=== PATIENT | male | born 1945 | race Caucasian/White ===

== ENCOUNTER → 2018-07-27 | Outpatient (CLI) | payer MEDICARE, BC ==
--- NOTE | 2018-07-27 12:54 | US ---
EXAMINATION TYPE: US prostate transrectal DATE OF EXAM: 07/27/2018 COMPARISON: NONE CLINICAL HISTORY: R97.2 elevated PSA. no symptoms, patient very upset to have procedure done This examination was performed using the transrectal probe. EXAM MEASUREMENTS: Gland Size: 5.0 x 5.5 x 3.5 Volume: 50.50 Predicted PSA: 6.0 Actual PSA (if available):6.2 CZ had normal calcifications seen with no obvious abnormality seen within heterogeneous PZ. patient very tense at the beginning of exam, once he relaxed I was able to visualize the seminal ve sicles and base IMPRESSION: Prostate glandular enlargement without suspicious lesion. Predicted PSA = volume x 0.12 ng/ml Calculated Volume = 0.5236 x L x W x H
== END | disposition home or self-care (01) ==
LOC: RADUSMAIN 07:58
PROVIDERS: ATTEND Internal Medicine
DX: N40.0 Benign prostatic hyperplasia without lower urinary tract symptoms (principal)
CPT/HCPCS: 76872

== ENCOUNTER 2019-03-17 19:08 | Inpatient (IN) | payer MEDICARE ==
[2019-03-17] MEDS ORDERED: SODIUM CHLORIDE 0.9% 1,000 ML IV STA (19:17)
[2019-03-17] MEDS ORDERED: FAMOTIDINE 20 MG/2 ML VIAL IV STA (19:18)
--- NOTE | 2019-03-17 19:21 | ED ---
GI Bleed HPI - General Stated complaint: Blood in Stool Time Seen by Provider: 03/17/19 19:08 Source: patient, EMS, RN notes reviewed Mode of arrival: EMS - History of Present Illness Initial comments: This is a 73-year-old male with a history of heart disease and 2 stents with no prior history of any abdominal pathology who started having some rectal bleeding 3 days ago he recurred again today had 3 bowel movements with bright red blood also mixed in with some brown stool. He has some vague lower abdominal pain especially on the right no fevers chills nausea vomiting sweats he was brought in by EMS. He denies any history of MD complaint: gross hematochezia - Related Data Previous Rx's Medication Instructions Recorded Aspirin EC [Ecotrin] 325 mg PO DAILY tablet. 04/28/16 Atenolol [Tenormin] 50 mg PO DAILY #90 tab 04/28/16 Atorvastatin [Lipitor] 80 mg PO HS #90 tab 04/28/16 Clopidogrel [Plavix] 75 mg PO DAILY #90 tab 04/28/16 Lisinopril [Zestril] 10 mg PO DAILY #90 tab 04/28/16 amLODIPine [Norvasc] 10 mg PO DAILY #90 tab 04/28/16 Allergies Allergy/AdvReac Type Severity Reaction Status Date / Time No Known Allergies Allergy Verified 03/17/19 20:00 Review of Systems ROS Statement: Those systems with pertinent positive or pertinent negative responses have been documented in the HPI. ROS Other: All systems not noted in ROS Statement are negative. Past Medical History Past Medical History: Hyperlipidemia, Hypertension, Myocardial Infarction ([place]) Last Myocardial Infarction Date:: pt unsure History of Any Multi-Drug Resistant Organisms: None Reported Past Surgical History: Heart Catheterization With Stent Past Anesthesia/Blood Transfusion Reactions: No Reported Reaction Date of Last Stent Placement:: 2008 Past Psychological History: No Psychological Hx Reported Smoking Status: Former smoker Past Alcohol Use History: Occasional Additional Past Alcohol Use History / Comment(s): a beer a week, crown royal on occasion Past Drug Use History: None Reported - Past Family History Father Family Medical History: Myocardial Infarction ([place]) Additional Family Medical History / Comment(s): from a [place] Mother Family Medical History: Myocardial Infarction ([place]) Additional Family Medical History / Comment(s): from a [place] General Exam - General Exam Comments Initial Comments: This is a well-developed well-nourished awake alert oriented times 3 male he does appear to be pale General appearance: alert, anxious Head exam: Present: atraumatic, normocephalic, normal inspection Eye exam: Present: normal appearance, PERRL, EOMI. Absent: scleral icterus, conjunctival injection, periorbital swelling ENT exam: Present: normal exam, mucous membranes moist Neck exam: Present: normal inspection, full ROM, other (Stridor JVD or bruits). Absent: tenderness, meningismus, lymphadenopathy Respiratory exam: Present: normal lung sounds bilaterally. Absent: respiratory distress, wheezes, rales, rhonchi, stridor Cardiovascular Exam: Present: regular rate, normal rhythm, normal heart sounds. Absent: systolic murmur, diastolic murmur, rubs, gallop, clicks GI/Abdominal exam: Present: soft, tenderness (Mild tenderness palpation over the right flank and midabdomen no guarding rebound masses or bruits), normal bowel sounds. Absent: distended, guarding, rebound, rigid Rectal exam: Present: normal inspection, heme (+) stool, other (Black member the stool noted on rectal exam no masses palpable) Extremities exam: Present: normal inspection, full ROM, normal capillary refill. Absent: tenderness, pedal edema, joint swelling, calf tenderness Back exam: Present: normal inspection Neurological exam: Present: alert, oriented X3, CN II-XII intact Psychiatric exam: Present: normal affect, normal mood Skin exam: Present: warm, dry, intact, normal color. Absent: rash Course Vital Signs 03/17/19 03/17/19 03/17/19 19:11 19:56 20:09 Temperature 98.1 F Pulse Rate 91 84 86 Respiratory 18 Rate Blood Pressure 125/63 O2 Sat by Pulse 95 Oximetry - Reevaluation(s) Reevaluation #1: 03/17/19 21:22 The patient did get improvement in his breathing after the nebulizer treatment. Procedures - Smoking Cessation Time Spent Discussing Smoking Cessation w/Patient (Minutes): 3 Patient Acknowledges Need for Cessation: Yes Medical Decision Making - Medical Decision Making I did discuss findings with patient's family the patient is feeling improved after the nebulizer treatment he does demonstrate evidence of GI bleeding with anemia. He also has evidence of bronchospasm likely on the basis of smoking for many years. Patient will be admitted I did discuss case with Dr. Fairbanks. GI will be consulted. Patient be started on IV fluids with every 6 hours H&H is. He'll also be started on some pump inhibitor. Nebulizer she will continue patient will be ordered nicotine patch. - Lab Data Result diagrams: 03/17/19 19:28 03/17/19 19:28 Lab Results 03/17/19 03/17/19 03/17/19 Range/Units 19:28 19:28 19:28 WBC 10.8 H (3.8-10.6) k/uL RBC 3.19 L (4.30-5.90) m/uL Hgb 9.7 L (13.0-17.5) gm/dL Hct 30.1 L (39.0-53.0) % MCV 94.4 (80.0-100.0) fL MCH 30.6 (25.0-35.0) pg MCHC 32.4 (31.0-37.0) g/dL RDW 13.4 (11.5-15.5) % Plt Count 344 (150-450) k/uL Neutrophils % 81 % Lymphocytes % 13 % Monocytes % 3 % Eosinophils % 2 % Basophils % 0 % Neutrophils # 8.8 H (1.3-7.7) k/uL Lymphocytes # 1.4 (1.0-4.8) k/uL Monocytes # 0.3 (0-1.0) k/uL Eosinophils # 0.2 (0-0.7) k/uL Basophils # 0.0 (0-0.2) k/uL PT 10.4 (9.0-12.0) sec INR 1.0 (<1.2) APTT 20.1 L (22.0-30.0) sec Sodium 141 (137-145) mmol/L Potassium 5.0 (3.5-5.1) mmol/L Chloride 109 H (98-107) mmol/L Carbon Dioxide 21 L (22-30) mmol/L Anion Gap 11 mmol/L BUN 65 H (9-20) mg/dL Creatinine 1.43 H (0.66-1.25) mg/dL Est GFR (CKD-EPI)AfAm 57 (>60 ml/min/1.73 sqM) Est GFR (CKD-EPI)NonAf 49 (>60 ml/min/1.73 sqM) Glucose 157 H (74-99) mg/dL Calcium 8.8 (8.4-10.2) mg/dL Magnesium 1.8 (1.6-2.3) mg/dL Total Bilirubin 0.2 (0.2-1.3) mg/dL AST 15 L (17-59) U/L ALT 15 L (21-72) U/L Alkaline Phosphatase 36 L (38-126) U/L Creatine Kinase 32 L (55-170) U/L Troponin I (0.000-0.034) ng/mL Total Protein 5.7 L (6.3-8.2) g/dL Albumin 3.4 L (3.5-5.0) g/dL Stool Occult Blood (Negative) Blood Type Blood Type Recheck Antibody Screen Spec Expiration Date 03/17/19 03/17/19 03/17/19 Range/Units 19:28 19:28 20:20 WBC (3.8-10.6) k/uL RBC (4.30-5.90) m/uL Hgb (13.0-17.5) gm/dL Hct (39.0-53.0) % MCV (80.0-100.0) fL MCH (25.0-35.0) pg MCHC (31.0-37.0) g/dL RDW (11.5-15.5) % Plt Count (150-450) k/uL Neutrophils % % Lymphocytes % % Monocytes % % Eosinophils % % Basophils % % Neutrophils # (1.3-7.7) k/uL Lymphocytes # (1.0-4.8) k/uL Monocytes # (0-1.0) k/uL Eosinophils # (0-0.7) k/uL Basophils # (0-0.2) k/uL PT (9.0-12.0) sec INR (<1.2) APTT (22.0-30.0) sec Sodium (137-145) mmol/L Potassium (3.5-5.1) mmol/L Chloride (98-107) mmol/L Carbon Dioxide (22-30) mmol/L Anion Gap mmol/L BUN (9-20) mg/dL Creatinine (0.66-1.25) mg/dL Est GFR (CKD-EPI)AfAm (>60 ml/min/1.73 sqM) Est GFR (CKD-EPI)NonAf (>60 ml/min/1.73 sqM) Glucose (74-99) mg/dL Calcium (8.4-10.2) mg/dL Magnesium (1.6-2.3) mg/dL Total Bilirubin (0.2-1.3) mg/dL AST (17-59) U/L ALT (21-72) U/L Alkaline Phosphatase (38-126) U/L Creatine Kinase (55-170) U/L Troponin I <0.012 (0.000-0.034) ng/mL Total Protein (6.3-8.2) g/dL Albumin (3.5-5.0) g/dL Stool Occult Blood Positive (Negative) Blood Type AB Positive Blood Type Recheck CABO Indicated Antibody Screen NEGATIVE Spec Expiration Date 03/20/2019 9092 - EKG Data -: EKG Interpreted by Me (Sinus rhythm rate 91 appear interval 146 QRS duration 84 QT/QTC 338/414 ) - Radiology Data Radiology results: report reviewed (Imaging was unremarkable.), image reviewed Disposition Clinical Impression: Acute GI bleeding, Anemia, Acute bronchospasm, Smoking Disposition: ADMITTED IP TO THIS [facility] Condition: Fair Referrals: Hunter Perdue MD [Primary Care Provider] - 1-2 days
[2019-03-17 19:38] LABS: Basophils % (A) 0 %; Eosinophils # (A) 0.2 k/uL (0-0.7); Eosinophils % (A) 2 %; HCT 30.1 % (39.0-53.0); HGB 9.7 gm/dL (13.0-17.5); Lymphocytes # (A) 1.4 k/uL (1.0-4.8); Lymphocytes % (A) 13 %; MCH 30.6 pg (25.0-35.0); MCHC 32.4 g/dL (31.0-37.0); MCV 94.4 fL (80.0-100.0); Mean Platelet Volume 7.3; Monocytes # (A) 0.3 k/uL (0-1.0); Monocytes % (A) 3 %; Neutrophils # (A) 8.8 k/uL (1.3-7.7); Neutrophils % (A) 81 %; Platelet Count 344 k/uL (150-450); RBC 3.19 m/uL (4.30-5.90); RDW 13.4 % (11.5-15.5); WBC 10.8 k/uL (3.8-10.6)
[2019-03-17] MEDS ORDERED: IPRATROPIUM-ALBUTEROL 3 ML NEB INHALATION STA (19:40)
[2019-03-17 19:50] LABS: Albumin 3.4 g/dL (3.5-5.0); Calcium 8.8 mg/dL (8.4-10.2); Magnesium 1.8 mg/dL (1.6-2.3); Total Bilirubin 0.2 mg/dL (0.2-1.3); Total Protein 5.7 g/dL (6.3-8.2)
[2019-03-17 19:53] LABS: Prothrombin Time 10.4 sec (9.0-12.0)
[2019-03-17 19:57] LABS: Partial Thromboplastin Time 20.1 sec (22.0-30.0)
--- NOTE | 2019-03-17 20:11 | XR ---
EXAMINATION TYPE: XR chest 2V DATE OF EXAM: 03/17/2019 COMPARISON: 04/27/2016 HISTORY: Short of breath TECHNIQUE: Frontal and lateral views of the chest are obtained. FINDINGS: Heart is normal. Lungs are clear of infiltrate. Costophrenic angles are clear. There are c hest leads. Thoracic aorta is atheromatous. IMPRESSION: No active cardiopulmonary disease. Normal heart. No change.
[2019-03-17] MEDS ORDERED: NALOXONE 0.4 MG/ML 1 ML VIAL IV PRN (21:27)
[2019-03-17] MEDS ORDERED: NICOTINE 21MG/24HR PATCH TRANSDERM STA (22:08)
[2019-03-17] MEDS: SODIUM CHLORIDE 0.9% 1,000 ML IV SCH (22:09)
[2019-03-18] MEDS: ATENOLOL 50 MG TAB PO SCH (07:52)
[2019-03-18] MEDS: PANTOPRAZOLE 40 MG/10 ML VIAL IV SCH ×2 (07:52→20:16)
[2019-03-18] MEDS: SODIUM CHLORIDE 0.9% 1,000 ML IV SCH ×2 (08:50→17:02)
[2019-03-18] MEDS ORDERED: LISINOPRIL 10 MG TAB PO SCH (09:00)
[2019-03-18] MEDS ORDERED: amLODIPine 10 MG TAB PO SCH (09:00)
[2019-03-18 09:13] LABS: HCT 23.4 % (39.0-53.0); MCH 30.5 pg (25.0-35.0); MCHC 31.9 g/dL (31.0-37.0); MCV 95.6 fL (80.0-100.0); Mean Platelet Volume 7.6; Platelet Count 263 k/uL (150-450); RBC 2.45 m/uL (4.30-5.90); RDW 13.4 % (11.5-15.5); WBC 8.2 k/uL (3.8-10.6)
[2019-03-18 09:14] LABS: HGB 7.5 gm/dL (13.0-17.5)
[2019-03-18 15:05] LABS: HCT 22.6 % (39.0-53.0); HGB 7.6 gm/dL (13.0-17.5); MCH 31.8 pg (25.0-35.0); MCHC 33.5 g/dL (31.0-37.0); MCV 94.9 fL (80.0-100.0); Mean Platelet Volume 7.7; Platelet Count 248 k/uL (150-450); RBC 2.38 m/uL (4.30-5.90); RDW 14.1 % (11.5-15.5)
--- NOTE | 2019-03-18 15:09 | P.HPIM ---
History of Present Illness 73-year-old pleasant gentleman came in with compensative bright red blood per rectum as well as dark stools appears to have GI bleed patient hemoglobin has come down from 13-9-10 is his baseline patient had 1 soft bowel movement today. Patient was started on Protonix. She does take aspirin at home. Patient is bit lightheaded today patient is on lisinopril and amlodipine the workup continued and patient blood pressure is low because of which patient was lightheaded. Patient was evaluated by gastroneurology patient was having epigastric abdominal discomfort as well which improved now patient is feeling much better now. Review of Systems REVIEW OF SYSTEMS: CONSTITUTIONAL: No fever, no malaise, no fatigue. HEENT: No recent visual problems or hearing problems. Denied any sore throat. CARDIOVASCULAR: No chest pain, orthopnea, PND, no palpitations, no syncope. PULMONARY: No shortness of breath, no cough, no hemoptysis. GASTROINTESTINAL: As mentioned in HPI NEUROLOGICAL: No headaches, no weakness, no numbness. HEMATOLOGICAL: Denies any bleeding or petechiae. GENITOURINARY: Denies any burning micturition, frequency, or urgency. MUSCULOSKELETAL/RHEUMATOLOGICAL: Denies any joint pain, swelling, or any muscle pain. ENDOCRINE: Denies any polyuria or polydipsia. The rest of the 14-point review of systems is negative. Past Medical History Past Medical History: Hyperlipidemia, Hypertension, Myocardial Infarction ([place]) Last Myocardial Infarction Date:: pt unsure History of Any Multi-Drug Resistant Organisms: None Reported Past Surgical History: Heart Catheterization With Stent Additional Past Surgical History / Comment(s): tooth sx Past Anesthesia/Blood Transfusion Reactions: No Reported Reaction Date of Last Stent Placement:: 2008 Past Psychological History: No Psychological Hx Reported Smoking Status: Former smoker Past Alcohol Use History: Occasional Additional Past Alcohol Use History / Comment(s): a beer a week, crown royal on occasion Past Drug Use History: None Reported - Past Family History Father Family Medical History: Myocardial Infarction ([place]) Additional Family Medical History / Comment(s): from a [place] Mother Family Medical History: Myocardial Infarction ([place]) Additional Family Medical History / Comment(s): from a [place] Medications and Allergies Home Medications Medication Instructions Recorded Confirmed Type Aspirin EC [Ecotrin] 325 mg PO DAILY tablet. 04/28/16 03/17/19 Rx Atenolol [Tenormin] 50 mg PO DAILY #90 tab 04/28/16 03/17/19 Rx Atorvastatin [Lipitor] 80 mg PO HS #90 tab 04/28/16 03/17/19 Rx Clopidogrel [Plavix] 75 mg PO DAILY #90 tab 04/28/16 03/17/19 Rx Lisinopril [Zestril] 10 mg PO DAILY #90 tab 04/28/16 03/17/19 Rx amLODIPine [Norvasc] 10 mg PO DAILY #90 tab 04/28/16 03/17/19 Rx Allergies Allergy/AdvReac Type Severity Reaction Status Date / Time No Known Allergies Allergy Verified 03/17/19 20:00 Physical Exam Vitals: Vital Signs Temp Pulse Pulse Resp BP BP Pulse Ox 03/18/19 12:37 98.8 F 61 16 95/55 93 L 03/18/19 05:17 98.1 F 77 20 148/65 95 03/17/19 22:45 97.8 F 91 20 149/79 93 L 03/17/19 21:50 98.3 F 62 18 129/67 97 03/17/19 20:09 86 03/17/19 19:56 84 03/17/19 19:11 98.1 F 91 18 125/63 95 Intake and Output 03/18/19 03/18/19 03/18/19 06:59 14:59 22:59 Intake Total 100 940 Balance 100 940 Intake: Oral 100 940 Other: # Voids 1 3 # Bowel Movements 1 PHYSICAL EXAMINATION: GENERAL: The patient is alert and oriented x3, not in any acute distress. Well developed, well nourished. HEENT: Pupils are round and equally reacting to light. EOMI. No scleral icterus. No conjunctival pallor. Normocephalic, atraumatic. No pharyngeal erythema. No thyromegaly. CARDIOVASCULAR: S1 and S2 present. No murmurs, rubs, or gallops. PULMONARY: Chest is clear to auscultation, no wheezing or crackles. ABDOMEN: Soft, nontender, nondistended, normoactive bowel sounds. No palpable organomegaly. MUSCULOSKELETAL: No joint swelling or deformity. EXTREMITIES: No cyanosis, clubbing, or pedal edema. NEUROLOGICAL: Gross neurological examination did not reveal any focal deficits. SKIN: No rashes. Results CBC & Chem 7: 03/18/19 14:54 03/17/19 19:28 Labs: Abnormal Lab Results - Last 24 Hours (Table) 03/17/19 03/17/19 03/17/19 Range/Units 19:28 19:28 19:28 WBC 10.8 H (3.8-10.6) k/uL RBC 3.19 L (4.30-5.90) m/uL Hgb 9.7 L (13.0-17.5) gm/dL Hct 30.1 L (39.0-53.0) % Neutrophils # 8.8 H (1.3-7.7) k/uL APTT 20.1 L (22.0-30.0) sec Chloride 109 H (98-107) mmol/L Carbon Dioxide 21 L (22-30) mmol/L BUN 65 H (9-20) mg/dL Creatinine 1.43 H (0.66-1.25) mg/dL Glucose 157 H (74-99) mg/dL AST 15 L (17-59) U/L ALT 15 L (21-72) U/L Alkaline Phosphatase 36 L (38-126) U/L Creatine Kinase 32 L (55-170) U/L Total Protein 5.7 L (6.3-8.2) g/dL Albumin 3.4 L (3.5-5.0) g/dL 03/18/19 03/18/19 Range/Units 07:31 14:54 WBC (3.8-10.6) k/uL RBC 2.45 L 2.38 L (4.30-5.90) m/uL Hgb 7.5 L D 7.6 L (13.0-17.5) gm/dL Hct 23.4 L 22.6 L (39.0-53.0) % Neutrophils # (1.3-7.7) k/uL APTT (22.0-30.0) sec Chloride (98-107) mmol/L Carbon Dioxide (22-30) mmol/L BUN (9-20) mg/dL Creatinine (0.66-1.25) mg/dL Glucose (74-99) mg/dL AST (17-59) U/L ALT (21-72) U/L Alkaline Phosphatase (38-126) U/L Creatine Kinase (55-170) U/L Total Protein (6.3-8.2) g/dL Albumin (3.5-5.0) g/dL Thrombosis Risk Factor Assmnt - Choose All That Apply Each Factor Represents 1 point: Swollen legs (current) Other Risk Factors: Yes Each Risk Factor Represents 2 Points: Age 61-74 years Other congenital or acquired thrombophilia - If yes, enter type in comment: No Thrombosis Risk Factor Assessment Total Risk Factor Score: 3 Thrombosis Risk Factor Assessment Level: Moderate Risk Assessment and Plan Plan: Acute blood loss anemia from possible acute upper GI bleed: Patient the will be continued on Protonix. Hold off on antiplatelet therapy patient had a cardiac catheterization and stenting in 2008. Monitor for any more dark stools clinically. Repeat CBC tomorrow morning. Any with IV fluids. -acute renal failure secondary to acute GI bleed expected to improve with IV fluids. GI bleed is improving Coronary artery disease patient will not require any dual antiplatelet therapy patient may need to undergo upper GI endoscopy -Hypertension patient is basically hypotensive because of GI bleed will hold off on blood pressure medications as mentioned above -Hyperlipidemia Due to prophylaxis SCDs
--- NOTE | 2019-03-18 18:03 | P.CONS ---
History of Present Illness - Reason for Consult Consult date: 03/18/19 GI bleed Requesting physician: Juan Carlos Fairbanks - Chief Complaint Rectal bleeding - History of Present Illness 73-year-old male with a past medical history significant for coronary artery disease status post stent placement in the remote past who presents to the hospital with reports of blood per rectum. The patient reports that 3 days ago he noticed blood with bowel movements. He associates this was taking Advil and Tylenol. He reports that the bowel movements then became normal again were bloody on the day prior to presentation. He states he had 3 episodes of painless bright red blood per rectum. He reports blood in the toilet. He denies any prior episodes of blood per rectum. He did have some lower abdominal cramping but currently reports that this is resolved. He does report dark bowel movement today. The patient is on home therapy with Plavix and aspirin. He denies any family history of colon cancer or polyps. He reports that his last colonoscopy was approximately 5 years ago and normal. On presentation he had a chest x-ray which was negative for any cardiopulmonary disease. Stool testing was positive for occult blood. Hemoglobin was 9.7 on presentation and subsequently fell to 7.5. WBC 8.2, platelet count 263,000, total bilirubin 0.2, alkaline phosphatase 36, AST 15 and ALT 15. Review of Systems REVIEW OF SYSTEMS: CONSTITUTIONAL: Denies any fevers, chills, weight change or fatigue. CARDIOVASCULAR: Denies any chest pain, palpitations high or low blood pressures RESPIRATORY: Denies any shortness of breath, hemoptysis or cough. GENITOURINARY: No dysuria or hematuria. MUSCULOSKELETAL: No weakness reported. SKIN: Denies any new rashes or lesions, jaundice or pallor. PSYCHIATRIC: Denies any depression or anxiety. NEUROLOGY: Denies headache, denies any new focal deficits. EARS/NOSE/THROAT: No recent hearing change, congestion, nasal discharge or sore throat. EYES: No pain in eyes, discharge or change in vision. GASTROINTESTINAL: As per HPI. Past Medical History Past Medical History: Hyperlipidemia, Hypertension, Myocardial Infarction ([place]) Last Myocardial Infarction Date:: pt unsure History of Any Multi-Drug Resistant Organisms: None Reported Past Surgical History: Heart Catheterization With Stent Additional Past Surgical History / Comment(s): tooth sx Past Anesthesia/Blood Transfusion Reactions: No Reported Reaction Date of Last Stent Placement:: 2008 Past Psychological History: No Psychological Hx Reported Smoking Status: Former smoker Past Alcohol Use History: Occasional Additional Past Alcohol Use History / Comment(s): a beer a week, crown royal on occasion Past Drug Use History: None Reported - Past Family History Father Family Medical History: Myocardial Infarction ([place]) Additional Family Medical History / Comment(s): from a [place] Mother Family Medical History: [place]ocardial Infarction ([place]) Additional Family Medical History / Comment(s): from a [place] Medications and Allergies Home Medications Medication Instructions Recorded Confirmed Type Aspirin EC [Ecotrin] 325 mg PO DAILY tablet. 04/28/16 03/17/19 Rx Atenolol [Tenormin] 50 mg PO DAILY #90 tab 04/28/16 03/17/19 Rx Atorvastatin [Lipitor] 80 mg PO HS #90 tab 04/28/16 03/17/19 Rx Clopidogrel [Plavix] 75 mg PO DAILY #90 tab 04/28/16 03/17/19 Rx Lisinopril [Zestril] 10 mg PO DAILY #90 tab 04/28/16 03/17/19 Rx amLODIPine [Norvasc] 10 mg PO DAILY #90 tab 04/28/16 03/17/19 Rx Allergies Allergy/AdvReac Type Severity Reaction Status Date / Time No Known Allergies Allergy Verified 03/17/19 20:00 Physical Exam Vitals: Vital Signs Temp Pulse Pulse Resp BP BP Pulse Ox 03/18/19 05:17 98.1 F 77 20 148/65 95 03/17/19 22:45 97.8 F 91 20 149/79 93 L 03/17/19 21:50 98.3 F 62 18 129/67 97 03/17/19 20:09 86 03/17/19 19:56 84 03/17/19 19:11 98.1 F 91 18 125/63 95 Intake and Output 03/17/19 03/18/19 03/18/19 22:59 06:59 14:59 Intake Total 100 200 Balance 100 200 Intake: Oral 100 200 Other: # Voids 1 # Bowel Movements 1 Weight 74.843 kg On physical examination, patient appears comfortable in no apparent distress. HEAD: Normocephalic, atraumatic. EYES: No scleral icterus. No conjunctival injection. MOUTH: No lesions, tongue midline. NECK: Trachea midline, no gross abnormalities. CHEST: Clear to auscultation with no wheezing or rhonchi appreciated. HEART: Regular rate and rhythm. ABDOMEN: Soft, obese. Bowel sounds are positive. No organomegaly. No guarding or rigidity. EXTREMITIES: No pedal edema. SKIN: No rashes, no jaundice. NEUROLOGIC: Alert and oriented x3. No focal deficits. Results CBC & Chem 7: 03/18/19 14:54 03/17/19 19:28 Labs: Abnormal Lab Results - Last 24 Hours (Table) 03/17/19 03/17/19 03/17/19 Range/Units 19:28 19:28 19:28 WBC 10.8 H (3.8-10.6) k/uL RBC 3.19 L (4.30-5.90) m/uL Hgb 9.7 L (13.0-17.5) gm/dL Hct 30.1 L (39.0-53.0) % Neutrophils # 8.8 H (1.3-7.7) k/uL APTT 20.1 L (22.0-30.0) sec Chloride 109 H (98-107) mmol/L Carbon Dioxide 21 L (22-30) mmol/L BUN 65 H (9-20) mg/dL Creatinine 1.43 H (0.66-1.25) mg/dL Glucose 157 H (74-99) mg/dL AST 15 L (17-59) U/L ALT 15 L (21-72) U/L Alkaline Phosphatase 36 L (38-126) U/L Creatine Kinase 32 L (55-170) U/L Total Protein 5.7 L (6.3-8.2) g/dL Albumin 3.4 L (3.5-5.0) g/dL 03/18/19 Range/Units 07:31 WBC (3.8-10.6) k/uL RBC 2.45 L (4.30-5.90) m/uL Hgb 7.5 L D (13.0-17.5) gm/dL Hct 23.4 L (39.0-53.0) % Neutrophils # (1.3-7.7) k/uL APTT (22.0-30.0) sec Chloride (98-107) mmol/L Carbon Dioxide (22-30) mmol/L BUN (9-20) mg/dL Creatinine (0.66-1.25) mg/dL Glucose (74-99) mg/dL AST (17-59) U/L ALT (21-72) U/L Alkaline Phosphatase (38-126) U/L Creatine Kinase (55-170) U/L Total Protein (6.3-8.2) g/dL Albumin (3.5-5.0) g/dL Chest x-ray: report reviewed (X-ray of the chest negative for any cardiopulmonary disease.) Assessment and Plan (1) Acute GI bleeding Narrative/Plan: 73-year-old male with a known history of coronary artery disease on dual antiplatelet therapy with Plavix and aspirin who presented to the hospital with multiple episodes of bright blood per rectum. Differential includes diverticular bleed, ischemic colitis, AVM or less likely upper GI bleed or other etiology. Currently patient is reporting his last bowel movement was dark in color and hemoglobin has been stable on repeat draw. Current Visit: Yes Status: Acute Code(s): K92.2 - GASTROINTESTINAL HEMORRHAGE, UNSPECIFIED SNOMED Code(s): 15671603 (2) Anemia due to blood loss, acute Current Visit: Yes Status: Acute Code(s): D62 - ACUTE POSTHEMORRHAGIC ANEMIA SNOMED Code(s): 983112719 Plan: Supportive care Clear liquid diet Continue to monitor hemoglobin and hematocrit and transfuse as needed Continue to monitor stool output Continue to hold Plavix therapy Avoid NSAID use Continue Protonix therapy The patient's hemoglobin remains stable and no further symptoms develop would recommend advancing diet with plan to restart Plavix therapy and for outpatient colonoscopy, however if patient has further fall in hemoglobin or symptoms we'll reevaluate for possible inpatient endoscopic evaluation Thank you for allowing us to participate in the care of the patient we will continue to follow
[2019-03-18] MEDS: ATORVASTATIN 80 MG TAB PO SCH (20:14)
[2019-03-19] MEDS: SODIUM CHLORIDE 0.9% 1,000 ML IV SCH ×2 (05:36→17:30)
[2019-03-19] MEDS: PANTOPRAZOLE 40 MG/10 ML VIAL IV SCH (08:28)
[2019-03-19] MEDS: ATENOLOL 50 MG TAB PO SCH (08:28)
[2019-03-19 12:25] LABS: HCT 22.3 % (39.0-53.0); HGB 7.1 gm/dL (13.0-17.5); MCH 30.3 pg (25.0-35.0); MCHC 31.7 g/dL (31.0-37.0); MCV 95.6 fL (80.0-100.0); Mean Platelet Volume 7.3; Platelet Count 256 k/uL (150-450); RBC 2.33 m/uL (4.30-5.90); RDW 14.4 % (11.5-15.5); WBC 7.8 k/uL (3.8-10.6)
[2019-03-19 12:26] LABS: Calcium 8.3 mg/dL (8.4-10.2); Potassium 4.8 mmol/L (3.5-5.1)
[2019-03-19] MEDS ORDERED: IV FLUID CONTINUATION 1,000 ML IV ONE (14:14)
[2019-03-19] MEDS ORDERED: PROPOFOL 10 MG/ML 20 ML VIAL IV ONE (14:15)
[2019-03-19] MEDS ORDERED: LIDOCAINE 1% INJ 10MG/ML (20 ML MDV) ONE (14:15)
--- NOTE | 2019-03-19 14:39 | P.PCN ---
Date of Procedure: 03/19/19 Description of Procedure: BRIEF HISTORY: 73-year-old male with a past medical history significant for coronary artery disease status post stent placement in the remote past who presents to the hospital with reports of blood per rectum. The patient reports that 3 days ago he noticed blood with bowel movements. He associates this was taking Advil and Tylenol. He reports that the bowel movements then became normal again were bloody on the day prior to presentation. He states he had 3 episodes of painless bright red blood per rectum. He reports blood in the toilet. He denies any prior episodes of blood per rectum. He did have some lower abdominal cramping but currently reports that this is resolved. He does report dark bowel movement today. The patient is on home therapy with Plavix and aspirin. He denies any family history of colon cancer or polyps. He reports that his last colonoscopy was approximately 5 years ago and normal. On presentation he had a chest x-ray which was negative for any cardiopulmonary disease. Stool testing was positive for occult blood. Hemoglobin was 9.7 on presentation and subsequently fell to 7.5. WBC 8.2, platelet count 263,000, total bilirubin 0.2, alkaline phosphatase 36, AST 15 and ALT 15.. PROCEDURE PERFORMED: Esophagogastroduodenoscopy with biopsy. PREOPERATIVE DIAGNOSIS: GI bleed, anemia of acute blood loss. ESTIMATED BLOOD LOSS: Minimal. IV sedation per anesthesia. PROCEDURE: After informed consent was obtained, the patient was brought into the endoscopy unit. IV sedation was administered by Anesthesia under continuous monitoring. Initially the Olympus GIF-190 video endoscope was inserted into the mouth. Esophagus intubated without any difficulty. It was gradually advanced into the stomach and duodenum and carefully examined. The bulb and the second part of the duodenum appeared normal except for some mild scattered erythema suggestive of mild duodenitis which was biopsied. The scope at this time was withdrawn to the stomach, adequately insufflated with air, and upon careful examination, mucosa of the antrum, body, cardia and the fundus appeared normal except for some mild scattered erythema in the antrum and body suggestive of mild gastritis with biopsies taken. The scope was then withdrawn into the esophagus. The GE junction was located at 40 cm from the incisors. The esophagus appeared normal. There were no erosions or ulcerations seen and the patient tolerated the procedure well. IMPRESSION: 1. Mild gastritis antrum and body, biopsied. 2. Mild duodenitis, biopsied. RECOMMENDATIONS: The findings of this examination were discussed with the patient and his family. Okay for low fiber diet. Continue to monitor hemoglobin and transfuse as needed. Continue Protonix 40 mg daily. Avoid NSAID use. Okay to resume Plavix tomorrow. Follow up after discharge for scheduling of colonoscopy for further evaluation of GI bleeding.
--- NOTE | 2019-03-19 14:41 | P.PN ---
Subjective Patient is a admitted for most probably for upper GI bleed patient doesn't have any more GI bleed patient's hemoglobin is 7.5 today. Serum creatinine improved and patient's IV fluids will be discontinued. Patient may require upper GI endoscopy Constitutional: Denied any fatigue denied any fever. Cardio vascular: denied any chest pain, palpitations Gastrointestinal denied any nausea vomiting Pulmonary: Denied any shortness of breath cough Neurologic denied any new focal deficits All inpatient medications were reviewed and appropriate changes in these medications as dictated in the interval history and assessment and plan. Objective - Vital Signs Vital signs: Vital Signs Temp 98.3 F 03/19/19 13:58 Pulse 65 03/19/19 13:58 Resp 16 03/19/19 13:58 BP 100/51 03/19/19 13:58 Pulse Ox 94 L 03/19/19 13:58 Intake & Output 03/18/19 03/19/19 03/19/19 18:59 06:59 18:59 Intake Total 1480 300 50 Balance 1480 300 50 Intake: IV 50 Oral 1480 300 Other: # Voids 1 1 3 # Bowel Movements 1 0 - Exam PHYSICAL EXAMINATION: GENERAL: The patient is alert and oriented x3, not in any acute distress. Well developed, well nourished. HEENT: Pupils are round and equally reacting to light. EOMI. No scleral icterus. Does have conjunctival pallor. Normocephalic, atraumatic. No pharyngeal sea thema. No thyromegaly. CARDIOVASCULAR: S1 and S2 present. No murmurs, rubs, or gallops. PULMONARY: Chest is clear to auscultation, no wheezing or crackles. ABDOMEN: Soft, nontender, nondistended, normoactive bowel sounds. No palpable organomegaly. MUSCULOSKELETAL: No joint swelling or deformity. EXTREMITIES: No cyanosis, clubbing, or pedal edema. NEUROLOGICAL: Gross neurological examination did not reveal any focal deficits. SKIN: No rashes. - Labs CBC & Chem 7: 03/19/19 11:44 03/19/19 11:44 Labs: Abnormal Lab Results - Last 24 Hours (Table) 03/18/19 03/19/19 03/19/19 Range/Units 14:54 11:44 11:44 RBC 2.38 L 2.33 L (4.30-5.90) m/uL Hgb 7.6 L 7.1 L (13.0-17.5) gm/dL Hct 22.6 L 22.3 L (39.0-53.0) % Chloride 114 H (98-107) mmol/L BUN 24 H (9-20) mg/dL Calcium 8.3 L (8.4-10.2) mg/dL Assessment and Plan Plan: Acute blood loss anemia from possible acute upper GI bleed: Patient the will be continued on Protonix. Hold off on antiplatelet therapy patient had a cardiac catheterization and stenting in 2008. Monitor for any more dark stools clinically. -acute renal failure secondary to acute GI bleed improved with IV fluids no more GI bleed at this time Coronary artery disease patient will not require any dual antiplatelet therapy patient may need to undergo upper GI endoscopy -Hypertension patient is basically hypotensive because of GI bleed will hold off on blood pressure medications as mentioned above -Hyperlipidemia Due to prophylaxis SCDs
[2019-03-19] MEDS: ATORVASTATIN 80 MG TAB PO SCH (21:15)
[2019-03-20 06:34] VITALS: BP 118/64; PULSE 72; RESP 16; TEMP 98.4
[2019-03-20] MEDS ORDERED: PANTOPRAZOLE 40 MG TABLET PO SCH (07:30)
[2019-03-20] MEDS ORDERED: METOPROLOL TARTRATE 25 MG TAB PO SCH (09:00)
[2019-03-20 11:20] LABS: HCT 22.7 % (39.0-53.0); HGB 7.3 gm/dL (13.0-17.5); MCH 30.8 pg (25.0-35.0); MCHC 32.1 g/dL (31.0-37.0); MCV 95.7 fL (80.0-100.0); Mean Platelet Volume 7.2; Platelet Count 263 k/uL (150-450); RBC 2.38 m/uL (4.30-5.90); RDW 14.2 % (11.5-15.5); WBC 7.6 k/uL (3.8-10.6)
[2019-03-20 11:26] LABS: Calcium 8.5 mg/dL (8.4-10.2); Potassium 4.5 mmol/L (3.5-5.1)
--- NOTE | 2019-03-20 15:48 | P.DS ---
Providers Date of admission: 03/18/19 13:27 Attending physician: Juan Carlos Fairbanks Primary care physician: [facility] Hospital Course: Patient is a admitted for most probably for upper GI bleed patient doesn't have any more GI bleed patient's hemoglobin is 7.5 today. Serum creatinine improved and patient's IV fluids will be discontinued. Patient may require upper GI endoscopy 03/20/2019 Patient's hemoglobin is stable patient underwent upper GI endoscopy which showed duodenitis and gastritis patient will be discharged today with some changes in his medications because of hypotension. PHYSICAL EXAMINATION: GENERAL: The patient is alert and oriented x3, not in any acute distress. Well developed, well nourished. HEENT: Pupils are round and equally reacting to light. EOMI. No scleral icterus. Does have conjunctival pallor. Normocephalic, atraumatic. No pharyngeal erythema. No thyromegaly. CARDIOVASCULAR: S1 and S2 present. No murmurs, rubs, or gallops. PULMONARY: Chest is clear to auscultation, no wheezing or crackles. ABDOMEN: Soft, nontender, nondistended, normoactive bowel sounds. No palpable organomegaly. MUSCULOSKELETAL: No joint swelling or deformity. EXTREMITIES: No cyanosis, clubbing, or pedal edema. NEUROLOGICAL: Gross neurological examination did not reveal any focal deficits. SKIN: No rashes. Assessment and Plan Plan: Acute blood loss anemia from possible acute upper GI bleed: Patient the will be continued on Protonix. Patient will not need dual antiplatelet therapy patient will be resumed on Plavix as per gastroenterology aspirin will be discontinued -acute renal failure secondary to acute GI bleed improved with IV fluids no more GI bleed at this time Coronary artery disease patient will not require any dual antiplatelet therapy -Hypertension patient is basically hypotensive because of GI bleed will hold off on blood pressure medications as mentioned above -Hyperlipidemia Patient Condition at Discharge: Fair Plan - Discharge Summary Discharge Rx Participant: No New Discharge Prescriptions: New Metoprolol Tartrate [Lopressor] 25 mg PO BID #60 tab Pantoprazole Sodium [Protonix] 40 mg PO DAILY #30 tablet. Continue Atorvastatin [Lipitor] 80 mg PO HS #90 tab Clopidogrel [Plavix] 75 mg PO DAILY #90 tab Discontinued Aspirin EC [Ecotrin] 325 mg PO DAILY tablet. Atenolol [Tenormin] 50 mg PO DAILY #90 tab Lisinopril [Zestril] 10 mg PO DAILY #90 tab amLODIPine [Norvasc] 10 mg PO DAILY #90 tab Discharge Medication List Atorvastatin [Lipitor] 80 mg PO HS #90 tab 04/28/16 [Rx] Clopidogrel [Plavix] 75 mg PO DAILY #90 tab 04/28/16 [Rx] Metoprolol Tartrate [Lopressor] 25 mg PO BID #60 tab 03/20/19 [Rx] Pantoprazole Sodium [Protonix] 40 mg PO DAILY #30 tablet. 03/20/19 [Rx] Follow up Appointment(s)/Referral(s): Hardy Calderon MD [STAFF PHYSICIAN] - 03/28/19 1:30 pm Hunter Perdue MD [Primary Care Provider] - 03/27/19 2:20 pm Activity/Diet/Wound Care/Special Instructions: Follow with Dr. Calderon to schedule outpt colonoscopy activity as tolerated low fiber diet Discharge Disposition: HOME SELF-CARE
== END 2019-03-20 12:30 | disposition home or self-care (01) | DRG 378 ==
LOC: EC 19:08 → 4MS4W 21:28 → OBSVTOIN 03-18 13:27
PROVIDERS: ADMIT Internal Medicine; ATTEND Internal Medicine
PROC: 0DB98ZX Excision of Duodenum, Via Natural or Artificial Opening Endoscopic, Diagnostic (ICD-10-PCS; principal; 2019-03-19 08:00)
PROC: 0DB78ZX Excision of Stomach, Pylorus, Via Natural or Artificial Opening Endoscopic, Diagnostic (ICD-10-PCS; principal; 2019-03-19 08:00)
DX: K29.01 Acute gastritis with bleeding (principal); D62 Acute posthemorrhagic anemia; N17.9 Acute kidney failure, unspecified; K29.81 Duodenitis with bleeding; E78.5 Hyperlipidemia, unspecified; I10 Essential (primary) hypertension; I25.10 Atherosclerotic heart disease of native coronary artery without angina pectoris; I25.2 Old myocardial infarction; J98.01 Acute bronchospasm; Z79.02 Long term (current) use of antithrombotics/antiplatelets; Z79.82 Long term (current) use of aspirin; Z79.899 Other long term (current) drug therapy; Z82.49 Family history of ischemic heart disease and other diseases of the circulatory system; Z87.891 Personal history of nicotine dependence; Z95.5 Presence of coronary angioplasty implant and graft; Z71.6 Tobacco abuse counseling
CPT/HCPCS: 36415; 43239; 71046; 80048; 80053; 82272; 82550; 83735; 84484; 85025; 85027; 85610; 85730; 86850; 86900; 86901; 88305; 93005; 94640; 96361; 96374; 99285

== ENCOUNTER 2019-04-08 09:16 | Day surgery (SDC) | payer MEDICARE ==
[2019-04-05 12:34] VITALS: BMI 30.9
[2019-04-08] MEDS ORDERED: LACTATED RINGERS 1,000 ML IV ONE (09:50)
[2019-04-08 10:09] VITALS: RESP 16; TEMP 97.6
[2019-04-08] MEDS ORDERED: PROPOFOL 10 MG/ML 20 ML VIAL IV ONE (10:35)
--- NOTE | 2019-04-08 10:50 | P.PCN ---
Date of Procedure: 04/08/19 Procedure(s) Performed: BRIEF HISTORY: Patient is a 73-year-old pleasant white male, scheduled for an elective colonoscopy as a part of recent episode of rectal bleeding that lasted for 3 days. He denies any abdominal pain. No significant change in his bowel habits. His and scheduled for colonoscopy to evaluate further. PROCEDURE PERFORMED: Colonoscopy. PREOPERATIVE DIAGNOSIS: Rectal bleeding. IV sedation per Anesthesia. PROCEDURE: After informed consent was obtained, the patient, was brought into the endoscopy unit. IV sedation was administered by Anesthesia under continuous monitoring. Digital rectal examination was normal. Initially the Olympus CF-160 flexible video colonoscope was then inserted in the rectum, gradually advanced into the cecum without any difficulty. Careful examination was performed as the scope was gradually being withdrawn. Ileocecal valve and the appendiceal orifice were visualized and appeared normal. Prep was excellent. Mucosa of the cecum, ascending colon, transverse colon, descending colon, sigmoid colon, and rectum appeared normal. Scattered sigmoid diverticulosis seen. Retroflexion was performed in the rectum and small internal hemorrhoids were seen. The patient tolerated the procedure well. IMPRESSION: Normal-appearing colon from rectum to cecum with no evidence of colorectal neoplasia Scattered sigmoidal diverticula Small internal hemorrhoids. RECOMMENDATIONS: Findings of this examination were discussed with the patient as well as his family. He was advised to be a high-fiber diet and take fiber supplements a regular basis. He did have a repeat screening colonoscopy in 10 years.
[2019-04-08 11:37] VITALS: BP 166/81; PULSE 82
== END 2019-04-08 11:59 | disposition home or self-care (01) ==
LOC: ORWHC2ENDO 09:16
PROVIDERS: ATTEND Internal Medicine Gastroenterology
DX: K64.8 Other hemorrhoids (principal); K57.30 Diverticulosis of large intestine without perforation or abscess without bleeding; I25.10 Atherosclerotic heart disease of native coronary artery without angina pectoris; I10 Essential (primary) hypertension; E78.5 Hyperlipidemia, unspecified; Z87.891 Personal history of nicotine dependence; Z95.5 Presence of coronary angioplasty implant and graft; Z79.02 Long term (current) use of antithrombotics/antiplatelets; Z79.899 Other long term (current) drug therapy
CPT/HCPCS: 45378; J2704

== ENCOUNTER → 2019-05-13 | Outpatient (CLI) | payer MEDICARE ==
[2019-05-13 19:05] LABS: LDL Cholesterol,Calculated 77.2 mg/dL (0.0-131.0); VLDL Calculation 24.8 mg/dL (5.00-40.00)
== END | disposition home or self-care (01) ==
LOC: LABWHC1 12:01
PROVIDERS: ATTEND Internal Medicine Cardiovascular Disease
DX: E78.2 Mixed hyperlipidemia (principal)
CPT/HCPCS: 36415; 80061; 84450; 84460

== ENCOUNTER → 2019-06-26 | Outpatient (CLI) | payer MEDICARE ==
--- NOTE | 2019-06-26 12:17 | CT ---
EXAMINATION TYPE: CT angio abdomen pelvis DATE OF EXAM: 06/26/2019 COMPARISON: None. HISTORY: Abdominal Aneurysm CT DLP: 1603 mGycm, Automated Exposure Control for Dose Reduction was Utilized. CONTRAST: CTA scan of the abdomen and pelvis is performed without oral and without and with IV Contrast, patien t injected with 370 mL of Isovue 370. Aneurysm protocol with 3-D reconstructed images creatinine work station and reviewed. FINDINGS: VASCULAR: There is focal infrarenal abdominal aortic aneurysm approximately 6 cm in length which does not extend into the bifurcation measuring up to 6.2 cm AP diameter axial image 42. Transverse measur ement is 5.3 cm. There is moderate peripheral noncalcified plaque. No suspicious ulceration is seen. Proximal to this there is [id number] mixed plaque. There is focal linear hypodensity could refl ect chronic dissection just proximal to AAA axial image 33. There is a patent celiac artery, SMA, and bilateral single renal arteries without significant stenosis. JOSÉ LUIS is occluded at origin with suspect ed retrograde filling. There is additional slight focal aneurysmal change to the common iliac arterie s bilaterally, right greater than left measuring up to 2.5 cm in diameter axial image 51. Moderate mi xed plaque in both structures is noted. There is more mild plaque in the internal and external iliac arteries bilaterally with more moderate mixed plaque in the common femoral arteries bilaterally. No s ignificant stenosis is seen. There is visualization through the bifurcation into superficial and deep femoral arteries. LUNG BASES: No significant abnormality is appreciated. LIVER/GB: No significant abnormality is appreciated. PANCREAS: No significant abnormality is seen. SPLEEN: No significant abnormality is seen. ADRENALS: No significant abnormality is seen. KIDNEYS: No significant abnormality is seen. BOWEL: There are diverticula in the left colon with more prominent diverticulosis of the sigmoid colo n. Suboptimal evaluation of bowel without enteric contrast. No suspicious small large bowel dilatatio n. Mild/moderate wall thickening in the sigmoid colon is present product of poor distention. PROSTATE/SEMINAL VESICLES: Heterogeneous enlarged prostate gland bulging of bladder base consistent w ith BPH, correlate clinically. LYMPH NODES: No greater than 1cm abdominal or pelvic lymph nodes are appreciated. OSSEOUS STRUCTURES: Moderate narrowing and spurring in both hip joints. Mild anterior wedging T12 lev el. Moderate multilevel spurring in the visualized thoracic spine. Transitional type vertebra lumbosa cral junction with asymmetric left-sided articulation coronal image 77. OTHER: Small fat-containing left inguinal hernia. IMPRESSION: Short to moderate 6.0 cm segment aneurysm distal abdominal aorta quite focally prominent measuring up to 6.2 cm AP diameter. No common iliac artery extension. Advise surgical and/or endovasc ular referral.
== END | disposition home or self-care (01) ==
LOC: RADCTMAIN 08:51
PROVIDERS: ATTEND Internal Medicine Cardiovascular Disease
DX: I71.4 Abdominal aortic aneurysm, without rupture (principal)
CPT/HCPCS: 82565; 84520; 36415; 74174; Q9967

== ENCOUNTER → 2022-09-26 | Outpatient (CLI) | payer MEDICARE ==
[2022-09-26 18:19] LABS: HCT 50.4 % (39.6-50.0); HGB 15.6 g/dL (13.0-17.0); MCH 30.4 pg (27.0-32.0); MCV 98.2 fL (80.0-97.0); Mean Platelet Volume 10.4 fL (9.5-12.2); NRBC Per 100 WBC 0 /100 WBCS (0.0-0.0); Platelet Count 288 X 10*3/uL (140-440); RBC 5.13 X 10*6/uL (4.40-5.60); RDW 13.2 % (11.5-14.5); WBC 7.15 X 10*3/uL (4.50-10.00)
[2022-09-26 18:46] LABS: African American GFR (CKD) 35.9 (60.0-200.0); Anion Gap 9.5 mmol/L (10.00-18.00); BUN/Creat Ratio 10.93 Ratio (12.00-20.00); Blood Urea Nitrogen 22.3 mg/dL (9.0-27.0); Calcium 9.9 mg/dL (8.7-10.3); Carbon Dioxide 25.3 mmol/L (20.0-27.5); Potassium 5.8 mmol/L (3.5-5.5)
== END | disposition home or self-care (01) ==
LOC: LABWHC1 12:09
PROVIDERS: ATTEND Internal Medicine Cardiovascular Disease
DX: I71.41 Pararenal abdominal aortic aneurysm, without rupture (principal)
CPT/HCPCS: 36415; 80048; 85027

== ENCOUNTER → 2022-10-18 | Outpatient (CLI) | payer MEDICARE ==
--- NOTE | 2022-10-18 09:58 | CT ---
"EXAMINATION TYPE: CT angio abdomen pelvis CT DLP: 1779.50 mGycm, Automated exposure control for dose reduction was used. DATE OF EXAM: 10/18/2022 9:41 AM COMPARISON: CTA abdomen and pelvis 06/26/2019. CLINICAL INDICATION:Male, 77 years old with history of I71.40 AAA; Aortic aneurysm w/out rupture. TECHNIQUE: Multiple thin slice sub-millimeter images were obtained through the abdomen and pelvis bef ore and after administration of contrast. Patient was given Isovue 370, 80 cc intravenously. 3-D re constructed images and maximum intensity projection images were obtained of the abdomen and pelvis. FINDINGS: CTA Abdomen and pelvis: Increased size of infrarenal fusiform abdominal aortic aneurysm measuring 7.6 x 6.5 cm, previously 6.2 x 5.3 cm (series 6, image 99). There is significant increase in mural throm bus within the aneurysm. Increase size of right common iliac artery aneurysm measuring 3.1 cm, previo usly 2.5 cm. Increased size of left common iliac aneurysm measuring 2.2 cm, previously 2.0 cm. Athero sclerotic calcification of the aorta and its branches. The celiac access and SMA are widely patent. M ild stenosis at the origins of the bilateral single renal arteries. There is a short segment dissecti on (5 mm) of the right renal artery at its origin (series 6, image 60). 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 The proximal most inferio r mesenteric artery is not opacified. There is distal reconstitution. Atherosclerotic calcification w ith mural thrombus involving both common iliac arteries. VISCERA: The liver, spleen, adrenal glands, kidneys, pancreas, and gallbladder are not optimally enha nced due the arterial phase utilized. LIVER: Tiny hypodense focus within the left hepatic lobe which is too small to characterize. GALLBLADDER AND BILE DUCTS: The gallbladder is not visualized. No biliary ductal dilatation. PANCREAS: Unremarkable. SPLEEN: Unremarkable. ADRENAL GLANDS: Unremarkable. KIDNEYS AND URETERS: No evidence of hydronephrosis or renal calculus. PELVIS BLADDER: Incompletely distended but grossly unremarkable. REPRODUCTIVE: Prostate is enlarged in size measuring 5.3 cm in transverse dimension. ABDOMEN & PELVIS STOMACH AND BOWEL: Stomach and duodenum are unremarkable. Sigmoid diverticulosis without evidence for acute diverticulitis. No evidence of bowel obstruction. PERITONEUM: No evidence of pneumoperitoneum or free fluid. MUSCULOSKELETAL: No acute osseous abnormalities. Moderate multilevel degenerative disc disease. Mild retrolisthesis of T12 on L1. LYMPH NODES: No gross evidence for lymphadenopathy. SOFT TISSUE/ABDOMINAL WALL: Small fat filled umbilical hernia. LOWER CHEST:Moderate emphysematous changes. Coronary arterial calcifications. IMPRESSION 1. Increased size of infrarenal abdominal aortic aneurysm measuring up to 7.6 cm, previously 6.2 cm. Significant increase in mural thrombus. 2. Increased size of bilateral common iliac artery aneurysms from prior examination the right measur ing up to 3.1 cm and the left measuring up to 2.2 cm. 3. 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 4. Nonopacification of the proximal inferior mesenteric artery with distal reconstitution. 5. Colonic diverticulosis without evidence for acute diverticulitis. 6. Moderate emphysematous changes. A Yellow level critical message alert has been initiated for Sudhakar Jauregui MD via the [employer] | Critical Results System on 10/18/2022 9:55 AM. This message alert has been sent to Sudhakar strong MD via the preferences provided by the clinician for the receipt of Radiology Critical Findings. Mahad essage ID [id number]."
== END | disposition home or self-care (01) ==
LOC: RADCTMAIN 08:12
PROVIDERS: ATTEND Internal Medicine Cardiovascular Disease
DX: I71.43 Infrarenal abdominal aortic aneurysm, without rupture (principal); I72.3 Aneurysm of iliac artery; K57.30 Diverticulosis of large intestine without perforation or abscess without bleeding; J43.9 Emphysema, unspecified; I21.9 Acute myocardial infarction, unspecified
CPT/HCPCS: 82565; 84520; 36415; 74174; Q9967

== ENCOUNTER 2022-12-28 09:43 | Inpatient (IN) | payer MEDICARE ==
[~2022-12-28 09:43] MED LIST: LIDOCAINE 1% INJ 10MG/ML (30 ML VIAL-PF) SQ ONE; SODIUM CHLORIDE 0.9% 1,000 ML in EMPTY BAG 1 BAG IV ONE
[2022-12-28] MEDS ORDERED: hydrALAZINE HCL 20 MG/ML 1 ML VIAL IVP STA (10:54)
[2022-12-28] MEDS ORDERED: ENALAPRILAT 1.25 MG/ML 1 ML VIAL IVP STA (10:54)
[2022-12-28] MEDS ORDERED: ENALAPRILAT 1.25 MG/ML 1 ML VIAL ONE (10:56)
[2022-12-28] MEDS ORDERED: hydrALAZINE HCL 20 MG/ML 1 ML VIAL ONE (10:57)
[2022-12-28] MEDS ORDERED: ACETAMINOPHEN TAB 500 MG TAB PO ONE (11:07)
[2022-12-28] MEDS ORDERED: ceFAZolin 1,000 MG VIAL ONE (12:02)
[2022-12-28] MEDS ORDERED: fentaNYL (PF) 50 MCG/ML 2 ML AMP ONE (12:02)
[2022-12-28] MEDS ORDERED: SUCCINYLCHOLINE CHLORIDE 200 MG/10 ML VIAL IV ONE (12:02)
[2022-12-28] MEDS ORDERED: ROCURONIUM 10 MG/ML (5 ML VIAL) IV ONE (12:02)
[2022-12-28] MEDS ORDERED: risperiDONE 1 MG TAB ONE (12:02)
[2022-12-28] MEDS ORDERED: GLYCOPYRROLATE 0.2 MG/ML 2 ML VIAL ONE (12:02)
[2022-12-28] MEDS ORDERED: SODIUM CHLORIDE 0.9% 100 ML BAG ONE (12:02)
[2022-12-28] MEDS ORDERED: HEPARIN SODIUM,PORCINE 10,000 UNIT/ML 1 ML VIAL ONE (12:02)
[2022-12-28] MEDS ORDERED: PROPOFOL 10 MG/ML 20 ML VIAL IV ONE (12:02)
[2022-12-28] MEDS ORDERED: PHENYLEPHRINE-0.9% NACL SYG 1,000 MCG/10 ML SYRINGE ONE (12:02)
[2022-12-28] MEDS ORDERED: NEOSTIGMINE 1 MG/ML 10 ML VIAL ONE (12:02)
[2022-12-28] MEDS ORDERED: LIDOCAINE 2% INJ 20 MG/ML (2 ML VIAL) ONE (12:02)
[2022-12-28 12:09] LABS: Basophils % (A) 0 %; Eosinophils # (A) 0.2 k/uL (0-0.7); Eosinophils % (A) 2 %; HCT 47.9 % (39.0-53.0); HGB 15.8 gm/dL (13.0-17.5); Lymphocytes % (A) 11 %; MCHC 32.9 g/dL (31.0-37.0); MCV 94.2 fL (80.0-100.0); Mean Platelet Volume 8.1; Monocytes # (A) 0.5 k/uL (0-1.0); Monocytes % (A) 5 %; Neutrophils # (A) 7.2 k/uL (1.3-7.7); Neutrophils % (A) 80 %; Platelet Count 329 k/uL (150-450); RBC 5.09 m/uL (4.30-5.90); RDW 12.9 % (11.5-15.5); WBC 8.9 k/uL (3.8-10.6)
[2022-12-28 12:11] LABS: Calcium 9.4 mg/dL (8.4-10.2); Potassium 4.6 mmol/L (3.5-5.1)
[2022-12-28 12:14] LABS: Prothrombin Time 10.6 sec (9.0-12.0)
[2022-12-28] MEDS ORDERED: IOPAMIDOL-250 100ML BTL INTRAARTER ONE ×4 (13:20→14:58)
[2022-12-28] MEDS ORDERED: LACTATED RINGERS 1,000 ML IV ONE (15:05)
[2022-12-28] MEDS ORDERED: NALOXONE 0.4 MG/ML 1 ML VIAL IVP PRN (15:18)
--- NOTE | 2022-12-28 15:24 | P.OP ---
Date of Procedure: 12/28/22 Preoperative Diagnosis: Infrarenal AAA 7.5cm with bilateral common iliac artery aneurysms Postoperative Diagnosis: same Description of Procedure: Date: 12/28/2022 Preoperative diagnosis: Asymptomatic Infrarenal 7.5 cm cm AAA, lateral iliac artery aneurysms Postoperative diagnosis: Same Procedure: 1. Percutaneous Endovascular aortic repair with [place] bilateral NATALIE graft 2. Ultrasound-guided bilateral common femoral artery access 3. Bilateral iliac artery selective angiograms 4. Percutaneous femoral closure with Perclose Surgeon: Sony Hilliard DO Anesthesia: General Estimated blood loss: 30 mL Complications: None Condition: Stable Disposition: palpable DP on right and PT on the left Contrast: 120 mL Flouro time: 63 minutes Indications: 77-year-old gentleman with history of large infrarenal AAA and bilateral common iliac artery aneurysms presents to the hospital for elective EVAR with bilateral NATALIE Operative narrative: After written and informed consent was obtained from the patient all risks benefits and complications were described the patient was brought to the Microwave Supervisor and laid in a supine position. The area of the groins were prepped and draped in usual sterile fashion after appropriate anesthetic was performed per the anesthesiologist. A timeout was performed in normal fashion and antibiotics were administered prior to incisions. Utilizing ultrasound bilateral common femoral arteries were visualized demonstrating patency with minimal calcification. Under ultrasound guidance utilizing a multipurpose needle bilateral common femoral arteries were accessed and susanne dewire was placed followed by deployment of 2 Perclose closure devices for each femoral artery. Utilizing Seldinger technique and 8-Maori sheath was then placed and patient was administered heparin and followed with ACTs. 035 Glidewire was then placed up the right femoral sheath and exchanged for a Lunderquist wire through an angled glide catheter. The left femoral artery was then utilized and guidewire was placed followed by a Lunderquist wire. Two 16F [place] sheaths were then placed into the distal aorta. A .035 glidewire advantage was then placed up the right femoral sheath and a snare catheter up the left and the wire was snared and brought externally through the left femoral sheath. A [id number] NATALIE main graft was then placed up the right femoral sheath. Retrograde angiogram was obtained demonstrating the takeoff of the internal iliac artery. The main NATALIE graft was deployed just superior to the bifurcation in normal fashion. Utilizing the body floss wire the left femoral 16F sheath was placed into the right iliac graft and an 035 glidewire was placed into the internal iliac artery. A comfy catheter was then placed into the internal iliac artery and selective angiogram was performed demonstrating good intraluminal access. A yan wire was then placed and a hypo limb graft 10 mmx7cm was then placed into the internal iliac artery. The overlap was then ballooned with a 14x40 mm balloon. The external iliac graft was then deployed fully and selective angiogram was obtained demonstrating good flow without evidence of leak. Attention was then placed to the right iliac arteries and same steps were performed and a [id number] NATALIE graft was placed followed by a hypo limb 12 mmx 7cm into the internal iliac artery. Once completed attention was then placed to the AAA and the Lunderquist wires were placed into the descending thoracic aorta and 16F sheath on the left was placed at the renal bifurcation. A pigtail was placed up the left and aortogram was obtained. A main body 28.5 [id number] [place] graft was then deployed just beneath the renal bifurcation. Once completed two bridge graft pieces 27mm x 12mmx 10 cm on the right and a 23mm x 10 mm x10cm on the left were then placed in usual fashion. A molding balloon was then used to balloon the overlaps. Once completed a final angiogram was obtained which demonstrated good seal with no evidence of type I or 3 endoleak. Small late type II endoleak noted. All guidewires and catheters were then removed and the Perclose closure devices were closed in normal fashion. The areas were then cleansed and dressings were placed. The patient tolerated procedure well and had palpable DP pm the right and PT on the left bilaterally and was sent to PACU for recovery.
[2022-12-28] MEDS ORDERED: HYDROmorphone 0.5 MG/0.5 ML SYRINGE IVP ONE (16:18)
[2022-12-28] MEDS ORDERED: hydrALAZINE HCL 20 MG/ML 1 ML VIAL IVP ONE (16:18)
[2022-12-28 17:26] LABS: Glucose,Whole Blood 135 mg/dL (70-110)
[2022-12-28] MEDS: SODIUM CHLORIDE 0.9% 1,000 ML IV SCH (17:27)
[2022-12-28] MEDS: HYDROmorphone 0.5 MG/0.5 ML SYRINGE IVP PRN ×2 (19:47→23:11)
[2022-12-28] MEDS: hydrALAZINE HCL 20 MG/ML 1 ML VIAL IVP PRN (22:39)
[2022-12-28] MEDS ORDERED: ONDANSETRON 4 MG/2 ML VIAL IVP PRN (23:25)
[2022-12-28] MEDS ORDERED: carvediloL 12.5 MG TAB PO STA (23:25)
[2022-12-28] MEDS: HYDROcodone/APAP 5-325MG 1 EACH TAB PO PRN (23:35)
[2022-12-29 00:03] LABS: Basophils % (A) 0 %; Eosinophils % (A) 0 %; HCT 42.5 % (39.0-53.0); HGB 13.8 gm/dL (13.0-17.5); Lymphocytes # (A) 0.5 k/uL (1.0-4.8); Lymphocytes % (A) 4 %; MCH 30.7 pg (25.0-35.0); MCHC 32.5 g/dL (31.0-37.0); MCV 94.6 fL (80.0-100.0); Mean Platelet Volume 7.6; Monocytes # (A) 0.6 k/uL (0-1.0); Monocytes % (A) 4 %; Neutrophils # (A) 11.9 k/uL (1.3-7.7); Neutrophils % (A) 91 %; Platelet Count 272 k/uL (150-450); RDW 12.6 % (11.5-15.5); WBC 13.1 k/uL (3.8-10.6)
[2022-12-29 00:28] LABS: Albumin 3.6 g/dL (3.5-5.0); Calcium 8.5 mg/dL (8.4-10.2); Potassium 4.8 mmol/L (3.5-5.1); Total Bilirubin 0.5 mg/dL (0.2-1.3); Total Protein 6.4 g/dL (6.3-8.2)
[2022-12-29] MEDS: HYDROmorphone 1 MG/ML 1 ML SYRINGE IVP PRN ×2 (01:34→05:12)
[2022-12-29] MEDS: hydrALAZINE HCL 20 MG/ML 1 ML VIAL IVP PRN ×2 (01:39→14:55)
[2022-12-29] MEDS: HYDROmorphone 0.5 MG/0.5 ML SYRINGE IVP PRN ×2 (03:08→07:03)
[2022-12-29 05:16] LABS: Basophils % (A) 0 %; Eosinophils # (A) 0.1 k/uL (0-0.7); Eosinophils % (A) 1 %; HCT 39.6 % (39.0-53.0); HGB 13.2 gm/dL (13.0-17.5); Lymphocytes # (A) 0.6 k/uL (1.0-4.8); Lymphocytes % (A) 5 %; MCH 31.1 pg (25.0-35.0); MCHC 33.3 g/dL (31.0-37.0); MCV 93.4 fL (80.0-100.0); Mean Platelet Volume 8.1; Monocytes # (A) 0.6 k/uL (0-1.0); Monocytes % (A) 5 %; Neutrophils % (A) 89 %; Platelet Count 251 k/uL (150-450); RBC 4.24 m/uL (4.30-5.90); RDW 12.7 % (11.5-15.5); WBC 12.4 k/uL (3.8-10.6)
[2022-12-29] MEDS: SODIUM CHLORIDE 0.9% 1,000 ML IV SCH ×5 (05:16→23:38)
--- NOTE | 2022-12-29 05:16 | P.CONS ---
History of Present Illness - Reason for Consult Consult date: 12/29/22 post op medical management - Chief Complaint infrarenal aortic aneurysm repair - History of Present Illness 77 year old male with CAD patient is seen in the post op period, he is not providing a reliable history I reviewed his medical record, it seems like he is lost to follow up with primar y doctor , and possibly not taking any medications. he has recently seen cardiology , who recommended repair of his infrarenal aortic aneurysm that is measuring 7 cm , he successfully underwent surgery today with stenting and grafting the aneurysm . however, while in the ICU recovering his RN noted that patient was complaining of severe low back pain , and elevated blood pressure , patient was given hydralazin and enalapril to control his blood pressure , hgb was stable , vascular surgery did not recommend any imaging at this time , patient also seemed agitated and confused to RN and requested medical evaluation at time of my evaluation patient was calm and denies any complaints. his vitals stable with systolic blood pressure ranging 140-160s. patient seems to be slightly confused and unreliable historian . Review of Systems ROS unobtainable: due to mental status Past Medical History Past Medical History: Cancer, COPD, GI Bleed, Hyperlipidemia, Hypertension, Memory Impairment, Myocardial Infarction (PR) Additional Past Medical History / Comment(s): past hx. GI bleeding, hx. 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 aortic aneurysm Last Myocardial Infarction Date:: pt unsure History of Any Multi-Drug Resistant Organisms: None Reported Past Surgical History: Heart Catheterization With Stent Additional Past Surgical History / Comment(s): tooth sx, colonoscopy, heart st ent x3, melanoma removed left shoulder recently Past Anesthesia/Blood Transfusion Reactions: No Reported Reaction Date of Last Stent Placement:: 2008 Smoking Status: Former smoker - Past Family History Father Family Medical History: Myocardial Infarction (PR) Additional Family Medical History / Comment(s): from a PR Mother Family Medical History: Myocardial Infarction (PR) Additional Family Medical History / Comment(s): from a PR Sister(s) Family Medical History: Cancer Brother(s) Family Medical History: Myocardial Infarction (PR) Medications and Allergies Home Medications Medication Instructions Recorded Confirmed Type Fluticasone/Umeclidin/Vilanter 1 puff INHALATION DAILY PRN 12/27/22 12/27/22 History [Trelegy Ellipta 200-62.5-25] guaiFENesin [Mucinex] 600 mg PO DIRECTED PRN 12/27/22 12/27/22 History Allergies Allergy/AdvReac Type Severity Reaction Status Date / Time No Known Allergies Allergy Verified 12/27/22 11:17 Physical Exam Vitals: Vital Signs Temp Pulse Pulse Resp BP BP BP 12/29/22 04:15 76 15 142/76 12/29/22 04:00 97.8 F 83 22 12/29/22 03:45 77 12 12/29/22 03:30 83 14 12/29/22 03:15 87 22 163/79 12/29/22 03:00 96 24 12/29/22 02:45 78 13 12/29/22 02:30 80 20 12/29/22 02:16 79 12 141/65 12/29/22 02:00 82 12 145/82 12/29/22 01:45 87 22 12/29/22 01:30 78 18 12/29/22 01:15 72 19 145/82 12/29/22 01:00 80 12 12/29/22 00:45 76 18 12/29/22 00:30 80 18 12/29/22 00:15 83 18 12/29/22 00:14 84 20 152/68 12/29/22 00:00 97.6 F 86 20 173/75 12/28/22 23:45 105 H 22 12/28/22 23:30 98 29 H 12/28/22 23:15 101 H 28 H 146/69 12/28/22 23:00 78 26 H 139/68 12/28/22 22:45 73 24 139/68 12/28/22 22:30 65 18 139/68 12/28/22 22:00 69 18 125/58 12/28/22 21:30 86 23 125/58 12/28/22 21:00 75 17 134/60 12/28/22 20:30 73 20 134/60 12/28/22 20:00 95 F L 76 20 12/28/22 19:30 72 28 H 137/64 12/28/22 19:00 61 16 12/28/22 18:30 61 18 138/65 12/28/22 18:00 64 22 132/61 12/28/22 17:30 94.5 F L 74 19 12/28/22 16:50 60 16 12/28/22 16:35 60 16 12/28/22 16:18 63 16 157/57 12/28/22 16:05 59 L 16 12/28/22 15:50 66 16 12/28/22 15:35 12/28/22 15:20 61 16 169/72 12/28/22 15:05 96.8 F L 61 16 187/76 12/28/22 11:13 167/80 12/28/22 10:25 88 22 202/98 12/28/22 10:05 97.9 F 93 18 215/105 BP BP Pulse Ox 12/29/22 04:15 94 L 12/29/22 04:00 94 L 12/29/22 03:45 94 L 12/29/22 03:30 93 L 12/29/22 03:15 93 L 12/29/22 03:00 93 L 12/29/22 02:45 94 L 12/29/22 02:30 94 L 12/29/22 02:16 94 L 12/29/22 02:00 93 L 12/29/22 01:45 93 L 12/29/22 01:30 94 L 12/29/22 01:15 95 12/29/22 01:00 95 12/29/22 00:45 94 L 12/29/22 00:30 93 L 12/29/22 00:15 94 L 12/29/22 00:14 93 L 12/29/22 00:00 93 L 12/28/22 23:45 92 L 12/28/22 23:30 92 L 12/28/22 23:15 94 L 12/28/22 23:00 94 L 12/28/22 22:45 96 12/28/22 22:30 96 12/28/22 22:00 95 12/28/22 21:30 94 L 12/28/22 21:00 93 L 12/28/22 20:30 92 L 12/28/22 20:00 91 L 12/28/22 19:30 95 12/28/22 19:00 96 12/28/22 18:30 95 12/28/22 18:00 94 L 12/28/22 17:30 94 L 12/28/22 16:50 127/58 141/52 94 L 12/28/22 16:35 133/62 141/53 92 L 12/28/22 16:18 154/68 92 L 12/28/22 16:05 167/59 172/58 94 L 12/28/22 15:50 177/90 175/95 94 L 12/28/22 15:35 176/79 180/82 12/28/22 15:20 95 12/28/22 15:05 95 12/28/22 11:13 12/28/22 10:25 12/28/22 10:05 96 Intake and Output 12/28/22 12/28/22 12/29/22 14:59 22:59 06:59 Intake Total 1000 600 400 Output Total 250 540 240 Balance 750 60 160 Intake: IV 1000 600 400 0.9 400 400 Output: Urine 200 540 240 Estimated Blood Loss 50 Other: Voiding Method Indwelling Catheter Indwelling Catheter Weight 1018 kg 101.8 kg ABP, PAP, CO, CI - Last 8 Hours Arterial Blood Pressure 158/56 Arterial Blood Pressure 178/64 Arterial Blood Pressure 139/75 Arterial Blood Pressure 155/73 Arterial Blood Pressure 158/60 Arterial Blood Pressure 169/68 Arterial Blood Pressure 154/68 Arterial Blood Pressure 165/70 Arterial Blood Pressure 153/52 Arterial Blood Pressure 160/54 Arterial Blood Pressure 162/55 Arterial Blood Pressure 177/60 Arterial Blood Pressure 168/53 Arterial Blood Pressure 164/88 Arterial Blood Pressure 171/53 Arterial Blood Pressure 168/52 Arterial Blood Pressure 167/52 Arterial Blood Pressure 165/51 Arterial Blood Pressure 182/56 Arterial Blood Pressure 190/65 Arterial Blood Pressure 188/61 Arterial Blood Pressure 177/59 Arterial Blood Pressure 170/50 Arterial Blood Pressure 171/53 Arterial Blood Pressure 177/62 Arterial Blood Pressure 167/61 Arterial Blood Pressure 138/62 Constitutional: No acute distress, confused Eyes: Anicteric sclerae, moist conjunctiva, Pupils equal round reactive to light ENMT: NC/AT Oropharynx clear, no erythema, or exudates Neck: Supple, no masses, or JVD No carotid bruits No thyromegaly Lungs: Clear to auscultation Clear to percussion Normal respiratory effort, no accessory muscle use Cardiovascular: Heart regular in rate and rhythm, No murmurs, gallops, or rubs No peripheral edema Abdominal: Soft Nontender, no guarding, rebound or rigidity Abdomen moving with respiration Normoactive bowel sounds No hepatomegaly, No splenomegaly No palpable mass No abdominal wall hernia noted Skin: Normal temperature, tone, texture, turgor No induration No subcutaneous nodules No rash, lesions No ulcers Extremities: bialteral groin surgical wound look clean intact no bruising no echymosis no active bleeding No digital cyanosis No clubbing Pedal pulses intact and symmetrical Radial pulses intact and symmetrical No calf tenderness Psychiatric: Alert and oriented to person, place Neuro Muscles Strength 4/5 in all 4 extremities Sensation to light touch grossly present throughout Results CBC & Chem 7: 12/28/22 23:45 12/28/22 23:45 Labs: Abnormal Lab Results - Last 24 Hours (Table) 12/28/22 12/28/22 12/28/22 Range/Units 10:00 17:25 23:45 WBC 13.1 H (3.8-10.6) k/uL Neutrophils # 11.9 H (1.3-7.7) k/uL Lymphocytes # 0.5 L (1.0-4.8) k/uL Chloride (98-107) mmol/L Carbon Dioxide (22-30) mmol/L Creatinine 1.61 H (0.66-1.25) mg/dL Glucose 110 H (74-99) mg/dL POC Glucose (mg/dL) 135 H (70-110) mg/dL 12/28/22 Range/Units 23:45 WBC (3.8-10.6) k/uL Neutrophils # (1.3-7.7) k/uL Lymphocytes # (1.0-4.8) k/uL Chloride 109 H (98-107) mmol/L Carbon Dioxide 20 L (22-30) mmol/L Creatinine 1.47 H (0.66-1.25) mg/dL Glucose 134 H (74-99) mg/dL POC Glucose (mg/dL) (70-110) mg/dL Assessment and Plan Assessment: infrarenal aortic aneurysm s/p percutaneous repair POD zero management per cardiology and vascular surgery pain control with morphine and dilaudid as needed hypertension continue with coreg 12.5 po bid clonidine 0.2 mg PRN for systolic > 180 re assess alcohol intake , monitor for alcohol withdrawal symptoms currently patient unreliable historian xanax 0.25 mg po tid prn for anxiety if confirmed daily alcohol intake , then consider benzo per CIWA scale thank you for this consultation , will continue to follow up with you monitor hgb closely follow up renal and liver function post op
[2022-12-29 05:26] LABS: Albumin 3.2 g/dL (3.5-5.0); Calcium 8.1 mg/dL (8.4-10.2); Potassium 4.8 mmol/L (3.5-5.1); Total Bilirubin 0.5 mg/dL (0.2-1.3); Total Protein 5.9 g/dL (6.3-8.2)
[2022-12-29] MEDS: ALPRAZolam 0.25 MG TAB PO PRN (06:29)
[2022-12-29] MEDS: carvediloL 12.5 MG TAB PO SCH ×2 (06:29→17:45)
[2022-12-29] MEDS: cloNIDine HCL 0.1 MG TAB PO PRN (06:58)
[2022-12-29 07:48] LABS: Glucose,Whole Blood 110 mg/dL (70-110)
[2022-12-29] MEDS ORDERED: THIAMINE 100 MG/ML 2 ML VIAL IM STA (07:50)
[2022-12-29] MEDS: LORazepam 2 MG/ML INJ IV PRN ×5 (08:38→20:53)
[2022-12-29] MEDS: FOLIC ACID 1 MG TAB PO SCH (08:39)
[2022-12-29] MEDS: ASPIRIN 81 MG PO SCH (08:39)
[2022-12-29] MEDS: amLODIPine 5 MG TAB PO SCH (08:39)
[2022-12-29] MEDS: SODIUM CHLORIDE 0.9% 1,000 ML in EMPTY BAG 1 BAG IV SCH ×5 (11:08→11:12)
--- NOTE | 2022-12-29 12:00 | P.PN ---
Subjective Progress Note Date: 12/29/22 Principal diagnosis: Infrarenal 7.5 abdominal aortic aneurysm with bilateral common iliac artery aneurysms This is a 77-year-old male with a history of large infrarenal abdominal aortic aneurysm and bilateral common iliac artery aneurysm who underwent percutaneous endovascular aortic repair with bilateral grafts. Patient was admitted to the ICU post recovery. He is currently sleeping, appears in no distress. Apparently yesterday evening patient was having episodes of hypertension, he became confused and agitated. Patient reportedly has a history of alcoholism and was suspected of going through withdrawals. Medicine team was consulted and place patient on CIWA protocol. According to nursing patient was alert and oriented to self only. He has been given Ativan and since then blood pressures have been improving and patient has been sleeping. He is been afebrile. Hemodynamically stable. WBC 12.4 hemoglobin 13 platelet count 251,000 sodium 139 potassium 4.8 BUN 20 creatinine 1.44. Objective - Vital Signs Vital signs: Vital Signs Temp 98.1 F 12/29/22 08:00 Pulse 76 12/29/22 08:45 Resp 10 L 12/29/22 08:45 BP 159/68 12/29/22 08:45 Pulse Ox 89 L 12/29/22 08:45 FiO2 Intake & Output 12/28/22 12/29/22 12/29/22 18:59 06:59 18:59 Intake Total 1280 960 180 Output Total 550 595 75 Balance 730 365 105 Weight 101.8 kg 103.8 kg Intake: IV 1280 960 180 0.9 80 960 160 Invasive Line 2 10 Invasive Line 3 10 Output: Urine 500 595 75 Estimated Blood Loss 50 Other: Voiding Method Indwelling Catheter ABP, PAP, CO, CI - Last Documented Arterial Blood Pressure 160/63 - Exam General appearance: The patient is asleep, arousable, oriented 1 to self, appears in no acute distress. HET: Head is normocephalic and atraumatic. Pupils are equal and reactive. Neck: Supple. Heart: Regular. Lungs: Equal expansion, normal respiratory effort. Abdomen: Soft, nontender, nondistended. Extremities: Normal skin color and turgor. No cyanosis, rash, ulceration, clubbing, or edema. Bilateral groins with dressing clean dry and intact, no bleeding noted. Palpable bilateral DP pulses, feet warm to touch with good capillary refill. Neurological: Patient sleeping, arousable, but slow to respond. Recently given Ativan. He is oriented to self only. He is able to follow commands and has g ood tone bilaterally, with equal strength and grasp bilateral upper and lower extremities. - Labs CBC & Chem 7: 12/29/22 05:08 12/29/22 05:08 Labs: Abnormal Lab Results - Last 24 Hours (Table) 12/28/22 12/28/22 12/28/22 Range/Units 10:00 17:25 23:45 WBC 13.1 H (3.8-10.6) k/uL RBC (4.30-5.90) m/uL Neutrophils # 11.9 H (1.3-7.7) k/uL Lymphocytes # 0.5 L (1.0-4.8) k/uL Chloride (98-107) mmol/L Carbon Dioxide (22-30) mmol/L Creatinine 1.61 H (0.66-1.25) mg/dL Glucose 110 H (74-99) mg/dL POC Glucose (mg/dL) 135 H (70-110) mg/dL Calcium (8.4-10.2) mg/dL Total Protein (6.3-8.2) g/dL Albumin (3.5-5.0) g/dL 12/28/22 12/29/22 12/29/22 Range/Units 23:45 05:08 05:08 WBC 12.4 H (3.8-10.6) k/uL RBC 4.24 L (4.30-5.90) m/uL Neutrophils # 11.0 H (1.3-7.7) k/uL Lymphocytes # 0.6 L (1.0-4.8) k/uL Chloride 109 H 109 H (98-107) mmol/L Carbon Dioxide 20 L (22-30) mmol/L Creatinine 1.47 H 1.44 H (0.66-1.25) mg/dL Glucose 134 H 116 H (74-99) mg/dL POC Glucose (mg/dL) (70-110) mg/dL Calcium 8.1 L (8.4-10.2) mg/dL Total Protein 5.9 L (6.3-8.2) g/dL Albumin 3.2 L (3.5-5.0) g/dL Assessment and Plan Assessment: 1. Infrarenal abdominal aortic aneurysm measuring 7.5 cm with bilateral common iliac artery aneurysm status post percutaneous endovascular aortic repair with poor bilateral NATALIE graft 2. Altered mental status changes 3. Hypertension 4. Alcohol abuse Plan: 1. Continue with recommendations from admitting services/cardiology 2. Continue medical management per admitting services Thank you for this consultation. YeahThe impression and plan of care has been dictated as directed. Dr. Vitale I performed a history and examination of this patient, discussed the same with the dictator. I agree with the dictator's note ,documented as a scribe. Any additional findings or plans will be noted.
--- NOTE | 2022-12-29 16:38 | P.CNNES ---
History of Present Illness Consult date: 12/29/22 Requesting physician: Hong Scruggs Reason for Consult: Altered mental status History of Present Illness: Patient is a 77-year-old right-handed male with history of hypertension, tobacco use, came to the hospital yesterday for elective surgery for abdominal aortic aneurysm measuring 7.5 cm with bilateral common iliac artery aneurysms. He underwent successful repair of the aneurysm with stenting and grafting of the aneurysm. However while in the ICU last night, patient started complaining of severe low back pain rating 10/10 with elevated blood pressure. Patient was given hydralazine and enalapril to control his blood pressure. Hemoglobin was stable. Patient was initially alert and oriented 3. However patient became more confused, fluctuating mental status, delirious. Patient was given Dilaudid 0.5 mg every 3 hours, which has improved the pain. Patient does have history of some alcoholism, therefore patient was placed on CIWA protocol. Neurology was consulted for altered mental status. Patient's son was present, who mentions that patient does not have history of significant alcoholism. When in deer hunting season, patient may drink 3-4 small shots of [place]. Patient himself denies any significant alcoholism. Patient's son states that yesterday he was sleeping, not talking. Today all day he has been sleepy. Sometimes when you ask questions, he would answer to some, but sometimes does not answer. Patient's blood test shows WBC 12.4 hemoglobin 13.2, platelets 251. Electrolyt es are normal, BUN 20, creatinine 1.44. Hepatic panel is normal. Blood alcohol level <10. Patient has hypertension, denies diabetes. Patient has history of smoking 1 pack per day since age 17, has not smoked for last 2 weeks. Patient's home medications include Mucinex, amlodipine 10 mg, atenolol 50 mg, lisinopril 10 mg, Plavix 75 mg, Lipitor 80 mg. Patient's son says that he is otherwise mentally fine, although in the last 1 month he was slightly forgetful. He has history of skin cancers removed from the scalp in early October 2022. He does not use any assistive device like cane or walker. Review of Systems Patient at first mention that he has a headache, then asked the scale, said 10/10. But when I asked him again, he said he has no headache. Patient's son was present, he also observed different statement. Patient's son again asked for any headache and he declined. He denies any chest pain, or leg pain at this time. He denies any blurred vision, diplopia, no nausea or vomiting. Patient denies any numbness or tingling, no rash. No fever or chills. All other review of systems, reviewed and noncontributory. Past Medical History Past Medical History: Cancer, COPD, GI Bleed, Hyperlipidemia, Hypertension, Memory Impairment, Myocardial Infarction ([place]) Additional Past Medical History / Comment(s): past hx. GI bleeding, hx. 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 aortic aneurysm Last Myocardial Infarction Date:: pt unsure History of Any Multi-Drug Resistant Organisms: None Reported Past Surgical History: Heart Catheterization With Stent Additional Past Surgical History / Comment(s): tooth sx, colonoscopy, heart stent x3, melanoma removed left shoulder recently Past Anesthesia/Blood Transfusion Reactions: No Reported Reaction Date of Last Stent Placement:: 2008 Smoking Status: Former smoker - Past Family History Father Family Medical History: Myocardial Infarction ([place]) Additional Family Medical History / Comment(s): from a [place] Mother Family Medical History: Myocardial Infarction ([place]) Additional Family Medical History / Comment(s): from a [place] Sister(s) Family Medical History: Cancer Brother(s) Family Medical History: Myocardial Infarction ([place]) Medications and Allergies Home Medications Medication Instructions Recorded Confirmed Type Fluticasone/Umeclidin/Vilanter 1 puff INHALATION DAILY PRN 12/27/22 12/27/22 History [Trelealicia Ellipta 200-62.5-25] guaiFENesin [Mucinex] 600 mg PO DIRECTED PRN 12/27/22 12/27/22 History Atorvastatin [Lipitor] 80 mg PO HS 12/29/22 12/29/22 History Clopidogrel [Plavix] 12/29/22 History amLODIPine [Norvasc] 10 mg PO DAILY 12/29/22 12/29/22 History atenoloL [Tenormin] 50 mg PO DAILY 12/29/22 12/29/22 History lisinopriL [Zestril] 10 mg PO DAILY 12/29/22 12/29/22 History Allergies Allergy/AdvReac Type Severity Reaction Status Date / Time No Known Allergies Allergy Verified 12/27/22 11:17 Physical Examination - Vital Signs Vital Signs: Vital Signs Temp Pulse Pulse Resp BP BP BP 12/29/22 10:45 70 17 146/61 12/29/22 10:30 72 17 146/61 12/29/22 10:15 75 16 146/61 12/29/22 10:00 73 18 136/56 12/29/22 09:45 78 15 136/56 12/29/22 09:30 78 15 136/56 12/29/22 09:15 78 31 H 136/56 12/29/22 09:00 79 14 144/58 12/29/22 08:45 76 10 L 159/68 12/29/22 08:30 75 14 159/68 12/29/22 08:15 81 12 159/68 12/29/22 08:00 98.1 F 85 28 H 150/92 12/29/22 07:45 84 29 H 184/91 12/29/22 07:30 89 29 H 184/91 12/29/22 07:15 79 16 184/91 12/29/22 07:00 82 12 152/67 12/29/22 06:45 82 22 12/29/22 06:30 80 18 152/67 12/29/22 06:15 77 16 12/29/22 06:00 78 21 12/29/22 05:45 79 16 12/29/22 05:30 85 30 H 12/29/22 05:15 91 12 145/67 12/29/22 05:00 84 15 12/29/22 04:45 71 13 12/29/22 04:30 77 17 12/29/22 04:15 76 15 142/76 12/29/22 04:00 97.8 F 83 22 12/29/22 03:45 77 12 12/29/22 03:30 83 14 12/29/22 03:15 87 22 163/79 12/29/22 03:00 96 24 12/29/22 02:45 78 13 12/29/22 02:30 80 20 12/29/22 02:16 79 12 141/65 12/29/22 02:00 82 12 145/82 12/29/22 01:45 87 22 12/29/22 01:30 78 18 12/29/22 01:15 72 19 145/82 12/29/22 01:00 80 12 12/29/22 00:45 76 18 12/29/22 00:30 80 18 12/29/22 00:15 83 18 12/29/22 00:14 84 20 152/68 12/29/22 00:00 97.6 F 86 20 173/75 12/28/22 23:45 105 H 22 12/28/22 23:30 98 29 H 12/28/22 23:15 101 H 28 H 146/69 12/28/22 23:00 78 26 H 139/68 12/28/22 22:45 73 24 139/68 12/28/22 22:30 65 18 139/68 12/28/22 22:00 69 18 125/58 12/28/22 21:30 86 23 125/58 12/28/22 21:00 75 17 134/60 12/28/22 20:30 73 20 134/60 12/28/22 20:00 95 F L 76 20 12/28/22 19:30 72 28 H 137/64 12/28/22 19:00 61 16 12/28/22 18:30 61 18 138/65 12/28/22 18:00 64 22 132/61 12/28/22 17:30 94.5 F L 74 19 12/28/22 16:50 60 16 12/28/22 16:35 60 16 12/28/22 16:18 63 16 157/57 12/28/22 16:05 59 L 16 12/28/22 15:50 66 16 12/28/22 15:35 12/28/22 15:20 61 16 169/72 12/28/22 15:05 96.8 F L 61 16 187/76 BP BP Pulse Ox 12/29/22 10:45 99 12/29/22 10:30 97 12/29/22 10:15 96 12/29/22 10:00 98 12/29/22 09:45 96 12/29/22 09:30 96 12/29/22 09:15 96 12/29/22 09:00 95 12/29/22 08:45 89 L 12/29/22 08:30 94 L 12/29/22 08:15 94 L 12/29/22 08:00 94 L 12/29/22 07:45 95 12/29/22 07:30 94 L 12/29/22 07:15 93 L 12/29/22 07:00 92 L 12/29/22 06:45 92 L 12/29/22 06:30 94 L 12/29/22 06:15 96 12/29/22 06:00 94 L 12/29/22 05:45 93 L 12/29/22 05:30 94 L 12/29/22 05:15 94 L 12/29/22 05:00 95 12/29/22 04:45 95 12/29/22 04:30 94 L 12/29/22 04:15 94 L 12/29/22 04:00 94 L 12/29/22 03:45 94 L 12/29/22 03:30 93 L 12/29/22 03:15 93 L 12/29/22 03:00 93 L 12/29/22 02:45 94 L 12/29/22 02:30 94 L 12/29/22 02:16 94 L 12/29/22 02:00 93 L 12/29/22 01:45 93 L 12/29/22 01:30 94 L 12/29/22 01:15 95 12/29/22 01:00 95 12/29/22 00:45 94 L 12/29/22 00:30 93 L 12/29/22 00:15 94 L 12/29/22 00:14 93 L 12/29/22 00:00 93 L 12/28/22 23:45 92 L 12/28/22 23:30 92 L 12/28/22 23:15 94 L 12/28/22 23:00 94 L 12/28/22 22:45 96 12/28/22 22:30 96 12/28/22 22:00 95 12/28/22 21:30 94 L 12/28/22 21:00 93 L 12/28/22 20:30 92 L 12/28/22 20:00 91 L 12/28/22 19:30 95 12/28/22 19:00 96 12/28/22 18:30 95 12/28/22 18:00 94 L 12/28/22 17:30 94 L 12/28/22 16:50 127/58 141/52 94 L 12/28/22 16:35 133/62 141/53 92 L 12/28/22 16:18 154/68 92 L 12/28/22 16:05 167/59 172/58 94 L 12/28/22 15:50 177/90 175/95 94 L 12/28/22 15:35 176/79 180/82 12/28/22 15:20 95 12/28/22 15:05 95 Intake and Output 12/28/22 12/29/22 12/29/22 22:59 06:59 14:59 Intake Total 600 640 340 Output Total 540 355 180 Balance 60 285 160 Intake: IV 600 640 340 0.9 400 640 320 Invasive Line 2 10 Invasive Line 3 10 Oral 0 Output: Urine 540 355 180 Other: Voiding Method Indwelling Catheter Indwelling Catheter Indwelling Catheter Weight 101.8 kg 103.8 kg ABP, PAP, CO, CI - Last 8 Hours Arterial Blood Pressure 135/57 Arterial Blood Pressure 130/54 Arterial Blood Pressure 135/59 Arterial Blood Pressure 134/56 Arterial Blood Pressure 134/56 Arterial Blood Pressure 127/54 Arterial Blood Pressure 123/57 Arterial Blood Pressure 111/57 Arterial Blood Pressure 160/63 Arterial Blood Pressure 146/65 Arterial Blood Pressure 194/64 Arterial Blood Pressure 177/60 Arterial Blood Pressure 213/149 Arterial Blood Pressure 171/59 Arterial Blood Pressure 179/57 Arterial Blood Pressure 172/55 Arterial Blood Pressure 180/57 Arterial Blood Pressure 177/55 Arterial Blood Pressure 170/61 Arterial Blood Pressure 166/64 Arterial Blood Pressure 174/82 Arterial Blood Pressure 143/63 Arterial Blood Pressure 148/58 Arterial Blood Pressure 158/56 Arterial Blood Pressure 178/64 Arterial Blood Pressure 139/75 Patient is an elderly male, who is groggy, encephalopathic. Patient appears slightly delirious, fluctuating mental status.. Speech and language functions are normal. Patient can name and repeat very well. No aphasia or dysarthria. Attention, concentration is limited and fund of knowledge is difficult to assess because of impaired attention. On cranial nerve examination, pupils are equal, round and reacting to light, visual [place] are full on confrontation, with no neglect on double simultaneous stimulation. Extraocular muscles are intact with no nystagmus. Patient appears to have left facial asymmetry, central type. His tongue protrudes to the midline. Palatal elevation and sensation normal, hearing and shoulder shrug normal, facial sensation normal. On muscle strength testing, there is no pronator drift and the strength is normal in arms and legs distally and proximally. Deep tendon reflexes are symmetric 2+ at the biceps, 2+ brachioradialis, 2+ at the knees, 1+ ankles and plantars downgoing bilaterally. Sensory to touch is equal with no neglect on double simultaneous stimulation. Cerebellar function showed no ataxia for heguqu-ip-glfy testing. Tone and bulk of muscles normal. Gait deferred.. On general examination, there is no carotid bruit or murmur, S1-S2 audible. Chest is clear on consultation. Abdomen is soft nontender. No organomegaly, bowel sounds present. Peripheral pulses are present. No edema. Results - Laboratory Findings CBC and BMP: 12/30/22 04:30 12/30/22 04:30 Abnormal Lab Findings: Abnormal Labs 12/28/22 12/28/22 12/28/22 10:00 17:25 23:45 WBC 13.1 H RBC Neutrophils # 11.9 H Lymphocytes # 0.5 L Chloride Carbon Dioxide Creatinine 1.61 H Glucose 110 H POC Glucose (mg/dL) 135 H Calcium Total Protein Albumin 12/28/22 12/29/22 12/29/22 23:45 05:08 05:08 WBC 12.4 H RBC 4.24 L Neutrophils # 11.0 H Lymphocytes # 0.6 L Chloride 109 H 109 H Carbon Dioxide 20 L Creatinine 1.47 H 1.44 H Glucose 134 H 116 H POC Glucose (mg/dL) Calcium 8.1 L Total Protein 5.9 L Albumin 3.2 L Assessment and Plan Assessment: * Altered mental status, probably due to toxic metabolic encephalopathy. Patient is status post abdominal aortic aneurysm repair with stenting and grafting of the common iliac arteries. Postoperative day 1 * Hypertension * Tobacco use * History of mild alcoholism Plan: * Patient appears to be delirious/encephalopathic. * We will check CT head to rule out any intracranial structural abnormality. * Carotid Doppler to rule out stenosis. * Patient currently on aspirin, which will be continued. * Recommend complete tobacco cessation. * Patient currently on CIWA protocol. Patient's son denies significant alcoholism. * Check hemoglobin A1c, lipid panel * Neurology will follow. Discussed with Vascular surgery and nursing staff. * Agree for the consult.
--- NOTE | 2022-12-29 17:34 | US ---
EXAMINATION TYPE: US carotid duplex BILAT DATE OF EXAM: 12/29/2022 COMPARISON: NONE CLINICAL HISTORY: AMS. AMS. Hx smoker, heart stents. Aortic stents. TECHNIQUE: Carotid duplex ultrasound examination. Indirect Doppler criteria was utilized. FINDINGS: EXAM MEASUREMENTS: RIGHT: Peak Systolic Velocity (PSV) cm/sec ----- Right CCA: 93.1 ----- Right ICA: 182.5 ----- Right ECA: 289.7 ICA/CCA ratio: 2.0 RIGHT: End Diastole cm/sec ----- Right CCA: 21.9 ----- Right ICA: 54.4 ----- Right ECA: 0.0 LEFT: Peak Systolic Velocity (PSV) cm/sec ----- Left CCA: 121.6 ----- Left ICA: 219.1 ----- Left ECA: 156.8 ICA/CCA ratio: 1.8 LEFT: End Diastole cm/sec ----- Left CCA: 22.7 ----- Left ICA: 68.6 ----- Left ECA: 0.0 VERTEBRALS (direction of flow): Right Vertebral: Antegrade Left Vertebral: Antegrade Rhythm: FIELD SERVICE SPECIALIST NOTES: Great amount of plaque seen within bilateral bulbs, ICA, and ECA. Narrowing of v essel seen within bilateral ICA. Elevated velocities within bilateral ICA and ECA. ICA/CCA ratio was 2.0 on the right and 1.8 on the left. IMPRESSION: Moderate bilateral plaque formation. There is bilateral elevated velocities in the internal carotid arteries that is suggestive of 50-70% stenosis. There is antegrade flow in the vertebral arteries. Criteria for Assigning % of Stenosis / Diameter reduction (Estimation based on the indirect measurements of the internal carotid artery velocities (ICA PSV). 1. Normal (no stenosis)=ICA PSV < 125 cm/s: ratio < 2.0: ICA EDV<40 cm/s. 2. Less than 50% stenosis=ICA PSV < 125 cm/s: ratio < 2.0: ICA EDV<40 cm/s. 3. 50 to 69% stenosis=ICA PSV of 125 to 230 cm/s: ration 2.0 ? 4.0: ICA EDV 40-100 cm/s. 4. Greater than 70% stenosis to near occlusion= ICA PSV > 230 cm/s: ratio > 4.0: ICA EDV > 100 cm/s. 5. Near occlusion= ICA PSV velocities may be low or undetectable: variable ratio and ICA EDV. 6. Total occlusion=unable to detect flow.
--- NOTE | 2022-12-29 19:55 | CT ---
EXAMINATION TYPE: CT brain wo con DATE OF EXAM: 12/29/2022 COMPARISON: None HISTORY: ams CT DLP: 1174.4 mGycm Automated exposure control for dose reduction was used. Images of the brain obtained with no contrast. There is mild cerebral atrophy. There is no mass effect or midline shift. No sign of intracranial hem orrhage. There is 1.5 cm hypodensity in the left internal capsule near the genu Consistent with old lacunar infarct. Skull base is intact. There is normal aeration of the mastoid sinuses. Calvarium is intact. 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 Mild atrophy. No hemorrhage.
[2022-12-29] MEDS: DEXMEDETOMIDINE/0.9% NACL(PMX) 400 MCG in EMPTY BAG 1 BAG IV SCH (21:33)
--- NOTE | 2022-12-29 22:52 | PN ---
PROGRESS NOTE SUBJECTIVE: This gentleman is very noncompliant, has history of alcoholism and smoking, stopped his medications a few months ago. He had endovascular aortic aneurysm repair, infrarenal; procedure was performed by Dr. Woods and Dr. Hilliard. This was a 7.5 cm aneurysm, infrarenal, and also lateral iliac aneurysms. The patient had a repair with endovascular aortic repair with bilateral NATALIE graft. He is doing well in this regard. Both lower extremity pulses are good. Abdomen is soft. However, his mentation is somewhat altered. He is oriented, answers questions. Looks like, we may be dealing with some alcohol withdrawal-type picture. I am recommending that we add amlodipine for blood pressure control. OBJECTIVE: VITAL SIGNS: Blood pressure is 170/70. Pulse rate is 80, sinus. NECK: JVD 1 cm. No carotid bruit. HEART: S1 and S2 heard normally. Short systolic murmur. LUNGS: Reveal diminished air entry. ABDOMEN: Soft. EXTREMITIES: Lower extremities reveal palpable pulses. CENTRAL NERVOUS SYSTEM: Limited exam, altered mentation, but no focal deficits. PLAN: We will request Neurology evaluation and optimize BP control. MMODL / IJN: [id number] /
[2022-12-30] MEDS: DEXMEDETOMIDINE/0.9% NACL(PMX) 400 MCG in EMPTY BAG 1 BAG IV SCH ×2 (03:31→10:49)
[2022-12-30 04:42] LABS: Basophils % (A) 0 %; Eosinophils # (A) 0.3 k/uL (0-0.7); Eosinophils % (A) 2 %; HCT 37.2 % (39.0-53.0); HGB 12.2 gm/dL (13.0-17.5); Lymphocytes # (A) 0.7 k/uL (1.0-4.8); Lymphocytes % (A) 6 %; MCH 31.3 pg (25.0-35.0); MCHC 32.7 g/dL (31.0-37.0); MCV 95.8 fL (80.0-100.0); Mean Platelet Volume 7.7; Monocytes # (A) 0.7 k/uL (0-1.0); Monocytes % (A) 6 %; Neutrophils # (A) 9.6 k/uL (1.3-7.7); Neutrophils % (A) 85 %; Platelet Count 202 k/uL (150-450); RBC 3.89 m/uL (4.30-5.90); RDW 12.7 % (11.5-15.5); WBC 11.3 k/uL (3.8-10.6)
[2022-12-30 05:01] LABS: African American GFR (CKD) 60 (>60 ml/min/1.73 sqM); Anion Gap 5 mmol/L; Blood Urea Nitrogen 21 mg/dL (9-20); Carbon Dioxide 22 mmol/L (22-30); Chloride 111 mmol/L (98-107); Glucose 94 mg/dL (74-99); Non-African American GFR(CKD) 52 (>60 ml/min/1.73 sqM); Potassium 4.7 mmol/L (3.5-5.1); Sodium 138 mmol/L (137-145)
[2022-12-30] MEDS: carvediloL 12.5 MG TAB PO SCH ×2 (06:47→17:20)
[2022-12-30] MEDS: ASPIRIN 81 MG PO SCH (08:38)
[2022-12-30] MEDS: THIAMINE 100 MG TAB PO SCH (08:38)
[2022-12-30] MEDS: amLODIPine 5 MG TAB PO SCH (08:38)
[2022-12-30] MEDS: FOLIC ACID 1 MG TAB PO SCH (08:38)
--- NOTE | 2022-12-30 09:24 | P.PN ---
Subjective Progress Note Date: 12/30/22 Principal diagnosis: Change in mental status The patient is a pleasant 77-year-old gentleman who underwent 2 days ago successful endovascular repair of infrarenal abdominal aortic aneurysm with a good angiographic results. Subsequently after the procedure and the following day he developed change in mental status. He does have history of alcohol use. Subsequently requested the patient to be seen by the neurology service. Also he was placed on alcohol withdrawal protocol. 12/30/2022 The patient was seen and evaluated this morning. His mentation has somewhat slightly improved where he is able to follow commands at this morning. He underwent neurologic workup including computed tomography scan and that showed an old infarct. He underwent carotid duplex study showed intermediate disease bilaterally. Hemodynamically he remains stable. No chest pain or chest disc omfort at this point. Blood pressure and heart rate are within normal limits. The physical examination revealed stable vital signs with a change in mental status as described above but he does have regular rhythm with diminished breathing sounds bilaterally and no lower extremity edema noted. Assessment Status post endovascular repair of infrarenal abdominal aortic aneurysm Change in mental status Multiple comorbid conditions Plan Continue the current medical regimen Intensive care service was consulted to see the patient Continue monitor the vital signs The neurologic workup so far came in to be unremarkable The patient continues to be seen by the neurology service Follow-up with the patient Objective - Vital Signs Vital signs: Vital Signs Temp 98.4 F 12/30/22 08:00 Pulse 57 L 12/30/22 09:00 Resp 24 12/30/22 09:00 BP 134/62 12/30/22 08:00 Pulse Ox 97 12/30/22 09:00 FiO2 Intake & Output 12/29/22 12/30/22 12/30/22 18:59 06:59 18:59 Intake Total 1140 1086.778 428.768 Output Total 475 425 130 Balance 665 661.778 298.768 Weight 102.1 kg Intake: IV 1020 1020 240 0.9 960 960 240 Invasive Line 2 30 50 Invasive Line 3 30 10 Intake, IV Titration 66.778 68.768 Amount Dexmedetomidine/0.9% NaCl 66.778 68.768 (Pmx) 400 mcg In Empty Bag 1 bag @ 0.2 MCG/KG/HR 5.19 mls/hr IV .[id number] [facility] Rx#:[id number] Oral 120 120 Output: Urine 475 425 130 Other: Voiding Method Indwelling Catheter Indwelling Catheter ABP, PAP, CO, CI - Last Documented Arterial Blood Pressure 136/44 - Labs CBC & Chem 7: 12/30/22 04:30 12/30/22 04:30 Labs: Abnormal Lab Results - Last 24 Hours (Table) 12/30/22 12/30/22 Range/Units 04:30 04:30 WBC 11.3 H (3.8-10.6) k/uL RBC 3.89 L (4.30-5.90) m/uL Hgb 12.2 L (13.0-17.5) gm/dL Hct 37.2 L (39.0-53.0) % Neutrophils # 9.6 H (1.3-7.7) k/uL Lymphocytes # 0.7 L (1.0-4.8) k/uL Chloride 111 H (98-107) mmol/L BUN 21 H (9-20) mg/dL Creatinine 1.34 H (0.66-1.25) mg/dL Calcium 8.0 L (8.4-10.2) mg/dL
[2022-12-30] MEDS: SODIUM CHLORIDE 0.9% 1,000 ML IV SCH ×3 (10:48→23:57)
[2022-12-30] MEDS ORDERED: ACETAMINOPHEN TAB 325 MG TAB PO PRN (11:00)
--- NOTE | 2022-12-30 11:02 | P.CNPUL ---
History of Present Illness Consult date: 12/30/22 Requesting physician: Hong Scruggs Reason for consult: other (Critical care management) Chief complaint: Abdominal aortic aneurysm History of present illness: This is a 77-year-old male patient with a history of chronic obstructive pulmonary disease, former smoker, coronary disease with previous stent placements, melanoma removed from left shoulder, GI bleed, hypertension, hyperlipidemia, abdominal aortic aneurysm. He was admitted back on 12/28/2022 with a history of infrarenal abdominal aortic aneurysm measuring 7.5 cm with bilateral common iliac artery aneurysms. He had undergone a percutaneous endovascular aortic repair with bilateral grafts. Percutaneous femoral closure with Perclose. He was being followed in the intensive care unit when early yesterday morning the patient developed increased agitation and restlessness. Apparently he drinks a 12 pack of beer per day. Last drink unknown. He was placed on the CIWA protocol. He was subsequently placed on Precedex infusion per the hospitalist last evening. We were consulted today for ICU management. The patient is currently resting in bed. Sedated. Relaxed. Calm and comfortable. On Precedex infusion at 0.4 mcg/kg/h. He has normal saline at 80 ML's per hour. He is on oxygen at 3 L/m per nasal cannula. carotid Dopplers revealed bilateral internal carotid artery velocity suggestive of 50-70% stenosis. computed t omography scan of the brain reveals old lacunar infarct left internal capsule. Mild atrophy. No hemorrhage. white count 11.3. Hemoglobin 12.2. Platelets 202. Sodium 138. Potassium 4.7. Bicarb 22. BUN 21. Creatinine 1.34. Review of Systems The patient is currently sedated on Precedex ROS unobtainable: due to mental status Past Medical History Past Medical History: Cancer, COPD, GI Bleed, Hyperlipidemia, Hypertension, Memory Impairment, Myocardial Infarction (RI) Additional Past Medical History / Comment(s): past hx. GI bleeding, hx. 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 aortic aneurysm Last Myocardial Infarction Date:: pt unsure History of Any Multi-Drug Resistant Organisms: None Reported Past Surgical History: Heart Catheterization With Stent Additional Past Surgical History / Comment(s): tooth sx, colonoscopy, heart stent x3, melanoma removed left shoulder recently Past Anesthesia/Blood Transfusion Reactions: No Reported Reaction Date of Last Stent Placement:: 2008 Smoking Status: Former smoker - Past Family History Father Family Medical History: Myocardial Infarction (RI) Additional Family Medical History / Comment(s): from a RI Mother Family Medical History: Myocardial Infarction (RI) Additional Family Medical History / Comment(s): from a RI Sister(s) Family Medical History: Cancer Brother(s) Family Medical History: Myocardial Infarction (RI) Medications and Allergies Home Medications Medication Instructions Recorded Confirmed Type Fluticasone/Umeclidin/Vilanter 1 puff INHALATION DAILY PRN 12/27/22 12/27/22 History [Trelegy Ellipta 200-62.5-25] guaiFENesin [Mucinex] 600 mg PO DIRECTED PRN 12/27/22 12/27/22 History Atorvastatin [Lipitor] 80 mg PO HS 12/29/22 12/29/22 History Clopidogrel [Plavix] 12/29/22 History amLODIPine [Norvasc] 10 mg PO DAILY 12/29/22 12/29/22 History atenoloL [Tenormin] 50 mg PO DAILY 12/29/22 12/29/22 History lisinopriL [Zestril] 10 mg PO DAILY 12/29/22 12/29/22 History Allergies Allergy/AdvReac Type Severity Reaction Status Date / Time No Known Allergies Allergy Verified 12/27/22 11:17 Physical Exam Vitals: Vital Signs Temp Pulse Resp BP Pulse Ox 12/30/22 09:00 57 L 24 97 12/30/22 08:00 98.4 F 62 20 134/62 98 12/30/22 07:00 64 23 111/55 97 12/30/22 06:00 64 19 98 12/30/22 05:00 63 18 98 12/30/22 04:00 97.7 F 65 17 97 12/30/22 03:30 61 17 98 12/30/22 03:15 61 18 98 12/30/22 03:00 62 21 98 12/30/22 02:45 62 19 99 12/30/22 02:30 62 19 98 12/30/22 02:15 62 19 99 12/30/22 02:00 62 18 98 12/30/22 01:45 63 17 98 12/30/22 01:30 62 18 98 12/30/22 01:15 64 19 98 12/30/22 01:00 65 19 98 0324/23 00:45 65 18 99 12/30/22 00:30 65 17 99 12/30/22 00:15 64 19 98 12/30/22 00:00 97.8 F 66 19 99 12/29/22 23:45 67 20 98 12/29/22 23:39 66 18 98 12/29/22 23:30 68 22 98 12/29/22 23:15 65 19 99 12/29/22 23:00 69 20 99 12/29/22 22:45 65 18 99 12/29/22 22:30 67 18 99 12/29/22 22:15 68 20 98 12/29/22 22:00 66 20 98 12/29/22 21:45 73 24 92 L 12/29/22 21:30 69 20 89 L 12/29/22 21:15 68 22 88 L 12/29/22 21:00 76 25 H 92 L 12/29/22 20:45 68 21 99 12/29/22 20:30 69 19 99 12/29/22 20:15 68 22 98 12/29/22 20:00 97.6 F 68 23 97 12/29/22 19:45 66 22 97 12/29/22 19:30 75 53 H 97 12/29/22 19:15 70 24 97 12/29/22 19:00 80 24 90 L 12/29/22 18:45 69 19 94 L 12/29/22 18:30 71 74 H 142/55 97 12/29/22 18:00 74 21 98 12/29/22 17:45 74 21 98 12/29/22 17:30 72 19 97 12/29/22 17:15 81 24 142/55 96 12/29/22 17:00 75 29 H 96 12/29/22 16:45 68 19 98 12/29/22 16:30 70 21 96 12/29/22 16:15 71 17 141/59 96 12/29/22 16:00 74 22 97 12/29/22 15:45 70 19 97 12/29/22 15:30 70 19 98 12/29/22 15:15 67 18 129/56 98 12/29/22 15:00 66 18 98 12/29/22 14:45 71 16 97 12/29/22 14:30 77 19 97 12/29/22 14:15 67 17 98 12/29/22 14:00 71 19 98 12/29/22 13:45 70 17 98 12/29/22 13:30 71 16 98 12/29/22 13:15 68 18 99 12/29/22 13:00 76 23 98 12/29/22 12:45 78 16 98 12/29/22 12:30 70 13 98 12/29/22 12:15 71 17 99 12/29/22 12:00 98.1 F 69 16 96 12/29/22 11:45 71 17 98 12/29/22 11:44 95 12/29/22 11:30 69 16 98 12/29/22 11:15 69 16 99 12/29/22 11:00 19 146/61 99 Intake and Output 12/29/22 12/30/22 12/30/22 22:59 06:59 14:59 Intake Total 811.47 735.308 428.768 Output Total 285 270 130 Balance 526.47 465.308 298.768 Intake: IV 690 670 240 0.9 640 640 240 Invasive Line 2 30 30 Invasive Line 3 20 Intake, IV Titration 1.47 65.308 68.768 Amount Dexmedetomidine/0.9% NaCl 1.47 65.308 68.768 (Pmx) 400 mcg In Empty Bag 1 bag @ 0.2 MCG/KG/HR 5.19 mls/hr IV .[id number] [facility] [place] Rx#:[id number] Oral 120 120 Output: Urine 285 270 130 Other: Voiding Method Indwelling Catheter Indwelling Catheter Indwelling Catheter Weight 102.1 kg ABP, PAP, CO, CI - Last 8 Hours Arterial Blood Pressure 136/44 Arterial Blood Pressure 140/49 Arterial Blood Pressure 153/48 Arterial Blood Pressure 135/41 Arterial Blood Pressure 151/45 Arterial Blood Pressure 132/43 Arterial Blood Pressure 121/39 Arterial Blood Pressure 126/40 Arterial Blood Pressure 135/43 GENERAL EXAM: Sedated, 77-year-old male patient, on 3 L nasal cannula,, comfortable in no apparent distress. HEAD: Normocephalic. EYES: Normal reaction of pupils, equal size. NOSE: Clear with pink turbinates. THROAT: No erythema or exudates. NECK: No masses, no JVD. CHEST: No chest wall deformity. LUNGS: Equal air entry with no crackles, wheeze, rhonchi or dullness. CVS: S1 and S2 normal with no audible murmur, regular rhythm. ABDOMEN: No hepatosplenomegaly, normal bowel sounds, no guarding or rigidity. SPINE: No scoliosis or deformity SKIN: No rashes CENTRAL NERVOUS SYSTEM: No focal deficits, tone is normal in all 4 extremities. EXTREMITIES: There is no peripheral edema. No clubbing, no cyanosis. Sowmya pheral pulses are intact. Results - Laboratory Findings CBC and BMP: 12/30/22 04:30 12/30/22 04:30 PT/INR, D-dimer PT 10.6 sec (9.0-12.0) 12/28/22 10:00 INR 1.0 (<1.2) 12/28/22 10:00 Abnormal lab findings: Abnormal Labs 12/28/22 12/28/22 12/28/22 10:00 17:25 23:45 WBC 13.1 H RBC Hgb Hct Neutrophils # 11.9 H Lymphocytes # 0.5 L Chloride Carbon Dioxide BUN Creatinine 1.61 H Glucose 110 H POC Glucose (mg/dL) 135 H Calcium Total Protein Albumin 12/28/22 12/29/22 12/29/22 23:45 05:08 05:08 WBC 12.4 H RBC 4.24 L Hgb Hct Neutrophils # 11.0 H Lymphocytes # 0.6 L Chloride 109 H 109 H Carbon Dioxide 20 L BUN Creatinine 1.47 H 1.44 H Glucose 134 H 116 H POC Glucose (mg/dL) Calcium 8.1 L Total Protein 5.9 L Albumin 3.2 L 12/30/22 12/30/22 04:30 04:30 WBC 11.3 H RBC 3.89 L Hgb 12.2 L Hct 37.2 L Neutrophils # 9.6 H Lymphocytes # 0.7 L Chloride 111 H Carbon Dioxide BUN 21 H Creatinine 1.34 H Glucose POC Glucose (mg/dL) Calcium 8.0 L Total Protein Albumin Assessment and Plan Assessment: Infrarenal abdominal aortic aneurysm measuring 7.5 cm with bilateral common iliac artery aneurysms. He had undergone a percutaneous endovascular aortic repair with bilateral grafts. Percutaneous femoral closure with Perclose. Admitted electively on 12/28/2022. Postoperative day #2. Acute hypoxemic respiratory failure secondary to acute alcohol withdrawal syndrome. Currently on Precedex and CIWA protocol Alcohol abuse drinking approximately 12 cans of beer per day Former smoker History of COPD Coronary disease with previous stent placement History of melanoma with surgical excision History of hypertension Hyperlipidemia plan: The patient was seen and evaluated Medications and labs reviewed Titrate down the Precedex as tolerated Continue the CIWA protocol utilizing Ativan as needed Keep here in the intensive care unit for now We will continue to follow make further recommendations based on his clinical status I have personally seen and examined the patient, performed the documentation and the assessment and plan as written. Number of minutes spent on the visit: 20.
--- NOTE | 2022-12-30 11:02 | P.PN ---
Subjective Progress Note Date: 12/30/22 Subjective: Patient seen and examined at bedside. No acute events overnight. He is a limited more alert today compared to yesterday. He claims that he drinks minimally, and not daily. He is still not able to specify how much and what kind of alcohol he takes. He denies any chest pain, shortness of breath, abdominal pain, nausea, vomiting, diarrhea or constipation. He continues to have a urinary catheter in place. Pertinent positives and negatives as discussed above, a complete review of systems was performed and all other systems are negative. Vitals Signs Reviewed. General: nontoxic, no distress, appears at stated age, appears lethargic Derm: warm, dry Head: atraumatic, normocephalic, symmetric Eyes: EOMI, no lid lag, anicteric sclera Mouth: no lip lesion, mucus membranes moist Cardiovascular: S1S2 reg, no murmur Lungs: CTA bilateral, no rhonchi, no rales , no accessory muscle use Abdominal: soft, nontender to palpation, no guarding, no appreciable organomegaly Ext: no gross muscle atrophy, no edema, no contractures Neuro: CN II-XI grossly intact, no focal neuro deficits Psych: Appears lethargic, oriented, appropriate affect Data Reviewed Today: Pertinent Labs: WBC 11.3, hemoglobin 12.2, potassium 4.7, BUN 21, creatinine 1.34, glucose 94, magnesium [address] report reviewed: Old lacunar infarct within the left internal capsule, no acute process. Bilateral carotid artery Doppler report reviewed, shows moderate bilateral plaque formation, suggestive of 50-70% stenosis. Assessment and Plan: Patient is critically ill, in medical ICU. Currently on Precedex drip for acute encephalopathy. Active: Acute metabolic encephalopathy Alcohol use disorder, possible alcohol withdrawal History of remote stroke, no deficits Bilateral carotid artery atherosclerotic disease Status post AAA repair Mild blood loss anemia, expected outcome of surgery Reactive leukocytosis -Encephalopathy possibly postoperative delirium, versus alcohol withdrawal -Continue CIWA, IV Ativan as needed, did not require any today -Currently on Precedex drip at 0.3 -Thiamine 100 mg daily, folic acid 1 mg daily -Delirium precautions, Tylenol 650 mg every 6 hours as needed order for pain, avoid narcotics if possible -Neurology following -Vascular surgery following -Cardiology note reviewed: Continue current management -No active bleeding -No signs or symptoms for infection -Subcu heparin added for DVT prophylaxis Chronic: Hypertension Chronic kidney disease stage III Thank you for allowing us to participate in the care of this pleasant patient. Do not hesitate to contact us with questions. Someone can be reached from the [facility] hospitalist group all hours of the day at [phone] or via perfect serve. Objective - Vital Signs Vital signs: Vital Signs Temp 98.4 F 12/30/22 08:00 Pulse 59 L 12/30/22 10:00 Resp 19 12/30/22 10:00 BP 134/62 12/30/22 08:00 Pulse Ox 99 12/30/22 10:00 FiO2 Intake & Output 12/29/22 12/30/22 12/30/22 18:59 06:59 18:59 Intake Total 1140 1086.778 529.528 Output Total 475 425 160 Balance 665 661.778 369.528 Weight 102.1 kg Intake: IV 1020 1020 320 0.9 960 960 320 Invasive Line 2 30 50 Invasive Line 3 30 10 Intake, IV Titration 66.778 89.528 Amount Dexmedetomidine/0.9% NaCl 66.778 89.528 (Pmx) 400 mcg In Empty Bag 1 bag @ 0.2 MCG/KG/HR 5.19 mls/hr IV .[id number] [facility] Rx#:[id number] Oral 120 120 Output: Urine 475 425 160 Other: Voiding Method Indwelling Catheter Indwelling Catheter Indwelling Catheter ABP, PAP, CO, CI - Last Documented Arterial Blood Pressure 132/44 - Labs CBC & Chem 7: 12/30/22 04:30 12/30/22 04:30 Labs: Abnormal Lab Results - Last 24 Hours (Table) 12/30/22 12/30/22 Range/Units 04:30 04:30 WBC 11.3 H (3.8-10.6) k/uL RBC 3.89 L (4.30-5.90) m/uL Hgb 12.2 L (13.0-17.5) gm/dL Hct 37.2 L (39.0-53.0) % Neutrophils # 9.6 H (1.3-7.7) k/uL Lymphocytes # 0.7 L (1.0-4.8) k/uL Chloride 111 H (98-107) mmol/L BUN 21 H (9-20) mg/dL Creatinine 1.34 H (0.66-1.25) mg/dL Calcium 8.0 L (8.4-10.2) mg/dL
--- NOTE | 2022-12-30 11:54 | XR ---
EXAMINATION TYPE: XR chest 1V portable DATE OF EXAM: 12/30/2022 HISTORY: Shortness of breath. COMPARISON: 03/17/2019 TECHNIQUE: Single view of the chest is submitted. FINDINGS: Demonstrated are scattered senescent parenchymal change. Patchy density left lower lobe may reflect developing pneumonia. Correlate clinically progress studie s are recommended. The heart is stable. Hilar and mediastinal structures are within normal limits. Degenerative changes are seen of the dorsal spine. IMPRESSION: 1. Patchy density left lower lobe may reflect developing pneumonia. Correlate clinically progress st udies are recommended.
[2022-12-30] MEDS: LORazepam 2 MG/ML INJ IV PRN ×3 (14:35→22:45)
[2022-12-30] MEDS: HEPARIN SODIUM,PORCINE/PF 5,000 UNIT/0.5 ML SYRINGE SQ SCH ×2 (17:05→23:56)
[2022-12-30] MEDS: ALPRAZolam 0.25 MG TAB PO PRN (20:35)
[2022-12-30] MEDS: cloNIDine HCL 0.1 MG TAB PO PRN (20:35)
[2022-12-30] MEDS: HYDROmorphone 1 MG/ML 1 ML SYRINGE IVP PRN (21:50)
[2022-12-30] MEDS: hydrALAZINE HCL 20 MG/ML 1 ML VIAL IVP PRN (22:00)
[2022-12-30 22:26] LABS: Chol/HDL Ratio 5.78 Ratio; LDL Cholesterol,Calculated 159.3 mg/dL (0.0-131.0)
[2022-12-31] MEDS: HYDROmorphone 1 MG/ML 1 ML SYRINGE IVP PRN ×3 (00:52→21:23)
[2022-12-31] MEDS: hydrALAZINE HCL 20 MG/ML 1 ML VIAL IVP PRN (03:09)
[2022-12-31] MEDS: LORazepam 2 MG/ML INJ IV PRN ×3 (03:20→11:00)
[2022-12-31] MEDS ORDERED: IPRATROPIUM-ALBUTEROL 3 ML NEB INHALATION PRN (05:40)
[2022-12-31] MEDS: SODIUM CHLORIDE 0.9% 1,000 ML IV SCH ×4 (06:15→21:23)
[2022-12-31] MEDS: carvediloL 12.5 MG TAB PO SCH ×2 (06:43→17:08)
[2022-12-31] MEDS ORDERED: IPRATROPIUM-ALBUTEROL 3 ML NEB INHALATION SCH (08:00)
[2022-12-31 08:10] LABS: Basophils % (A) 0 %; Eosinophils # (A) 0.2 k/uL (0-0.7); Eosinophils % (A) 1 %; HCT 38.1 % (39.0-53.0); HGB 12.4 gm/dL (13.0-17.5); Lymphocytes # (A) 0.6 k/uL (1.0-4.8); Lymphocytes % (A) 5 %; MCH 31.3 pg (25.0-35.0); MCHC 32.6 g/dL (31.0-37.0); MCV 96.2 fL (80.0-100.0); Mean Platelet Volume 7.9; Monocytes # (A) 0.7 k/uL (0-1.0); Monocytes % (A) 6 %; Neutrophils # (A) 11.3 k/uL (1.3-7.7); Neutrophils % (A) 88 %; Platelet Count 237 k/uL (150-450); RBC 3.97 m/uL (4.30-5.90); RDW 12.9 % (11.5-15.5)
[2022-12-31 08:13] LABS: Calcium 8.1 mg/dL (8.4-10.2); Potassium 4.4 mmol/L (3.5-5.1); Total Bilirubin 0.6 mg/dL (0.2-1.3); Total Protein 5.7 g/dL (6.3-8.2)
--- NOTE | 2022-12-31 08:14 | P.PN ---
Subjective Progress Note Date: 12/31/22 Principal diagnosis: Change in mental status The patient is a pleasant 77-year-old gentleman who underwent 2 days ago successful endovascular repair of infrarenal abdominal aortic aneurysm with a good angiographic results. Subsequently after the procedure and the following day he developed change in mental status. He does have history of alcohol use. Subsequently requested the patient to be seen by the neurology service. Also he was placed on alcohol withdrawal protocol. 12/30/2022 The patient was seen and evaluated this morning. His mentation has somewhat slightly improved where he is able to follow commands at this morning. He underwent neurologic workup including computed tomography scan and that showed an old infarct. He underwent carotid duplex study showed intermediate disease bilaterally. Hemodynamically he remains stable. No chest pain or chest disc omfort at this point. Blood pressure and heart rate are within normal limits. The physical examination revealed stable vital signs with a change in mental status as described above but he does have regular rhythm with diminished breathing sounds bilaterally and no lower extremity edema noted. December [id number] The patient was seen this morning. He still have a change in mental status. No symptoms of any chest pain or chest discomfort. He remains hemodynamically stable. He remains in normal sinus mechanism. CBC this morning showed stable but we don't have kidney function as of yet. Neurology service is on the case and he underwent a computed tomography scan of the brain which showed an old infarct with no acute intracranial process noted. He has stable vital signs so far. He has regular rhythm with diminished breathing sounds bilaterally and normal bilateral groins. No lower extremity edema noted. Assessment Status post endovascular repair of infrarenal abdominal aortic aneurysm Change in mental status Chronic renal failure Plan Continue the current medical regimen Continue monitor the kidney function and electrolytes Continue monitor the hemoglobin Follow-up with the patient Objective - Vital Signs Vital signs: Vital Signs Temp 99.3 F 12/31/22 08:00 Pulse 92 12/31/22 08:07 Resp 22 12/31/22 08:00 BP 139/62 12/31/22 08:00 Pulse Ox 93 L 12/31/22 08:06 FiO2 Intake & Output 12/30/22 12/31/22 12/31/22 18:59 06:59 18:59 Intake Total 4616.842 6320 Output Total 450 760 Balance 1097.390 316 Weight 106.2 kg Intake: IV 960 1076 0.9 960 1040 Pressure Bag 36 Intake, IV Titration 107.390 Amount Dexmedetomidine/0.9% NaCl 107.390 (Pmx) 400 mcg In Empty Bag 1 bag @ 0.2 MCG/KG/HR 5.19 mls/hr IV .[id number] [facility] Rx#:[id number] Oral 480 Output: Urine 450 760 Other: Voiding Method Indwelling Catheter Indwelling Catheter ABP, PAP, CO, CI - Last Documented Arterial Blood Pressure 184/55 - Labs CBC & Chem 7: 12/31/22 07:30 12/30/22 04:30 Labs: Abnormal Lab Results - Last 24 Hours (Table) 12/30/22 12/31/22 Range/Units 04:30 07:30 WBC 13.0 H (3.8-10.6) k/uL RBC 3.97 L (4.30-5.90) m/uL Hgb 12.4 L (13.0-17.5) gm/dL Hct 38.1 L (39.0-53.0) % Neutrophils # 11.3 H (1.3-7.7) k/uL Lymphocytes # 0.6 L (1.0-4.8) k/uL Cholesterol 227.00 H (0.00-200.00) mg/dL LDL Cholesterol, Calc 159.3 H (0.0-131.0) mg/dL HDL Cholesterol 39.30 L (40.00-60.00) mg/dL Microbiology - Last 24 Hours (Table) 12/29/22 15:46 Blood Culture - Preliminary Blood No Growth after 24 hours
[2022-12-31] MEDS: FOLIC ACID 1 MG TAB PO SCH (08:48)
[2022-12-31] MEDS: THIAMINE 100 MG TAB PO SCH (08:48)
[2022-12-31] MEDS: HEPARIN SODIUM,PORCINE/PF 5,000 UNIT/0.5 ML SYRINGE SQ SCH ×3 (08:48→23:09)
[2022-12-31] MEDS: amLODIPine 5 MG TAB PO SCH (08:48)
[2022-12-31] MEDS: ASPIRIN 81 MG PO SCH (08:48)
[2022-12-31] MEDS: cloNIDine HCL 0.1 MG TAB PO PRN (10:06)
--- NOTE | 2022-12-31 10:57 | P.PN ---
Subjective Progress Note Date: 12/31/22 Subjective: Patient seen and examined at bedside. No acute events overnight. He is a lot more alert and orientated today. He denies any chest pain, shortness of breath, abdominal pain, nausea, vomiting, diarrhea or constipation. He continues to have a urinary catheter in place. Pertinent positives and negatives as discussed above, a complete review of systems was performed and all other systems are negative. Vitals Signs Reviewed. General: nontoxic, no distress, appears at stated age Derm: warm, dry Head: atraumatic, normocephalic, symmetric Eyes: EOMI, no lid lag, anicteric sclera Mouth: no lip lesion, mucus membranes moist Cardiovascular: S1S2 reg, no murmur Lungs: CTA bilateral, no rhonchi, no rales , no accessory muscle use Abdominal: soft, nontender to palpation, no guarding, no appreciable organomegaly Ext: no gross muscle atrophy, no edema, no contractures Neuro: CN II-XI grossly intact, no focal neuro deficits Psych: Alert, oriented, appropriate affect Data Reviewed Today: Pertinent Labs: WBC 13.0, hemoglobin 12.4, potassium 4.4, bicarb 20, creatinine 1.27, total cholesterol 227, LDL 159 Assessment and Plan: Patient is critically ill but improving, in medical ICU. Precedex drip has been discontinued. Active: Acute metabolic encephalopathy Alcohol use disorder, possible alcohol withdrawal History of remote stroke, no deficits Bilateral carotid artery atherosclerotic disease Status post AAA repair Mild blood loss anemia, expected outcome of surgery Reactive leukocytosis Hypertensive urgency -Encephalopathy possibly postoperative delirium, versus alcohol withdrawal -Continue CIWA, IV Ativan as needed, required 2 doses of 1 mg each day -Precedex drip has been discontinued -Thiamine 100 mg daily, folic acid 1 mg daily -Delirium precautions, Tylenol 650 mg every 6 hours as needed order for pain, avoid narcotics if possible -Neurology following -Vascular surgery following -Cardiology note reviewed: Continue current management -No active bleeding -No signs or symptoms for infection -Worsening hypertension possibly in the setting of alcohol withdrawal or withdrawal from Precedex, currently on clonidine 0.1 3 times a day as needed, and hydralazine 10 mg IV every 4 hours as needed Chronic: Hypertension Chronic kidney disease stage III Thank you for allowing us to participate in the care of this pleasant patient. Do not hesitate to contact us with questions. Someone can be reached from the [facility] hospitalist group all hours of the day at [phone] or via perfect serve. Objective - Vital Signs Vital signs: Vital Signs Temp 99.3 F 12/31/22 08:00 Pulse 91 12/31/22 10:00 Resp 28 H 12/31/22 10:00 BP 162/93 12/31/22 10:00 Pulse Ox 94 L 12/31/22 10:00 FiO2 Intake & Output 12/30/22 12/31/22 12/31/22 18:59 06:59 18:59 Intake Total 4805.217 3500 369 Output Total 450 760 255 Balance 1097.390 316 114 Weight 106.2 kg Intake: IV 960 1076 249 0.9 960 1040 240 Pressure Bag 36 9 Intake, IV Titration 107.390 Amount Dexmedetomidine/0.9% NaCl 107.390 (Pmx) 400 mcg In Empty Bag 1 bag @ 0.2 MCG/KG/HR 5.19 mls/hr IV .[id number] [facility] Rx#:[id number] Oral 480 120 Output: Urine 450 760 255 Other: Voiding Method Indwelling Catheter Indwelling Catheter Indwelling Catheter ABP, PAP, CO, CI - Last Documented Arterial Blood Pressure 196/58 - Labs CBC & Chem 7: 12/31/22 07:30 12/31/22 07:30 Labs: Abnormal Lab Results - Last 24 Hours (Table) 12/30/22 12/31/22 12/31/22 Range/Units 04:30 07:30 07:30 WBC 13.0 H (3.8-10.6) k/uL RBC 3.97 L (4.30-5.90) m/uL Hgb 12.4 L (13.0-17.5) gm/dL Hct 38.1 L (39.0-53.0) % Neutrophils # 11.3 H (1.3-7.7) k/uL Lymphocytes # 0.6 L (1.0-4.8) k/uL Chloride 111 H (98-107) mmol/L Carbon Dioxide 20 L (22-30) mmol/L Creatinine 1.27 H (0.66-1.25) mg/dL Calcium 8.1 L (8.4-10.2) mg/dL Total Protein 5.7 L (6.3-8.2) g/dL Albumin 3.0 L (3.5-5.0) g/dL Cholesterol 227.00 H (0.00-200.00) mg/dL LDL Cholesterol, Calc 159.3 H (0.0-131.0) mg/dL HDL Cholesterol 39.30 L (40.00-60.00) mg/dL Microbiology - Last 24 Hours (Table) 12/29/22 15:46 Blood Culture - Preliminary Blood No Growth after 24 hours
--- NOTE | 2022-12-31 11:20 | P.PN ---
Subjective Progress Note Date: 12/31/22 This is a 77-year-old male patient with a history of chronic obstructive pulmonary disease, former smoker, coronary disease with previous stent placements, melanoma removed from left shoulder, GI bleed, hypertension, hyperlipidemia, abdominal aortic aneurysm. He was admitted back on 12/28/2022 with a history of infrarenal abdominal aortic aneurysm measuring 7.5 cm with bilateral common iliac artery aneurysms. He had undergone a percutaneous endovascular aortic repair with bilateral grafts. Percutaneous femoral closure with Perclose. He was being followed in the intensive care unit when early yeste rd morning the patient developed increased agitation and restlessness. Apparently he drinks a 12 pack of beer per day. Last drink unknown. He was placed on the CIWA protocol. He was subsequently placed on Precedex infusion per the hospitalist last evening. We were consulted today for ICU management. The patient is currently resting in bed. Sedated. Relaxed. Calm and comfortable. On Precedex infusion at 0.4 mcg/kg/h. He has normal saline at 80 ML's per hour. He is on oxygen at 3 L/m per nasal cannula. carotid Dopplers revealed bilateral internal carotid artery velocity suggestive of 50-70% stenosis. 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 Mild atrophy. No hemorrhage. white count 11.3. Hemoglobin 12.2. Platelets 202. Sodium 138. Potassium 4.7. Bicarb 22. BUN 21. Creatinine 1.34. The patient is seen today in 12/31/2022 in follow-up in the intensive care unit. He is currently resting in bed. Calm and comfortable. His Precedex was discontinued approximately 4:30 yesterday afternoon. He did require Ativan 4 doses throughout the night. He is maintaining O2 saturations in the 90s on 3 L nasal cannula. Chest x-ray does reveal a patchy density in the left lower lobe. Possible developing pneumonia. Blood cultures revealing no growth. White count 13.0. Hemoglobin 12.4. Platelets 237. Sodium 140. Potassium 4.4. Bicarb 20. BUN 19. Creatinine 1.27. He has normal saline at 80 ML's per hour. He remains in the CIWA protocol. Objective - Vital Signs Vital signs: Vital Signs Temp 99.3 F 12/31/22 08:00 Pulse 87 12/31/22 11:00 Resp 28 H 12/31/22 11:00 BP 160/70 12/31/22 11:00 Pulse Ox 93 L 12/31/22 11:00 FiO2 Intake & Output 12/30/22 12/31/22 12/31/22 18:59 06:59 18:59 Intake Total 4393.720 7250 572 Output Total 450 760 295 Balance 1097.390 316 277 Weight 106.2 kg Intake: IV 960 1076 332 0.9 960 1040 320 Pressure Bag 36 12 Intake, IV Titration 107.390 Amount Dexmedetomidine/0.9% NaCl 107.390 (Pmx) 400 mcg In Empty Bag 1 bag @ 0.2 MCG/KG/HR 5.19 mls/hr IV .[id number] [facility] Rx#:[id number] Oral 480 240 Output: Urine 450 760 295 Other: Voiding Method Indwelling Catheter Indwelling Catheter Indwelling Catheter ABP, PAP, CO, CI - Last Documented Arterial Blood Pressure 191/67 - Exam GENERAL EXAM: Arousable 77-year-old male patient, on 3 L nasal cannula, comfortable in no apparent distress. HEAD: Normocephalic. EYES: Normal reaction of pupils, equal size. NOSE: Clear with pink turbinates. THROAT: No erythema or exudates. NECK: No masses, no JVD. CHEST: No chest wall deformity. LUNGS: Equal air entry with no crackles, wheeze, rhonchi or dullness. CVS: S1 and S2 normal with no audible murmur, regular rhythm. ABDOMEN: No hepatosplenomegaly, normal bowel sounds, no guarding or rigidity. SPINE: No scoliosis or deformity SKIN: No rashes CENTRAL NERVOUS SYSTEM: No focal deficits, tone is normal in all 4 extremities. EXTREMITIES: There is no peripheral edema. No clubbing, no cyanosis. Peripheral pulses are intact. - Labs CBC & Chem 7: 12/31/22 07:30 12/31/22 07:30 Labs: Abnormal Lab Results - Last 24 Hours (Table) 12/30/22 12/31/22 12/31/22 Range/Units 04:30 07:30 07:30 WBC 13.0 H (3.8-10.6) k/uL RBC 3.97 L (4.30-5.90) m/uL Hgb 12.4 L (13.0-17.5) gm/dL Hct 38.1 L (39.0-53.0) % Neutrophils # 11.3 H (1.3-7.7) k/uL Lymphocytes # 0.6 L (1.0-4.8) k/uL Chloride 111 H (98-107) mmol/L Carbon Dioxide 20 L (22-30) mmol/L Creatinine 1.27 H (0.66-1.25) mg/dL Calcium 8.1 L (8.4-10.2) mg/dL Total Protein 5.7 L (6.3-8.2) g/dL Albumin 3.0 L (3.5-5.0) g/dL Cholesterol 227.00 H (0.00-200.00) mg/dL LDL Cholesterol, Calc 159.3 H (0.0-131.0) mg/dL HDL Cholesterol 39.30 L (40.00-60.00) mg/dL Microbiology - Last 24 Hours (Table) 12/29/22 15:46 Blood Culture - Preliminary Blood No Growth after 24 hours Assessment and Plan Assessment: Infrarenal abdominal aortic aneurysm measuring 7.5 cm with bilateral common i liac artery aneurysms. He had undergone a percutaneous endovascular aortic repair with bilateral grafts. Percutaneous femoral closure with Perclose. Admitted electively on 12/28/2022. Postoperative day #3. Acute hypoxemic respiratory failure secondary to acute alcohol withdrawal syndrome. Currently off Precedex and on CIWA protocol Alcohol abuse drinking approximately 12 cans of beer per day Former smoker History of COPD Coronary disease with previous stent placement History of melanoma with surgical excision History of hypertension Hyperlipidemia Plan: The patient was seen and evaluated Chest x-ray, medications and labs reviewed Procalcitonin pending Currently off Precedex Continue the CIWA protocol We will continue to follow I have personally seen and examined the patient, performed the documentation and the assessment and plan as written. Number of minutes spent on the visit: 10.
[2022-12-31] MEDS: ALBUTEROL NEBULIZED 2.5 MG/3 ML INHALATION SCH ×3 (11:55→20:47)
[2022-12-31] MEDS: IPRATROPIUM 0.5 MG/2.5 ML NEBU INHALATION SCH ×3 (11:55→20:48)
--- NOTE | 2022-12-31 12:46 | P.PN ---
Subjective Progress Note Date: 12/30/22 Patient was seen for a follow-up. Patient is much more alert and awake. Patient is following directions much better. He does admit to having lower back pain. He states his throat is dry and feels congested. He states the urinary catheter is bothering. Denies any headache initially, but then when asked again, he admits to having headache 2/10. He does not usually get headache. Objective - Vital Signs Vital signs: Vital Signs Temp 98.2 F 12/30/22 12:00 Pulse 61 12/30/22 15:00 Resp 22 12/30/22 15:00 BP 134/62 12/30/22 08:00 Pulse Ox 97 12/30/22 15:00 FiO2 Intake & Output 12/29/22 12/30/22 12/30/22 18:59 06:59 18:59 Intake Total 1140 8985.326 7989.390 Output Total 475 425 340 Balance 665 661.778 727.390 Weight 102.1 kg Intake: IV 1020 1020 720 0.9 960 960 720 Invasive Line 2 30 50 Invasive Line 3 30 10 Intake, IV Titration 66.778 107.390 Amount Dexmedetomidine/0.9% NaCl 66.778 107.390 (Pmx) 400 mcg In Empty Bag 1 bag @ 0.2 MCG/KG/HR 5.19 mls/hr IV .[id number] [facility] Rx#:[id number] Oral 120 240 Output: Urine 475 425 340 Other: Voiding Method Indwelling Catheter Indwelling Catheter Indwelling Catheter ABP, PAP, CO, CI - Last Documented Arterial Blood Pressure 166/49 - Exam Patient is much more alert and awake, still slightly encephalopathic. He knows it is December and the year is and that he is in [facility] in [place]. Speech and language functions are normal. Patient can name and repeat very well. On cranial nerve examination, pupils are equal, round and reacting, visual [place] are full on confrontation with no neglect on double simultaneous stimulation, face is symmetric and tongue protrudes the midline. Palatal elevation and sensation normal, hearing and shoulder shrug normal. On muscle strength testing there is no pronator drift and the strength is normal in arms and legs. Sensations are equal with no neglect. No ataxia for [id number] testing. Tone and bulk of muscles normal. - Labs CBC & Chem 7: 12/31/22 07:30 12/31/22 07:30 Labs: Abnormal Lab Results - Last 24 Hours (Table) 12/30/22 12/30/22 Range/Units 04:30 04:30 WBC 11.3 H (3.8-10.6) k/uL RBC 3.89 L (4.30-5.90) m/uL Hgb 12.2 L (13.0-17.5) gm/dL Hct 37.2 L (39.0-53.0) % Neutrophils # 9.6 H (1.3-7.7) k/uL Lymphocytes # 0.7 L (1.0-4.8) k/uL Chloride 111 H (98-107) mmol/L BUN 21 H (9-20) mg/dL Creatinine 1.34 H (0.66-1.25) mg/dL Calcium 8.0 L (8.4-10.2) mg/dL Assessment and Plan Assessment: * Altered mental status, probably due to toxic metabolic encephalopathy. Patient is status post abdominal aortic aneurysm repair with stenting and grafting of the common iliac arteries. Postoperative day 2 * Abnormal CT head with evidence of old lacunar infarct left internal capsule. 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 * Hypertension * Tobacco use * History of mild alcoholism Plan: * Patient's encephalopathy has much improved. Mentation also improved, he is fully oriented at this time. Examination is nonfocal. 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 Mild atrophy. I personally reviewed CT head agree with the findings. * Carotid Doppler revealed moderate bilateral plaque formation. Bilateral eleva gregorio velocities in the internal carotid arteries that is suggestive of 50-70% stenosis. Antegrade flow in both vertebral arteries. Interventional cardiology and vascular surgery on board. * Consider 2-D echo if not performed in the past. Cardiology on board, will defer to cardiology. * Patient currently on aspirin, which will be continued. * Recommend complete tobacco cessation. * Patient currently on CIWA protocol. Patient's son denies significant alcoholism. * Hemoglobin A1c 5.7, * Lipid panel with cholesterol 227, LDL 159, HDL 39 and triglycerides 142. Patient's home medications list about Lipitor 80 mg, currently not on. We will resume Lipitor 80 mg daily. * PT and OT
--- NOTE | 2022-12-31 15:10 | P.PN ---
Subjective Progress Note Date: 12/31/22 Patient seen and examined. Still remains altered. Bilateral groins clean dry and intact. Palpable pedal pulses. The vascular surgery standpoint, patient appears to be doing well. We'll defer further issues in this regard to cardiology primary. We will be available should the need arise however this time the plan is cyanotic. Please call if further assistance is necessary. Objective - Vital Signs Vital signs: Vital Signs Temp 98.5 F 12/31/22 12:00 Pulse 71 12/31/22 15:00 Resp 22 12/31/22 15:00 BP 130/65 12/31/22 15:00 Pulse Ox 96 12/31/22 15:00 FiO2 Intake & Output 12/30/22 12/31/22 12/31/22 18:59 06:59 18:59 Intake Total 1581.602 7172 904 Output Total 450 760 445 Balance 1097.390 316 459 Weight 106.2 kg Intake: IV 960 1076 664 0.9 960 1040 640 Pressure Bag 36 24 Intake, IV Titration 107.390 Amount Dexmedetomidine/0.9% NaCl 107.390 (Pmx) 400 mcg In Empty Bag 1 bag @ 0.2 MCG/KG/HR 5.19 mls/hr IV .[id number] [facility] Rx#:[id number] Oral 480 240 Output: Urine 450 760 445 Other: Voiding Method Indwelling Catheter Indwelling Catheter Indwelling Catheter ABP, PAP, CO, CI - Last Documented Arterial Blood Pressure 154/53 - Labs CBC & Chem 7: 12/31/22 07:30 12/31/22 07:30 Labs: Abnormal Lab Results - Last 24 Hours (Table) 12/30/22 12/31/22 12/31/22 Range/Units 04:30 07:30 07:30 WBC 13.0 H (3.8-10.6) k/uL RBC 3.97 L (4.30-5.90) m/uL Hgb 12.4 L (13.0-17.5) gm/dL Hct 38.1 L (39.0-53.0) % Neutrophils # 11.3 H (1.3-7.7) k/uL Lymphocytes # 0.6 L (1.0-4.8) k/uL Chloride 111 H (98-107) mmol/L Carbon Dioxide 20 L (22-30) mmol/L Creatinine 1.27 H (0.66-1.25) mg/dL Calcium 8.1 L (8.4-10.2) mg/dL Total Protein 5.7 L (6.3-8.2) g/dL Albumin 3.0 L (3.5-5.0) g/dL Cholesterol 227.00 H (0.00-200.00) mg/dL LDL Cholesterol, Calc 159.3 H (0.0-131.0) mg/dL HDL Cholesterol 39.30 L (40.00-60.00) mg/dL Microbiology - Last 24 Hours (Table) 12/29/22 15:46 Blood Culture - Preliminary Blood No Growth after 24 hours
[2022-12-31] MEDS: ATORVASTATIN 80 MG TAB PO SCH (20:10)
[2022-12-31] MEDS: HYDROcodone/APAP 5-325MG 1 EACH TAB PO PRN (23:14)
[2022-12-31] MEDS: ALBUTEROL NEBULIZED 2.5 MG/3 ML INHALATION PRN (23:49)
[2022-12-31] MEDS: IPRATROPIUM 0.5 MG/2.5 ML NEBU INHALATION PRN (23:49)
[2023-01-01] MEDS: HYDROmorphone 1 MG/ML 1 ML SYRINGE IVP PRN ×3 (00:20→23:54)
[2023-01-01] MEDS: hydrALAZINE HCL 20 MG/ML 1 ML VIAL IVP PRN ×2 (04:25→23:54)
[2023-01-01] MEDS: ALBUTEROL NEBULIZED 2.5 MG/3 ML INHALATION PRN (04:44)
[2023-01-01] MEDS: LORazepam 2 MG/ML INJ IV PRN ×2 (05:04→14:00)
[2023-01-01] MEDS: carvediloL 12.5 MG TAB PO SCH ×2 (06:40→19:43)
[2023-01-01] MEDS: SODIUM CHLORIDE 0.9% 1,000 ML IV SCH (06:40)
[2023-01-01] MEDS: DEXMEDETOMIDINE/0.9% NACL(PMX) 400 MCG in EMPTY BAG 1 BAG IV SCH (06:42)
[2023-01-01] MEDS: amLODIPine 5 MG TAB PO SCH (08:15)
[2023-01-01] MEDS: FOLIC ACID 1 MG TAB PO SCH (08:15)
[2023-01-01] MEDS: HEPARIN SODIUM,PORCINE/PF 5,000 UNIT/0.5 ML SYRINGE SQ SCH ×3 (08:16→23:53)
[2023-01-01] MEDS: ASPIRIN 81 MG PO SCH (08:16)
[2023-01-01] MEDS: THIAMINE 100 MG TAB PO SCH (08:16)
[2023-01-01] MEDS: IPRATROPIUM 0.5 MG/2.5 ML NEBU INHALATION SCH ×4 (08:28→20:30)
[2023-01-01] MEDS: ALBUTEROL NEBULIZED 2.5 MG/3 ML INHALATION SCH (08:28)
[2023-01-01] MEDS: SENNOSIDES 8.6 MG TAB PO SCH (09:46)
--- NOTE | 2023-01-01 10:28 | P.PN ---
Subjective Progress Note Date: 01/01/23 Subjective: Patient seen and examined at bedside. Overnight, he did require 2 times Ativan. He had Ativan 1 this morning. He denies any chest pain, shortness of breath, abdominal pain, nausea, vomiting, diarrhea or constipation. Per nursing, no bowel movements. He continues to have a urinary catheter in place. Pertinent positives and negatives as discussed above, a complete review of s ystems was performed and all other systems are negative. Vitals Signs Reviewed. General: nontoxic, no distress, appears at stated age Derm: warm, dry Head: atraumatic, normocephalic, symmetric Eyes: EOMI, no lid lag, anicteric sclera Mouth: no lip lesion, mucus membranes moist Cardiovascular: S1S2 reg, no murmur Lungs: CTA bilateral, no rhonchi, no rales , no accessory muscle use Abdominal: soft, nontender to palpation, no guarding, no appreciable organomegaly Ext: no gross muscle atrophy, no edema, no contractures Neuro: CN II-XI grossly intact, no focal neuro deficits Psych: Alert, oriented, appropriate affect Data Reviewed Today: Pertinent Labs: Vital signs reviewed, blood pressure this morning 161/71, 3 L nasal cannula saturating at 92%. Assessment and Plan: Patient is critically ill but improving, in medical ICU. May be downgraded to medical floor. Active: Acute metabolic encephalopathy Alcohol use disorder, possible alcohol withdrawal History of remote stroke, no deficits Bilateral carotid artery atherosclerotic disease Status post AAA repair Mild blood loss anemia, expected outcome of surgery Reactive leukocytosis Hypertensive urgency -Encephalopathy possibly postoperative delirium, versus alcohol withdrawal -Continue CIWA, IV Ativan as needed, required 1 dose of 1 mg today -Thiamine 100 mg daily, folic acid 1 mg daily -Delirium precautions, Tylenol 650 mg every 6 hours as needed order for pain, avoid narcotics if possible -Senna daily for bowel regimen, discontinue Vitale catheter -Neurology, vascular surgery, cardiology following -No active bleeding -No signs or symptoms for infection -Blood pressure improving, on clonidine 0.1 3 times a day as needed, and hydralazine 10 mg IV every 4 hours as needed Chronic: Hypertension Chronic kidney disease stage III Thank you for allowing us to participate in the care of this pleasant patient. Do not hesitate to contact us with questions. Someone can be reached from the [facility] hospitalist group all hours of the day at [phone] or via perfect serve. Objective - Vital Signs Vital signs: Vital Signs Temp 98.3 F 01/01/23 08:00 Pulse 80 01/01/23 10:00 Resp 24 01/01/23 10:00 BP 161/71 01/01/23 10:00 Pulse Ox 92 L 01/01/23 10:00 FiO2 Intake & Output 12/31/22 01/01/23 01/01/23 18:59 06:59 18:59 Intake Total 1273 975 440 Output Total 580 920 310 Balance 693 55 130 Weight 108.8 kg Intake: IV 913 975 320 0.9 880 960 320 Pressure Bag 33 15 Oral 360 120 Output: Urine 580 920 310 Other: Voiding Method Indwelling Catheter Indwelling Catheter Indwelling Catheter ABP, PAP, CO, CI - Last Documented Arterial Blood Pressure 144/44 - Labs CBC & Chem 7: 12/31/22 07:30 12/31/22 07:30 Labs: Abnormal Lab Results - Last 24 Hours (Table) 12/31/22 Range/Units 07:30 Procalcitonin 0.24 H (0.02-0.09) ng/mL Microbiology - Last 24 Hours (Table) 12/29/22 15:46 Blood Culture - Preliminary Blood No Growth after 48 hours
--- NOTE | 2023-01-01 11:05 | P.PN ---
Subjective Progress Note Date: 01/01/23 This is a 77-year-old male patient with a history of chronic obstructive pulmonary disease, former smoker, coronary disease with previous stent placements, melanoma removed from left shoulder, GI bleed, hypertension, hyperlipidemia, abdominal aortic aneurysm. He was admitted back on 12/28/2022 with a history of infrarenal abdominal aortic aneurysm measuring 7.5 cm with bilateral common iliac artery aneurysms. He had undergone a percutaneous endovascular aortic repair with bilateral grafts. Percutaneous femoral closure with Perclose. He was being followed in the intensive care unit when early yeste rd morning the patient developed increased agitation and restlessness. Apparently he drinks a 12 pack of beer per day. Last drink unknown. He was placed on the CIWA protocol. He was subsequently placed on Precedex infusion per the hospitalist last evening. We were consulted today for ICU management. The patient is currently resting in bed. Sedated. Relaxed. Calm and comfortable. On Precedex infusion at 0.4 mcg/kg/h. He has normal saline at 80 ML's per hour. He is on oxygen at 3 L/m per nasal cannula. carotid Dopplers revealed bilateral internal carotid artery velocity suggestive of 50-70% stenosis. 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 Mild atrophy. No hemorrhage. white count 11.3. Hemoglobin 12.2. Platelets 202. Sodium 138. Potassium 4.7. Bicarb 22. BUN 21. Creatinine 1.34. The patient is seen today in 12/31/2022 in follow-up in the intensive care unit. He is currently resting in bed. Calm and comfortable. His Precedex was discontinued approximately 4:30 yesterday afternoon. He did require Ativan 4 doses throughout the night. He is maintaining O2 saturations in the 90s on 3 L nasal cannula. Chest x-ray does reveal a patchy density in the left lower lobe. Possible developing pneumonia. Blood cultures revealing no growth. White count 13.0. Hemoglobin 12.4. Platelets 237. Sodium 140. Potassium 4.4. Bicarb 20. BUN 19. Creatinine 1.27. He has normal saline at 80 ML's per hour. He remains in the CIWA protocol. The patient is seen today 01/01/2023 in follow-up in the intensive care unit. H e is awake and alert. Sitting up in a chair at the bedside. Maintaining O2 saturations in the 90s on 3 L/m per nasal cannula. He has normal saline at 80 ML's per hour. He required less Ativan in the past 24 hours. Remains in the [facility] protocol. Blood cultures revealed no growth. White count 13.0. Hemoglobin 12.4. Sodium 140. Potassium 4.4. Bicarb 20. BUN 19. Creatinine 1.27. Pro-calcitonin 0.24. Objective - Vital Signs Vital signs: Vital Signs Temp 98.3 F 01/01/23 08:00 Pulse 80 01/01/23 10:00 Resp 24 01/01/23 10:00 BP 161/71 01/01/23 10:00 Pulse Ox 92 L 01/01/23 10:00 FiO2 Intake & Output 12/31/22 01/01/23 01/01/23 18:59 06:59 18:59 Intake Total 1273 975 440 Output Total 580 920 310 Balance 693 55 130 Weight 108.8 kg Intake: IV 913 975 320 0.9 880 960 320 Pressure Bag 33 15 Oral 360 120 Output: Urine 580 920 310 Other: Voiding Method Indwelling Catheter Indwelling Catheter Indwelling Catheter ABP, PAP, CO, CI - Last Documented Arterial Blood Pressure 144/44 - Exam GENERAL EXAM: Awake, alert, 77-year-old male patient, up in a chair at the bedside, on 3 L nasal cannula, comfortable in no apparent distress. HEAD: Normocephalic. EYES: Normal reaction of pupils, equal size. NOSE: Clear with pink turbinates. THROAT: No erythema or exudates. NECK: No masses, no JVD. CHEST: No chest wall deformity. LUNGS: Equal air entry with few crackles in left lung base. CVS: S1 and S2 normal with no audible murmur, regular rhythm. ABDOMEN: No hepatosplenomegaly, normal bowel sounds, no guarding or rigidity. SPINE: No scoliosis or deformity SKIN: No rashes CENTRAL NERVOUS SYSTEM: No focal deficits, tone is normal in all 4 extremities. EXTREMITIES: There is no peripheral edema. No clubbing, no cyanosis. Peripheral pulses are intact. - Labs CBC & Chem 7: 12/31/22 07:30 12/31/22 07:30 Labs: Abnormal Lab Results - Last 24 Hours (Table) 12/31/22 Range/Units 07:30 Procalcitonin 0.24 H (0.02-0.09) ng/mL Microbiology - Last 24 Hours (Table) 12/29/22 15:46 Blood Culture - Preliminary Blood No Growth after 48 hours Assessment and Plan Assessment: Infrarenal abdominal aortic aneurysm measuring 7.5 cm with bilateral common iliac artery aneurysms. He had undergone a percutaneous endovascular aortic repair with bilateral grafts. Percutaneous femoral closure with Perclose. Admitted electively on 12/28/2022. Postoperative day #4. Acute hypoxemic respiratory failure secondary to acute alcohol withdrawal syndrome. Currently on CIWA protocol. No clear evidence of pneumonia. Alcohol abuse drinking approximately 12 cans of beer per day Former smoker History of COPD Coronary disease with previous stent placement History of melanoma with surgical excision History of hypertension Hyperlipidemia Plan: The patient was seen and evaluated Medications and labs reviewed Titrate the FiO2 as tolerate Continue the CIWA protocol Cleared for transfer out of the ICU today We will continue to follow I have personally seen and examined the patient, performed the documentation and the assessment and plan as written. Number of minutes spent on the visit: 10.
--- NOTE | 2023-01-01 11:11 | P.PN ---
Subjective Progress Note Date: 12/31/22 Patient was seen for a follow-up. Patient is slightly more groggy today. Patient has received 4 mg of Ativan overnight, 1 mg Ativan short while ago and also received Dilaudid therefore he is encephalopathic and somnolent. He denies any headache. Patient was much more alert and awake yesterday. Objective - Vital Signs Vital signs: Vital Signs Temp 98.2 F 12/31/22 16:00 Pulse 79 12/31/22 17:00 Resp 25 H 12/31/22 17:00 BP 130/59 12/31/22 17:00 Pulse Ox 93 L 12/31/22 17:00 FiO2 Intake & Output 12/30/22 12/31/22 12/31/22 18:59 06:59 18:59 Intake Total 1010.005 2520 1190 Output Total 450 760 550 Balance 1097.390 316 640 Weight 106.2 kg Intake: IV 960 1076 830 0.9 960 1040 800 Pressure Bag 36 30 Intake, IV Titration 107.390 Amount Dexmedetomidine/0.9% NaCl 107.390 (Pmx) 400 mcg In Empty Bag 1 bag @ 0.2 MCG/KG/HR 5.19 mls/hr IV .[id number] [facility] Rx#:[id number] Oral 480 360 Output: Urine 450 760 550 Other: Voiding Method Indwelling Catheter Indwelling Catheter Indwelling Catheter ABP, PAP, CO, CI - Last Documented Arterial Blood Pressure 160/62 - Exam Patient is much more alert and awake, still slightly encephalopathic. He knows it is December and the year is and that he is in [facility] in [place]. Speech and language functions are normal. Patient can name and repeat very well. On cranial nerve examination, pupils are equal, round and reacting, visual calhoun are full on confrontation with no neglect on double simultaneous stimulation, face is symmetric and tongue protrudes the midline. Palatal elevation and sensation normal, hearing and shoulder shrug normal. On muscle strength testing there is no pronator drift and the strength is normal in arms and legs. His deltoids is slightly weak, which may be related to some shoulder issues. Sensations are equal with no neglect. No ataxia for [id number] testing. Tone and bulk of muscles normal. - Labs CBC & Chem 7: 12/31/22 07:30 12/31/22 07:30 Labs: Abnormal Lab Results - Last 24 Hours (Table) 12/30/22 12/31/22 12/31/22 Range/Units 04:30 07:30 07:30 WBC 13.0 H (3.8-10.6) k/uL RBC 3.97 L (4.30-5.90) m/uL Hgb 12.4 L (13.0-17.5) gm/dL Hct 38.1 L (39.0-53.0) % Neutrophils # 11.3 H (1.3-7.7) k/uL Lymphocytes # 0.6 L (1.0-4.8) k/uL Chloride 111 H (98-107) mmol/L Carbon Dioxide 20 L (22-30) mmol/L Creatinine 1.27 H (0.66-1.25) mg/dL Calcium 8.1 L (8.4-10.2) mg/dL Total Protein 5.7 L (6.3-8.2) g/dL Albumin 3.0 L (3.5-5.0) g/dL Cholesterol 227.00 H (0.00-200.00) mg/dL LDL Cholesterol, Calc 159.3 H (0.0-131.0) mg/dL HDL Cholesterol 39.30 L (40.00-60.00) mg/dL Microbiology - Last 24 Hours (Table) 12/29/22 15:46 Blood Culture - Preliminary Blood No Growth after 24 hours Assessment and Plan Assessment: * Altered mental status, probably due to toxic metabolic encephalopathy, much improved now. Patient is status post abdominal aortic aneurysm repair with stenting and grafting of the common iliac arteries. 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 * Hypertension * Tobacco use * History of mild alcoholism Plan: * Patient's encephalopathy has much improved. Mentation also improved, he is fully oriented at this time. Examination is nonfocal. 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 Mild atrophy. I personally reviewed CT head agree with the findings. * Carotid Doppler revealed moderate bilateral plaque formation. Bilateral elevated velocities in the internal carotid arteries that is suggestive of 50- 70% stenosis. Antegrade flow in both vertebral arteries. Interventional cardiology and vascular surgery on board. * Consider 2-D echo if not performed in the past. Cardiology on board, will defer to cardiology. * Patient currently on aspirin, which will be continued. * Recommend complete tobacco cessation. * Patient currently on CICA protocol. Patient's son denies significant alcoholism. * Hemoglobin A1c 5.7, * Lipid panel with cholesterol 227, LDL 159, HDL 39 and triglycerides 142. Patient's home medications list about Lipitor 80 mg, currently not on. We will resume Lipitor 80 mg daily. * PT and OT * Neurologically, no other workup indicated.
[2023-01-01] MEDS: ATORVASTATIN 80 MG TAB PO SCH (19:43)
[2023-01-02] MEDS: IPRATROPIUM 0.5 MG/2.5 ML NEBU INHALATION PRN (04:37)
[2023-01-02] MEDS: HYDROmorphone 1 MG/ML 1 ML SYRINGE IVP PRN (04:58)
--- NOTE | 2023-01-02 06:14 | P.CONS ---
History of Present Illness - Chief Complaint Cardiac debility - History of Present Illness I had the opportunity to see patient for inpatient rehab consultation. Patient admitted to Dr. Black for elective repair of bilateral infrarenal, and iliac artery aneurysms. Seen by Dr. Cherry who notes history of alcohol. Seen by neurology, Dr. Glaser who notes toxic metabolic encephalopathy most likely relat ed to alcohol. Seen by Dr. Davis for acute hypoxic respiratory failure. Chest x-rays followed for left lower lobe patchy infiltrate. Head CT demonstrates old left internal capsule infarct and mild cerebral atrophy. Carotid Doppler done. PT and OT prescribed. Previous functional history as elicited from patient: 77-year-old right-handed white male who is single lives and 2 floor home alone. Retired. Describes independent with own cooking, laundry, driving, standing shower and gait without device. Dr. Jauregui is regular doctor. Review of Systems Review of systems: ENT: Denies sneezes or discharge. Eyes: Denies discharge or photophobia. Cardiac: Denies chest pain or palpitation. Pulmonary: Denies cough or shortness of breath. Gastrointestinal: Denies nausea, emesis, constipation, diarrhea. Genitourinary: Denies discharge or frequency. Musculoskeletal: Denies muscle or bone aches. Neurologic: General weakness and perhaps a mild confusion. Endocrine: Denies shakes or sweats. Oncology: Denies cancers. Dermatologic: Denies rash, itching, pruritus. ALLERGY/immunology: Denies sneezes, rashes. Past Medical History Past Medical History: Cancer, COPD, GI Bleed, Hyperlipidemia, Hypertension, Memory Impairment, Myocardial Infarction ([place]) Additional Past Medical History / Comment(s): past hx. GI bleeding, hx. 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 aortic aneurysm Last Myocardial Infarction Date:: pt unsure History of Any Multi-Drug Resistant Organisms: None Reported Past Surgical History: Heart Catheterization With Stent Additional Past Surgical History / Comment(s): tooth sx, colonoscopy, heart stent x3, melanoma removed left shoulder recently Past Anesthesia/Blood Transfusion Reactions: No Reported Reaction Date of Last Stent Placement:: 2008 Smoking Status: Former smoker - Past Family History Father Family Medical History: Myocardial Infarction ([place]) Additional Family Medical History / Comment(s): from a [place] Mother Family Medical History: Myocardial Infarction ([place]) Additional Family Medical History / Comment(s): from a [place] Sister(s) Family Medical History: Cancer Brother(s) Family Medical History: Myocardial Infarction ([place]) Medications and Allergies Home Medications Medication Instructions Recorded Confirmed Type Fluticasone/Umeclidin/Vilanter 1 puff INHALATION DAILY PRN 12/27/22 12/27/22 History [Trelegy Ellipta 200-62.5-25] guaiFENesin [Mucinex] 600 mg PO DIRECTED PRN 12/27/22 12/27/22 History Atorvastatin [Lipitor] 80 mg PO HS 12/29/22 12/29/22 History Clopidogrel [Plavix] 12/29/22 History amLODIPine [Norvasc] 10 mg PO DAILY 12/29/22 12/29/22 History atenoloL [Tenormin] 50 mg PO DAILY 12/29/22 12/29/22 History lisinopriL [Zestril] 10 mg PO DAILY 12/29/22 12/29/22 History Allergies Allergy/AdvReac Type Severity Reaction Status Date / Time No Known Allergies Allergy Verified 12/27/22 11:17 Physical Exam Vitals: Vital Signs Temp Pulse Resp BP Pulse Ox 01/02/23 04:45 87 01/02/23 04:37 89 01/02/23 04:00 97.7 F 86 18 147/72 93 L 01/02/23 00:00 97.9 F 82 21 183/84 92 L 01/01/23 22:00 76 01/01/23 20:41 74 01/01/23 20:31 75 01/01/23 20:00 97.7 F 74 14 164/83 95 01/01/23 18:00 98 F 72 18 144/57 93 L 01/01/23 16:17 77 01/01/23 16:03 78 01/01/23 14:00 98.1 F 84 28 H 157/75 93 L 01/01/23 12:04 81 01/01/23 11:56 80 01/01/23 10:00 80 24 161/71 92 L 01/01/23 09:00 83 17 192/79 93 L 01/01/23 08:39 86 01/01/23 08:31 95 01/01/23 08:28 91 01/01/23 08:00 98.3 F 93 33 H 184/79 88 L 01/01/23 07:00 85 18 136/61 92 L Intake and Output 01/01/23 01/01/23 01/02/23 14:59 22:59 06:59 Intake Total 560 120 Output Total 310 400 150 Balance 250 -280 -150 Intake: IV 320 0.9 320 Oral 240 120 Output: Urine 310 400 150 Other: Voiding Method Bedpan Urinal Urinal External Catheter # Voids 1 3 1 Weight 104.2 kg Skin: Atrophic, intact. General: Medium to overweight build and comfortable appearance. Head: Normocephalic, atraumatic. Eyes: Symmetric. Pupils equal round. Ears: Symmetric. Hearing within normal limits. Mouth: Clear. Neck: Supple. Carotid without bruit. Cardiac: Regular rate and rhythm. Lungs: Clear anteriorly and posteriorly. Abdomen: Soft active nontender. Extremities: Normal tone. Neurological: Mental status: Alert, cooperative, pleasant. Some difficulty answering some biographical questions. Cranial nerves: Symmetric facial tone and trapezius. Motor: Able to actively elevate all 4 limbs off of bed but legs less than antigravity. Sensation: Intact throughout. DTRs: Symmetric and equal throughout. Mobility: Did not attempt to sit or stand this early a.m. on my own. Results CBC & Chem 7: 12/31/22 07:30 12/31/22 07:30 Labs: Microbiology - Last 24 Hours (Table) 12/29/22 15:46 Blood Culture - Preliminary Blood No Growth after 72 hours Assessment and Plan (1) CAD (coronary artery disease) Current Visit: No Status: Acute Code(s): I25.10 - ATHSCL HEART DISEASE OF [place] CORONARY ARTERY W/O ANG PCTRS SNOMED Code(s): 589519309 (2) Chest pain Current Visit: No Status: Acute Code(s): R07.9 - CHEST PAIN, UNSPECIFIED SNOMED Code(s): 81703699 (3) Congestive heart failure Current Visit: No Status: Acute Code(s): I50.9 - HEART FAILURE, UNSPECIFIED SNOMED Code(s): 95744893 Plan: Comments and plan: Diagnoses should also include toxic metabolic encephalopathy related to alcohol history as well as acute hypoxic respiratory failure. Currently awake PT and OT evaluations. Discussed possible inpatient rehabilitation. Unsure patient supports for return to home currently.
[2023-01-02] MEDS: carvediloL 12.5 MG TAB PO SCH ×2 (06:32→17:09)
[2023-01-02 07:01] LABS: Basophils % (A) 0 %; Eosinophils # (A) 0.3 k/uL (0-0.7); Eosinophils % (A) 4 %; HCT 38.2 % (39.0-53.0); HGB 12.6 gm/dL (13.0-17.5); Lymphocytes # (A) 0.7 k/uL (1.0-4.8); Lymphocytes % (A) 9 %; MCH 30.9 pg (25.0-35.0); MCHC 32.9 g/dL (31.0-37.0); Mean Platelet Volume 7.5; Monocytes # (A) 0.6 k/uL (0-1.0); Monocytes % (A) 7 %; Neutrophils # (A) 6.4 k/uL (1.3-7.7); Neutrophils % (A) 79 %; Platelet Count 285 k/uL (150-450); RBC 4.07 m/uL (4.30-5.90); RDW 12.8 % (11.5-15.5); WBC 8.1 k/uL (3.8-10.6)
[2023-01-02] MEDS: IPRATROPIUM 0.5 MG/2.5 ML NEBU INHALATION SCH ×4 (07:44→19:26)
[2023-01-02 07:50] LABS: Calcium 8.6 mg/dL (8.4-10.2); Magnesium 2.1 mg/dL (1.6-2.3); Potassium 4.3 mmol/L (3.5-5.1)
--- NOTE | 2023-01-02 07:59 | P.PN ---
Subjective Progress Note Date: 01/02/23 Principal diagnosis: Change in mental status The patient is a pleasant 77-year-old gentleman who underwent 2 days ago successful endovascular repair of infrarenal abdominal aortic aneurysm with a good angiographic results. Subsequently after the procedure and the following day he developed change in mental status. He does have history of alcohol use. Subsequently requested the patient to be seen by the neurology service. Also he was placed on alcohol withdrawal protocol. 12/30/2022 The patient was seen and evaluated this morning. His mentation has somewhat slightly improved where he is able to follow commands at this morning. He underwent neurologic workup including computed tomography scan and that showed an old infarct. He underwent carotid duplex study showed intermediate disease bilaterally. Hemodynamically he remains stable. No chest pain or chest disc omfort at this point. Blood pressure and heart rate are within normal limits. The physical examination revealed stable vital signs with a change in mental status as described above but he does have regular rhythm with diminished breathing sounds bilaterally and no lower extremity edema noted. December [id number] The patient was seen this morning. He still have a change in mental status. No symptoms of any chest pain or chest discomfort. He remains hemodynamically stable. He remains in normal sinus mechanism. CBC this morning showed stable but we don't have kidney function as of yet. Neurology service is on the case and he underwent a computed tomography scan of the brain which showed an old infarct with no acute intracranial process noted. He has stable vital signs so far. He has regular rhythm with diminished breathing sounds bilaterally and normal bilateral groins. No lower extremity edema noted. 01/02/2023 The patient was seen and evaluated this morning. He is hemodynamically stable. His mentation has improved significantly. He has been able to get up and around. I am planning to go ahead and discharge the patient later on today probably into a rehab facility or home care. I am going to coordinate with the internal medicine team. Would have also the clearance from the neurology service. Meanwhile continue the current medical regimen. Assessment Status post endovascular repair of infrarenal abdominal aortic aneurysm Change in mental status Chronic renal failure Plan Continue the current medical regimen Continue monitor the kidney function and electrolytes Continue monitor the hemoglobin Follow-up with the patient Objective - Vital Signs Vital signs: Vital Signs Temp 97.7 F 01/02/23 04:00 Pulse 85 01/02/23 07:44 Resp 18 01/02/23 04:00 BP 147/72 01/02/23 04:00 Pulse Ox 95 01/02/23 07:44 FiO2 Intake & Output 01/01/23 01/02/23 01/02/23 18:59 06:59 18:59 Intake Total 680 Output Total 560 300 200 Balance 120 -300 -200 Weight 104.2 kg Intake: IV 320 0.9 320 Oral 360 Output: Urine 560 300 200 Other: Voiding Method Urinal Urinal External Catheter # Voids 1 1 ABP, PAP, CO, CI - Last Documented Arterial Blood Pressure 144/44 - Labs CBC & Chem 7: 01/02/23 06:29 01/02/23 06:29 Labs: Abnormal Lab Results - Last 24 Hours (Table) 01/02/23 01/02/23 Range/Units 06:29 06:29 RBC 4.07 L (4.30-5.90) m/uL Hgb 12.6 L (13.0-17.5) gm/dL Hct 38.2 L (39.0-53.0) % Lymphocytes # 0.7 L (1.0-4.8) k/uL Chloride 108 H (98-107) mmol/L Creatinine 1.36 H (0.66-1.25) mg/dL Microbiology - Last 24 Hours (Table) 12/29/22 15:46 Blood Culture - Preliminary Blood No Growth after 72 hours
--- NOTE | 2023-01-02 08:47 | P.PN ---
Subjective Progress Note Date: 01/02/23 This is a 77-year-old male patient with a history of chronic obstructive pulmonary disease, former smoker, coronary disease with previous stent placements, melanoma removed from left shoulder, GI bleed, hypertension, hyperlipidemia, abdominal aortic aneurysm. He was admitted back on 12/28/2022 with a history of infrarenal abdominal aortic aneurysm measuring 7.5 cm with bilateral common iliac artery aneurysms. He had undergone a percutaneous endovascular aortic repair with bilateral grafts. Percutaneous femoral closure with Perclose. He was being followed in the intensive care unit when early yest erday morning the patient developed increased agitation and restlessness. Apparently he drinks a 12 pack of beer per day. Last drink unknown. He was placed on the CIWA protocol. He was subsequently placed on Precedex infusion per the hospitalist last evening. We were consulted today for ICU management. The patient is currently resting in bed. Sedated. Relaxed. Calm and comfortable. On Precedex infusion at 0.4 mcg/kg/h. He has normal saline at 80 ML's per hour. He is on oxygen at 3 L/m per nasal cannula. carotid Dopplers revealed bilateral internal carotid artery velocity suggestive of 50-70% stenosis. 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 Mild atrophy. No hemorrhage. white count 11.3. Hemoglobin 12.2. Platelets 202. Sodium 138. Potassium 4.7. Bicarb 22. BUN 21. Creatinine 1.34. The patient is seen today in 12/31/2022 in follow-up in the intensive care unit. He is currently resting in bed. Calm and comfortable. His Precedex was discontinued approximately 4:30 yesterday afternoon. He did require Ativan 4 doses throughout the night. He is maintaining O2 saturations in the 90s on 3 L nasal cannula. Chest x-ray does reveal a patchy density in the left lower lobe. Possible developing pneumonia. Blood cultures revealing no growth. White count 13.0. Hemoglobin 12.4. Platelets 237. Sodium 140. Potassium 4.4. Bicarb 20. BUN 19. Creatinine 1.27. He has normal saline at 80 ML's per hour. He remains in the CIWA protocol. The patient is seen today 01/01/2023 in follow-up in the intensive care unit. He is awake and alert. Sitting up in a chair at the bedside. Maintaining O2 saturations in the 90s on 3 L/m per nasal cannula. He has normal saline at 80 ML's per hour. He required less Ativan in the past 24 hours. Remains in the CIWA protocol. Blood cultures revealed no growth. White count 13.0. Hemoglobin 12.4. Sodium 140. Potassium 4.4. Bicarb 20. BUN 19. Creatinine 1.27. Pro-calcitonin 0.24. 01/02/2023, the patient is postop day #5. Doing well. He has COPD and is a former smoker. His other comorbid conditions include hypertension, hyperlipidemia, and the patient underwent a percutaneous endovascular aortic repair/stent grafting of the abdominal aortic aneurysm. Surgical 1 sets of dry clean and intact. There was concern of the tremors as the patient has history of alcoholism. Currently is alert and oriented 3 although at times he gets quite restless and agitated. Repeat chest x-ray from today showing atelectatic changes in the lung bases bilaterally with upper lobe emphysema. Hemoglobin stable at 12.6. BUN is at 18 with a creatinine of 1.36 and the sodium level is at 1:30. The patient is sitting up on a chair. Were able to wean him down to room air oxygen and his oxygenation improves after he sits up on a chair. His home medications have been resumed. He uses Trelegy at home and this is a medication that we should be able to offer the patient if he is able to get the medication. Note provided incentive spirometer. For blood pressure control, he is on clonidine 0.1 mg 3 times a day, when necessary, he is on Correctol 0.5 mg by mouth twice a day and Norvasc 5 mg by mouth daily. His RYAN inhibitor has not been resumed. Objective - Vital Signs Vital signs: Vital Signs Temp 97.7 F 01/02/23 04:00 Pulse 86 01/02/23 07:59 Resp 18 01/02/23 04:00 BP 147/72 01/02/23 04:00 Pulse Ox 95 01/02/23 07:44 FiO2 Intake & Output 01/01/23 01/02/23 01/02/23 18:59 06:59 18:59 Intake Total 680 Output Total 560 300 200 Balance 120 -300 -200 Weight 104.2 kg Intake: IV 320 0.9 320 Oral 360 Output: Urine 560 300 200 Other: Voiding Method Urinal Urinal External Catheter # Voids 1 1 ABP, PAP, CO, CI - Last Documented Arterial Blood Pressure 144/44 - Exam GENERAL EXAM: Awake, alert, 77-year-old male patient, up in a chair at the bedside, on 3 L nasal cannula, comfortable in no apparent distress. HEAD: Normocephalic. EYES: Normal reaction of pupils, equal size. NOSE: Clear with pink turbinates. THROAT: No erythema or exudates. NECK: No masses, no JVD. CHEST: No chest wall deformity. LUNGS: Equal air entry with few crackles in left lung base. CVS: S1 and S2 normal with no audible murmur, regular rhythm. ABDOMEN: No hepatosplenomegaly, normal bowel sounds, no guarding or rigidity. SPINE: No scoliosis or deformity SKIN: No rashes CENTRAL NERVOUS SYSTEM: No focal deficits, tone is normal in all 4 extremities. EXTREMITIES: There is no peripheral edema. No clubbing, no cyanosis. Peripheral pulses are intact. - Labs CBC & Chem 7: 01/02/23 06:29 01/02/23 06:29 Labs: Abnormal Lab Results - Last 24 Hours (Table) 01/02/23 01/02/23 Range/Units 06:29 06:29 RBC 4.07 L (4.30-5.90) m/uL Hgb 12.6 L (13.0-17.5) gm/dL Hct 38.2 L (39.0-53.0) % Lymphocytes # 0.7 L (1.0-4.8) k/uL Chloride 108 H (98-107) mmol/L Creatinine 1.36 H (0.66-1.25) mg/dL Microbiology - Last 24 Hours (Table) 12/29/22 15:46 Blood Culture - Preliminary Blood No Growth after 72 hours Assessment and Plan Plan: Infrarenal abdominal aortic aneurysm measuring 7.5 cm with bilateral common iliac artery aneurysms. He had undergone a percutaneous endovascular aortic repair with bilateral grafts. Percutaneous femoral closure with Perclose. Admitted electively on 12/28/2022. Postoperative day #5 Acute hypoxemic respiratory failure secondary to acute alcohol withdrawal syndrome. Currently on CIWA protocol. No clear evidence of pneumonia.The patient is on RA, the patient was having some ongoing hypoxemic issues and the patient was on 3 L of Oxymizer nasal cannula. A repeat chest x-ray was done today and showed emphysema with upper lobe predominance and some atelectatic change in the lung bases bilaterally. As such, I think the worsening hypoxemia could be related to atelectasis. Alcohol abuse drinking approximately 12 cans of beer per day, the patient is currently oriented 3, at times, he gets restless and agitated. He is currently on the CR protocol. Former smoker History of COPD, bibasilar pulmonary atelectatic changes mainly in the left midlung and the right lower lobe, doubt pneumonia Coronary disease with previous stent placement History of melanoma with surgical excision History of hypertension Hyperlipidemia Plan: Asked the patient to bring in the Trelegy Ellipta from home and utilize the here in the hospital Provide the patient albuterol nebs treatments 3 times a day in the hospital Provide the patient incentive spirometer Monitor mental status Titrate the FiO2 as tolerate, currently on room air oxygen Continue the CIWA protocol, has not utilized any Ativan overnight. Cleared for transfer out of the ICU today He is quite weak and debilitated. Consider ECF.
[2023-01-02] MEDS: amLODIPine 5 MG TAB PO SCH (08:49)
[2023-01-02] MEDS: HEPARIN SODIUM,PORCINE/PF 5,000 UNIT/0.5 ML SYRINGE SQ SCH ×3 (08:49→23:37)
[2023-01-02] MEDS: THIAMINE 100 MG TAB PO SCH (08:50)
[2023-01-02] MEDS: ASPIRIN 81 MG PO SCH (08:50)
[2023-01-02] MEDS: FOLIC ACID 1 MG TAB PO SCH (08:50)
[2023-01-02] MEDS: SENNOSIDES 8.6 MG TAB PO SCH (08:50)
--- NOTE | 2023-01-02 08:59 | XR ---
EXAMINATION TYPE: XR chest 1V portable DATE OF EXAM: 01/02/2023 HISTORY: Shortness of breath. COMPARISON: 12/30/2022 TECHNIQUE: Single view of the chest is submitted. FINDINGS: Demonstrated are scattered senescent parenchymal change. Basilar atelectasis and small right-sided effusion. Developing infiltrate difficult to exclude. The heart is stable. Hilar and mediastinal structures are within normal limits. Degenerative changes are seen of the dorsal spine. IMPRESSION: 1. Basilar atelectasis and small right-sided effusion. Developing infiltrate difficult to exclude.
--- NOTE | 2023-01-02 12:33 | P.PN ---
Subjective Progress Note Date: 01/02/23 Seeing the patient for the first time and a sitting in a recliner chair having his lunch accompanied by his son and son feels patient's mentation is drastically better. Patient denies of any the neurological issues. Objective - Vital Signs Vital signs: Vital Signs Temp 97.6 F 01/02/23 08:00 Pulse 88 01/02/23 12:28 Resp 34 H 01/02/23 12:00 BP 169/85 01/02/23 08:00 Pulse Ox 88 L 01/02/23 08:00 FiO2 Intake & Output 01/01/23 01/02/23 01/02/23 18:59 06:59 18:59 Intake Total 680 200 Output Total 560 300 200 Balance 120 -300 0 Weight 104.2 kg Intake: IV 320 0.9 320 Oral 360 200 Output: Urine 560 300 200 Other: Voiding Method Urinal Urinal Bedpan External Catheter Diaper # Voids 1 1 1 ABP, PAP, CO, CI - Last Documented Arterial Blood Pressure 144/44 - Exam GENERAL: The patient is sitting in a recliner chair and is not in acute distress. NEUROLOGICAL: Higher mental function: The patient is awake, alert, oriented to self, place and time. Patient is following simple commands. No aphasia and no neglect. Cranial nerves: Visual [place] are full to confrontation throughout. Extraocular movement is intact no nystagmus is noted. The facial strength is normal throughout. Hearing is normal bilaterally to hand rub. No dysarthria is noted. Shoulder shrug is normal bilaterally. Motor: The strength is moving all extremities antigravity and no focality. Normal tone and bulk. Cerebellum: Normal finger to nose bilaterally. Sensation: Sensation is normal to touch throughout. - Labs CBC & Chem 7: 01/02/23 06:29 01/02/23 06:29 Labs: Abnormal Lab Results - Last 24 Hours (Table) 01/02/23 01/02/23 Range/Units 06:29 06:29 RBC 4.07 L (4.30-5.90) m/uL Hgb 12.6 L (13.0-17.5) gm/dL Hct 38.2 L (39.0-53.0) % Lymphocytes # 0.7 L (1.0-4.8) k/uL Chloride 108 H (98-107) mmol/L Creatinine 1.36 H (0.66-1.25) mg/dL Microbiology - Last 24 Hours (Table) 12/29/22 15:46 Blood Culture - Preliminary Blood No Growth after 72 hours Assessment and Plan Assessment: * Altered mental status, probably due to toxic metabolic encephalopathy, much improved now. Patient is status post abdominal aortic aneurysm repair with stenting and grafting of the common iliac arteries. 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 * Hypertension * Tobacco use * History of mild alcoholism but son denies patient has significant alcohol use Plan: * Patient's encephalopathy has much improved. Mentation also improved, he is fully oriented at this time. Examination is nonfocal. 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 Mild atrophy. I personally reviewed CT head agree with the findings. * Carotid Doppler revealed moderate bilateral plaque formation. Bilateral elevated velocities in the internal carotid arteries that is suggestive of 50- 70% stenosis. Antegrade flow in both vertebral arteries. Interventional cardiology and vascular surgery on board. * Consider 2-D echo if not performed in the past. Cardiology on board, will defer to cardiology. * Patient currently on aspirin, which will be continued. * Recommend complete tobacco cessation. * Hemoglobin A1c 5.7, * Lipid panel with cholesterol 227, LDL 159, HDL 39 and triglycerides 142. Patient's home medications list about Lipitor 80 mg, currently not on. We will resume Lipitor 80 mg daily. * PT and OT The plan is discussed with patient, son and nurse who are at bedside. Neurologically, no other workup indicated. Time with Patient: Less than 30
--- NOTE | 2023-01-02 14:27 | P.PN ---
Subjective Progress Note Date: 01/02/23 Patient seen and examined at bedside. Received 1 mg of Ativan IV over the past 24 hours. He reports generalized weakness. He denies any chest pain, shortness of breath, palpitations. No nausea or vomiting. No fever or chills. General: nontoxic, no distress, appears at stated age Derm: warm, dry Head: atraumatic, normocephalic, symmetric Eyes: EOMI, no lid lag, anicteric sclera Mouth: no lip lesion, mucus membranes moist Cardiovascular: S1S2 reg, no murmur Lungs: CTA bilateral, no rhonchi, no rales , no accessory muscle use Ext: no gross muscle atrophy, no edema, no contractures Neuro: no focal neuro deficits Psych: Alert, oriented, appropriate affect #Acute metabolic encephalopathy #Alcohol use disorder, possible alcohol withdrawal #History of remote stroke, no deficits #Bilateral carotid artery atherosclerotic disease #Status post AAA repair #Mild blood loss anemia, expected outcome of surgery #Reactive leukocytosis #Hypertensive urgency Based on my assessment of this patient, this patient meets a moderate complexity level of care. I have reviewed the following nissan sales consultant notes: None. I have reviewed the results of the following tests: CBC shows hemoglobin 12.6. This has remained stable. BMP shows chloride of 108 and creatinine 1.36. His renal function has remained stable. I have ordered the following tests: None. I have discussed the care of this patient with the following independent historian: Case was discussed with nursing patient requires frequent redirection. I have independently interpreted the following test below: None. I have discussed the management of this patient with the following physician: Case was discussed with Dr. Presley, patient is cleared for discharge from a cardiology standpoint. This patient has a moderate risk of morbidity due to the following reasons: Patient has a AAA status post successful endovascular repair of infrarenal abdominal aortic aneurysm complicated by alcohol withdrawal. He is receiving 1 mg of IV Ativan over the past 24 hours. He is currently pending insurance approval for inpatient rehab. Continue CIWA protocol and give Ativan IV as needed. Continue aspirin 81 mg by mouth daily and Lipitor 80 mg by mouth daily along with Coreg 12.5 mg by mouth twice a day. He is downgraded from ICU to Med Surg without telemetry. He is pending insurance approval for inpatient rehab. Objective - Vital Signs Vital signs: Vital Signs Temp 97.6 F 01/02/23 08:00 Pulse 89 01/02/23 12:39 Resp 34 H 01/02/23 12:00 BP 169/85 01/02/23 08:00 Pulse Ox 92 L 01/02/23 12:00 FiO2 Intake & Output 01/01/23 01/02/23 01/02/23 18:59 06:59 18:59 Intake Total 680 200 Output Total 560 300 200 Balance 120 -300 0 Weight 104.2 kg Intake: IV 320 0.9 320 Oral 360 200 Output: Urine 560 300 200 Other: Voiding Method Urinal Urinal Bedpan External Catheter Diaper # Voids 1 1 1 ABP, PAP, CO, CI - Last Documented Arterial Blood Pressure 144/44 - Labs CBC & Chem 7: 01/02/23 06:29 01/02/23 06:29 Labs: Abnormal Lab Results - Last 24 Hours (Table) 01/02/23 01/02/23 Range/Units 06:29 06:29 RBC 4.07 L (4.30-5.90) m/uL Hgb 12.6 L (13.0-17.5) gm/dL Hct 38.2 L (39.0-53.0) % Lymphocytes # 0.7 L (1.0-4.8) k/uL Chloride 108 H (98-107) mmol/L Creatinine 1.36 H (0.66-1.25) mg/dL Microbiology - Last 24 Hours (Table) 12/29/22 15:46 Blood Culture - Preliminary Blood No Growth after 72 hours
[2023-01-02] MEDS ORDERED: NON FORMULARY DRUG (Fluticasone/Umeclidin/Vilanter [Trelegy Ellipta 200-62.5-25] 1 EACH Bl INHALATION PRN (16:43)
[2023-01-02] MEDS: ATORVASTATIN 80 MG TAB PO SCH (20:04)
[2023-01-02] MEDS: hydrALAZINE HCL 20 MG/ML 1 ML VIAL IVP PRN (20:04)
[2023-01-02] MEDS: cloNIDine HCL 0.1 MG TAB PO PRN (23:38)
[2023-01-03] MEDS: carvediloL 12.5 MG TAB PO SCH ×2 (06:43→18:54)
[2023-01-03 07:17] LABS: Basophils % (A) 0 %; Eosinophils # (A) 0.3 k/uL (0-0.7); Eosinophils % (A) 5 %; HCT 36.3 % (39.0-53.0); HGB 11.9 gm/dL (13.0-17.5); Lymphocytes # (A) 0.9 k/uL (1.0-4.8); Lymphocytes % (A) 15 %; MCH 31.2 pg (25.0-35.0); MCHC 32.8 g/dL (31.0-37.0); Mean Platelet Volume 7.6; Monocytes # (A) 0.4 k/uL (0-1.0); Monocytes % (A) 6 %; Neutrophils # (A) 4.4 k/uL (1.3-7.7); Neutrophils % (A) 72 %; Platelet Count 277 k/uL (150-450); RBC 3.82 m/uL (4.30-5.90); RDW 12.8 % (11.5-15.5); WBC 6.1 k/uL (3.8-10.6)
[2023-01-03 07:34] LABS: Calcium 8.6 mg/dL (8.4-10.2)
--- NOTE | 2023-01-03 08:30 | P.PN ---
Subjective Progress Note Date: 01/03/23 This is a 77-year-old male patient with a history of chronic obstructive pulmonary disease, former smoker, coronary disease with previous stent placements, melanoma removed from left shoulder, GI bleed, hypertension, hyperlipidemia, abdominal aortic aneurysm. He was admitted back on 12/28/2022 with a history of infrarenal abdominal aortic aneurysm measuring 7.5 cm with bilateral common iliac artery aneurysms. He had undergone a percutaneous endovascular aortic repair with bilateral grafts. Percutaneous femoral closure with Perclose. He was being followed in the intensive care unit when early yest erday morning the patient developed increased agitation and restlessness. Apparently he drinks a 12 pack of beer per day. Last drink unknown. He was placed on the CIWA protocol. He was subsequently placed on Precedex infusion per the hospitalist last evening. We were consulted today for ICU management. The patient is currently resting in bed. Sedated. Relaxed. Calm and comfortable. On Precedex infusion at 0.4 mcg/kg/h. He has normal saline at 80 ML's per hour. He is on oxygen at 3 L/m per nasal cannula. carotid Dopplers revealed bilateral internal carotid artery velocity suggestive of 50-70% stenosis. 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 Mild atrophy. No hemorrhage. white count 11.3. Hemoglobin 12.2. Platelets 202. Sodium 138. Potassium 4.7. Bicarb 22. BUN 21. Creatinine 1.34. The patient is seen today in 12/31/2022 in follow-up in the intensive care unit. He is currently resting in bed. Calm and comfortable. His Precedex was discontinued approximately 4:30 yesterday afternoon. He did require Ativan 4 doses throughout the night. He is maintaining O2 saturations in the 90s on 3 L nasal cannula. Chest x-ray does reveal a patchy density in the left lower lobe. Possible developing pneumonia. Blood cultures revealing no growth. White count 13.0. Hemoglobin 12.4. Platelets 237. Sodium 140. Potassium 4.4. Bicarb 20. BUN 19. Creatinine 1.27. He has normal saline at 80 ML's per hour. He remains in the CIWA protocol. The patient is seen today 01/01/2023 in follow-up in the intensive care unit. He is awake and alert. Sitting up in a chair at the bedside. Maintaining O2 saturations in the 90s on 3 L/m per nasal cannula. He has normal saline at 80 ML's per hour. He required less Ativan in the past 24 hours. Remains in the CIWA protocol. Blood cultures revealed no growth. White count 13.0. Hemoglobin 12.4. Sodium 140. Potassium 4.4. Bicarb 20. BUN 19. Creatinine 1.27. Pro-calcitonin 0.24. 01/02/2023, the patient is postop day #5. Doing well. He has COPD and is a former smoker. His other comorbid conditions include hypertension, hyperlipidemia, and the patient underwent a percutaneous endovascular aortic repair/stent grafting of the abdominal aortic aneurysm. Surgical 1 sets of dry clean and intact. There was concern of the tremors as the patient has history of alcoholism. Currently is alert and oriented 3 although at times he gets quite restless and agitated. Repeat chest x-ray from today showing atelectatic changes in the lung bases bilaterally with upper lobe emphysema. Hemoglobin stable at 12.6. BUN is at 18 with a creatinine of 1.36 and the sodium level is at 1:30. The patient is sitting up on a chair. Were able to wean him down to room air oxygen and his oxygenation improves after he sits up on a chair. His home medications have been resumed. He uses Trelegy at home and this is a medication that we should be able to offer the patient if he is able to get the medication. Note provided incentive spirometer. For blood pressure control, he is on clonidine 0.1 mg 3 times a day, when necessary, he is on Coreg 12.5 mg by mouth twice a day and Norvasc 5 mg by mouth daily. His RYAN inhibitor has not been resumed. 01/03/2023, the patient is postop day #6. Hemodynamically stable. Surgical 1 sets of dry clean and intact. The patient is post the. Of abdominal aortic aneurysm with endovascular stent grafting. The patient has COPD. The patient did undergo some altered mentation and the ileum from which she has essentially recovered. He is alert and oriented at this point in time. He is also on room air oxygen. The plan is to send him to [facility] today. In terms of his blood pressure, he is on a combination of Coreg at a dose of 12.5 mg by mouth twice a day, Norvasc at a dose of 5 mg by mouth daily and clonidine at a dose of 0.1 mg 3 times a day. His blood pressures under adequate control for now. Most recent BP is 136/62. He is on room air oxygen. His creatinine is stable at 1.39 with a BUN of 21. Sodium is at 140, bili signals at 6.1 with a hemoglobin of 11.9. No other significant events overnight. Tolerating his diet. Chest x-ray done yesterday showed atelectatic changes bilaterally the patient was provided incentive spirometer. His room air pulse ox is in order of 90% and he is not having any major respiratory difficulties for now. Objective - Vital Signs Vital signs: Vital Signs Temp 98 F 01/03/23 04:00 Pulse 65 01/03/23 04:00 Resp 24 01/03/23 07:56 BP 146/58 01/03/23 04:00 Pulse Ox 97 01/03/23 04:00 FiO2 Intake & Output 01/02/23 01/03/23 01/03/23 18:59 06:59 18:59 Intake Total 200 0 200 Output Total 400 200 350 Balance -200 -200 -150 Intake: Oral 200 0 200 Output: Urine 400 200 350 Other: Voiding Method Bedpan Bedpan Bedside Commode Urinal Urinal Urinal Diaper Diaper # Voids 1 2 ABP, PAP, CO, CI - Last Documented Arterial Blood Pressure 144/44 - Exam GENERAL EXAM: Awake, alert, 77-year-old male patient, up in a chair at the bedside, on RA, comfortable in no apparent distress. HEAD: Normocephalic. EYES: Normal reaction of pupils, equal size. NOSE: Clear with pink turbinates. THROAT: No erythema or exudates. NECK: No masses, no JVD. CHEST: No chest wall deformity. LUNGS: Equal air entry with few crackles in left lung base. CVS: S1 and S2 normal with no audible murmur, regular rhythm. ABDOMEN: No hepatosplenomegaly, normal bowel sounds, no guarding or rigidity. SPINE: No scoliosis or deformity SKIN: No rashes CENTRAL NERVOUS SYSTEM: No focal deficits, tone is normal in all 4 extremities. EXTREMITIES: There is no peripheral edema. No clubbing, no cyanosis. Peripheral pulses are intact. - Labs CBC & Chem 7: 01/03/23 06:54 01/03/23 06:54 Labs: Abnormal Lab Results - Last 24 Hours (Table) 01/03/23 01/03/23 Range/Units 06:54 06:54 RBC 3.82 L (4.30-5.90) m/uL Hgb 11.9 L (13.0-17.5) gm/dL Hct 36.3 L (39.0-53.0) % Lymphocytes # 0.9 L (1.0-4.8) k/uL Chloride 108 H (98-107) mmol/L BUN 21 H (9-20) mg/dL Creatinine 1.39 H (0.66-1.25) mg/dL Glucose 101 H (74-99) mg/dL Microbiology - Last 24 Hours (Table) 12/29/22 15:46 Blood Culture - Preliminary Blood No Growth after 96 hours Assessment and Plan Plan: Infrarenal abdominal aortic aneurysm measuring 7.5 cm with bilateral common iliac artery aneurysms. He had undergone a percutaneous endovascular aortic repair with bilateral grafts. Percutaneous femoral closure with Perclose. Admitted electively on 12/28/2022. Postoperative day #6 Acute hypoxemic respiratory failure secondary to acute alcohol withdrawal syndrome. Currently on CIWA protocol. No clear evidence of pneumonia.The patient is on RA, the patient was having some ongoing hypoxemic issues and the patient was on 3 L of Oxymizer nasal cannula. A repeat chest x-ray was done today and showed emphysema with upper lobe predominance and some atelectatic change in the lung bases bilaterally. As such, I think the worsening hypoxemia could be related to atelectasis. The patient has used the incentive spirometer over the past 24 hours and currently is on room air oxygen with a pulse ox ranging between 90-91% Alcohol abuse drinking approximately 12 cans of beer per day, the patient is currently oriented 3, at times, he gets restless and agitated. He is currently on the Ciwa protocol, neurologically intact at this point in time, no tremors, no activity remote agitation. Former smoker History of COPD, bibasilar pulmonary atelectatic changes mainly in the left midlung and the right lower lobe, doubt pneumonia Coronary disease with previous stent placement History of melanoma with surgical excision History of hypertension Hyperlipidemia Plan: Patient was able to bring in [facility] from home 1 puff inhalational treatments once a day Provide the patient albuterol nebs treatments 3 times a day in the hospital Provide the patient incentive spirometer Monitor mental status Oxygenation is improved Titrate the FiO2 as tolerate, currently on room air oxygen Continue the CIWA protocol, has not utilized any Ativan overnight. Cleared for transfer out of the ICU today He is quite weak and debilitated. Consider ECF. The patient is going to [facility] today
[2023-01-03] MEDS: IPRATROPIUM 0.5 MG/2.5 ML NEBU INHALATION SCH ×4 (08:34→19:25)
[2023-01-03] MEDS: TRELEGY ELLIPTA INHALATION PRN (08:38)
--- NOTE | 2023-01-03 09:13 | P.DS ---
Providers Date of admission: 12/28/22 09:43 Attending physician: Mik Woods Consults: 12/28/22 06:24 Consult to Anesthesia Routine Consulting Provider: Anesthesia,Services Consult Reason/Comments: General anesthesia for Aortic Stent procedure 12/29/22 07:37 Consult Physician Routine Consulting Provider: Javier Clark Consult Reason/Comments: medical managemet Do you want consulting provider notified?: Already Contacted 12/29/22 08:10 Consult Physician Routine Consulting Provider: Xuan Shafer Consult Reason/Comments: AMS Do you want consulting provider notified?: Yes 12/30/22 06:35 Consult Physician Routine Consulting Provider: Ander Davis Consult Reason/Comments: ICU management Do you want consulting provider notified?: Yes, Notify in am 01/01/23 09:54 Consult Physician Routine Consulting Provider: Chad Cortés Consult Reason/Comments: weakness. rehab placement Do you want consulting provider notified?: Yes Primary care physician: Stated None Hospital Course: The patient is a pleasant 77-year-old gentleman who sees Dr. Jauregui regularly with a past medical history significant for coronary artery disease as well as hypertension and dyslipidemia and also recent diagnosis of large infrarenal abdominal aortic aneurysm. The patient was admitted to the hospital a few days ago and he underwent successful endovascular repair of large infrarenal abdominal aortic aneurysm with excellent angiographic results by the end from right and left groin approach. The procedure itself was uneventful. The procedure was performed under general anesthesia. Post extubation the patient developed change in mental status. He is known to have history of alcohol use. We felt that the change in mental status is related to alcohol withdrawal We consulted urology to see the patient. The patient was seen by the neurology service who felt that the change in mental status is likely to be metabolic/toxic. Further investigation was performed including carotid duplex study came in to be showing moderate carotid disease bilaterally. Also he underwent computed tomography scan of the brain which showed a prior old lacunar infarct was no acute ischemia noted. The patient was placed on alcohol withdrawal total colon and he improved slowly over the next few days. Also we consulted critical care team to see the patient as well who help us in managing the patient. The patient was seen and evaluated today. His mentation has improved significantly. Both groins are soft and nontender was no bruises. He has been maintaining normal sinus mechanism. The patient is going to be discharged into a rehab facility for a few days to regain his strength again subsequently he will be discharged home. I am going to schedule the patient to be seen by Dr. Jauregui. This plan of discharge was discussed with the patient at bedside with full understanding and agreement. Plan - Discharge Summary Discharge Rx Participant: Yes New Discharge Prescriptions: Continue Fluticasone/Umeclidin/Vilanter [Trelegy Ellipta 200-62.5-25] 1 puff INHALATION DAILY PRN PRN Reason: Shortness Of Breath amLODIPine [Norvasc] 10 mg PO DAILY atenoloL [Tenormin] 50 mg PO DAILY lisinopriL [Zestril] 10 mg PO DAILY Clopidogrel [Plavix] guaiFENesin [Mucinex] 600 mg PO DIRECTED PRN PRN Reason: post nasal congestion Atorvastatin [Lipitor] 80 mg PO HS Discharge Medication List Fluticasone/Umeclidin/Vilanter [Trelegy Ellipta 200-62.5-25] 1 puff INHALATION DAILY PRN 12/27/22 [History] guaiFENesin [Mucinex] 600 mg PO DIRECTED PRN 12/27/22 [History] Atorvastatin [Lipitor] 80 mg PO HS 12/29/22 [History] Clopidogrel [Plavix] 12/29/22 [History] amLODIPine [Norvasc] 10 mg PO DAILY 12/29/22 [History] atenoloL [Tenormin] 50 mg PO DAILY 12/29/22 [History] lisinopriL [Zestril] 10 mg PO DAILY 12/29/22 [History] Follow up Appointment(s)/Referral(s): Sudhakar Jauregui MD [STAFF PHYSICIAN] - 1 Week
[2023-01-03] MEDS: HEPARIN SODIUM,PORCINE/PF 5,000 UNIT/0.5 ML SYRINGE SQ SCH ×2 (10:00→16:42)
[2023-01-03] MEDS: FOLIC ACID 1 MG TAB PO SCH (10:04)
[2023-01-03] MEDS: ASPIRIN 81 MG PO SCH (10:04)
[2023-01-03] MEDS: SENNOSIDES 8.6 MG TAB PO SCH (10:04)
[2023-01-03] MEDS: THIAMINE 100 MG TAB PO SCH (10:04)
[2023-01-03] MEDS: amLODIPine 5 MG TAB PO SCH (10:04)
[2023-01-03 13:23] VITALS: BMI 31.1
--- NOTE | 2023-01-03 14:06 | P.PN ---
Subjective Progress Note Date: 01/03/23 Patient seen and examined at bedside. No ativan over the past 24 hours. He reports generalized weakness. He denies any chest pain, shortness of breath, palpitations. No nausea or vomiting. No fever or chills. Nursing reports swelling in the left groin. General: nontoxic, no distress, appears at stated age Derm: warm, dry Head: atraumatic, normocephalic, symmetric Eyes: EOMI, no lid lag, anicteric sclera Mouth: no lip lesion, mucus membranes moist Cardiovascular: S1S2 reg, no murmur Lungs: CTA bilateral, no rhonchi, no rales , no accessory muscle use Ext: no gross muscle atrophy, no edema, no contractures Neuro: no focal neuro deficits Psych: Alert, oriented, appropriate affect #Acute metabolic encephalopathy #Alcohol use disorder, possible alcohol withdrawal #History of remote stroke, no deficits #Bilateral carotid artery atherosclerotic disease #Status post AAA repair #Mild blood loss anemia, expected outcome of surgery #Hypertensive urgency Resolved: Leukocytosis Based on my assessment of this patient, this patient meets a moderate complexity level of care. I have reviewed the following ruby on rails consultant notes: None. I have reviewed the results of the following tests: CBC shows hemoglobin 11.9. This has remained stable. BMP shows chloride of 108 and BUN 21, creatinine 1.39. His renal function has remained stable. I have ordered the following tests: None. I have discussed the care of this patient with the following independent historian: Case was discussed with nursing regarding swelling in the left groin. Plans to order groin US. I have independently interpreted the following test below: None. I have discussed the management of this patient with the following physician: None. This patient has a moderate risk of morbidity due to the following reasons: Patient has a AAA status post successful endovascular repair of infrarenal abdominal aortic aneurysm complicated by alcohol withdrawal. He is receiving 1 mg of IV Ativan over the past 24 hours. He is currently pending insurance approval for inpatient rehab. Continue CIWA protocol and give Ativan IV as needed. Continue aspirin 81 mg by mouth daily and Lipitor 80 mg by mouth daily along with Coreg 12.5 mg by mouth twice a day. He is downgraded from ICU to [facility] without telemetry. Plans to order left groin US for swelling. He is pending insurance approval for inpatient rehab. Objective - Vital Signs Vital signs: Vital Signs Temp 98 F 01/03/23 04:00 Pulse 67 01/03/23 12:23 Resp 24 01/03/23 07:56 BP 146/58 01/03/23 04:00 Pulse Ox 93 L 01/03/23 08:39 FiO2 Intake & Output 01/02/23 01/03/23 01/03/23 18:59 06:59 18:59 Intake Total 200 0 200 Output Total 400 200 350 Balance -200 -200 -150 Weight 104.2 kg Intake: Oral 200 0 200 Output: Urine 400 200 350 Other: Voiding Method Bedpan Bedpan Bedside Commode Urinal Urinal Urinal Diaper Diaper # Voids 1 2 ABP, PAP, CO, CI - Last Documented Arterial Blood Pressure 144/44 - Labs CBC & Chem 7: 01/03/23 06:54 01/03/23 06:54 Labs: Abnormal Lab Results - Last 24 Hours (Table) 01/03/23 01/03/23 Range/Units 06:54 06:54 RBC 3.82 L (4.30-5.90) m/uL Hgb 11.9 L (13.0-17.5) gm/dL Hct 36.3 L (39.0-53.0) % Lymphocytes # 0.9 L (1.0-4.8) k/uL Chloride 108 H (98-107) mmol/L BUN 21 H (9-20) mg/dL Creatinine 1.39 H (0.66-1.25) mg/dL Glucose 101 H (74-99) mg/dL Microbiology - Last 24 Hours (Table) 12/29/22 15:46 Blood Culture - Preliminary Blood No Growth after 96 hours
--- NOTE | 2023-01-03 14:14 | US ---
EXAMINATION TYPE: US lower ext pseudo artery LT DATE OF EXAM: 01/03/2023 COMPARISON: NONE CLINICAL HISTORY: Evaluate perclose site for bleeding, left groin. EXAM PERFORMED: Grayscale and color Doppler duplex imaging performed of the groin, post cardiac ada ter to assess for pseudoaneurysm. SIDE PERFORMED: Left Color and Waveform Doppler performed to assess for the presence of pseudoaneurysm; Is there ultrasound evidence of a pseudoaneurysm: No Is there evidence of AV shunting: No Is there a fluid collection present: No IMPRESSION: As above. No ultrasound evidence for pseudoaneurysm or significant groin hematoma.
[2023-01-03] MEDS: guaiFENesin 600 MG TABLET.ER PO PRN (16:24)
[2023-01-03] MEDS: ATORVASTATIN 80 MG TAB PO SCH (21:03)
[2023-01-03] MEDS: TRIAMCINOLONE ACET 0.1% OINTMENT 15 GM TUBE TOPICAL SCH (21:03)
[2023-01-04] MEDS: HEPARIN SODIUM,PORCINE/PF 5,000 UNIT/0.5 ML SYRINGE SQ SCH ×3 (00:16→17:41)
[2023-01-04] MEDS: carvediloL 12.5 MG TAB PO SCH ×2 (06:35→17:40)
[2023-01-04] MEDS: THIAMINE 100 MG TAB PO SCH (08:49)
[2023-01-04] MEDS: HYDROcodone/APAP 5-325MG 1 EACH TAB PO PRN ×2 (08:49→15:57)
[2023-01-04] MEDS: FOLIC ACID 1 MG TAB PO SCH (08:50)
[2023-01-04] MEDS: ASPIRIN 81 MG PO SCH (08:50)
[2023-01-04] MEDS: amLODIPine 5 MG TAB PO SCH (08:50)
[2023-01-04] MEDS: SENNOSIDES 8.6 MG TAB PO SCH (08:51)
[2023-01-04] MEDS: TRIAMCINOLONE ACET 0.1% OINTMENT 15 GM TUBE TOPICAL SCH ×2 (08:52→21:04)
--- NOTE | 2023-01-04 08:59 | P.PN ---
Subjective Progress Note Date: 01/04/23 Principal diagnosis: Change in mental status The patient is a pleasant 77-year-old gentleman who underwent 2 days ago successful endovascular repair of infrarenal abdominal aortic aneurysm with a good angiographic results. Subsequently after the procedure and the following day he developed change in mental status. He does have history of alcohol use. Subsequently requested the patient to be seen by the neurology service. Also he was placed on alcohol withdrawal protocol. 12/30/2022 The patient was seen and evaluated this morning. His mentation has somewhat slightly improved where he is able to follow commands at this morning. He underwent neurologic workup including computed tomography scan and that showed an old infarct. He underwent carotid duplex study showed intermediate disease bilaterally. Hemodynamically he remains stable. No chest pain or chest disc omfort at this point. Blood pressure and heart rate are within normal limits. The physical examination revealed stable vital signs with a change in mental status as described above but he does have regular rhythm with diminished breathing sounds bilaterally and no lower extremity edema noted. December [id number] The patient was seen this morning. He still have a change in mental status. No symptoms of any chest pain or chest discomfort. He remains hemodynamically stable. He remains in normal sinus mechanism. CBC this morning showed stable but we don't have kidney function as of yet. Neurology service is on the case and he underwent a computed tomography scan of the brain which showed an old infarct with no acute intracranial process noted. He has stable vital signs so far. He has regular rhythm with diminished breathing sounds bilaterally and normal bilateral groins. No lower extremity edema noted. 01/02/2023 The patient was seen and evaluated this morning. He is hemodynamically stable. His mentation has improved significantly. He has been able to get up and around. I am planning to go ahead and discharge the patient later on today probably into a rehab facility or home care. I am going to coordinate with the internal medicine team. Would have also the clearance from the neurology service. Meanwhile continue the current medical regimen. January 042022 The patient was seen this morning. I placed a discharge order for him yesterday but few hours after he developed cough and subsequently he developed left groin discomfort and he had hematoma appeared to be very small. We did perform an ultrasound of the groin and that showed no pseudoaneurysm. On examination the left groin is mildly tender with an extremely small hematoma. Clinically otherwise he remains stable beside being slightly hypoxic requiring oxygen to keep his saturation above 90. On examination he has clear breathing sounds bilaterally and regular rate and rhythm and no lower extremity is edema noted. We are in process of transferring the patient out of the intensive care unit and physical therapy was consulted to see the patient. The patient is in process of being discharged. Assessment Status post endovascular repair of infrarenal abdominal aortic aneurysm Change in mental status Chronic renal failure Plan Continue the current medical regimen Continue monitor the kidney function and electrolytes Continue monitor the hemoglobin Follow-up with the patient Objective - Vital Signs Vital signs: Vital Signs Temp 98.2 F 01/04/23 02:00 Pulse 63 01/04/23 02:00 Resp 15 01/04/23 02:00 BP 134/65 01/04/23 02:00 Pulse Ox 96 01/04/23 02:00 FiO2 Intake & Output 01/03/23 01/04/23 01/04/23 18:59 06:59 18:59 Intake Total 200 250 Output Total 351 375 Balance -151 -125 Weight 104.2 kg Intake: Oral 200 250 Output: Urine 351 375 Other: Voiding Method Bedside Commode Urinal # Voids 1 2 # Bowel Movements 1 ABP, PAP, CO, CI - Last Documented Arterial Blood Pressure 144/44 - Labs CBC & Chem 7: 01/03/23 06:54 01/03/23 06:54 Labs: Microbiology - Last 24 Hours (Table) 12/29/22 15:46 Blood Culture - Preliminary Blood No Growth after 120 hours
--- NOTE | 2023-01-04 09:11 | P.PN ---
Subjective Progress Note Date: 01/04/23 This is a 77-year-old male patient with a history of chronic obstructive pulmonary disease, former smoker, coronary disease with previous stent placements, melanoma removed from left shoulder, GI bleed, hypertension, hyperlipidemia, abdominal aortic aneurysm. He was admitted back on 12/28/2022 with a history of infrarenal abdominal aortic aneurysm measuring 7.5 cm with bilateral common iliac artery aneurysms. He had undergone a percutaneous endovascular aortic repair with bilateral grafts. Percutaneous femoral closure with Perclose. He was being followed in the intensive care unit when early yest erday morning the patient developed increased agitation and restlessness. Apparently he drinks a 12 pack of beer per day. Last drink unknown. He was placed on the CIWA protocol. He was subsequently placed on Precedex infusion per the hospitalist last evening. We were consulted today for ICU management. The patient is currently resting in bed. Sedated. Relaxed. Calm and comfortable. On Precedex infusion at 0.4 mcg/kg/h. He has normal saline at 80 ML's per hour. He is on oxygen at 3 L/m per nasal cannula. carotid Dopplers revealed bilateral internal carotid artery velocity suggestive of 50-70% stenosis. 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 Mild atrophy. No hemorrhage. white count 11.3. Hemoglobin 12.2. Platelets 202. Sodium 138. Potassium 4.7. Bicarb 22. BUN 21. Creatinine 1.34. The patient is seen today in 12/31/2022 in follow-up in the intensive care unit. He is currently resting in bed. Calm and comfortable. His Precedex was discontinued approximately 4:30 yesterday afternoon. He did require Ativan 4 doses throughout the night. He is maintaining O2 saturations in the 90s on 3 L nasal cannula. Chest x-ray does reveal a patchy density in the left lower lobe. Possible developing pneumonia. Blood cultures revealing no growth. White count 13.0. Hemoglobin 12.4. Platelets 237. Sodium 140. Potassium 4.4. Bicarb 20. BUN 19. Creatinine 1.27. He has normal saline at 80 ML's per hour. He remains in the CIWA protocol. The patient is seen today 01/01/2023 in follow-up in the intensive care unit. He is awake and alert. Sitting up in a chair at the bedside. Maintaining O2 saturations in the 90s on 3 L/m per nasal cannula. He has normal saline at 80 ML's per hour. He required less Ativan in the past 24 hours. Remains in the CIWA protocol. Blood cultures revealed no growth. White count 13.0. Hemoglobin 12.4. Sodium 140. Potassium 4.4. Bicarb 20. BUN 19. Creatinine 1.27. Pro-calcitonin 0.24. 01/02/2023, the patient is postop day #5. Doing well. He has COPD and is a former smoker. His other comorbid conditions include hypertension, hyperlipidemia, and the patient underwent a percutaneous endovascular aortic repair/stent grafting of the abdominal aortic aneurysm. Surgical 1 sets of dry clean and intact. There was concern of the tremors as the patient has history of alcoholism. Currently is alert and oriented 3 although at times he gets quite restless and agitated. Repeat chest x-ray from today showing atelectatic changes in the lung bases bilaterally with upper lobe emphysema. Hemoglobin stable at 12.6. BUN is at 18 with a creatinine of 1.36 and the sodium level is at 1:30. The patient is sitting up on a chair. Were able to wean him down to room air oxygen and his oxygenation improves after he sits up on a chair. His home medications have been resumed. He uses Trelegy at home and this is a medication that we should be able to offer the patient if he is able to get the medication. Note provided incentive spirometer. For blood pressure control, he is on clonidine 0.1 mg 3 times a day, when necessary, he is on Coreg 12.5 mg by mouth twice a day and Norvasc 5 mg by mouth daily. His RAYN inhibitor has not been resumed. 01/03/2023, the patient is postop day #6. Hemodynamically stable. Surgical 1 sets of dry clean and intact. The patient is post the. Of abdominal aortic aneurysm with endovascular stent grafting. The patient has COPD. The patient did undergo some altered mentation and the ileum from which she has essentially recovered. He is alert and oriented at this point in time. He is also on room air oxygen. The plan is to send him to [facility] today. In terms of his blood pressure, he is on a combination of Coreg at a dose of 12.5 mg by mouth twice a day, Norvasc at a dose of 5 mg by mouth daily and clonidine at a dose of 0.1 mg 3 times a day. His blood pressures under adequate control for now. Most recent BP is 136/62. He is on room air oxygen. His creatinine is stable at 1.39 with a BUN of 21. Sodium is at 140, bili signals at 6.1 with a hemoglobin of 11.9. No other significant events overnight. Tolerating his diet. Chest x-ray done yesterday showed atelectatic changes bilaterally the patient was provided incentive spirometer. His room air pulse ox is in order of 90% and he is not having any major respiratory difficulties for now. 01/04/2023, the patient is postop day #7. The patient is doing well and the patient is still awaiting transfer to [facility] for further rehabilitation. As mentioned earlier, the patient had a infrarenal abdominal aortic aneurysm and the patient underwent endovascular stent grafting. He is known to have COPD. He did encounter some altered mentation which has recovered and the patient is appropriate at this point in time. He is currently on oxygen and he is on room air oxygen with a pulse ox of 92%. Overnight, he was placed on 2 L. Is using the incentive spirometer. No blood work is obtained from today. There was a concern of some bleeding/hematoma at his left groin. An ultrasound was done and there is no evidence of any pseudoaneurysm or shunting or any fluid collection. He has adequate pulses in lower extremities and external is essentially 1. No new labs are available from today. The labs are from yesterday. The groin has been checked by cardiology. No intervention was recommended. Objective - Vital Signs Vital signs: Vital Signs Temp 98.2 F 01/04/23 02:00 Pulse 63 01/04/23 02:00 Resp 15 01/04/23 02:00 BP 134/65 01/04/23 02:00 Pulse Ox 96 01/04/23 02:00 FiO2 Intake & Output 01/03/23 01/04/23 01/04/23 18:59 06:59 18:59 Intake Total 200 250 Output Total 351 375 Balance -151 -125 Weight 104.2 kg Intake: Oral 200 250 Output: Urine 351 375 Other: Voiding Method Bedside Commode Urinal # Voids 1 2 # Bowel Movements 1 ABP, PAP, CO, CI - Last Documented Arterial Blood Pressure 144/44 - Exam GENERAL EXAM: Awake, alert, 77-year-old male patient, up in a chair at the bedside, on RA, comfortable in no apparent distress. He was placed on oxygen at 2 L overnight. HEAD: Normocephalic. EYES: Normal reaction of pupils, equal size. NOSE: Clear with pink turbinates. THROAT: No erythema or exudates. NECK: No masses, no JVD. CHEST: No chest wall deformity. LUNGS: Equal air entry with few crackles in left lung base. CVS: S1 and S2 normal with no audible murmur, regular rhythm. ABDOMEN: No hepatosplenomegaly, normal bowel sounds, no guarding or rigidity. SPINE: No scoliosis or deformity SKIN: No rashes CENTRAL NERVOUS SYSTEM: No focal deficits, tone is normal in all 4 extremities. EXTREMITIES: There is no peripheral edema. No clubbing, no cyanosis. Peripheral pulses are intact. - Labs CBC & Chem 7: 01/03/23 06:54 01/03/23 06:54 Labs: Microbiology - Last 24 Hours (Table) 12/29/22 15:46 Blood Culture - Preliminary Blood No Growth after 120 hours Assessment and Plan Plan: Infrarenal abdominal aortic aneurysm measuring 7.5 cm with bilateral common iliac artery aneurysms. He had undergone a percutaneous endovascular aortic repair with bilateral grafts. Percutaneous femoral closure with Perclose. Admitted electively on 12/28/2022. Postoperative day #7 Acute hypoxemic respiratory failure secondary to acute alcohol withdrawal syndrome. Currently on CIWA protocol. No clear evidence of pneumonia.The patient is on RA, the patient was having some ongoing hypoxemic issues and the patient was on 3 L of Oxymizer nasal cannula. A repeat chest x-ray was done today and showed emphysema with upper lobe predominance and some atelectatic change in the lung bases bilaterally. As such, I think the worsening hypoxemia could be related to atelectasis. The patient has used the incentive spirometer over the past 24 hours and currently is on room air oxygen with a pulse ox ranging between 90-91% Alcohol abuse drinking approximately 12 cans of beer per day, the patient is currently oriented 3, at times, he gets restless and agitated. He is currently on the Ciwa protocol, neurologically intact at this point in time, no tremors, no activity remote agitation. Former smoker History of COPD, bibasilar pulmonary atelectatic changes mainly in the left midlung and the right lower lobe, doubt pneumonia Coronary disease with previous stent placement History of melanoma with surgical excision History of hypertension Hyperlipidemia Plan: The left groin was cleared by cardiology Ultrasound showed no evidence of hematoma or pseudoaneurysm Patient was able to bring in Natalio Garciata from home 1 puff inhalational treatments once a day Provide the patient albuterol nebs treatments 3 times a day in the hospital Provide the patient incentive spirometer Monitor mental status Oxygenation is improved Titrate the FiO2 as tolerate, currently on room air oxygen Continue the CIWA protocol, has not utilized any Ativan overnight. Cleared for transfer out of the ICU today He is quite weak and debilitated. Consider ECF. The patient is going to [facility] today, we'll do another physical therapy evaluation. Based on my evaluation, the patient would benefit from ECF placement or strengthening and improving his functionality. Insurance authorization is also being obtained.
[2023-01-04] MEDS: IPRATROPIUM 0.5 MG/2.5 ML NEBU INHALATION SCH ×3 (10:06→17:19)
[2023-01-04] MEDS: TRELEGY ELLIPTA INHALATION PRN (10:52)
--- NOTE | 2023-01-04 12:33 | P.PN ---
Subjective Progress Note Date: 01/04/23 The patient seen at bedside and the he is accompanied with his children. Patient feels he is doing well. Objective - Vital Signs Vital signs: Vital Signs Temp 97.8 F 01/04/23 08:00 Pulse 69 01/04/23 08:00 Resp 22 01/04/23 08:00 BP 141/67 01/04/23 08:00 Pulse Ox 93 L 01/04/23 08:00 FiO2 Intake & Output 01/03/23 01/04/23 01/04/23 18:59 06:59 18:59 Intake Total 200 250 Output Total 351 375 Balance -151 -125 Weight 104.2 kg Intake: Oral 200 250 Output: Urine 351 375 Other: Voiding Method Bedside Commode Urinal # Voids 1 2 # Bowel Movements 1 ABP, PAP, CO, CI - Last Documented Arterial Blood Pressure 144/44 - Exam GENERAL: The patient is sitting in a recliner chair and is not in acute distress. NEUROLOGICAL: Higher mental function: The patient is awake, alert, oriented to self, place and time. Patient is following simple commands. No aphasia and no neglect. Cranial nerves: Visual [place] are full to confrontation throughout. Extraocular movement is intact no nystagmus is noted. The facial strength is normal throughout. Hearing is normal bilaterally to hand rub. No dysarthria is noted. Shoulder shrug is normal bilaterally. Motor: The strength is limited on left lower due to hematoma of left lower extremity from endovascular repair for his abdominal aortic aneurysm. Otherwise moving all extremities antigravity and no focality. Normal tone and bulk. Cerebellum: Normal finger to nose bilaterally. Sensation: Sensation is normal to touch throughout. - Labs CBC & Chem 7: 01/03/23 06:54 01/03/23 06:54 Labs: Microbiology - Last 24 Hours (Table) 12/29/22 15:46 Blood Culture - Preliminary Blood No Growth after 120 hours Assessment and Plan Assessment: * Altered mental status, probably due to toxic metabolic encephalopathy, much improved now. Patient is status post abdominal aortic aneurysm repair with stenting and grafting of the common iliac arteries. * Abnormal CT head with evidence of old lacunar infarct left internal capsule. 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 * Hypertension * Tobacco use * History of mild alcoholism but son denies patient has significant alcohol use Plan: * I ordered orthostatic vitals since per son, patient feels dizzy when stands up. * Patient's encephalopathy has much improved. Mentation also improved, he is fully oriented at this time. Examination is nonfocal. 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 Mild atrophy. I personally reviewed CT head agree with the findings. * Carotid Doppler revealed moderate bilateral plaque formation. Bilateral eleva gregorio velocities in the internal carotid arteries that is suggestive of 50-70% stenosis. Antegrade flow in both vertebral arteries. Interventional cardiology and vascular surgery on board. * Consider 2-D echo if not performed in the past. Cardiology on board, will defer to cardiology. * Patient currently on aspirin, which will be continued. * Recommend complete tobacco cessation. * Hemoglobin A1c 5.7, * Lipid panel with cholesterol 227, LDL 159, HDL 39 and triglycerides 142. Patient's home medications list about Lipitor 80 mg, currently not on. We will resume Lipitor 80 mg daily. * PT and OT The plan is discussed with patient and his children. Time with Patient: Less than 30
--- NOTE | 2023-01-04 13:35 | P.PN ---
Subjective Progress Note Date: 01/04/23 Patient seen and examined at bedside. No ativan over the past 24 hours. He denies any chest pain, shortness of breath, palpitations. No nausea or vomiting. No fever or chills. Plan was to discharge the patient yesterday but discharge was held as patient was unable to obtain home oxygen. General: nontoxic, no distress, appears at stated age Derm: warm, dry Head: atraumatic, normocephalic, symmetric Eyes: EOMI, no lid lag, anicteric sclera Mouth: no lip lesion, mucus membranes moist Cardiovascular: S1S2 reg, no murmur Lungs: CTA bilateral, no rhonchi, no rales , no accessory muscle use Ext: no gross muscle atrophy, no edema, no contractures Neuro: no focal neuro deficits Psych: Alert, oriented, appropriate affect #Acute metabolic encephalopathy #Alcohol use disorder, possible alcohol withdrawal #History of remote stroke, no deficits #Bilateral carotid artery atherosclerotic disease #Status post AAA repair #Mild blood loss anemia, expected outcome of surgery #Hypertensive urgency Resolved: Leukocytosis Based on my assessment of this patient, this patient meets a moderate complexity level of care. I have reviewed the following eligibility consultant notes: Cardiology note 01/04, continue current medical regimen. Pulmonology note 01/04, continue Trilogy inhaler, incentive spirometer, albuterol neb as needed. Neurology note 01/04, obtain orthostatics, consider echocardiogram, continue aspirin and Lipitor. I have reviewed the results of the following tests: Left groin ultrasound negative. I have ordered the following tests: None. I have discussed the care of this patient with the following independent historian: None. I have independently interpreted the following test below: None. I have discussed the management of this patient with the following physician: None. This patient has a moderate risk of morbidity due to the following reasons: Patient has a AAA status post successful endovascular repair of infrarenal abdominal aortic aneurysm complicated by alcohol withdrawal. He is receiving 1 mg of IV Ativan over the past 24 hours. He is currently pending insurance approval for inpatient rehab. Continue CIWA protocol and give Ativan IV as needed. Continue aspirin 81 mg by mouth daily and Lipitor 80 mg by mouth daily along with Coreg 12.5 mg by mouth twice a day. He is downgraded from ICU to [facility] without telemetry. Prescriptions are sent to his pharmacy. He will require supplemental oxygen on discharge which was discussed with case management. Hopeful anticipated discharge home today. Objective - Vital Signs Vital signs: Vital Signs Temp 97.8 F 01/04/23 08:00 Pulse 72 01/04/23 10:00 Resp 22 01/04/23 08:00 BP 141/67 01/04/23 08:00 Pulse Ox 96 01/04/23 10:00 FiO2 Intake & Output 01/03/23 01/04/23 01/04/23 18:59 06:59 18:59 Intake Total 200 250 Output Total 351 375 Balance -151 -125 Weight 104.2 kg Intake: Oral 200 250 Output: Urine 351 375 Other: Voiding Method Bedside Commode Urinal # Voids 1 2 1 # Bowel Movements 1 ABP, PAP, CO, CI - Last Documented Arterial Blood Pressure 144/44 - Labs CBC & Chem 7: 01/03/23 06:54 01/03/23 06:54 Labs: Microbiology - Last 24 Hours (Table) 12/29/22 15:46 Blood Culture - Preliminary Blood No Growth after 120 hours
[2023-01-04] MEDS: guaiFENesin 600 MG TABLET.ER PO PRN (15:57)
[2023-01-04] MEDS ORDERED: ALBUTEROL NEBULIZED 2.5 MG/3 ML INHALATION PRN (16:22)
[2023-01-04] MEDS ORDERED: IPRATROPIUM-ALBUTEROL 3 ML NEB INHALATION PRN (16:22)
[2023-01-04] MEDS: ALBUTEROL NEBULIZED 2.5 MG/3 ML INHALATION SCH ×11 (16:33→19:29)
[2023-01-04] MEDS ORDERED: LORazepam 2 MG/ML INJ IV PRN (19:02)
[2023-01-04] MEDS ORDERED: ALBUTEROL NEBULIZED 2.5 MG/3 ML INHALATION SCH (20:00)
[2023-01-04] MEDS: ATORVASTATIN 80 MG TAB PO SCH (21:04)
[2023-01-05] MEDS: HEPARIN SODIUM,PORCINE/PF 5,000 UNIT/0.5 ML SYRINGE SQ SCH ×2 (00:40→07:58)
[2023-01-05] MEDS: cloNIDine HCL 0.1 MG TAB PO PRN (00:51)
[2023-01-05] MEDS: carvediloL 12.5 MG TAB PO SCH (07:08)
[2023-01-05] MEDS: THIAMINE 100 MG TAB PO SCH (08:02)
[2023-01-05] MEDS: amLODIPine 5 MG TAB PO SCH (08:02)
[2023-01-05] MEDS: ASPIRIN 81 MG PO SCH (08:02)
[2023-01-05] MEDS: SENNOSIDES 8.6 MG TAB PO SCH (08:02)
[2023-01-05] MEDS: FOLIC ACID 1 MG TAB PO SCH (08:02)
[2023-01-05] MEDS: ALBUTEROL NEBULIZED 2.5 MG/3 ML INHALATION SCH ×2 (08:42→12:09)
[2023-01-05] MEDS ORDERED: CLOPIDOGREL 75 MG TAB PO SCH (09:00)
[2023-01-05 09:43] VITALS: RESP 18
[2023-01-05] MEDS: TRIAMCINOLONE ACET 0.1% OINTMENT 15 GM TUBE TOPICAL SCH (10:07)
--- NOTE | 2023-01-05 12:35 | P.PN ---
Subjective Progress Note Date: 01/05/23 This is a 77-year-old male patient with a history of chronic obstructive pulmonary disease, former smoker, coronary disease with previous stent placements, melanoma removed from left shoulder, GI bleed, hypertension, hyperlipidemia, abdominal aortic aneurysm. He was admitted back on 12/28/2022 with a history of infrarenal abdominal aortic aneurysm measuring 7.5 cm with bilateral common iliac artery aneurysms. He had undergone a percutaneous endovascular aortic repair with bilateral grafts. Percutaneous femoral closure with Perclose. He was being followed in the intensive care unit when early yest erday morning the patient developed increased agitation and restlessness. Apparently he drinks a 12 pack of beer per day. Last drink unknown. He was placed on the CIWA protocol. He was subsequently placed on Precedex infusion per the hospitalist last evening. We were consulted today for ICU management. The patient is currently resting in bed. Sedated. Relaxed. Calm and comfortable. On Precedex infusion at 0.4 mcg/kg/h. He has normal saline at 80 ML's per hour. He is on oxygen at 3 L/m per nasal cannula. carotid Dopplers revealed bilateral internal carotid artery velocity suggestive of 50-70% stenosis. 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 Mild atrophy. No hemorrhage. white count 11.3. Hemoglobin 12.2. Platelets 202. Sodium 138. Potassium 4.7. Bicarb 22. BUN 21. Creatinine 1.34. The patient is seen today in 12/31/2022 in follow-up in the intensive care unit. He is currently resting in bed. Calm and comfortable. His Precedex was discontinued approximately 4:30 yesterday afternoon. He did require Ativan 4 doses throughout the night. He is maintaining O2 saturations in the 90s on 3 L nasal cannula. Chest x-ray does reveal a patchy density in the left lower lobe. Possible developing pneumonia. Blood cultures revealing no growth. White count 13.0. Hemoglobin 12.4. Platelets 237. Sodium 140. Potassium 4.4. Bicarb 20. BUN 19. Creatinine 1.27. He has normal saline at 80 ML's per hour. He remains in the CIWA protocol. The patient is seen today 01/01/2023 in follow-up in the intensive care unit. He is awake and alert. Sitting up in a chair at the bedside. Maintaining O2 saturations in the 90s on 3 L/m per nasal cannula. He has normal saline at 80 ML's per hour. He required less Ativan in the past 24 hours. Remains in the CIWA protocol. Blood cultures revealed no growth. White count 13.0. Hemoglobin 12.4. Sodium 140. Potassium 4.4. Bicarb 20. BUN 19. Creatinine 1.27. Pro-calcitonin 0.24. 01/02/2023, the patient is postop day #5. Doing well. He has COPD and is a former smoker. His other comorbid conditions include hypertension, hyperlipidemia, and the patient underwent a percutaneous endovascular aortic repair/stent grafting of the abdominal aortic aneurysm. Surgical 1 sets of dry clean and intact. There was concern of the tremors as the patient has history of alcoholism. Currently is alert and oriented 3 although at times he gets quite restless and agitated. Repeat chest x-ray from today showing atelectatic changes in the lung bases bilaterally with upper lobe emphysema. Hemoglobin stable at 12.6. BUN is at 18 with a creatinine of 1.36 and the sodium level is at 1:30. The patient is sitting up on a chair. Were able to wean him down to room air oxygen and his oxygenation improves after he sits up on a chair. His home medications have been resumed. He uses Trelegy at home and this is a medication that we should be able to offer the patient if he is able to get the medication. Note provided incentive spirometer. For blood pressure control, he is on clonidine 0.1 mg 3 times a day, when necessary, he is on Coreg 12.5 mg by mouth twice a day and Norvasc 5 mg by mouth daily. His RYAN inhibitor has not been resumed. 01/03/2023, the patient is postop day #6. Hemodynamically stable. Surgical 1 sets of dry clean and intact. The patient is post the. Of abdominal aortic aneurysm with endovascular stent grafting. The patient has COPD. The patient did undergo some altered mentation and the ileum from which she has essentially recovered. He is alert and oriented at this point in time. He is also on room air oxygen. The plan is to send him to [facility] today. In terms of his blood pressure, he is on a combination of Coreg at a dose of 12.5 mg by mouth twice a day, Norvasc at a dose of 5 mg by mouth daily and clonidine at a dose of 0.1 mg 3 times a day. His blood pressures under adequate control for now. Most recent BP is 136/62. He is on room air oxygen. His creatinine is stable at 1.39 with a BUN of 21. Sodium is at 140, bili signals at 6.1 with a hemoglobin of 11.9. No other significant events overnight. Tolerating his diet. Chest x-ray done yesterday showed atelectatic changes bilaterally the patient was provided incentive spirometer. His room air pulse ox is in order of 90% and he is not having any major respiratory difficulties for now. 01/04/2023, the patient is postop day #7. The patient is doing well and the patient is still awaiting transfer to [facility] for further rehabilitation. As mentioned earlier, the patient had a infrarenal abdominal aortic aneurysm and the patient underwent endovascular stent grafting. He is known to have COPD. He did encounter some altered mentation which has recovered and the patient is appropriate at this point in time. He is currently on oxygen and he is on room air oxygen with a pulse ox of 92%. Overnight, he was placed on 2 L. Is using the incentive spirometer. No blood work is obtained from today. There was a concern of some bleeding/hematoma at his left groin. An ultrasound was done and there is no evidence of any pseudoaneurysm or shunting or any fluid collection. He has adequate pulses in lower extremities and external is essentially 1. No new labs are available from today. The labs are from yesterday. The groin has been checked by cardiology. No intervention was recommended. The 2022, the patient is being seen for a follow-up. Doing well. Hemodynamically stable. No respiratory distress. No bleeding complications. No confusion. Using incentive spirometer. Currently on 2 L of oxygen by nasal cannula and the plan is to send this patient to [facility] today. Objective - Vital Signs Vital signs: Vital Signs Temp 98.4 F 01/05/23 07:33 Pulse 96 01/05/23 12:21 Resp 18 01/05/23 09:36 BP 144/69 01/05/23 09:34 Pulse Ox 91 L 01/05/23 08:42 FiO2 Intake & Output 01/04/23 01/05/23 01/05/23 18:59 06:59 18:59 Output Total 400 Balance -400 Output: Urine 400 Other: Voiding Method Bedside Commode Urinal # Voids 1 1 ABP, PAP, CO, CI - Last Documented Arterial Blood Pressure 144/44 - Exam GENERAL EXAM: Awake, alert, 77-year-old male patient, up in a chair at the [facility], on RA, comfortable in no apparent distress. He was placed on oxygen at 2 L overnight. HEAD: Normocephalic. EYES: Normal reaction of pupils, equal size. NOSE: Clear with pink turbinates. THROAT: No erythema or exudates. NECK: No masses, no JVD. CHEST: No chest wall deformity. LUNGS: Equal air entry with few crackles in left lung base. CVS: S1 and S2 normal with no audible murmur, regular rhythm. ABDOMEN: No hepatosplenomegaly, normal bowel sounds, no guarding or rigidity. SPINE: No scoliosis or deformity SKIN: No rashes CENTRAL NERVOUS SYSTEM: No focal deficits, tone is normal in all 4 extremities. EXTREMITIES: There is no peripheral edema. No clubbing, no cyanosis. Peripheral pulses are intact. - Labs CBC & Chem 7: 01/03/23 06:54 01/03/23 06:54 Labs: Microbiology - Last 24 Hours (Table) 12/29/22 15:46 Blood Culture - Final Blood No Growth after 144 hours Assessment and Plan Plan: Infrarenal abdominal aortic aneurysm measuring 7.5 cm with bilateral common iliac artery aneurysms. He had undergone a percutaneous endovascular aortic repair with bilateral grafts. Percutaneous femoral closure with Perclose. Admitted electively on 12/28/2022. Postoperative day # 8 Acute hypoxemic respiratory failure secondary to acute alcohol withdrawal syndrome. Currently on CIWA protocol. No clear evidence of pneumonia.The patient is on 2 L of oxygen nasal cannula Alcohol abuse drinking approximately 12 cans of beer per day, the patient is currently oriented 3, at times, he gets restless and agitated. He is currently on the Ciwa protocol, neurologically intact at this point in time, no tremors, no activity remote agitation. Former smoker History of COPD, bibasilar pulmonary atelectatic changes mainly in the left midlung and the right lower lobe, doubt pneumonia Coronary disease with previous stent placement History of melanoma with surgical excision History of hypertension Hyperlipidemia Plan: [facility] Will benefit from further rehabilitation The left groin was cleared by cardiology Ultrasound showed no evidence of hematoma or pseudoaneurysm Patient was able to bring in Natalio Raymundo from home 1 puff inhalational treatments once a day Provide the patient albuterol nebs treatments 3 times a day in the hospital Provide the patient incentive spirometer Monitor mental status Oxygenation is improved Titrate the FiO2 as tolerate, currently on room air oxygen Continue the CIWA protocol, has not utilized any Ativan overnight. Cleared for transfer out of the ICU today He is quite weak and debilitated. ECF today
--- NOTE | 2023-01-05 12:40 | P.PN ---
Subjective Progress Note Date: 01/05/23 Ration seen at bedside and he feels she is doing much better. He denies any further dizziness. He states when he gets up no further dizziness. Objective - Vital Signs Vital signs: Vital Signs Temp 98.4 F 01/05/23 07:33 Pulse 96 01/05/23 12:21 Resp 18 01/05/23 09:36 BP 144/69 01/05/23 09:34 Pulse Ox 91 L 01/05/23 08:42 FiO2 Intake & Output 01/04/23 01/05/23 01/05/23 18:59 06:59 18:59 Output Total 400 Balance -400 Output: Urine 400 Other: Voiding Method Bedside Commode Urinal # Voids 1 1 ABP, PAP, CO, CI - Last Documented Arterial Blood Pressure 144/44 - Exam GENERAL: The patient is sitting in a recliner chair and is not in acute distress. NEUROLOGICAL: Higher mental function: The patient is awake, alert, oriented to self, place and time. Patient is following simple commands. No aphasia and no neglect. Cranial nerves: Visual [place] are full to confrontation throughout. Extraocular movement is intact no nystagmus is noted. The facial strength is normal throughout. Hearing is normal bilaterally to hand rub. No dysarthria is noted. Shoulder shrug is normal bilaterally. - Labs CBC & Chem 7: 01/03/23 06:54 01/03/23 06:54 Labs: Microbiology - Last 24 Hours (Table) 12/29/22 15:46 Blood Culture - Final Blood No Growth after 144 hours Assessment and Plan Assessment: * Altered mental status, probably due to toxic metabolic encephalopathy, much improved now. Patient is status post abdominal aortic aneurysm repair with stenting and grafting of the common iliac arteries. * Abnormal CT head with evidence of old lacunar infarct left internal capsule. 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 * Hypertension * Tobacco use * History of mild alcoholism but son denies patient has significant alcohol use Plan: * Dizziness has resolved and orthostatic are negative. * Patient's encephalopathy has much improved. Mentation also improved, he is fully oriented at this time. Examination is nonfocal. 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 Mild atrophy. I personally reviewed CT head agree with the findings. * Carotid Doppler revealed moderate bilateral plaque formation. Bilateral elevated velocities in the internal carotid arteries that is suggestive of 50- 70% stenosis. Antegrade flow in both vertebral arteries. Interventional cardiology and vascular surgery on board. * Consider 2-D echo if not performed in the past. Cardiology on board, will defer to cardiology. * Patient currently on aspirin, which will be continued. * Recommend complete tobacco cessation. * Hemoglobin A1c 5.7, * Lipid panel with cholesterol 227, LDL 159, HDL 39 and triglycerides 142. Patient's home medications list about Lipitor 80 mg, currently not on. We will resume Lipitor 80 mg daily. * PT and OT The plan is discussed with patient and nursing staff. There is no further neurological work-up. Time with Patient: Less than 30
[2023-01-05 13:06] VITALS: BP 167/76; PULSE 66; TEMP 97.8
[2023-01-05] MEDS: guaiFENesin 600 MG TABLET.ER PO PRN (13:17)
[2023-01-05] MEDS: HYDROcodone/APAP 5-325MG 1 EACH TAB PO PRN (13:17)
--- NOTE | 2023-01-05 14:35 | P.PN ---
Subjective Progress Note Date: 01/05/23 Patient seen and examined at bedside. No ativan over the past 24 hours. He denies any chest pain, shortness of breath, palpitations. No nausea or vomiting. No fever or chills. He would now like to go home. General: nontoxic, no distress, appears at stated age Derm: warm, dry Head: atraumatic, normocephalic, symmetric Eyes: EOMI, no lid lag, anicteric sclera Mouth: no lip lesion, mucus membranes moist Cardiovascular: Good distal perfusion all 4 extremities Lungs: no accessory muscle use Ext: no gross muscle atrophy, no edema, no contractures Neuro: no focal neuro deficits Psych: Alert, oriented, appropriate affect #Acute metabolic encephalopathy #Alcohol use disorder, possible alcohol withdrawal #History of remote stroke, no deficits #Bilateral carotid artery atherosclerotic disease #Status post AAA repair #Mild blood loss anemia, expected outcome of surgery #Hypertension Resolved: Leukocytosis, Acute metabolic encephalopathy, alcohol withdrawal Based on my assessment of this patient, this patient meets a moderate complexity level of care. I have reviewed the following bridal stylist sales consultant notes: Pulmonology note 01/05, continue Trilogy inhaler, incentive spirometer, albuterol neb as needed. Neurology note 01/05, orthostatics negative, consider echocardiogram, continue aspirin and Lipitor. I have reviewed the results of the following tests: None. I have ordered the following tests: None. I have discussed the care of this patient with the following independent historian: None. I have independently interpreted the following test below: None. I have discussed the management of this patient with the following physician: Case discussed with Dr. Presley, plan is for discharge today, either home or SNF. This patient has a moderate risk of morbidity due to the following reasons: Patient has a AAA status post successful endovascular repair of infrarenal abdominal aortic aneurysm complicated by alcohol withdrawal. He is receiving no IV Ativan over the past 24 hours. He would like to go home. Prescriptions sent to the pharmacy. Script signed for home O2 and nebulizer. Plan for discharge home today. Objective - Vital Signs Vital signs: Vital Signs Temp 97.8 F 01/05/23 12:46 Pulse 66 01/05/23 12:46 Resp 18 01/05/23 12:46 BP 167/76 01/05/23 12:46 Pulse Ox 93 L 01/05/23 12:46 FiO2 Intake & Output 03/29/23 03/30/23 03/30/23 18:59 06:59 18:59 Output Total 400 Balance -400 Output: Urine 400 Other: Voiding Method Bedside Commode Urinal # Voids 1 1 ABP, PAP, CO, CI - Last Documented Arterial Blood Pressure 144/44 - Labs CBC & Chem 7: 01/03/23 06:54 01/03/23 06:54 Labs: Microbiology - Last 24 Hours (Table) 12/29/22 15:46 Blood Culture - Final Blood No Growth after 144 hours
--- NOTE | 2023-01-05 20:49 | P.DS ---
Providers Date of admission: 12/28/22 09:43 Attending physician: Mik Woods Consults: 12/28/22 06:24 Consult to Anesthesia Routine Consulting Provider: Anesthesia,Services Consult Reason/Comments: General anesthesia for Aortic Stent procedure 12/29/22 07:37 Consult Physician Routine Consulting Provider: Javier Clark Consult Reason/Comments: medical managemet Do you want consulting provider notified?: Already Contacted 12/29/22 08:10 Consult Physician Routine Consulting Provider: Xuan Shafer Consult Reason/Comments: AMS Do you want consulting provider notified?: Yes 12/30/22 06:35 Consult Physician Routine Consulting Provider: Ander Davis Consult Reason/Comments: ICU management Do you want consulting provider notified?: Yes, Notify in am 01/01/23 09:54 Consult Physician Routine Consulting Provider: Chad Cortés Consult Reason/Comments: weakness. rehab placement Do you want consulting provider notified?: Yes Primary care physician: Stated None Hospital Course: Please refer to the discharge note from 2 days ago. Patient was seen this morning. He is hemodynamically stable. He is asymptomatic. Finally we were able to get the patient bed extended-care facility and he is in process of being discharged. The patient is going to be discharged today. He will be followed by Dr. Gamez in the office. Dr. Gamez was already informed and updated. The patient is going to be discharged on the same medications he was on. No new medication will be added. Plan - Discharge Summary Discharge Rx Participant: Yes New Discharge Prescriptions: New Aspirin 81 mg PO DAILY #30 tab Continue lisinopriL [Zestril] 10 mg PO DAILY #30 tab guaiFENesin [Mucinex] 600 mg PO DIRECTED PRN PRN Reason: post nasal congestion Atorvastatin [Lipitor] 80 mg PO HS #30 tab amLODIPine [Norvasc] 10 mg PO DAILY #30 tab atenoloL [Tenormin] 50 mg PO DAILY #30 tab Fluticasone/Umeclidin/Vilanter [Trelegy Ellipta 200-62.5-25] 1 puff INHALATION DAILY PRN #1 each PRN Reason: Shortness Of Breath Changed Clopidogrel [Plavix] 1 tab PO DAILY #30 tab Discharge Medication List guaiFENesin [Mucinex] 600 mg PO DIRECTED PRN 12/27/22 [History] Aspirin 81 mg PO DAILY #30 tab 01/04/23 [Rx] Atorvastatin [Lipitor] 80 mg PO HS #30 tab 01/04/23 [Rx] Clopidogrel [Plavix] 1 tab PO DAILY #30 tab 01/04/23 [Rx] Fluticasone/Umeclidin/Vilanter [Trelegy Ellipta 200-62.5-25] 1 puff INHALATION DAILY PRN #1 each 01/04/23 [Rx] amLODIPine [Norvasc] 10 mg PO DAILY #30 tab 01/04/23 [Rx] atenoloL [Tenormin] 50 mg PO DAILY #30 tab 01/04/23 [Rx] lisinopriL [Zestril] 10 mg PO DAILY #30 tab 01/04/23 [Rx] Follow up Appointment(s)/Referral(s): Bro Carrizales MD [STAFF PHYSICIAN] - 1-2 Days Sudhakar Jauregui MD [STAFF PHYSICIAN] - 1 Week Patient Instructions/Handouts: Endovascular Aneurysm Repair of Abdominal Aorta (DC) Discharge Disposition: TRANSFER TO SNF/ECF
== END 2023-01-05 13:49 | DRG 268 ==
LOC: 2ORMAIN 09:43 → 2SICU 15:05 → 5NMEDONC 01-04 12:59
PROVIDERS: ADMIT Internal Medicine Interventional Cardiology; ATTEND Internal Medicine Interventional Cardiology
PROC: 04V03DZ Restriction of Abdominal Aorta with Intraluminal Device, Percutaneous Approach (ICD-10-PCS; principal; 2022-12-28 12:00)
PROC: 04U Lower Arteries, Supplement (ICD-10-PCS; 2022-12-28 12:00)
PROC: 04UJ3JZ Supplement Left External Iliac Artery with Synthetic Substitute, Percutaneous Approach (ICD-10-PCS; 2022-12-28 12:00)
PROC: 04U Lower Arteries, Supplement (ICD-10-PCS; 2022-12-28 12:00)
PROC: HZ2ZZZZ Detoxification Services for Substance Abuse Treatment (ICD-10-PCS; 2022-12-29)
DX: I71.43 Infrarenal abdominal aortic aneurysm, without rupture (principal); G92.8 Other toxic encephalopathy; J96.01 Acute respiratory failure with hypoxia; I97.89 Other postprocedural complications and disorders of the circulatory system, not elsewhere classified; I13.0 Hypertensive heart and chronic kidney disease with heart failure and stage 1 through stage 4 chronic kidney disease, or unspecified chronic kidney disease; F10.239 Alcohol dependence with withdrawal, unspecified; I72.3 Aneurysm of iliac artery; I50.9 Heart failure, unspecified; N18.30 Chronic kidney disease, stage 3 unspecified; G31.9 Degenerative disease of nervous system, unspecified; J43.9 Emphysema, unspecified; I65.23 Occlusion and stenosis of bilateral carotid arteries; I25.10 Atherosclerotic heart disease of native coronary artery without angina pectoris; E78.5 Hyperlipidemia, unspecified; M54.50 Low back pain, unspecified; I16.0 Hypertensive urgency; R41.3 Other amnesia; T50.916A Underdosing of multiple unspecified drugs, medicaments and biological substances, initial encounter; D50.0 Iron deficiency anemia secondary to blood loss (chronic); D72.828 Other elevated white blood cell count; Y83.2 Surgical operation with anastomosis, bypass or graft as the cause of abnormal reaction of the patient, or of later complication, without mention of misadventure at the time of the procedure; Y90.0 Blood alcohol level of less than 20 mg/100 ml; Z91.128 Patient's intentional underdosing of medication regimen for other reason; Z86.73 Personal history of transient ischemic attack (TIA), and cerebral infarction without residual deficits; I25.2 Old myocardial infarction; Z87.19 Personal history of other diseases of the digestive system; Z95.5 Presence of coronary angioplasty implant and graft; Z85.820 Personal history of malignant melanoma of skin; Z87.891 Personal history of nicotine dependence; Z28.310 Unvaccinated for COVID-19; Z79.899 Other long term (current) drug therapy; Z82.49 Family history of ischemic heart disease and other diseases of the circulatory system
CPT/HCPCS: 34705; 70450; 71045; 80048; 80053; 80061; 80320; 83036; 83605; 83735; 84145; 85025; 85610; 86850; 86900; 86901; 87040; 87635; 93880; 93975; 94640; 94760

== ENCOUNTER 2023-01-22 22:22 | Emergency (ER) | payer MEDICARE ==
[2023-01-22 22:43] VITALS: TEMP 97.9
[2023-01-22] MEDS ORDERED: SODIUM CHLORIDE 0.9% 500 ML 500 ML IV STA (23:06)
[2023-01-22] MEDS ORDERED: LABETALOL 5 MG/ML VIAL MDV IVP STA (23:07)
--- NOTE | 2023-01-22 23:12 | ED ---
Recheck HPI - General Chief Complaint: Recheck/Abnormal Lab/Rx Stated Complaint: High BP - 244/135 Time Seen by Provider: 01/22/23 22:43 Source: family, RN notes reviewed, old records reviewed Mode of arrival: ambulatory Limitations: no limitations - History of Present Illness Initial Comments: This is a 77-year-old male from home, patient presents today to allegedly taking his blood pressure at home and findings to be extraordinarily elevated. Patient has recent complicated and medical history multiple stents in his aorta for aneurysms, patient states he thinks he had about 7 stents placed. He did have inpatient rehabilitation after this and symptoms been home he has not taken his blood pressure medication. When asked why he is not taking his medication as prescribed he does not provide answer patient is deathly not participating history of present illness and answers most questions with yes or no. He denies minute to be homicidal or suicidal. Patient states he has desire to take his medication he is does not know why he has not been. Patient was a symptomatically took his blood pressure tonight and informed his children that his blood pressure was as high MD Complaint: other (Elevated blood pressure) -: unknown Returns Today for: other (Elevated blood pressure not taking all meds) Symptoms Since Prior Visit: no new symptoms Associated Symptoms: none Treatments Prior to Arrival: other - Related Data Home Medications Medication Instructions Recorded Confirmed guaiFENesin [Mucinex] 600 mg PO DIRECTED PRN 12/27/22 12/27/22 Previous Rx's Medication Instructions Recorded Aspirin 81 mg PO DAILY #30 tab 01/04/23 Atorvastatin [Lipitor] 80 mg PO HS #30 tab 01/04/23 Clopidogrel [Plavix] 1 tab PO DAILY #30 tab 01/04/23 Fluticasone/Umeclidin/Vilanter 1 puff INHALATION DAILY PRN #1 each 01/04/23 [Trelegy Ellipta 200-62.5-25] amLODIPine [Norvasc] 10 mg PO DAILY #30 tab 01/04/23 atenoloL [Tenormin] 50 mg PO DAILY #30 tab 01/04/23 lisinopriL [Zestril] 10 mg PO DAILY #30 tab 01/04/23 Allergies Allergy/AdvReac Type Severity Reaction Status Date / Time No Known Allergies Allergy Verified 12/27/22 11:17 Review of Systems ROS Statement: Those systems with pertinent positive or pertinent negative responses have been documented in the HPI. ROS Other: All systems not noted in ROS Statement are negative. Past Medical History Past Medical History: Cancer, COPD, GI Bleed, Hyperlipidemia, Hypertension, Memory Impairment, Myocardial Infarction ([place]) Additional Past Medical History / Comment(s): past hx. GI bleeding, hx. 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 aortic aneurysm Last Myocardial Infarction Date:: pt unsure History of Any Multi-Drug Resistant Organisms: None Reported Past Surgical History: Heart Catheterization With Stent Additional Past Surgical History / Comment(s): tooth sx, colonoscopy, heart sten t x3, melanoma removed left shoulder recently Past Anesthesia/Blood Transfusion Reactions: No Reported Reaction Date of Last Stent Placement:: 2008 Past Psychological History: No Psychological Hx Reported Smoking Status: Former smoker Past Alcohol Use History: None Reported Past Drug Use History: None Reported - Past Family History Father Family Medical History: Myocardial Infarction ([place]) Additional Family Medical History / Comment(s): from a [place] Mother Family Medical History: Myocardial Infarction ([place]) Additional Family Medical History / Comment(s): from a [place] Sister(s) Family Medical History: Cancer Brother(s) Family Medical History: Myocardial Infarction ([place]) General Exam Limitations: no limitations General appearance: alert, in no apparent distress Head exam: Present: atraumatic, normocephalic, normal inspection Eye exam: Present: normal appearance, PERRL, EOMI. Absent: scleral icterus, conjunctival injection, periorbital swelling ENT exam: Present: normal exam, mucous membranes moist Neck exam: Present: normal inspection. Absent: tenderness, meningismus, lymphadenopathy Respiratory exam: Present: normal lung sounds bilaterally. Absent: respiratory distress, wheezes, rales, rhonchi, stridor Cardiovascular Exam: Present: regular rate, normal rhythm, normal heart sounds. Absent: systolic murmur, diastolic murmur, rubs, gallop, clicks GI/Abdominal exam: Present: soft, normal bowel sounds. Absent: distended, tenderness, guarding, rebound, rigid Extremities exam: Present: normal inspection, full ROM, normal capillary refill. Absent: tenderness, pedal edema, joint swelling, calf tenderness Back exam: Present: normal inspection Neurological exam: Present: alert, oriented X3, CN II-XII intact Psychiatric exam: Present: normal affect, normal mood Skin exam: Present: warm, dry, intact, normal color. Absent: rash Course Vital Signs 01/22/23 01/22/23 22:36 23:46 Temperature 97.9 F Pulse Rate 92 74 Respiratory 18 16 Rate Blood Pressure 186/112 137/64 O2 Sat by Pulse 93 L 94 L Oximetry - Reevaluation(s) Reevaluation #1: 01/22/23 23:08 Medical record is reviewed. Reevaluation #2: 01/23/23 00:02 Patient symptoms are improved here in the ER, remains a symptomatically with improved blood pressure Reevaluation #3: 01/23/23 00:02 Patient family informed of results and questions are answered Reevaluation #4: 01/22/23 23:08 Was pt. sent in by a medical professional or institution? @ -no Did you speak to anyone other than the patient for history? @ -family states that patient has not been taking home medications since discharge from rehab Did you review nursing and triage notes? @ -agree Were old charts reviewed? @ -yes prior rehab ar [place] Differential Diagnosis? @ -weakness EKG interpreted by me (3pts min.)? @ -yes X-rays interpreted by me (1pt min.)? @ -no CT interpreted by me (1pt min.)? @ -no U/S interpreted by me (1pt. min.)? @ -no What testing was considered but not performed? (CT, X-rays, U/S, labs)? Why? @ -no What meds were considered but not given? Why? @ -no Did you discuss the management of the patient with other professionals? @ -no Did you reconcile home meds? @ -no Was smoking cessation discussed for >3mins.? @ -patient has quit smoking recently Was critical care preformed (if so, how long)? @ -mp Were there social determinants of health that impacted care today? How? (Homelessness, low income, unemployed, alcoholism, drug addiction, transportation, low edu. Level, literacy, decrease access to med. care, detention, rehab)? @ -no Was there de-escalation of care discussed even if they declined? (Discuss DNR or withdrawal of care, Hospice)? @ -no What co-morbidities impacted this encounter? (DM, HTN, Smoking, COPD, CAD, Cancer, CVA, Hep., AIDS, mental health diagnosis, sleep apnea, morbid obesity)? @ -no Was patient admitted / discharged? @ -dc Undiagnosed new problem with uncertain prognosis? @ -no Drug Therapy requiring intensive monitoring for toxicity (Heparin, Nitro, Insulin, Cardizem)? @ -no Were any procedures done? @ -no Diagnosis/symptom? @ -no Acute, or Chronic, or Acute on Chronic? @ -no Uncomplicated (without systemic symptoms) or Complicated (systemic symptoms)? @ -no Side effects of treatment? @ -no Exacerbation, Progression, or Severe Exacerbation] @ -no Poses a threat to life or bodily function? @ -yes Reevaluation #5: 01/22/23 23:08 Differential Weakness: Hypoglycemia, shock, sepsis, hyponatremia, anemia, infection, [place], ETOH, adverse medicine reaction, overdose, stroke, this is not meant to be an all-inclusive list. Medical Decision Making - Medical Decision Making 77 male to ER with recent, located medical history aneurysm and stent placement, patient does have history of high blood pressure and does admit to not recently taking his medication, blood pressures easily controlled here in the emergency department patient encouraged to follow medication compliance at home family is at bedside needlestick to provide more help with patient doing this. - Lab Data Result diagrams: 01/22/23 23:46 Lab Results 01/22/23 Range/Units 23:46 WBC 8.4 (3.8-10.6) k/uL RBC 4.48 (4.30-5.90) m/uL Hgb 13.8 (13.0-17.5) gm/dL Hct 41.4 (39.0-53.0) % MCV 92.4 (80.0-100.0) fL MCH 30.8 (25.0-35.0) pg MCHC 33.3 (31.0-37.0) g/dL RDW 12.8 (11.5-15.5) % Plt Count 201 (150-450) k/uL MPV 7.5 Neutrophils % 73 % Lymphocytes % 13 % Monocytes % 6 % Eosinophils % 7 % Basophils % 0 % Neutrophils # 6.1 (1.3-7.7) k/uL Lymphocytes # 1.0 (1.0-4.8) k/uL Monocytes # 0.5 (0-1.0) k/uL Eosinophils # 0.6 (0-0.7) k/uL Basophils # 0.0 (0-0.2) k/uL - EKG Data -: EKG Interpreted by Me (EKG is sinus 85 ID 177 QRS 94 QTC 386) Disposition Clinical Impression: Hypertensive urgency, Noncompliance with medication regimen Disposition: HOME SELF-CARE Condition: Good Instructions (If sedation given, give patient instructions): Hypertension (ED) Is patient prescribed a controlled substance at d/c from ED?: No Referrals: Bro Carrizales MD [Primary Care Provider] - 1-2 days Time of Disposition: 00:10
[2023-01-22 23:47] VITALS: RESP 16
[2023-01-22 23:52] LABS: Basophils % (A) 0 %; Eosinophils # (A) 0.6 k/uL (0-0.7); Eosinophils % (A) 7 %; HCT 41.4 % (39.0-53.0); HGB 13.8 gm/dL (13.0-17.5); Lymphocytes % (A) 13 %; MCH 30.8 pg (25.0-35.0); MCHC 33.3 g/dL (31.0-37.0); MCV 92.4 fL (80.0-100.0); Mean Platelet Volume 7.5; Monocytes # (A) 0.5 k/uL (0-1.0); Monocytes % (A) 6 %; Neutrophils # (A) 6.1 k/uL (1.3-7.7); Neutrophils % (A) 73 %; Platelet Count 201 k/uL (150-450); RBC 4.48 m/uL (4.30-5.90); RDW 12.8 % (11.5-15.5); WBC 8.4 k/uL (3.8-10.6)
[2023-01-23 00:03] LABS: Prothrombin Time 10.4 sec (9.0-12.0)
[2023-01-23 00:21] LABS: Partial Thromboplastin Time 19.7 sec (22.0-30.0)
[2023-01-23 00:33] VITALS: BP 129/68; PULSE 70
[2023-01-23 00:33] LABS: Albumin 4.1 g/dL (3.5-5.0); Magnesium 2.3 mg/dL (1.6-2.3); Phosphorus 4.9 mg/dL (2.5-4.5); Potassium 4.9 mmol/L (3.5-5.1); Total Bilirubin 0.7 mg/dL (0.2-1.3); Total Protein 7.3 g/dL (6.3-8.2)
== END 2023-01-23 00:33 | disposition home or self-care (01) ==
LOC: EC 22:22
DX: I16.0 Hypertensive urgency (principal); Z91.148 Patient's other noncompliance with medication regimen for other reason; J44.9 Chronic obstructive pulmonary disease, unspecified; I25.2 Old myocardial infarction; I10 Essential (primary) hypertension; Z87.891 Personal history of nicotine dependence
CPT/HCPCS: 36415; 80053; 83735; 84100; 85025; 85610; 85730; 93005; 96361; 96374; 99284

== ENCOUNTER 2023-03-17 11:32 | Inpatient (IN) | payer MEDICARE ==
[2023-03-17] MEDS ORDERED: SODIUM CHLORIDE 0.9% 500 ML 500 ML IV STA (11:43)
--- NOTE | 2023-03-17 12:12 | ED ---
General Adult HPI - General Chief complaint: Recheck/Abnormal Lab/Rx Stated complaint: Abnormal Labs Time Seen by Provider: 03/17/23 11:39 Source: patient, RN notes reviewed Mode of arrival: ambulatory Limitations: no limitations - History of Present Illness Initial comments: This a 77-year-old male presents emergency Department with chief complaint of abnormal labs, renal failure. Patient states he had blood work yesterday at his PCPs office and received a phone call her advised him come emergency department for evaluation. Patient states she does not know the numbers. Patient states that he has not been feeling well for several months and this is part of the reason he follow-up for. Patient denies any chest pain denies any significant shortness of breath. He states he is lightheaded at times. Denies any focal weakness denies any leg pain or leg swelling. Patient has a history of hypertension on medications. - Related Data Home Medications Medication Instructions Recorded Confirmed Albuterol Inhaler [Ventolin Hfa 2 puff INHALATION RT-Q6H PRN 03/17/23 03/17/23 Inhaler] Fluticasone/Umeclidin/Vilanter 1 puff INHALATION RT-DAILY PRN 03/17/23 03/17/23 [Trelegy Ellipta 200-62.5-25] Previous Rx's Medication Instructions Recorded Aspirin 81 mg PO DAILY #30 tab 01/04/23 Atorvastatin [Lipitor] 80 mg PO HS #30 tab 01/04/23 Clopidogrel [Plavix] 1 tab PO DAILY #30 tab 01/04/23 amLODIPine [Norvasc] 10 mg PO DAILY #30 tab 01/04/23 atenoloL [Tenormin] 50 mg PO DAILY #30 tab 01/04/23 lisinopriL [Zestril] 10 mg PO DAILY #30 tab 01/04/23 Allergies Allergy/AdvReac Type Severity Reaction Status Date / Time No Known Allergies Allergy Verified 03/17/23 13:12 Review of Systems ROS Statement: Those systems with pertinent positive or pertinent negative responses have been documented in the HPI. ROS Other: All systems not noted in ROS Statement are negative. Past Medical History Past Medical History: Cancer, COPD, GI Bleed, Hyperlipidemia, Hypertension, Memory Impairment, Myocardial Infarction ([place]) Additional Past Medical History / Comment(s): past hx. GI bleeding, hx. of me lanoma left shoulder-had removed, abd. aortic aneurysm Last Myocardial Infarction Date:: pt unsure History of Any Multi-Drug Resistant Organisms: None Reported Past Surgical History: Heart Catheterization With Stent Additional Past Surgical History / Comment(s): tooth sx, colonoscopy, heart stent x3, melanoma removed left shoulder recently Past Anesthesia/Blood Transfusion Reactions: No Reported Reaction Date of Last Stent Placement:: 2008 Past Psychological History: No Psychological Hx Reported Smoking Status: Former smoker Past Alcohol Use History: None Reported Past Drug Use History: None Reported - Past Family History Father Family Medical History: Myocardial Infarction ([place]) Additional Family Medical History / Comment(s): from a MD Mother Family Medical History: Myocardial Infarction ([place]) Additional Family Medical History / Comment(s): from a MD Sister(s) Family Medical History: Cancer Brother(s) Family Medical History: Myocardial Infarction ([place]) General Exam Limitations: no limitations General appearance: alert, in no apparent distress Head exam: Present: atraumatic, normocephalic, normal inspection Eye exam: Present: normal appearance, PERRL, EOMI. Absent: scleral icterus, conjunctival injection, periorbital swelling ENT exam: Present: normal exam, normal oropharynx, mucous membranes moist Neck exam: Present: normal inspection. Absent: tenderness, meningismus, lymphadenopathy Respiratory exam: Present: normal lung sounds bilaterally. Absent: respiratory distress, wheezes, rales, rhonchi, stridor Cardiovascular Exam: Present: regular rate, normal rhythm, normal heart sounds. Absent: systolic murmur, diastolic murmur, rubs, gallop, clicks GI/Abdominal exam: Present: soft, normal bowel sounds. Absent: distended, tenderness, guarding, rebound, rigid Course Vital Signs 03/17/23 03/17/23 03/17/23 11:33 11:55 12:00 Temperature 97.9 F Pulse Rate 57 L 59 L Respiratory 20 20 Rate Blood Pressure 161/68 O2 Sat by Pulse 99 94 L 97 Oximetry 03/17/23 03/17/23 03/17/23 12:30 13:00 13:30 Temperature Pulse Rate 60 60 58 L Respiratory 19 13 18 Rate Blood Pressure 147/68 140/58 144/66 O2 Sat by Pulse 96 96 92 L Oximetry 03/17/23 03/17/23 03/17/23 14:00 14:30 15:00 Temperature Pulse Rate 60 58 L 57 L Respiratory 21 17 17 Rate Blood Pressure 124/65 136/61 139/66 O2 Sat by Pulse 99 100 98 Oximetry 03/17/23 03/17/23 03/17/23 15:30 16:00 16:30 Temperature Pulse Rate 58 L 58 L 64 Respiratory 16 18 18 Rate Blood Pressure 131/60 147/65 146/67 O2 Sat by Pulse 92 L 90 L 97 Oximetry 03/17/23 03/17/23 03/17/23 17:00 17:30 18:00 Temperature Pulse Rate 59 L 61 59 L Respiratory 18 18 16 Rate Blood Pressure 124/71 114/97 156/66 O2 Sat by Pulse 99 98 96 Oximetry 03/17/23 03/17/23 19:22 21:11 Temperature Pulse Rate 55 L 78 Respiratory 18 18 Rate Blood Pressure 177/75 136/65 O2 Sat by Pulse 98 97 Oximetry EKG Findings - EKG Comments: EKG Findings:: EKG performed at 11:51 sinus bradycardia with a first-degree block rate of 59 [place] 211 QRS 102 QT/QTC 408/408 - EKG Results: EKG: interpreted by MADDY Medical Decision Making - Medical Decision Making Was pt. sent in by a medical professional or institution (, PA, CRANE OPERATOR CAB, urgent care, hospital, or assisted...) When possible be specific @ -PCP Did you speak to anyone other than the patient for history (EMS, parent, family, police, friend...)? What history was obtained from this source @ -Family in the room providing recent past medical history, recent surgery history Did you review nursing and triage notes (agree or disagree)? Why? @ -I reviewed and agree with nursing and triage notes Were old charts reviewed (outside hosp., previous admission, EMS record, old EKG, old radiological studies, urgent care reports/EKG's, assisted records)? Report findings @ -Reviewed recent laboratory studies from December Differential Diagnosis (chest pain, altered mental status, abdominal pain women, abdominal pain men, vaginal bleeding, weakness, fever, dyspnea, syncope, headache, dizziness, GI bleed, back pain, seizure, CVA, palpatations, mental health, musculoskeletal)? @ -Weakness, lightheadedness, renal failure, EKG interpreted by me (3pts min.). @ -As above X-rays interpreted by me (1pt min.). @ -None done CT interpreted by me (1pt min.). @ -None done U/S interpreted by me (1pt. min.). @ -US RENAL, BLADDER SHOWS RENAL CORTICAL CHANGES What testing was considered but not performed or refused? (CT, X-rays, U/S, labs)? Why? @ -None What meds were considered but not given or refused? Why? @ -None Did you discuss the management of the patient with other professionals (professionals i.e. , PA, CRANE OPERATOR CAB, lab, RT, psych nurse, social contact worker, recreation aide, teacher, customs and border protection officer, caser in)? Give summary @ -Discussed the case with Dr Clark for admission given patient's acute renal failure with GFR over 12 for further treatment and management I did discuss case with Dr. Thomas recommended bicarb drip, repeat labs and evaluation the morning Was smoking cessation discussed for >3mins.? @ -No Was critical care preformed (if so, how long)? @ -No Were there social determinants of health that impacted care today? How? (Homelessness, low income, unemployed, alcoholism, drug addiction, transpo rtation, low edu. Level, literacy, decrease access to med. care, penitentiary, rehab)? @ -No Was there de-escalation of care discussed even if they declined (Discuss DNR or withdrawal of care, Hospice)? DNR status @ -No What co-morbidities impacted this encounter? (DM, HTN, Smoking, COPD, CAD, Cancer, CVA, ARF, Chemo, Hep., AIDS, mental health diagnosis, sleep apnea, morbid obesity)? @ -Aortic aneurysm, hypertension Was patient admitted / discharged? Hospital course, mention meds given and route, prescriptions, significant lab abnormalities, going to OR and other pertinent info. @ -Admitted patient is found to have acute renal failure with GFR greater than 12, hyperphosphatemia, hypermagnesemia patient will be admitted for nephrology evaluation possible vascular evaluation for dialysis catheter patient will have additional ultrasound renal duplex as discussed with admitting physician Undiagnosed new problem with uncertain prognosis? @ -No Drug Therapy requiring intensive monitoring for toxicity (Heparin, Nitro, Insulin, Cardizem)? @ -No Were any procedures done? @ -No Diagnosis/symptom? @ -Renal failure Acute, or Chronic, or Acute on Chronic? @ -Acute Uncomplicated (without systemic symptoms) or Complicated (systemic symptoms)? @ -Complicated Side effects of treatment? @ -No Exacerbation, Progression, or Severe Exacerbation? @ -No Poses a threat to life or bodily function? How? (Chest pain, [place], MD, pneumonia, PE, COPD, DKA, ARF, appy, cholecystitis, CVA, Diverticulitis, Homicidal, Suicidal, threat to staff... and all critical care pts) @ -Yes patient has severe electrolyte Imbalance causing cardiac arrhythmia - Lab Data Result diagrams: 03/17/23 12:01 03/19/23 15:24 Lab Results 03/17/23 03/17/23 03/17/23 Range/Units 12:01 12:01 12:01 WBC 6.1 (3.8-10.6) k/uL RBC 3.71 L (4.30-5.90) m/uL Hgb 11.6 L (13.0-17.5) gm/dL Hct 35.3 L (39.0-53.0) % MCV 95.3 (80.0-100.0) fL MCH 31.3 (25.0-35.0) pg MCHC 32.8 (31.0-37.0) g/dL RDW 15.8 H (11.5-15.5) % Plt Count 177 (150-450) k/uL MPV 8.3 Neutrophils % 69 % Lymphocytes % 15 % Monocytes % 5 % Eosinophils % 9 % Basophils % 0 % Neutrophils # 4.2 (1.3-7.7) k/uL Lymphocytes # 0.9 L (1.0-4.8) k/uL Monocytes # 0.3 (0-1.0) k/uL Eosinophils # 0.6 (0-0.7) k/uL Basophils # 0.0 (0-0.2) k/uL PT 9.9 (9.0-12.0) sec INR 0.9 (<1.2) APTT 23.1 (22.0-30.0) sec Sodium (137-145) mmol/L Potassium (3.5-5.1) mmol/L Chloride (98-107) mmol/L Carbon Dioxide (22-30) mmol/L Anion Gap mmol/L BUN (9-20) mg/dL Creatinine (0.66-1.25) mg/dL Est GFR (CKD-EPI)AfAm (>60 ml/min/1.73 sqM) Est GFR (CKD-EPI)NonAf (>60 ml/min/1.73 sqM) Glucose (74-99) mg/dL Calcium (8.4-10.2) mg/dL Phosphorus (2.5-4.5) mg/dL Magnesium (1.6-2.3) mg/dL Total Bilirubin (0.2-1.3) mg/dL AST (17-59) U/L ALT (4-49) U/L Alkaline Phosphatase (38-126) U/L Total Protein (6.3-8.2) g/dL Albumin (3.5-5.0) g/dL Lipase (23-300) U/L Urine Color Light Yellow Urine Appearance Clear (Clear) Urine pH 5.0 (5.0-8.0) Ur Specific [place] 1.011 (1.001-1.035) Urine Protein 1+ H (Negative) Urine Glucose (UA) Negative (Negative) Urine Ketones Negative (Negative) Urine Blood Trace H (Negative) Urine Nitrite Negative (Negative) Urine Bilirubin Negative (Negative) Urine Urobilinogen <2.0 (<2.0) mg/dL Ur Leukocyte Esterase Negative (Negative) Urine RBC 1 (0-5) /hpf Urine WBC 1 (0-5) /hpf Urine Mucus Rare H (None) /hpf 03/17/23 Range/Units 12:01 WBC (3.8-10.6) k/uL RBC (4.30-5.90) m/uL Hgb (13.0-17.5) gm/dL Hct (39.0-53.0) % MCV (80.0-100.0) fL MCH (25.0-35.0) pg MCHC (31.0-37.0) g/dL RDW (11.5-15.5) % Plt Count (150-450) k/uL MPV Neutrophils % % Lymphocytes % % Monocytes % % Eosinophils % % Basophils % % Neutrophils # (1.3-7.7) k/uL Lymphocytes # (1.0-4.8) k/uL Monocytes # (0-1.0) k/uL Eosinophils # (0-0.7) k/uL Basophils # (0-0.2) k/uL PT (9.0-12.0) sec INR (<1.2) APTT (22.0-30.0) sec Sodium 144 (137-145) mmol/L Potassium 5.3 H (3.5-5.1) mmol/L Chloride 118 H (98-107) mmol/L Carbon Dioxide 9 L* (22-30) mmol/L Anion Gap 17 mmol/L BUN 120 H* (9-20) mg/dL Creatinine 12.64 H* (0.66-1.25) mg/dL Est GFR (CKD-EPI)AfAm 4 (>60 ml/min/1.73 sqM) Est GFR (CKD-EPI)NonAf 3 (>60 ml/min/1.73 sqM) Glucose 96 (74-99) mg/dL Calcium 8.3 L (8.4-10.2) mg/dL Phosphorus 9.1 H* (2.5-4.5) mg/dL Magnesium 2.4 H (1.6-2.3) mg/dL Total Bilirubin 0.4 (0.2-1.3) mg/dL AST 14 L (17-59) U/L ALT 12 (4-49) U/L Alkaline Phosphatase 51 (38-126) U/L Total Protein 6.9 (6.3-8.2) g/dL Albumin 4.1 (3.5-5.0) g/dL Lipase 566 H (23-300) U/L Urine Color Urine Appearance (Clear) Urine pH (5.0-8.0) Ur Specific [place] (1.001-1.035) Urine Protein (Negative) Urine Glucose (UA) (Negative) Urine Ketones (Negative) Urine Blood (Negative) Urine Nitrite (Negative) Urine Bilirubin (Negative) Urine Urobilinogen (<2.0) mg/dL Ur Leukocyte Esterase (Negative) Urine RBC (0-5) /hpf Urine WBC (0-5) /hpf Urine Mucus (None) /hpf Disposition Clinical Impression: HTN (hypertension), Renal failure, Lightheadedness Disposition: ADMITTED IP TO THIS [facility] Condition: Poor Time of Disposition: 13:34
[2023-03-17 12:16] LABS: ALT 12 U/L (4-49); AST 14 U/L (17-59); African American GFR (CKD) 4 (>60 ml/min/1.73 sqM); Albumin 4.1 g/dL (3.5-5.0); Alkaline Phosphatase 51 U/L (38-126); Anion Gap 17 mmol/L; Calcium 8.3 mg/dL (8.4-10.2); Chloride 118 mmol/L (98-107); Glucose 96 mg/dL (74-99); Lipase 566 U/L (23-300); Magnesium 2.4 mg/dL (1.6-2.3); Non-African American GFR(CKD) 3 (>60 ml/min/1.73 sqM); Potassium 5.3 mmol/L (3.5-5.1); Sodium 144 mmol/L (137-145); Total Bilirubin 0.4 mg/dL (0.2-1.3); Total Protein 6.9 g/dL (6.3-8.2)
[2023-03-17 12:19] LABS: INR 0.9 (<1.2); Partial Thromboplastin Time 23.1 sec (22.0-30.0); Prothrombin Time 9.9 sec (9.0-12.0)
[2023-03-17 12:26] LABS: Blood Urea Nitrogen 120 mg/dL (9-20); Carbon Dioxide 9 mmol/L (22-30); Phosphorus 9.1 mg/dL (2.5-4.5)
[2023-03-17 12:27] LABS: Basophils % (A) 0 %; Eosinophils # (A) 0.6 k/uL (0-0.7); Eosinophils % (A) 9 %; HCT 35.3 % (39.0-53.0); HGB 11.6 gm/dL (13.0-17.5); Lymphocytes # (A) 0.9 k/uL (1.0-4.8); Lymphocytes % (A) 15 %; MCH 31.3 pg (25.0-35.0); MCHC 32.8 g/dL (31.0-37.0); MCV 95.3 fL (80.0-100.0); Mean Platelet Volume 8.3; Monocytes # (A) 0.3 k/uL (0-1.0); Monocytes % (A) 5 %; Neutrophils # (A) 4.2 k/uL (1.3-7.7); Neutrophils % (A) 69 %; Platelet Count 177 k/uL (150-450); RBC 3.71 m/uL (4.30-5.90); RDW 15.8 % (11.5-15.5); WBC 6.1 k/uL (3.8-10.6)
--- NOTE | 2023-03-17 13:10 | US ---
EXAMINATION TYPE: US kidneys/renal and bladder DATE OF EXAM: 03/17/2023 COMPARISON: CT 2022 CLINICAL INDICATION: Male, 77 years old with history of Renal failure; EXAM MEASUREMENTS: Right Kidney: 9.1 x 4.6 x 5.2 cm Left Kidney: 9.8 x 4.8 x 4.0 cm Right Kidney: No hydronephrosis or masses seen Increased renal echotexture. Left Kidney: No hydronephrosis or masses seen probably 3 mm calculus. Increased renal echotexture. Bladder: wnl Bilateral Jets seen: right jet not seen, left jet seen. IMPRESSION: 1. Mild increase in renal echotexture which could represent Medical renal disease. 2. Left renal calculus. 3. No obstructive uropathy.
[2023-03-17] MEDS ORDERED: ACETAMINOPHEN TAB 325 MG TAB PO PRN (13:59)
[2023-03-17] MEDS ORDERED: NALOXONE 0.4 MG/ML 1 ML VIAL IV PRN (13:59)
--- NOTE | 2023-03-17 14:43 | US ---
EXAMINATION TYPE: US renal artery duplex complete DATE OF EXAM: 03/17/2023 COMPARISON: Same day renal US CLINICAL INDICATION: Male, 77 years old with history of Renal failure; Renal failure, AAA graft repai r 2 months ago MEASUREMENTS: RENAL SIZE: Rt Kidney: 9.1 x 4.6 x 5.2 cm Lt Kidney: 9.8 x 4.8 x 4.0 cm RESISTANCE INDEX Right: 0.6 Left: 0.8 RA/AO RATIO (< 3.5 ) Right: 1.2 Left: 1.2 RA VELOCITY ( < 180 cm/s) Right: 131.9 Left: 139.2 Pt unable to hold breath, shaking during exam- very difficult to visualize renal arteries in its en tirety Distal AAA= 7.0 x 7.2 cm/ aortic graft patent Unable to visualize aortic bifurcation due to overlying bowel gas* Bilateral proximal and mid renal arteries unable to be visualized due to overlying bowel gas and pt unable to hold breath Only mid segmental and mid arcuate arteries imaged due to pt unable to hold breath during exam IMPRESSION: Limited exam, no ultrasound evidence for renal artery stenosis. Consider complete evaluation with CTA abdomen as clinically warranted. Infrarenal aortic aneurysm possible stent graft placement which would be new from 10/18/2022 CT. Consi briseyda complete evaluation with CTA abdomen as clinically warranted.
[2023-03-17] MEDS: DEXTROSE 5% IN WATER 1,000 ML with SODIUM BICARB (1 MEQ/ML) 150 ML IV SCH (16:37)
[2023-03-17] MEDS ORDERED: SODIUM BICARB 8.4% 50 ML SYR (1 MEQ/ML) IV STA (18:24)
--- NOTE | 2023-03-17 18:29 | P.HPIM ---
History of Present Illness H&P Date: 03/17/23 Patient is a 77-year-old male with PMH of alcohol abuse, history of CVA, bilateral carotid stenosis, AAA repair, hypertension, COPD that presents the ED for abnormal lab work that was done with his PCP. Patient reports diarrhea consistent of liquid bowel movements at least twice a day for the past 6 months. Over the past week, he is not as left lower quadrant abdominal pain. He denies any nausea or vomiting. States that he has not been eating much but drinks plenty of fluids. Patient reports that he is more slow to respond than usual. He also reports some lightheadedness especially with changing position which resulted in 2 falls recently. He denies any head trauma or loss of consciou sness. He denies any headache, lower extremity edema, fever or chills, cough, chest pain, shortness of breath, palpitations, changes in urination. He denies any slurred speech, numbness/weakness/tingling. In the ED, as well as signs are stable, bradycardic with heart rate in the high 50s. CBC showed hemoglobin of 11.6. Coagulation panel within normal limits. CMP showed potassium of 5.3, chloride of 118, bicarb of 9, BUN of 120, creatinine of 12.64, calcium of 8.3, phosphorus of 9.1, magnesium of 2.4, AST of 14. Lipase 566. Renal ultrasound consistent with medical renal disease, left renal calculus, no obstructive uropathy. Renal artery duplex showed no evidence of renal artery stenosis, infrarenal aneurysm with possible stent graft placement, distal AAA 7 x 7.2 cm. Patient is admitted for workup of acute renal failure. Pertinent positives and negatives as discussed in HPI, a complete review of systems was performed and all other systems are negative. General: non toxic, no distress, appears at stated age Derm: warm, dry Head: atraumatic, normocephalic, symmetric Eyes: EOMI, no lid lag, anicteric sclera Mouth: no lip lesion, mucus membranes moist Cardiovascular: S1S2 reg, no murmur Lungs: Mild expiratory wheezing bilateral, no rhonchi, no rales , no accessory muscle use Abdominal: soft, tenderness to palpation of the left lower quadrant without rebound, no guarding, no appreciable organomegaly Ext: no gross muscle atrophy, no edema, no contractures Neuro: no focal neuro deficits Psych: Alert, oriented, appropriate affect Acute kidney injury on chronic kidney disease Metabolic acidosis Hyperkalemia Diarrhea with LLQ abdominal pain Hyperphosphatemia Hypermagnesemia Based on my assessment of this patient, this patient meets a high complexity level of care. Patient has a chronic kidney disease with severe exacerbation or progression of disease which poses a threat to life or bodily function. He presents with BUN of 120, creatinine of 2.64 him a bicarb of 9 and potassium of 5.3. Patient will be given 2 amps of sodium bicarb as well as D5NS with sodium bicarb at 80 cc/hr. his lisinopril will be discontinued. Osmolality serum and urine will be ordered . Urine sodium will be ordered. Plans to repeat BMP at 7 PM tonight. He'll be placed on telemetry monitoring. Nephrology will be consulted for further management of this patient. We will restart his home medications including aspirin, Lipitor, Plavix, atenolol, amlodipine. Patient would like to be full code. I have reviewed the results of the following tests: As per HPI. I have ordered the following tests: Serum and urine osmolality. Urine sodium. CMP at 7 PM. CMP ordered for tomorrow morning. This patient has a high risk of morbidity due to the following reasons: Patient has severe metabolic derangement including metabolic acidosis and hyperkalemia along with acute kidney injury on chronic kidney disease. Past Medical History Past Medical History: Cancer, COPD, GI Bleed, Hyperlipidemia, Hypertension, Memory Impairment, Myocardial Infarction ([place]) Additional Past Medical History / Comment(s): past hx. GI bleeding, hx. 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 aortic aneurysm Last Myocardial Infarction Date:: pt unsure History of Any Multi-Drug Resistant Organisms: None Reported Past Surgical History: Heart Catheterization With Stent Additional Past Surgical History / Comment(s): tooth sx, colonoscopy, heart stent x3, melanoma removed left shoulder recently Past Anesthesia/Blood Transfusion Reactions: No Reported Reaction Date of Last Stent Placement:: 2008 Past Psychological History: No Psychological Hx Reported Smoking Status: Former smoker Past Alcohol Use History: None Reported Past Drug Use History: None Reported - Past Family History Father Family Medical History: Myocardial Infarction ([place]) Additional Family Medical History / Comment(s): from a [place] Mother Family Medical History: Myocardial Infarction ([place]) Additional Family Medical History / Comment(s): from a [place] Sister(s) Family Medical History: Cancer Brother(s) Family Medical History: Myocardial Infarction ([place]) Medications and Allergies Home Medications Medication Instructions Recorded Confirmed Type Aspirin 81 mg PO DAILY #30 tab 01/04/23 03/17/23 Rx Atorvastatin [Lipitor] 80 mg PO HS #30 tab 01/04/23 03/17/23 Rx Clopidogrel [Plavix] 1 tab PO DAILY #30 tab 01/04/23 03/17/23 Rx amLODIPine [Norvasc] 10 mg PO DAILY #30 tab 01/04/23 03/17/23 Rx atenoloL [Tenormin] 50 mg PO DAILY #30 tab 01/04/23 03/17/23 Rx lisinopriL [Zestril] 10 mg PO DAILY #30 tab 01/04/23 03/17/23 Rx Albuterol Inhaler [Ventolin Hfa 2 puff INHALATION RT-Q6H PRN 03/17/23 03/17/23 History Inhaler] Fluticasone/Umeclidin/Vilanter 1 puff INHALATION RT-DAILY PRN 03/17/23 03/17/23 History [Trelealicia Ellipta 200-62.5-25] Allergies Allergy/AdvReac Type Severity Reaction Status Date / Time No Known Allergies Allergy Verified 03/17/23 13:12 Physical Exam Vitals: Vital Signs Temp Pulse Resp BP Pulse Ox 03/17/23 18:00 59 L 16 156/66 96 03/17/23 17:30 61 18 114/97 98 03/17/23 17:00 59 L 18 124/71 99 03/17/23 16:30 64 18 146/67 97 03/17/23 16:00 58 L 18 147/65 90 L 03/17/23 15:30 58 L 16 131/60 92 L 03/17/23 15:00 57 L 17 139/66 98 03/17/23 14:30 58 L 17 136/61 100 03/17/23 14:00 60 21 124/65 99 03/17/23 13:30 58 L 18 144/66 92 L 03/17/23 13:00 60 13 140/58 96 03/17/23 12:30 60 19 147/68 96 03/17/23 12:00 59 L 20 97 03/17/23 11:55 94 L 03/17/23 11:33 97.9 F 57 L 20 161/68 99 Intake and Output 03/17/23 03/17/23 03/17/23 06:59 14:59 22:59 Other: Voiding Method Toilet Weight 90.718 kg Results CBC & Chem 7: 03/17/23 12:01 03/17/23 12:01 Labs: Abnormal Lab Results - Last 24 Hours (Table) 03/17/23 03/17/23 Range/Units 12:01 12:01 RBC 3.71 L (4.30-5.90) m/uL Hgb 11.6 L (13.0-17.5) gm/dL Hct 35.3 L (39.0-53.0) % RDW 15.8 H (11.5-15.5) % Lymphocytes # 0.9 L (1.0-4.8) k/uL Potassium 5.3 H (3.5-5.1) mmol/L Chloride 118 H (98-107) mmol/L Carbon Dioxide 9 L* (22-30) mmol/L BUN 120 H* (9-20) mg/dL Creatinine 12.64 H* (0.66-1.25) mg/dL Calcium 8.3 L (8.4-10.2) mg/dL Phosphorus 9.1 H* (2.5-4.5) mg/dL Magnesium 2.4 H (1.6-2.3) mg/dL AST 14 L (17-59) U/L Lipase 566 H (23-300) U/L
[2023-03-17 18:41] LABS: Appearance,Urine Clear (Clear); Bilirubin,Urine Negative (Negative); Blood,Urine Trace (Negative); Color,Urine Light Yellow; Glucose,Urine (UA) Negative (Negative); Ketones,Urine Negative (Negative); Leukocyte Esterase,Urine Negative (Negative); Mucus,Urine Rare /hpf; Nitrite,Urine Negative (Negative); Protein,Urine 1+ (Negative); RBC,Urine 1 /hpf (0-5); Specific Gravity,Urine 1.011 (1.001-1.035); Urobilinogen,Urine <2.0 mg/dL (<2.0); WBC,Urine 1 /hpf (0-5)
[2023-03-17 19:08] LABS: ALT 11 U/L (4-49); AST 12 U/L (17-59); African American GFR (CKD) 4 (>60 ml/min/1.73 sqM); Albumin 3.6 g/dL (3.5-5.0); Albumin/Globulin Ratio 1.3; Alkaline Phosphatase 43 U/L (38-126); Anion Gap 17 mmol/L; Calcium 8.1 mg/dL (8.4-10.2); Chloride 117 mmol/L (98-107); Globulin 2.7 g/dL; Glucose 112 mg/dL (74-99); Non-African American GFR(CKD) 4 (>60 ml/min/1.73 sqM); Potassium 5.1 mmol/L (3.5-5.1); Sodium 142 mmol/L (137-145); Total Bilirubin 0.3 mg/dL (0.2-1.3); Total Protein 6.3 g/dL (6.3-8.2)
[2023-03-17] MEDS ORDERED: LORazepam 2 MG/ML INJ IV PRN ×3 (19:12)
[2023-03-17 19:14] LABS: Blood Urea Nitrogen 118 mg/dL (9-20); Carbon Dioxide 8 mmol/L (22-30)
[2023-03-17] MEDS: ATORVASTATIN 80 MG TAB PO SCH (21:46)
[2023-03-17] MEDS: HEPARIN SODIUM,PORCINE/PF 5,000 UNIT/0.5 ML SYRINGE SQ SCH (21:47)
[2023-03-17 22:48] LABS: ABG Base Excess -17.2 mmol/L; ABG HCO3 11 mmol/L (21-25); ABG Oxygen Saturation 96.6 % (94-97); ABG PCO2 29 mmHg (35-45); ABG PO2 83 mmHg (83-108); ABG TCO2 12 mmol/L (19-24); Allen Test Performed? Yes
[2023-03-17 22:53] LABS: ABG PH 7.19 (7.35-7.45)
[2023-03-18] MEDS ORDERED: SODIUM BICARB 8.4% 50 ML SYR (1 MEQ/ML) IV STA (07:45)
[2023-03-18] MEDS: DEXTROSE 5% IN WATER 1,000 ML IV SCH ×2 (07:46→08:04)
[2023-03-18] MEDS: HEPARIN SODIUM,PORCINE/PF 5,000 UNIT/0.5 ML SYRINGE SQ SCH ×2 (07:47→21:47)
[2023-03-18] MEDS: THIAMINE 100 MG TAB PO SCH (07:48)
[2023-03-18] MEDS: CLOPIDOGREL 75 MG TAB PO SCH (07:48)
[2023-03-18] MEDS: ASPIRIN 81 MG PO SCH (07:48)
[2023-03-18] MEDS: amLODIPine 10 MG TAB PO SCH (07:48)
[2023-03-18] MEDS: FOLIC ACID 1 MG TAB PO SCH (07:48)
[2023-03-18] MEDS: atenoloL 50 MG TAB PO SCH (07:48)
[2023-03-18] MEDS: MULTIVITAMINS, THERA 1 EACH TAB PO SCH (07:48)
[2023-03-18] MEDS: DEXTROSE 5% IN WATER 1,000 ML with SODIUM BICARB (1 MEQ/ML) 150 ML IV SCH ×2 (07:53→17:13)
--- NOTE | 2023-03-18 09:09 | P.NPCON ---
History of Present Illness - Reason for Consult acute renal failure - History of Present Illness Reason for consultation: Acute kidney injury History of present illness: Patient is a 77-year-old male seen in renal consultation for acute kidney injury. Patient denies seeing a toll collector before. Patient's creatinine in December 2022 was in the range of 1.2-1.3 and was up to 4.19 on 01/22/2023. Patient had blood work done outpatient and was advised to go to the hospital due to abnormal labs. Patient's creatinine on admission was 12.6 and later in the evening yesterday was 12.36. Patient noted to be acidotic with bicarb level of 8. Potassium level fairly stable. Patient was taking lisinopril which is currently held. Patient states that his oral intake has been poor the last few weeks. He's been feeling more lethargic and states that food doesn't taste good. He denies history of diabetes. Denies family history of renal disease. Denies use of nonsteroidals. He does have coronary artery disease with 3 stents. He underwent percutaneous endovascular aortic repair with graft placement on 12/28/2022. Renal ultrasound this admission showed similar sized kidneys without hydronephrosis. Renal artery duplex showed no evidence of renal artery stenosis. Bladder scans have been negative. Urine output about 400 mL overnight. He is currently maintained on bicarb drip. Vital signs are stable. General: No acute distress. HEENT: Head exam is unremarkable. LUNGS: No audible rhonchi or wheezes. HEART: Rate and Rhythm are regular. ABDOMEN: Nontender. EXTREMITITES: No edema. Past Medical History Past Medical History: Cancer, COPD, GI Bleed, Hyperlipidemia, Hypertension, Memory Impairment, Myocardial Infarction ([place]) Additional Past Medical History / Comment(s): past hx. GI bleeding, hx. 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 aortic aneurysm Last Myocardial Infarction Date:: pt unsure History of Any Multi-Drug Resistant Organisms: None Reported Past Surgical History: Heart Catheterization With Stent Additional Past Surgical History / Comment(s): tooth sx, colonoscopy, heart stent x4, melanoma removed left shoulder recently Past Anesthesia/Blood Transfusion Reactions: No Reported Reaction Date of Last Stent Placement:: 2008 Past Psychological History: No Psychological Hx Reported Smoking Status: Current every day smoker, Current some day smoker Past Alcohol Use History: None Reported Additional Past Alcohol Use History / Comment(s): a beer a week, [place] on occasion. smoker for 60 years 1 ppd, quit smoking 1 month ago Past Drug Use History: None Reported - Past Family History Father Family Medical History: Myocardial Infarction ([place]) Additional Family Medical History / Comment(s): from a [place] Mother Family Medical History: Myocardial Infarction ([place]) Additional Family Medical History / Comment(s): from a [place] Sister(s) Family Medical History: Cancer Brother(s) Family Medical History: Myocardial Infarction ([place]) Medications and Allergies Home Medications Medication Instructions Recorded Confirmed Type RX: Aspirin 81 mg PO DAILY #30 tab 01/04/23 03/17/23 Rx RX: Atorvastatin [Lipitor] 80 mg PO HS #30 tab 01/04/23 03/17/23 Rx RX: Clopidogrel [Plavix] 1 tab PO DAILY #30 tab 01/04/23 03/17/23 Rx RX: amLODIPine [Norvasc] 10 mg PO DAILY #30 tab 01/04/23 03/17/23 Rx RX: atenoloL [Tenormin] 50 mg PO DAILY #30 tab 01/04/23 03/17/23 Rx RX: lisinopriL [Zestril] 10 mg PO DAILY #30 tab 01/04/23 03/17/23 Rx Albuterol Inhaler [Ventolin Hfa 2 puff INHALATION RT-Q6H PRN 03/17/23 03/17/23 History Inhaler] RX: Fluticasone/Umeclidin/Vilanter 1 puff INHALATION RT-DAILY PRN 03/17/23 03/17/23 History [Natalio Ellipta 200-62.5-25] Allergies Allergy/AdvReac Type Severity Reaction Status Date / Time No Known Allergies Allergy Verified 03/17/23 13:12 Physical Exam Vitals: Vital Signs Temp Pulse Pulse Resp BP BP Pulse Ox 03/18/23 08:00 97.0 F L 61 22 176/71 97 03/18/23 04:14 97.8 F 55 L 14 166/65 96 03/17/23 23:02 97.8 F 56 L 14 169/57 98 03/17/23 21:26 97.7 F 66 14 172/62 95 03/17/23 21:11 78 18 136/65 97 03/17/23 19:22 55 L 18 177/75 98 03/17/23 18:00 59 L 16 156/66 96 03/17/23 17:30 61 18 114/97 98 03/17/23 17:00 59 L 18 124/71 99 03/17/23 16:30 64 18 146/67 97 03/17/23 16:00 58 L 18 147/65 90 L 03/17/23 15:30 58 L 16 131/60 92 L 03/17/23 15:00 57 L 17 139/66 98 03/17/23 14:30 58 L 17 136/61 100 03/17/23 14:00 60 21 124/65 99 03/17/23 13:30 58 L 18 144/66 92 L 03/17/23 13:00 60 13 140/58 96 03/17/23 12:30 60 19 147/68 96 03/17/23 12:00 59 L 20 97 03/17/23 11:55 94 L 03/17/23 11:33 97.9 F 57 L 20 161/68 99 Intake and Output 03/17/23 03/18/23 03/18/23 22:59 06:59 14:59 Intake Total 60 Output Total 175 340 Balance -175 -340 60 Intake: IV 60 Invasive Line 1 60 Output: Urine 175 340 Other: Voiding Method Urinal Urinal Urinal # Bowel Movements 0 Weight 90.718 kg 91.4 kg Results - Lab Results Most recent lab results ABG pH 7.19 (7.35-7.45) L* 03/17/23 22:46 ABG pCO2 29 mmHg (35-45) L 03/17/23 22:46 ABG pO2 83 mmHg (83-108) 03/17/23 22:46 ABG HCO3 11 mmol/L (21-25) L 03/17/23 22:46 ABG O2 Saturation 96.6 % (94-97) 03/17/23 22:46 Calcium 8.1 mg/dL (8.4-10.2) L 03/17/23 19:00 Phosphorus 9.1 mg/dL (2.5-4.5) H* 03/17/23 12:01 Magnesium 2.4 mg/dL (1.6-2.3) H 03/17/23 12:01 03/17/23 12:01 03/17/23 19:00 Assessment and Plan Plan: Assessment: 1. Acute kidney injury secondary to ATN from poor intake and further worsened with the use of RYAN inhibitor. No evidence of hydronephrosis or renal artery stenosis noted on imaging. Bladder scans have been negative. Refuses Vitale catheter placement. Creatinine 12.36 as of yesterday evening. Creatinine was 4 .19 date 01/22/2023 and mostly in the range of 1.2-1.4 in December 2022. 2. Metabolic acidosis secondary to acute kidney injury. 3. Mild hyperkalemia secondary to acute kidney injury, metabolic acidosis and RYAN inhibitor. 4. Hyperphosphatemia secondary to acute kidney injury. 5. AAA repair with graft December 2022. 6. Benign hypertension. Plan: Maintain bicarb drip. Add hydralazine 50 mg 3 times daily. Add PhosLo with meals. Due to severe kidney failure, low urine output, electrolyte imbalance and signs of uremia, initiate renal replacement therapy. Consult vascular surgery for dialysis catheter placement. Plan for first treatment of hemodialysis today and second treatment tomorrow. Monitor for renal recovery. Quantify proteinuria. Thank you for the consultation. I will continue to follow the patient with you during his hospital stay.
[2023-03-18] MEDS: hydrALAZINE HCL 50 MG TAB PO SCH ×3 (10:14→21:47)
--- NOTE | 2023-03-18 11:44 | P.PN ---
Subjective Progress Note Date: 03/18/23 Patient is a 77-year-old male with PMH of alcohol abuse, history of CVA, bilateral carotid stenosis, AAA repair, hypertension, COPD that presents the ED for abnormal lab work that was done with his PCP. Patient reports diarrhea consistent of liquid bowel movements at least twice a day for the past 6 months. Over the past week, he is not as left lower quadrant abdominal pain. States that he has not been eating much but drinks plenty of fluids. He also reports some lightheadedness especially with changing position which resulted in 2 falls recently. In the ED, as well as signs are stable, bradycardic with heart rate in the high 50s. CBC showed hemoglobin of 11.6. Coagulation panel within normal limits. CMP showed potassium of 5.3, chloride of 118, bicarb of 9, BUN of 120, creatinine of 12.64, calcium of 8.3, phosphorus of 9.1, magnesium of 2.4, AST of 14. Lipase 566. Renal ultrasound consistent with medical renal disease, left renal calculus, no obstructive uropathy. Renal artery duplex showed no evidence of renal artery stenosis, infrarenal aneurysm with possible stent graft placeme nt, distal AAA 7 x 7.2 cm. Patient is admitted for workup of acute renal failure. Patient was seen and examined. He denies any complaints today. Refused Vitale catheter yesterday. Produced about 515 mL of urine since yesterday. Nephrology evaluated the patient, plans for hemodialysis today and tomorrow. Vascular surgery consulted for dialysis access. General: non toxic, no distress, appears at stated age Derm: warm, dry Head: atraumatic, normocephalic, symmetric Eyes: EOMI, no lid lag, anicteric sclera Cardiovascular: S1S2 reg, no murmur Lungs: Decreased BS bilateral, no rhonchi, no rales , no accessory muscle use Abdominal: soft, no tenderness to palpation of the left lower quadrant, no guarding, no appreciable organomegaly Ext: no gross muscle atrophy, no edema, no contractures Neuro: no focal neuro deficits Psych: Alert, oriented, appropriate affect Acute kidney injury on chronic kidney disease Metabolic acidosis Hyperkalemia Diarrhea with LLQ abdominal pain Hyperphosphatemia Hypermagnesemia Based on my assessment of this patient, this patient meets a high complexity le umu of care. Patient has a chronic kidney disease with severe exacerbation or progression of disease which poses a threat to life or bodily function. He presents with BUN of 120, creatinine of 2.64 him a bicarb of 9 and potassium of 5.3. Additional 2 A of sodium bicarb ordered. Continue bicarb drip at 100 mL per hour. Started on calcium acetate 667 mg by mouth 3 times a day. Vascular surgery consulted for hemodialysis access. Plans for dialysis today and tomorrow. Nephrology on board. Hold Lisinopril. Continue telemetry monitoring. We will restart his home medications including aspirin, Lipitor, Plavix, atenolol, amlodipine. Patient would like to be full code. I have reviewed the results of the following tests: ABG shows pH of 7.19, pCO2 of 29, bicarb of 12. BMP from 7 PM yesterday shows chloride of 117, bicarbonate of 8, creatinine of 118, creatinine of 2.36 and glucose of 112. Serum osmolality 344. I have ordered the following tests: Repeat BMP tomorrow morning. BMP from today pending. Nephrology note from 03/18 reviewed, agree with plan. This patient has a high risk of morbidity due to the following reasons: Patient has severe metabolic derangement including metabolic acidosis and hyperkalemia along with acute kidney injury on chronic kidney disease. Objective - Vital Signs Vital signs: Vital Signs Temp 97.9 F 03/18/23 11:25 Pulse 58 L 03/18/23 11:25 Resp 18 03/18/23 11:25 BP 142/63 03/18/23 11:25 Pulse Ox 96 03/18/23 11:25 FiO2 Intake & Output 03/17/23 03/18/23 03/18/23 18:59 06:59 18:59 Intake Total 60 Output Total 175 340 Balance -175 -340 60 Weight 90.718 kg 91.4 kg Intake: IV 60 Invasive Line 1 60 Oral 0 Output: Urine 175 340 Other: Voiding Method Toilet Urinal Urinal # Bowel Movements 0 - Labs CBC & Chem 7: 03/17/23 12:01 03/17/23 19:00 Labs: Abnormal Lab Results - Last 24 Hours (Table) 03/17/23 03/17/23 03/17/23 Range/Units 12:01 12:01 12:01 RBC 3.71 L (4.30-5.90) m/uL Hgb 11.6 L (13.0-17.5) gm/dL Hct 35.3 L (39.0-53.0) % RDW 15.8 H (11.5-15.5) % Lymphocytes # 0.9 L (1.0-4.8) k/uL ABG pH (7.35-7.45) ABG pCO2 (35-45) mmHg ABG HCO3 (21-25) mmol/L ABG Total CO2 (19-24) mmol/L Potassium 5.3 H (3.5-5.1) mmol/L Chloride 118 H (98-107) mmol/L Carbon Dioxide 9 L* (22-30) mmol/L BUN 120 H* (9-20) mg/dL Creatinine 12.64 H* (0.66-1.25) mg/dL Glucose (74-99) mg/dL Osmolality (280-301) mosm/kg Calcium 8.3 L (8.4-10.2) mg/dL Phosphorus 9.1 H* (2.5-4.5) mg/dL Magnesium 2.4 H (1.6-2.3) mg/dL AST 14 L (17-59) U/L Lipase 566 H (23-300) U/L Urine Protein 1+ H (Negative) Urine Blood Trace H (Negative) Urine Mucus Rare H (None) /hpf 03/17/23 03/17/23 03/17/23 Range/Units 18:25 19:00 22:46 RBC (4.30-5.90) m/uL Hgb (13.0-17.5) gm/dL Hct (39.0-53.0) % RDW (11.5-15.5) % Lymphocytes # (1.0-4.8) k/uL ABG pH 7.19 L* (7.35-7.45) ABG pCO2 29 L (35-45) mmHg ABG HCO3 11 L (21-25) mmol/L ABG Total CO2 12 L (19-24) mmol/L Potassium (3.5-5.1) mmol/L Chloride 117 H (98-107) mmol/L Carbon Dioxide 8 L* (22-30) mmol/L BUN 118 H* (9-20) mg/dL Creatinine 12.36 H* (0.66-1.25) mg/dL Glucose 112 H (74-99) mg/dL Osmolality 344 H* (280-301) mosm/kg Calcium 8.1 L (8.4-10.2) mg/dL Phosphorus (2.5-4.5) mg/dL Magnesium (1.6-2.3) mg/dL AST 12 L (17-59) U/L Lipase (23-300) U/L Urine Protein (Negative) Urine Blood (Negative) Urine Mucus (None) /hpf
[2023-03-18 12:05] LABS: ALT 10 U/L (4-49); AST 12 U/L (17-59); African American GFR (CKD) 4 (>60 ml/min/1.73 sqM); Albumin 3.1 g/dL (3.5-5.0); Alkaline Phosphatase 38 U/L (38-126); Anion Gap 15 mmol/L; Calcium 7.6 mg/dL (8.4-10.2); Carbon Dioxide 15 mmol/L (22-30); Chloride 112 mmol/L (98-107); Glucose 124 mg/dL (74-99); Non-African American GFR(CKD) 4 (>60 ml/min/1.73 sqM); Sodium 142 mmol/L (137-145); Total Bilirubin 0.4 mg/dL (0.2-1.3); Total Protein 5.4 g/dL (6.3-8.2)
[2023-03-18 12:07] LABS: Blood Urea Nitrogen 116 mg/dL (9-20)
[2023-03-18] MEDS: CALCIUM ACETATE 667 MG TAB PO SCH ×2 (12:37→17:15)
--- NOTE | 2023-03-18 14:32 | P.GSCN ---
History of Present Illness Consult date: 03/18/23 Reason for Consult: acute renal failure History of present illness: 77 year old male with history of AAA with previous EVAR currently in the [facility] for fatigue and diarrhea and was found to have acute kidney failure. Per the water quality assistant he will require dialysis and we are consulted for placement of a catheter. Per the patient nephrology believes it will only be temporary and may only require 3 treatments. Currently he denies any fevers, chills, chest pain or shortness of breath. Review of Systems All systems: negative (what is mentioned in the PMH or HPI) Past Medical History Past Medical History: Cancer, COPD, GI Bleed, Hyperlipidemia, Hypertension, Memory Impairment, Myocardial Infarction (AR) Additional Past Medical History / Comment(s): past hx. GI bleeding, hx. 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 aortic aneurysm Last Myocardial Infarction Date:: pt unsure History of Any Multi-Drug Resistant Organisms: None Reported Past Surgical History: Heart Catheterization With Stent Additional Past Surgical History / Comment(s): tooth sx, colonoscopy, heart stent x4, melanoma removed left shoulder recently Past Anesthesia/Blood Transfusion Reactions: No Reported Reaction Date of Last Stent Placement:: 2008 Past Psychological History: No Psychological Hx Reported Smoking Status: Current every day smoker, Current some day smoker Past Alcohol Use History: None Reported Additional Past Alcohol Use History / Comment(s): a beer a week, crown [place] on occasion. smoker for 60 years 1 ppd, quit smoking 1 month ago Past Drug Use History: None Reported - Past Family History Father Family Medical History: Myocardial Infarction (AR) Additional Family Medical History / Comment(s): from a AR Mother Family Medical History: Myocardial Infarction (AR) Additional Family Medical History / Comment(s): from a AR Sister(s) Family Medical History: Cancer Brother(s) Family Medical History: Myocardial Infarction (AR) Medications and Allergies Home Medications Medication Instructions Recorded Confirmed Type Aspirin 81 mg PO DAILY #30 tab 01/04/23 03/17/23 Rx Atorvastatin [Lipitor] 80 mg PO HS #30 tab 01/04/23 03/17/23 Rx Clopidogrel [Plavix] 1 tab PO DAILY #30 tab 01/04/23 03/17/23 Rx amLODIPine [Norvasc] 10 mg PO DAILY #30 tab 01/04/23 03/17/23 Rx atenoloL [Tenormin] 50 mg PO DAILY #30 tab 01/04/23 03/17/23 Rx lisinopriL [Zestril] 10 mg PO DAILY #30 tab 01/04/23 03/17/23 Rx Albuterol Inhaler [Ventolin Hfa 2 puff INHALATION RT-Q6H PRN 03/17/23 03/17/23 History Inhaler] Fluticasone/Umeclidin/Vilanter 1 puff INHALATION RT-DAILY PRN 03/17/23 03/17/23 History [Trelegy Ellipta 200-62.5-25] Allergies Allergy/AdvReac Type Severity Reaction Status Date / Time No Known Allergies Allergy Verified 03/17/23 13:12 Surgical - Exam Vital Signs Temp Pulse Resp BP Pulse Ox 97.9 F 57 L 20 161/68 99 03/17/23 11:33 03/17/23 11:33 03/17/23 11:33 03/17/23 11:33 03/17/23 11:33 palpable dp and pt pulses - General well developed, well nourished, no distress - Eyes PERRL, normal ocular movement - ENT normal pinna, normal nares - Neck no masses - Respiratory normal expansion, normal respiratory effort - Cardiovascular Rhythm: regular - Abdomen Abdomen: soft, non tender - Integumentary no rash, no growths - Psychiatric oriented to time, oriented to person, oriented to place, speech is normal Results - Labs 03/17/23 12:01 03/18/23 10:31 Abnormal Lab Results - Last 24 Hours (Table) 03/17/23 03/17/23 03/17/23 Range/Units 12:01 18:25 19:00 ABG pH (7.35-7.45) ABG pCO2 (35-45) mmHg ABG HCO3 (21-25) mmol/L ABG Total CO2 (19-24) mmol/L Chloride 117 H (98-107) mmol/L Carbon Dioxide 8 L* (22-30) mmol/L BUN 118 H* (9-20) mg/dL Creatinine 12.36 H* (0.66-1.25) mg/dL Glucose 112 H (74-99) mg/dL Osmolality 344 H* (280-301) mosm/kg Calcium 8.1 L (8.4-10.2) mg/dL AST 12 L (17-59) U/L Total Protein (6.3-8.2) g/dL Albumin (3.5-5.0) g/dL Urine Protein 1+ H (Negative) Urine Blood Trace H (Negative) Urine Mucus Rare H (None) /hpf 03/17/23 03/18/23 Range/Units 22:46 10:31 ABG pH 7.19 L* (7.35-7.45) ABG pCO2 29 L (35-45) mmHg ABG HCO3 11 L (21-25) mmol/L ABG Total CO2 12 L (19-24) mmol/L Chloride 112 H (98-107) mmol/L Carbon Dioxide 15 L (22-30) mmol/L BUN 116 H* (9-20) mg/dL Creatinine 11.43 H* (0.66-1.25) mg/dL Glucose 124 H (74-99) mg/dL Osmolality (280-301) mosm/kg Calcium 7.6 L (8.4-10.2) mg/dL AST 12 L (17-59) U/L Total Protein 5.4 L (6.3-8.2) g/dL Albumin 3.1 L (3.5-5.0) g/dL Urine Protein (Negative) Urine Blood (Negative) Urine Mucus (None) /hpf Diabetes panel 03/17/23 03/18/23 Range/Units 19:00 10:31 Sodium 142 142 (137-145) mmol/L Potassium 5.1 4.0 (3.5-5.1) mmol/L Chloride 117 H 112 H (98-107) mmol/L Carbon Dioxide 8 L* 15 L (22-30) mmol/L BUN 118 H* 116 H* (9-20) mg/dL Creatinine 12.36 H* 11.43 H* (0.66-1.25) mg/dL Glucose 112 H 124 H (74-99) mg/dL Calcium 8.1 L 7.6 L (8.4-10.2) mg/dL AST 12 L 12 L (17-59) U/L ALT 11 10 (4-49) U/L Alkaline Phosphatase 43 38 (38-126) U/L Total Protein 6.3 5.4 L (6.3-8.2) g/dL Albumin 3.6 3.1 L (3.5-5.0) g/dL Calcium panel 03/17/23 03/18/23 Range/Units 19:00 10:31 Calcium 8.1 L 7.6 L (8.4-10.2) mg/dL Albumin 3.6 3.1 L (3.5-5.0) g/dL Pituitary panel 03/17/23 03/18/23 Range/Units 19:00 10:31 Sodium 142 142 (137-145) mmol/L Potassium 5.1 4.0 (3.5-5.1) mmol/L Chloride 117 H 112 H (98-107) mmol/L Carbon Dioxide 8 L* 15 L (22-30) mmol/L BUN 118 H* 116 H* (9-20) mg/dL Creatinine 12.36 H* 11.43 H* (0.66-1.25) mg/dL Glucose 112 H 124 H (74-99) mg/dL Calcium 8.1 L 7.6 L (8.4-10.2) mg/dL Adrenal panel 03/17/23 03/18/23 Range/Units 19:00 10:31 Sodium 142 142 (137-145) mmol/L Potassium 5.1 4.0 (3.5-5.1) mmol/L Chloride 117 H 112 H (98-107) mmol/L Carbon Dioxide 8 L* 15 L (22-30) mmol/L BUN 118 H* 116 H* (9-20) mg/dL Creatinine 12.36 H* 11.43 H* (0.66-1.25) mg/dL Glucose 112 H 124 H (74-99) mg/dL Calcium 8.1 L 7.6 L (8.4-10.2) mg/dL Total Bilirubin 0.3 0.4 (0.2-1.3) mg/dL AST 12 L 12 L (17-59) U/L ALT 11 10 (4-49) U/L Alkaline Phosphatase 43 38 (38-126) U/L Total Protein 6.3 5.4 L (6.3-8.2) g/dL Albumin 3.6 3.1 L (3.5-5.0) g/dL Assessment and Plan Assessment: Acute renal failure History of AAA with previous EVAR Fatigue Plan: Discussed with patient. Will place temporary catheter at bedside. Hemodialysis per nephrology.
--- NOTE | 2023-03-18 15:10 | P.PCN ---
Description of Procedure: Date: 03/18/2023. Surgeon: Sony Hilliard DO Preoperative Diagnosis: Acute Renal Failure Postoperative Diagnosis: Same Procedure: Ultrasound guided right common femoral vein temporary dialysis catheter placement. Anesthesia: local EBL: minimal Complications: none Indication for procedure: 77 year old gentleman with history of AAA, EVAR presented to the hospital for fatigue, diarrhea and was found to have acute renal failure in need of hemodialysis. Operative narrative: After written informed consent was obtained and all risks, benefits, competitions were described the procedure was performed at bedside. Utilizing ultrasound the right common femoral vein was visualized and shown to be patent without any thrombus. Utilizing a multipurpose needle the right common femoral vein was accessed. Dark nonpulsatile blood flow was visualized. Guidewire was placed and needle was removed. Serial dilation was then performed and a 16 cm straight Mahurkar dialysis catheter was then guided over the guidewire. Guidewire was then removed and ports were assessed for patency. All ports were easily flushed and hep-locked. The catheter was then sutured in place with nylon suture. The area was then cleansed and dressings were placed. Patient tolerated procedure well.
[2023-03-18 19:17] LABS: Creatinine,Urine Random 92.1 mg/dL; Protein/Creatinine Ratio,Urine 0.63
[2023-03-18] MEDS: ATORVASTATIN 80 MG TAB PO SCH (21:47)
[2023-03-19] MEDS: DEXTROSE 5% IN WATER 1,000 ML with SODIUM BICARB (1 MEQ/ML) 150 ML IV SCH ×2 (05:57→16:47)
[2023-03-19] MEDS: amLODIPine 10 MG TAB PO SCH (09:25)
[2023-03-19] MEDS: atenoloL 50 MG TAB PO SCH (09:25)
[2023-03-19] MEDS: CALCIUM ACETATE 667 MG TAB PO SCH ×3 (09:25→16:37)
[2023-03-19] MEDS: THIAMINE 100 MG TAB PO SCH (09:25)
[2023-03-19] MEDS: MULTIVITAMINS, THERA 1 EACH TAB PO SCH (09:25)
[2023-03-19] MEDS: FOLIC ACID 1 MG TAB PO SCH (09:25)
[2023-03-19] MEDS: CLOPIDOGREL 75 MG TAB PO SCH (09:25)
[2023-03-19] MEDS: ASPIRIN 81 MG PO SCH (09:25)
[2023-03-19] MEDS: hydrALAZINE HCL 50 MG TAB PO SCH ×3 (09:25→21:31)
[2023-03-19] MEDS: HEPARIN SODIUM,PORCINE/PF 5,000 UNIT/0.5 ML SYRINGE SQ SCH ×2 (09:25→21:31)
[2023-03-19] MEDS ORDERED: hydrALAZINE HCL 20 MG/ML 1 ML VIAL IVP PRN (09:55)
--- NOTE | 2023-03-19 09:57 | P.PN ---
Subjective Patient is seen in follow-up for acute kidney injury. Urine output about 500 mL yesterday. No problems with dialysis yesterday. Currently on bicarb drip. Denies chest pain or shortness of breath. Vital signs are stable. General: No acute distress. HEENT: Head exam is unremarkable. LUNGS: No audible rhonchi or wheezes. HEART: Rate and Rhythm are regular. ABDOMEN: Nontender. EXTREMITITES: No edema. Objective - Vital Signs Vital signs: Vital Signs Temp 98.2 F 03/19/23 09:28 Pulse 72 03/19/23 09:28 Resp 18 03/19/23 09:28 BP 171/65 03/19/23 09:28 Pulse Ox 94 L 03/19/23 09:28 FiO2 Intake & Output 03/18/23 03/19/23 03/19/23 18:59 06:59 18:59 Intake Total 1940 1000 Output Total 900 200 Balance 1040 800 Intake: IV 120 Invasive Line 1 120 Intake, IV Titration 1200 1000 Amount Dextrose 5% in Water 1, 1200 1000 000 ml @ 100 mls/hr IV . [id number] CARI with Sodium Bicarb (1 Meq/ml) 150 ml Rx#:[id number] Oral 120 Hemodialysis 500 Output: Urine 400 200 Hemodialysis 500 Other: Voiding Method Urinal Urinal Urinal # Voids 1 1 # Bowel Movements 2 1 - Labs CBC & Chem 7: 03/17/23 12:01 03/18/23 10:31 Labs: Abnormal Lab Results - Last 24 Hours (Table) 03/18/23 Range/Units 10:31 Chloride 112 H (98-107) mmol/L Carbon Dioxide 15 L (22-30) mmol/L BUN 116 H* (9-20) mg/dL Creatinine 11.43 H* (0.66-1.25) mg/dL Glucose 124 H (74-99) mg/dL Calcium 7.6 L (8.4-10.2) mg/dL AST 12 L (17-59) U/L Total Protein 5.4 L (6.3-8.2) g/dL Albumin 3.1 L (3.5-5.0) g/dL Assessment and Plan Plan: Assessment: 1. Acute kidney injury secondary to ATN from poor intake and further worsened with the use of RYAN inhibitor. No evidence of hydronephrosis or renal artery stenosis noted on imaging. UA with 1+ protein. UPC 0.6. Bladder scans have been negative. Refuses Vitale catheter placement. Creatinine over 12 on admission. Creatinine was 4.19 date 01/22/2023 and mostly in the range of 1.2- 1.4 in December 2022. Started on hemodialysis 03/18/2023 via femoral catheter. 2. Metabolic acidosis secondary to acute kidney injury. Improving with bicarb drip and dialysis. 3. Mild hyperkalemia secondary to acute kidney injury, metabolic acidosis and RYAN inhibitor. Improved. 4. Hyperphosphatemia secondary to acute kidney injury. On PhosLo. 5. AAA repair with graft December 2022. 6. Benign hypertension. Blood pressure on the higher side. Plan: Maintain bicarb drip. Second treatment of hemodialysis today. Third treatment tomorrow. Monitor for renal recovery. Increase dose of hydralazine.
[2023-03-19 09:58] LABS: Hepatitis B Surface AB- Quant 3.5 mIU/mL; Hepatitis B Surface Antigen Nonreactive
--- NOTE | 2023-03-19 11:27 | P.PN ---
Subjective Progress Note Date: 03/19/23 Patient is a 77-year-old male with PMH of alcohol abuse, history of CVA, bilateral carotid stenosis, AAA repair, hypertension, COPD that presents the ED for abnormal lab work that was done with his PCP. Patient reports diarrhea consistent of liquid bowel movements at least twice a day for the past 6 months. Over the past week, he is not as left lower quadrant abdominal pain. States that he has not been eating much but drinks plenty of fluids. He also reports some lightheadedness especially with changing position which resulted in 2 falls recently. In the ED, as well as signs are stable, bradycardic with heart rate in the high 50s. CBC showed hemoglobin of 11.6. Coagulation panel within normal limits. CMP showed potassium of 5.3, chloride of 118, bicarb of 9, BUN of 120, creatinine of 12.64, calcium of 8.3, phosphorus of 9.1, magnesium of 2.4, AST of 14. Lipase 566. Renal ultrasound consistent with medical renal disease, left renal calculus, no obstructive uropathy. Renal artery duplex showed no evidence of renal artery stenosis, infrarenal aneurysm with possible stent graft placeme nt, distal AAA 7 x 7.2 cm. Patient is admitted for workup of acute renal failure. 03/18 Patient was seen and examined. He denies any complaints today. Refused Vitale catheter yesterday. Produced about 515 mL of urine since yesterday. Nephrology evaluated the patient, plans for hemodialysis today and tomorrow. Vascular surgery consulted for dialysis access. 03/19 Patient was seen and examined. He reports feeling anxious about the thought of being on HD. Right common femoral vein temporary dialysis catheter placed on 03/18. Underwent HD yesterday. Plans for HD today and tomorrow. BMP from this morning pending. General: non toxic, no distress, appears at stated age Derm: warm, dry Head: atraumatic, normocephalic, symmetric Eyes: EOMI, no lid lag, anicteric sclera Cardiovascular: S1S2 reg, no murmur Lungs: Decreased BS bilateral, no rhonchi, no rales , no accessory muscle use Abdominal: soft, no tenderness to palpation of the left lower quadrant, no guarding, no appreciable organomegaly Ext: no gross muscle atrophy, no edema, no contractures Neuro: no focal neuro deficits Psych: Alert, oriented, appropriate affect Acute kidney injury on chronic kidney disease Metabolic acidosis Diarrhea with LLQ abdominal pain Hyperphosphatemia Hypermagnesemia Resolved: HyperK Based on my assessment of this patient, this patient meets a moderate complexity level of care. Patient has a chronic kidney disease with severe exacerbation or progression of disease which poses a threat to life or bodily function. He presents with BUN of 120, creatinine of 2.64 him a bicarb of 9 and potassium of 5.3. Continue bicarb drip at 100 mL per hour. Started on calcium acetate 667 mg by mouth 3 times a day. Vascular surgery consulted, right common femoral vein temporary dialysis catheter placed on 03/18. Plans for dialysis today and tomorrow. Nephrology on board. Hold Lisinopril. Renal diet. Continue telemetry monitoring. Hydralazine 100 mg PO TID added for better BP control. We will restart his home medications including aspirin, Lipitor, Plavix, atenolol, amlodipine. Patient would like to be full code. I have reviewed the results of the following tests: BMP from yesterday morning shows chloride of 112, bicarbonate of 15, BUN 116, creatinine of 11.43 and glucose of 124. UOsm 324. [id number]. UCr 92.1. UTotal protein 58. Pr/Cr 0.63. I have ordered the following tests: Repeat BMP tomorrow morning. BMP from today pending. Vascular surgery note from 03/18 reviewed, agree with plan. Nephrology note from 03/19 reviewed, increase Hydralazine, HD today and tomorrow. This patient has a moderate risk of morbidity due to the following reasons: Patient has severe metabolic derangement including metabolic acidosis and hyperkalemia along with acute kidney injury on chronic kidney disease. Objective - Vital Signs Vital signs: Vital Signs Temp 97.9 F 03/19/23 01:48 Pulse 68 03/19/23 01:48 Resp 16 03/19/23 01:48 BP 165/68 03/19/23 01:48 Pulse Ox 94 L 03/19/23 01:48 FiO2 Intake & Output 03/18/23 03/19/23 03/19/23 18:59 06:59 18:59 Intake Total 1940 1000 Output Total 900 200 Balance 1040 800 Intake: IV 120 Invasive Line 1 120 Intake, IV Titration 1200 1000 Amount Dextrose 5% in Water 1, 1200 1000 000 ml @ 100 mls/hr IV . [id number] CARI with Sodium Bicarb (1 Meq/ml) 150 ml Rx#:[id number] Oral 120 Hemodialysis 500 Output: Urine 400 200 Hemodialysis 500 Other: Voiding Method Urinal Urinal # Voids 1 1 # Bowel Movements 2 1 - Labs CBC & Chem 7: 03/17/23 12:01 03/18/23 10:31 Labs: Abnormal Lab Results - Last 24 Hours (Table) 03/18/23 Range/Units 10:31 Chloride 112 H (98-107) mmol/L Carbon Dioxide 15 L (22-30) mmol/L BUN 116 H* (9-20) mg/dL Creatinine 11.43 H* (0.66-1.25) mg/dL Glucose 124 H (74-99) mg/dL Calcium 7.6 L (8.4-10.2) mg/dL AST 12 L (17-59) U/L Total Protein 5.4 L (6.3-8.2) g/dL Albumin 3.1 L (3.5-5.0) g/dL
[2023-03-19] MEDS: ONDANSETRON 4 MG/2 ML VIAL IVP PRN (15:26)
[2023-03-19 16:13] LABS: African American GFR (CKD) 6 (>60 ml/min/1.73 sqM); Anion Gap 15 mmol/L; Blood Urea Nitrogen 83 mg/dL (9-20); Calcium 7.8 mg/dL (8.4-10.2); Carbon Dioxide 25 mmol/L (22-30); Chloride 99 mmol/L (98-107); Glucose 115 mg/dL (74-99); Magnesium 1.7 mg/dL (1.6-2.3); Non-African American GFR(CKD) 5 (>60 ml/min/1.73 sqM); Phosphorus 5.4 mg/dL (2.5-4.5); Potassium 3.6 mmol/L (3.5-5.1); Sodium 139 mmol/L (137-145)
[2023-03-19] MEDS: SODIUM CHLORIDE 0.9% 1,000 ML IV SCH (17:01)
[2023-03-19] MEDS: ATORVASTATIN 80 MG TAB PO SCH (21:31)
[2023-03-20] MEDS: SODIUM CHLORIDE 0.9% 1,000 ML IV SCH ×2 (05:52→20:36)
[2023-03-20 09:11] LABS: African American GFR (CKD) 10 (>60 ml/min/1.73 sqM); Anion Gap 9 mmol/L; Blood Urea Nitrogen 47 mg/dL (9-20); Calcium 7.4 mg/dL (8.4-10.2); Carbon Dioxide 27 mmol/L (22-30); Chloride 100 mmol/L (98-107); Glucose 114 mg/dL (74-99); Magnesium 1.5 mg/dL (1.6-2.3); Non-African American GFR(CKD) 9 (>60 ml/min/1.73 sqM); Potassium 3.4 mmol/L (3.5-5.1); Sodium 136 mmol/L (137-145)
[2023-03-20] MEDS: FOLIC ACID 1 MG TAB PO SCH (09:39)
[2023-03-20] MEDS: CALCIUM ACETATE 667 MG TAB PO SCH ×3 (09:39→16:27)
[2023-03-20] MEDS: HEPARIN SODIUM,PORCINE/PF 5,000 UNIT/0.5 ML SYRINGE SQ SCH ×2 (09:39→20:45)
[2023-03-20] MEDS: THIAMINE 100 MG TAB PO SCH (09:39)
[2023-03-20] MEDS: ASPIRIN 81 MG PO SCH (09:39)
[2023-03-20] MEDS: CLOPIDOGREL 75 MG TAB PO SCH (09:40)
[2023-03-20] MEDS: MULTIVITAMINS, THERA 1 EACH TAB PO SCH (09:42)
[2023-03-20] MEDS ORDERED: POTASSIUM CHLORIDE ER 20 MEQ TAB.ER PO STA (10:57)
--- NOTE | 2023-03-20 10:59 | P.PN ---
Subjective Progress Note Date: 03/20/23 Principal diagnosis: Acute kidney injury Patient was seen and examined as a follow-up for acute kidney injury status post temporary HD catheter placement. Patient states overall he is not feeling well. Denies any bleeding or pain from the right groin. had dialysis on and Monday. Today's labs sodium 136 potassium 3.4 BUN 47 creatinine 5.75 Objective - Vital Signs Vital signs: Vital Signs Temp 98.4 F 03/20/23 07:42 Pulse 68 03/20/23 07:42 Resp 16 03/20/23 07:42 BP 143/70 03/20/23 07:42 Pulse Ox 93 L 03/20/23 07:42 FiO2 Intake & Output 03/19/23 03/20/23 03/20/23 18:59 06:59 18:59 Intake Total 6658 364 9422 Output Total 950 600 200 Balance 250 -100 1300 Intake: Intake, IV Titration 1200 1200 Amount Dextrose 5% in Water 1, 1200 000 ml @ 100 mls/hr IV . [id number] CARI with Sodium Bicarb (1 Meq/ml) 150 ml Rx#:[id number] Sodium Chloride 0.9% 1, 1200 000 ml @ 75 mls/hr IV . [id number] CARI Rx#:[id number] Oral 300 Hemodialysis 500 Output: Urine 950 100 200 Hemodialysis 500 Other: Voiding Method Urinal Urinal Urinal # Voids 1 1 # Bowel Movements 1 - Exam General appearance: The patient is alert, oriented, appears in no acute distress. HET: Head is normocephalic and atraumatic. Pupils are equal and reactive. Neck: Supple. Heart: Regular. Lungs: Equal expansion, normal respiratory effort. Abdomen: Soft, nontender, nondistended. Extremities: Normal skin color and turgor. Right groin with HD catheter, intact. Neurological: No focal deficits. Strength and sensation are grossly intact. - Labs CBC & Chem 7: 03/17/23 12:01 03/20/23 08:09 Labs: Abnormal Lab Results - Last 24 Hours (Table) 03/19/23 03/20/23 Range/Units 15:24 08:09 Sodium 136 L (137-145) mmol/L Potassium 3.4 L (3.5-5.1) mmol/L BUN 83 H 47 H (9-20) mg/dL Creatinine 8.58 H* 5.75 H (0.66-1.25) mg/dL Glucose 115 H 114 H (74-99) mg/dL Calcium 7.8 L 7.4 L (8.4-10.2) mg/dL Phosphorus 5.4 H (2.5-4.5) mg/dL Magnesium 1.5 L (1.6-2.3) mg/dL Assessment and Plan Assessment: 1. Acute renal failure status post temporary hemodialysis catheter placement 2. History of abdominal aortic aneurysm with previous EVAR 3. Fatigue Plan: Continue with recommendations from nephrology. Continue management per primary care team. The impression and plan of care has been dictated as directed. I performed a history and examination of this patient, discussed the same with the dictator. I agree with the dictator's note ,documented as a scribe. Any additional findings or plans will be noted.
--- NOTE | 2023-03-20 11:03 | P.PN ---
Subjective Progress Note Date: 03/20/23 Patient is a 77-year-old male with PMH of alcohol abuse, history of CVA, bilateral carotid stenosis, AAA repair, hypertension, COPD that presents the ED for abnormal lab work that was done with his PCP. Patient reports diarrhea consistent of liquid bowel movements at least twice a day for the past 6 months. Over the past week, he is not as left lower quadrant abdominal pain. States that he has not been eating much but drinks plenty of fluids. He also reports some lightheadedness especially with changing position which resulted in 2 falls recently. In the ED, as well as signs are stable, bradycardic with heart rate in the high 50s. CBC showed hemoglobin of 11.6. Coagulation panel within normal limits. CMP showed potassium of 5.3, chloride of 118, bicarb of 9, BUN of 120, creatinine of 12.64, calcium of 8.3, phosphorus of 9.1, magnesium of 2.4, AST of 14. Lipase 566. Renal ultrasound consistent with medical renal disease, left renal calculus, no obstructive uropathy. Renal artery duplex showed no evidence of renal artery stenosis, infrarenal aneurysm with possible stent graft placeme nt, distal AAA 7 x 7.2 cm. Patient is admitted for workup of acute renal failure. 03/18 Patient was seen and examined. He denies any complaints today. Refused Vitale catheter yesterday. Produced about 515 mL of urine since yesterday. Nephrology evaluated the patient, plans for hemodialysis today and tomorrow. Vascular surgery consulted for dialysis access. 03/19 Patient was seen and examined. He reports feeling anxious about the thought of being on HD. Right common femoral vein temporary dialysis catheter placed on 03/18. Underwent HD yesterday. Plans for HD today and tomorrow. BMP shows BUN 83 and Cr of 8.35. Phos is 5.4. Magnesium is 1.7. 03/20 Patient was seen and examined. Plans for HD today. BMP shows Na 136, K 3.4, BUN 47 and Cr of 5.75. Magnesium is 1.5. Hep B panel is negative. Patient continues to report watery bowel movements. No abdominal pain, nausea or vomiting. General: non toxic, no distress, appears at stated age Derm: warm, dry Head: atraumatic, normocephalic, symmetric Eyes: EOMI, no lid lag, anicteric sclera Cardiovascular: S1S2 reg, no murmur Lungs: Decreased BS bilateral, no rhonchi, no rales , no accessory muscle use Abdominal: soft, no tenderness to palpation of the left lower quadrant, no guarding, no appreciable organomegaly Ext: no gross muscle atrophy, no edema, no contractures Neuro: no focal neuro deficits Psych: Alert, oriented, appropriate affect Acute kidney injury on chronic kidney disease Diarrhea Hyperphosphatemia Hypermagnesemia Resolved: HyperK, Metabolic acidosis Based on my assessment of this patient, this patient meets a moderate complexity level of care. Patient has a chronic kidney disease with severe exacerbation or progression of disease which poses a threat to life or bodily function. He presents with BUN of 120, creatinine of 2.64 him a bicarb of 9 and potassium of 5.3. Bicarb drip discontinued and patient started on NS at 75 cc/hr. Calcium acetate 667 mg by mouth 3 times a day. Vascular surgery consulted, right common femoral vein temporary dialysis catheter placed on 03/18. Plans for dialysis today. Nep hrology on board. Hold Lisinopril. Renal diet. Continue telemetry monitoring. Replace potassium with 40 meq by mouth of potassium chloride. Check C. diff. Hydralazine 100 mg PO TID added for better BP control. We will restart his home medications including aspirin, Lipitor, Plavix, atenolol, amlodipine. Patient would like to be full code. I have reviewed the results of the following tests: BMP and Hepatitis panel as above. I have ordered the following tests: Repeat BMP tomorrow morning. This patient has a moderate risk of morbidity due to the following reasons: Patient has severe metabolic derangement including metabolic acidosis and hyperkalemia along with acute kidney injury on chronic kidney disease. Objective - Vital Signs Vital signs: Vital Signs Temp 98.4 F 03/20/23 07:42 Pulse 68 03/20/23 07:42 Resp 16 03/20/23 07:42 BP 143/70 03/20/23 07:42 Pulse Ox 93 L 03/20/23 07:42 FiO2 Intake & Output 03/19/23 03/20/23 03/20/23 18:59 06:59 18:59 Intake Total 0245 806 3882 Output Total 950 600 200 Balance 250 -100 1300 Intake: Intake, IV Titration 1200 1200 Amount Dextrose 5% in Water 1, 1200 000 ml @ 100 mls/hr IV . [id number] CARI with Sodium Bicarb (1 Meq/ml) 150 ml Rx#:[id number] Sodium Chloride 0.9% 1, 1200 000 ml @ 75 mls/hr IV . [id number] CARI Rx#:[id number] Oral 300 Hemodialysis 500 Output: Urine 950 100 200 Hemodialysis 500 Other: Voiding Method Urinal Urinal # Voids 1 1 - Labs CBC & Chem 7: 03/17/23 12:01 03/20/23 08:09 Labs: Abnormal Lab Results - Last 24 Hours (Table) 03/19/23 Range/Units 15:24 BUN 83 H (9-20) mg/dL Creatinine 8.58 H* (0.66-1.25) mg/dL Glucose 115 H (74-99) mg/dL Calcium 7.8 L (8.4-10.2) mg/dL Phosphorus 5.4 H (2.5-4.5) mg/dL
--- NOTE | 2023-03-20 11:52 | P.PN ---
Subjective Patient is seen in follow-up for acute kidney injury. He has been voiding. Urine output not accurately measured. Tolerating dialysis well. Currently normal saline. Denies chest pain or shortness of breath. Vital signs are stable. General: No acute distress. HEENT: Head exam is unremarkable. LUNGS: No audible rhonchi or wheezes. HEART: Rate and Rhythm are regular. ABDOMEN: Nontender. EXTREMITITES: No edema. Objective - Vital Signs Vital signs: Vital Signs Temp 98.4 F 03/20/23 07:42 Pulse 68 03/20/23 07:42 Resp 16 03/20/23 07:42 BP 143/70 03/20/23 07:42 Pulse Ox 93 L 03/20/23 07:42 FiO2 Intake & Output 03/19/23 03/20/23 03/20/23 18:59 06:59 18:59 Intake Total 8571 456 7797 Output Total 950 600 200 Balance 250 -100 1300 Intake: Intake, IV Titration 1200 1200 Amount Dextrose 5% in Water 1, 1200 000 ml @ 100 mls/hr IV . [id number] [facility] with Sodium Bicarb (1 Meq/ml) 150 ml Rx#:[id number] Sodium Chloride 0.9% 1, 1200 000 ml @ 75 mls/hr IV . [id number] [facility] Rx#:[id number] Oral 300 Hemodialysis 500 Output: Urine 950 100 200 Hemodialysis 500 Other: Voiding Method Urinal Urinal Urinal # Voids 1 1 # Bowel Movements 1 - Labs CBC & Chem 7: 03/17/23 12:01 03/20/23 08:09 Labs: Abnormal Lab Results - Last 24 Hours (Table) 03/19/23 03/20/23 Range/Units 15:24 08:09 Sodium 136 L (137-145) mmol/L Potassium 3.4 L (3.5-5.1) mmol/L BUN 83 H 47 H (9-20) mg/dL Creatinine 8.58 H* 5.75 H (0.66-1.25) mg/dL Glucose 115 H 114 H (74-99) mg/dL Calcium 7.8 L 7.4 L (8.4-10.2) mg/dL Phosphorus 5.4 H (2.5-4.5) mg/dL Magnesium 1.5 L (1.6-2.3) mg/dL Assessment and Plan Plan: Assessment: 1. Acute kidney injury secondary to ATN from poor intake and further worsened with the use of RYAN inhibitor. No evidence of hydronephrosis or renal artery stenosis noted on imaging. UA with 1+ protein. UPC 0.6. Bladder scans have been negative. Refuses Vtiale catheter placement. Creatinine over 12 on admission. Creatinine was 4.19 date 01/22/2023 and mostly in the range of 1.2- 1.4 in December 2022. Started on hemodialysis 03/18/2023 via femoral catheter. 2. Metabolic acidosis secondary to acute kidney injury. Improving with bicarb drip and dialysis. 3. Mild hyperkalemia secondary to acute kidney injury, metabolic acidosis and RYAN inhibitor. Resolved. 4. Hyperphosphatemia secondary to acute kidney injury. On PhosLo. 5. AAA repair with graft December 2022. 6. Benign hypertension. Stable. Plan: Maintain normal saline. Currently seen while undergoing hemodialysis. This is his third treatment. Plan to hold dialysis tomorrow. Monitor for renal recovery. Potassium was replaced. Strict I's and O's. Replace magnesium. Check serologies.
[2023-03-20] MEDS: amLODIPine 10 MG TAB PO SCH (12:27)
[2023-03-20] MEDS: MAGNESIUM SULFATE-D5W PMX 1 GM in DEXTROSE/WATER 1 100ML.BAG IVPB SCH ×2 (12:27→16:27)
[2023-03-20] MEDS: atenoloL 50 MG TAB PO SCH (12:27)
[2023-03-20] MEDS: hydrALAZINE HCL 50 MG TAB PO SCH ×3 (12:27→20:45)
[2023-03-20] MEDS: NON FORMULARY DRUG (Fluticasone/Umeclidin/Vilanter [Trelegy Ellipta 200-62.5-25] 1 EACH Bl INHALATION SCH (15:02)
[2023-03-20 16:00] LABS: Hepatitis A Antibody IgM Nonreactive; Hepatitis B Core IgM Nonreactive; Hepatitis B Surface Antigen Nonreactive; Hepatitis C IgG Antibody Nonreactive
[2023-03-20] MEDS ORDERED: MAGNESIUM SULFATE-D5W PMX 1 GM in DEXTROSE/WATER 1 100ML.BAG IVPB SCH (16:30)
[2023-03-20 16:37] LABS: Glucose,Whole Blood 119 mg/dL (70-110)
[2023-03-20] MEDS ORDERED: ALBUTEROL NEBULIZED 2.5 MG/3 ML INHALATION PRN (17:14)
[2023-03-20] MEDS ORDERED: ALBUTEROL NEBULIZED 2.5 MG/3 ML INHALATION STA (17:14)
--- NOTE | 2023-03-20 17:30 | XR ---
EXAMINATION TYPE: XR chest 1V portable DATE OF EXAM: 03/20/2023 5:06 PM COMPARISON: Chest radiographs from 01/02/2023 TECHNIQUE: XR chest 1V portable Frontal view of the chest. CLINICAL INDICATION:Male, 77 years old with history of increasing shortness of breath cough; FINDINGS: Lungs/Pleura: There is abnormal lucency within the right lung compared to left with a line present an d not a pencil thin visceral pleural line however remain suspicious. Finding could represent pneumoth orax versus skinfold. No focal consolidation. Pulmonary vascularity: Unremarkable. Heart/mediastinum: Cardiomediastinal silhouette is unremarkable. Musculoskeletal: No acute osseous pathology. IMPRESSION: There is a line along the right lung which does not have the classic pencil thin visceral pleural kari e.. Additionally there is abnormal lucency of the right lung. Findings suspicious for pneumothorax. C onsider cross-sectional imaging for for confirmation.
[2023-03-20 17:53] LABS: ABG Base Excess 2.8 mmol/L; ABG HCO3 26 mmol/L (21-25); ABG Oxygen Saturation 96.1 % (94-97); ABG PCO2 36 mmHg (35-45); ABG PH 7.47 (7.35-7.45); ABG PO2 69 mmHg (83-108); ABG TCO2 28 mmol/L (19-24); Allen Test Performed? Yes
--- NOTE | 2023-03-20 18:41 | CT ---
EXAMINATION TYPE: CT brain wo con CT DLP: 1259.4 mGycm, Automated exposure control for dose reduction was used. DATE OF EXAM: 03/20/2023 6:27 PM COMPARISON: 12/29/2022. CLINICAL INDICATION:Male, 77 years old with history of confusion, confusion/ ams TECHNIQUE: Brain: Axial CT images of the brain were obtained with coronal and sagittal reformats created and rev iewed. Contrast used: None. Oral contrast used: None. FINDINGS: Brain: Extra-axial spaces: No abnormal extra-axial fluid collections. Ventricular system: Within normal limits Cerebral parenchyma: Stable left basal ganglia/phillips radiata injury. No acute intraparenchymal hemor rhage or mass effect. The patino-white junction is well differentiated. Cerebellum: Unremarkable. Mass effect: No evidence of midline shift. Intracranial vasculature: Atherosclerotic calcifications of the intracranial vessels. Soft tissues: Normal. Calvarium/osseous structures: No depressed skull fracture. Paranasal sinuses and mastoid air cells: Mild scattered paranasal sinus disease. Visualized orbits: Orbital contents are intact. IMPRESSION: 1. No acute intracranial process. 2. Stable left basal ganglia/phillips radiata injury
--- NOTE | 2023-03-20 18:47 | CT ---
EXAMINATION TYPE: CT chest wo con CT DLP: 486.8 mGycm, Automated exposure control for dose reduction was used. DATE OF EXAM: 03/20/2023 6:28 PM COMPARISON: Chest radiograph from same day. CLINICAL INDICATION:Male, 77 years old with history of sob, SOB TECHNIQUE: Multiple axial images were obtained through the chest. Sagittal and coronal reformats were created for review. Contrast used: none Oral contrast used: none. FINDINGS: LUNGS/ PLEURA: Centrilobular emphysema changes. No focal consolidation, pneumothorax or pleural effus ion. Streaky atelectasis scarring noted. Large bulla in the right lower lung. AIRWAY: Patent and unremarkable. HEART: Size within normal limits. Atherosclerosis of the arterial vasculature in the coronary arterie s. MEDIASTINUM: No gross evidence of adenopathy. VASCULATURE: Atherosclerotic calcifications are present throughout the aorta and its branches. MUSCULOSKELETAL: No acute osseous abnormalities SOFT TISSUES/LYMPH NODES: Unremarkable. LOWER NECK: No significant findings. UPPER ABDOMEN: No significant findings. IMPRESSION: 1. No pneumothorax visualized, finding on radiograph same day likely representing bullous emphysema changes in the lung bases. 2. No focal consolidation or evidence of heart failure.
[2023-03-20] MEDS ORDERED: LOPERAMIDE 2 MG CAP PO PRN (18:57)
[2023-03-20 19:47] LABS: Anti-DNA, DS unit <1.0 IU/mL; DNA Double-Stranded Negative (Negative)
[2023-03-20] MEDS: ATORVASTATIN 80 MG TAB PO SCH (20:45)
[2023-03-21] MEDS ORDERED: IPRATROPIUM-ALBUTEROL 3 ML NEB INHALATION PRN (03:00)
--- NOTE | 2023-03-21 03:08 | P.CNPUL ---
History of Present Illness Consult date: 03/21/23 Requesting physician: Cornell Askew Reason for consult: COPD Chief complaint: Abnormal renal profile at PCP office, lightheadedness, generalized malaise History of present illness: I am seeing this patient in new consultation today 03/21/2023 for suspected mild exacerbation of the patient's known severe COPD. Patient is a 77-year-old white male with past medical history significant for severe COPD with an FEV1 50% of predicted, AAA status post EVAR in December of this year, CVA, questionable alcoholism, hyperlipidemia, hypertension, coronary artery disease with prior stents, and is an ex smoker. Patient's primary care provider is Dr. Garnica. Patient has had recent follow up with Dr. Davis in the office, for management of his severe COPD. He utilizes a combination of Trelegy and Ventolin inhalers. The patient apparently presented to the emergency room back on 03/17/2023 after being directed there by his primary care provider for abnormal renal labs. The patient had reportedly been experiencing generalized malaise and lightheadedness for several months. Patient was in acute renal failure on arrival to the emergency room. He had several metabolic derangements. He did require placement of a hemodialysis catheter on March 18, and has been receiving serial hemodialysis. Renal artery duplex showed no significant renal artery stenosis. KUB Ultrasound showed a left renal calculus without obstructive uropathy. Most recent CBC is unremarkable. Most recent BMP shows a sodium 136, potassium 3.4, chloride 100, serum bicarb 27, BUN 47, creatinine down to 5.75, glucose 114. Patient is currently confused, and a very poor historian. Most of this HPI is taken from the chart and the patient's nurse. He is sitting up in bed, on 3 L nasal cannula, in no acute distress. He is oxygenating at 94%. Apparently, yesterday evening the patient became altered and had some respiratory distress. ABG done at that time showed a pO2 of 69, pCO2 of 36, pH of 7.47. A nonenhanced chest CT demonstrated chronic bullous emphysematous changes at the lung bases, no focal consolidation or acute cardiopulmonary process. He is negative for COVID-19. There is no cough, and the patient is afebrile. There are minimal end expiratory wheezes on auscultation of the patient's lungs. He is currently receiving his home Trelegy inhalers and bronchodilators. Brain CT without contrast showed no acute intracranial process, with a stable left basal ganglia/phillips radiata injury. Patient has been treated for acute alcohol withdrawal in the past, and is currently on the [facility] protocol. Patient's family reportedly denies any history of alcoholism. The patient himself also denies any history of alcoholism, however, is acutely confused. Serum alcohol level is less than 10 on arrival. He is receiving vitamin B1 supplementation. Vital signs are currently stable. Review of Systems ROS unobtainable: due to mental status Past Medical History Past Medical History: Cancer, COPD, GI Bleed, Hyperlipidemia, Hypertension, Memory Impairment, Myocardial Infarction (PA) Additional Past Medical History / Comment(s): past hx. GI bleeding, hx. 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 aortic aneurysm Last Myocardial Infarction Date:: pt unsure History of Any Multi-Drug Resistant Organisms: None Reported Past Surgical History: Heart Catheterization With Stent Additional Past Surgical History / Comment(s): tooth sx, colonoscopy, heart stent x3, melanoma removed left shoulder recently Past Anesthesia/Blood Transfusion Reactions: No Reported Reaction Date of Last Stent Placement:: 2008 Past Psychological History: No Psychological Hx Reported Smoking Status: Former smoker Past Alcohol Use History: None Reported Past Drug Use History: None Reported - Past Family History Father Family Medical History: Myocardial Infarction (PA) Additional Family Medical History / Comment(s): from a PA Mother Family Medical History: Myocardial Infarction (PA) Additional Family Medical History / Comment(s): from a PA Sister(s) Family Medical History: Cancer Brother(s) Family Medical History: Myocardial Infarction (PA) Medications and Allergies Home Medications Medication Instructions Recorded Confirmed Type Aspirin 81 mg PO DAILY #30 tab 01/04/23 03/17/23 Rx Atorvastatin [Lipitor] 80 mg PO HS #30 tab 01/04/23 03/17/23 Rx Clopidogrel [Plavix] 1 tab PO DAILY #30 tab 01/04/23 03/17/23 Rx amLODIPine [Norvasc] 10 mg PO DAILY #30 tab 01/04/23 03/17/23 Rx atenoloL [Tenormin] 50 mg PO DAILY #30 tab 01/04/23 03/17/23 Rx lisinopriL [Zestril] 10 mg PO DAILY #30 tab 01/04/23 03/17/23 Rx Albuterol Inhaler [Ventolin Hfa 2 puff INHALATION RT-Q6H PRN 03/17/23 03/17/23 History Inhaler] Fluticasone/Umeclidin/Vilanter 1 puff INHALATION RT-DAILY PRN 03/17/23 03/17/23 History [Trelegy Ellipta 200-62.5-25] Allergies Allergy/AdvReac Type Severity Reaction Status Date / Time No Known Allergies Allergy Verified 03/17/23 13:12 Physical Exam Vitals: Vital Signs Temp Pulse Pulse Resp BP Pulse Ox 03/20/23 23:54 98.7 F 77 20 153/61 94 L 03/20/23 21:58 80 03/20/23 21:48 76 03/20/23 20:40 26 H 93 L 03/20/23 20:35 98.7 F 79 26 H 144/61 90 L 03/20/23 17:58 68 03/20/23 17:45 70 03/20/23 16:57 96 03/20/23 14:00 98 F 67 16 166/70 98 03/20/23 13:08 97.8 F 59 L 20 166/77 03/20/23 07:42 98.4 F 68 16 143/70 93 L 03/20/23 03:21 97.9 F 72 16 140/65 95 Intake and Output 03/20/23 03/20/23 03/21/23 14:59 22:59 06:59 Intake Total 1800 Output Total 700 150 Balance 1100 -150 Intake: Intake, IV Titration 1200 Amount Sodium Chloride 0.9% 1, 1200 000 ml @ 75 mls/hr IV . [id number] [facility] Rx#:[id number] Oral 300 Hemodialysis 300 Output: Urine 200 150 Hemodialysis 500 Other: Voiding Method Urinal Toilet Toilet Urinal Urinal # Voids 1 # Bowel Movements 1 1 GENERAL EXAM: Drowsy, and is oriented 3. He will awaken to verbal stimulation, but falls back asleep without repeated stimulation. He appears comfortable and in no acute distress. HEAD: Normocephalic and atraumatic EYES: Normal reaction of pupils, equal size. NOSE: Clear with pink turbinates. THROAT: No erythema or exudates. NECK: No masses, no JVD. CHEST: No chest wall deformity. LUNGS: Equal air entry with minimal end expiratory wheezes heard posteriorly. no crackles, rhonchi or focal dullness. On 3 L/m nasal cannula. No conversational dyspnea or accessory muscle use.. CVS: S1 and S2 normal with no audible murmur, regular rhythm. No extra heart sounds ABDOMEN: No hepatosplenomegaly, active bowel sounds, no guarding or rigidity. SPINE: No scoliosis or deformity SKIN: No rashes CENTRAL NERVOUS SYSTEM: No focal deficits or hemiparesis, tone is normal in all 4 extremities. There is a mild tremor with arm extension. EXTREMITIES: There is mild nonpitting bilateral lower extremity edema. No clubbing, or cyanosis. Peripheral pulses are intact. Results - Laboratory Findings CBC and BMP: 03/17/23 12:01 03/20/23 08:09 ABG ABG pH 7.47 (7.35-7.45) H 03/20/23 17:44 ABG pCO2 36 mmHg (35-45) 03/20/23 17:44 ABG pO2 69 mmHg (83-108) L 03/20/23 17:44 ABG O2 Saturation 96.1 % (94-97) 03/20/23 17:44 PT/INR, D-dimer PT 9.9 sec (9.0-12.0) 03/17/23 12:01 INR 0.9 (<1.2) 03/17/23 12:01 Abnormal lab findings: Abnormal Labs 03/17/23 03/17/23 03/17/23 12:01 12:01 12:01 RBC 3.71 L Hgb 11.6 L Hct 35.3 L RDW 15.8 H Lymphocytes # 0.9 L ABG pH ABG pCO2 ABG pO2 ABG HCO3 ABG Total CO2 Sodium Potassium 5.3 H Chloride 118 H Carbon Dioxide 9 L* BUN 120 H* Creatinine 12.64 H* Glucose POC Glucose (mg/dL) Osmolality Calcium 8.3 L Phosphorus 9.1 H* Magnesium 2.4 H AST 14 L Total Protein Albumin Lipase 566 H Urine Protein 1+ H Urine Blood Trace H Urine Mucus Rare H 03/17/23 03/17/23 03/17/23 18:25 19:00 22:46 RBC Hgb Hct RDW Lymphocytes # ABG pH 7.19 L* ABG pCO2 29 L ABG pO2 ABG HCO3 11 L ABG Total CO2 12 L Sodium Potassium Chloride 117 H Carbon Dioxide 8 L* BUN 118 H* Creatinine 12.36 H* Glucose 112 H POC Glucose (mg/dL) Osmolality 344 H* Calcium 8.1 L Phosphorus Magnesium AST 12 L Total Protein Albumin Lipase Urine Protein Urine Blood Urine Mucus 03/18/23 03/19/23 03/20/23 10:31 15:24 08:09 RBC Hgb Hct RDW Lymphocytes # ABG pH ABG pCO2 ABG pO2 ABG HCO3 ABG Total CO2 Sodium 136 L Potassium 3.4 L Chloride 112 H Carbon Dioxide 15 L BUN 116 H* 83 H 47 H Creatinine 11.43 H* 8.58 H* 5.75 H Glucose 124 H 115 H 114 H POC Glucose (mg/dL) Osmolality Calcium 7.6 L 7.8 L 7.4 L Phosphorus 5.4 H Magnesium 1.5 L AST 12 L Total Protein 5.4 L Albumin 3.1 L Lipase Urine Protein Urine Blood Urine Mucus 03/20/23 03/20/23 16:34 17:44 RBC Hgb Hct RDW Lymphocytes # ABG pH 7.47 H ABG pCO2 ABG pO2 69 L ABG HCO3 26 H ABG Total CO2 28 H Sodium Potassium Chloride Carbon Dioxide BUN Creatinine Glucose POC Glucose (mg/dL) 119 H Osmolality Calcium Phosphorus Magnesium AST Total Protein Albumin Lipase Urine Protein Urine Blood Urine Mucus - Diagnostic Findings Chest x-ray: image reviewed CT scan - chest: image reviewed Assessment and Plan Assessment: Acute on chronic kidney injury, requiring serial hemodialysis. Acute hypoxemic respiratory failure, secondary to a mild exacerbation of the patient's known severe COPD. Nonenhanced chest CT demonstrated chronic bullous emphysematous changes at the lung bases, no focal consolidation or acute cardiopulmonary process. He is negative for COVID-19. Currently on 3 L/m nasal cannula. Altered mental status, possibly related to toxic metabolic encephalopathy. Brain CT without contrast from yesterday shows no acute intracranial process, there was a stable left basal ganglia/coronary radiata injury. Questionable alcoholism, however, patient's family denies any significant history of alcohol abuse. Currently on the [facility] protocol Anion gap metabolic acidosis, secondary to acute renal failure, improved History of CVA Coronary artery disease, with previous stents Essential hypertension Hyperlipidemia Ex-smoker Plan: Patient's medications, labs, chest CT were reviewed Continue supplemental oxygen Optimize patient's COPD with a combination of Trelegy, bronchodilators, IV Solu- Medrol Consult neurology for altered mental status Continue [facility] protocol Receiving hemodialysis per nephrology recommendations Patient is reportedly making a minimal amount of urine We will continue to follow I have personally seen and examined the patient, performed the documentation and the assessment and plan as written. Number of minutes spent on the visit:20 Time with Patient: Greater than 30
[2023-03-21] MEDS: CALCIUM ACETATE 667 MG TAB PO SCH ×3 (05:54→16:57)
[2023-03-21] MEDS: methylPREDNISolone SOD SUCCI 125 MG/2 ML VIAL IV SCH ×2 (05:54→11:18)
[2023-03-21] MEDS: HEPARIN SODIUM,PORCINE/PF 5,000 UNIT/0.5 ML SYRINGE SQ SCH ×2 (08:24→20:23)
[2023-03-21] MEDS: MULTIVITAMINS, THERA 1 EACH TAB PO SCH (08:24)
[2023-03-21] MEDS: ASPIRIN 81 MG PO SCH (08:24)
[2023-03-21] MEDS: CLOPIDOGREL 75 MG TAB PO SCH (08:24)
[2023-03-21] MEDS: SODIUM CHLORIDE 0.9% 1,000 ML IV SCH ×2 (08:25→22:59)
[2023-03-21] MEDS: atenoloL 50 MG TAB PO SCH (08:25)
[2023-03-21] MEDS: FOLIC ACID 1 MG TAB PO SCH (08:25)
[2023-03-21] MEDS: hydrALAZINE HCL 50 MG TAB PO SCH ×3 (08:25→20:23)
[2023-03-21] MEDS: THIAMINE 100 MG TAB PO SCH (08:25)
[2023-03-21] MEDS: amLODIPine 10 MG TAB PO SCH (08:25)
[2023-03-21] MEDS: IPRATROPIUM-ALBUTEROL 3 ML NEB INHALATION SCH ×4 (09:00→21:11)
[2023-03-21] MEDS: NON FORMULARY DRUG (Fluticasone/Umeclidin/Vilanter [Trelegy Ellipta 200-62.5-25] 1 EACH Bl INHALATION SCH (09:07)
--- NOTE | 2023-03-21 09:36 | P.PN ---
Subjective Patient is seen in follow-up for acute kidney injury. He has been voiding. No problems with dialysis yesterday. Receiving normal saline. Denies chest pain or shortness of breath. Vital signs are stable. General: No acute distress. HEENT: Head exam is unremarkable. LUNGS: No audible rhonchi or wheezes. HEART: Rate and Rhythm are regular. ABDOMEN: Nontender. EXTREMITITES: No edema. Objective - Vital Signs Vital signs: Vital Signs Temp 98.5 F 03/21/23 08:21 Pulse 68 03/21/23 09:14 Resp 18 03/21/23 08:21 BP 143/63 03/21/23 08:21 Pulse Ox 94 L 03/21/23 09:00 FiO2 Intake & Output 03/20/23 03/21/23 03/21/23 18:59 06:59 18:59 Intake Total 1800 Output Total 700 150 Balance 1100 -150 Intake: Intake, IV Titration 1200 Amount Sodium Chloride 0.9% 1, 1200 000 ml @ 75 mls/hr IV . [id number] [facility] Rx#:[id number] Oral 300 Hemodialysis 300 Output: Urine 200 150 Hemodialysis 500 Other: Voiding Method Urinal Toilet Urinal # Voids 1 # Bowel Movements 1 - Labs CBC & Chem 7: 03/17/23 12:01 03/20/23 08:09 Labs: Abnormal Lab Results - Last 24 Hours (Table) 03/20/23 03/20/23 Range/Units 16:34 17:44 ABG pH 7.47 H (7.35-7.45) ABG pO2 69 L (83-108) mmHg ABG HCO3 26 H (21-25) mmol/L ABG Total CO2 28 H (19-24) mmol/L POC Glucose (mg/dL) 119 H (70-110) mg/dL Assessment and Plan Plan: Assessment: 1. Acute kidney injury secondary to ATN from poor intake and further worsened with the use of RYAN inhibitor. No evidence of hydronephrosis or renal artery stenosis noted on imaging. UA with 1+ protein. UPC 0.6. Bladder scans have been negative. Refuses Vitale catheter placement. Creatinine over 12 on admission. Creatinine was 4.19 date 01/22/2023 and mostly in the range of 1.2-1 .4 in December 2022. Started on hemodialysis 03/18/2023 via femoral catheter. 2. Metabolic acidosis secondary to acute kidney injury. Improved with bicarb drip and dialysis. 3. Mild hyperkalemia secondary to acute kidney injury, metabolic acidosis and RYAN inhibitor. Resolved. 4. Hyperphosphatemia secondary to acute kidney injury. On PhosLo. 5. AAA repair with graft December 2022. 6. Benign hypertension. Stable. Plan: Maintain normal saline. Hold off on dialysis today. Continue to assess on daily basis. Monitor for renal recovery. Strict I's and O's. Follow-up serologies. Hepatitis panel negative. TAMRA, double-stranded DNA antibody negative. Complements normal.
[2023-03-21 10:13] LABS: African American GFR (CKD) 10 (>60 ml/min/1.73 sqM); Anion Gap 11 mmol/L; Blood Urea Nitrogen 36 mg/dL (9-20); Carbon Dioxide 21 mmol/L (22-30); Chloride 102 mmol/L (98-107); Glucose 110 mg/dL (74-99); Non-African American GFR(CKD) 9 (>60 ml/min/1.73 sqM); Sodium 134 mmol/L (137-145)
[2023-03-21 10:14] LABS: Protein, Total 5.8 d/dL (6.2-8.2)
[2023-03-21 11:26] LABS: Glucose,Whole Blood 114 mg/dL (70-110)
--- NOTE | 2023-03-21 11:38 | P.PN ---
Subjective Progress Note Date: 03/21/23 Principal diagnosis: Acute kidney injury Patient seen and examined today is follow-up for acute kidney injury. He has a right temporary HD catheter in place. He underwent hemodialysis yesterday. Nephrology recommends holding hemodialysis today. Sodium 134 potassium 4.0 BUN 36 creatinine 5.6 Objective - Vital Signs Vital signs: Vital Signs Temp 98.5 F 03/21/23 08:21 Pulse 68 03/21/23 09:14 Resp 18 03/21/23 08:21 BP 143/63 03/21/23 08:21 Pulse Ox 94 L 03/21/23 09:00 FiO2 Intake & Output 03/20/23 03/21/23 03/21/23 18:59 06:59 18:59 Intake Total 1800 Output Total 700 150 Balance 1100 -150 Intake: Intake, IV Titration 1200 Amount Sodium Chloride 0.9% 1, 1200 000 ml @ 75 mls/hr IV . [id number] [facility] Rx#:[id number] Oral 300 Hemodialysis 300 Output: Urine 200 150 Hemodialysis 500 Other: Voiding Method Urinal Toilet Toilet Urinal Urinal # Voids 1 # Bowel Movements 1 - Exam General appearance: The patient is alert, oriented, appears in no acute distress. HET: Head is normocephalic and atraumatic. Pupils are equal and reactive. Neck: Supple. Heart: Regular. Lungs: Equal expansion, normal respiratory effort. Abdomen: Soft, nontender, nondistended. Extremities: Normal skin color and turgor. Right groin with HD catheter, intact. Neurological: No focal deficits. Strength and sensation are grossly intact. - Labs CBC & Chem 7: 03/17/23 12:01 03/21/23 09:44 Labs: Abnormal Lab Results - Last 24 Hours (Table) 03/20/23 03/20/23 03/20/23 Range/Units 12:17 16:34 17:44 ABG pH 7.47 H (7.35-7.45) ABG pO2 69 L (83-108) mmHg ABG HCO3 26 H (21-25) mmol/L ABG Total CO2 28 H (19-24) mmol/L Sodium (137-145) mmol/L Carbon Dioxide (22-30) mmol/L BUN (9-20) mg/dL Creatinine (0.66-1.25) mg/dL Glucose (74-99) mg/dL POC Glucose (mg/dL) 119 H (70-110) mg/dL Calcium (8.4-10.2) mg/dL Total Protein (PEP) 5.8 L (6.2-8.2) d/dL 03/21/23 03/21/23 Range/Units 09:44 11:24 ABG pH (7.35-7.45) ABG pO2 (83-108) mmHg ABG HCO3 (21-25) mmol/L ABG Total CO2 (19-24) mmol/L Sodium 134 L (137-145) mmol/L Carbon Dioxide 21 L (22-30) mmol/L BUN 36 H (9-20) mg/dL Creatinine 5.66 H (0.66-1.25) mg/dL Glucose 110 H (74-99) mg/dL POC Glucose (mg/dL) 114 H (70-110) mg/dL Calcium 8.0 L (8.4-10.2) mg/dL Total Protein (PEP) (6.2-8.2) d/dL Assessment and Plan Assessment: 1. Acute renal failure status post temporary hemodialysis catheter placement 2. History of abdominal aortic aneurysm with previous EVAR 3. Fatigue Plan: Continue with recommendations from nephrology. Continue management per primary care team. The impression and plan of care has been dictated as directed. Dr. Hilliard I performed a history and examination of this patient, discussed the same with the dictator. I agree with the dictator's note ,documented as a scribe. Any additional findings or plans will be noted.
--- NOTE | 2023-03-21 13:36 | P.PN ---
Subjective Progress Note Date: 03/21/23 Patient is a 77-year-old male with PMH of alcohol abuse, history of CVA, bilateral carotid stenosis, AAA repair, hypertension, COPD that presents the ED for abnormal lab work that was done with his PCP. Patient reports diarrhea consistent of liquid bowel movements at least twice a day for the past 6 months. Over the past week, he is not as left lower quadrant abdominal pain. States that he has not been eating much but drinks plenty of fluids. He also reports some lightheadedness especially with changing position which resulted in 2 falls recently. In the ED, as well as signs are stable, bradycardic with heart rate in the high 50s. CBC showed hemoglobin of 11.6. Coagulation panel within normal limits. CMP showed potassium of 5.3, chloride of 118, bicarb of 9, BUN of 120, creatinine of 12.64, calcium of 8.3, phosphorus of 9.1, magnesium of 2.4, AST of 14. Lipase 566. Renal ultrasound consistent with medical renal disease, left renal calculus, no obstructive uropathy. Renal artery duplex showed no evidence of renal artery stenosis, infrarenal aneurysm with possible stent graft placement, distal AAA 7 x 7.2 cm. Patient is admitted for workup of acute renal failure. Patient was seen this morning. He was somnolent however answering questions appropriately. Physical exam General examination - Alert and Oriented 3 in NAD, appears chronically debilitated Heart - + S1S2 no murmurs Lungs -diminished but does bilaterally Abdomen soft NT ND +ve BS Extremities - No edema [employer] - Moving all 4 extremities spontaneously Psych - somnolent and lethargic Assessment and plan Acute kidney injury on chronic kidney disease Toxic metabolic encephalopathy Severe COPD exacerbation Hypertension Alcohol use Diarrhea; resolved Hyperphosphatemia; resolving Hypermagnesemia; resolved Hyperkalemia; resolved Metabolic acidosis; resolved Pneumothorax ruled out Based on my assessment of this patient, this patient meets a moderate complexity level of care. Patient's renal function is improving. His creatinine this morning is 5.66 and bicarb is 21. I reviewed nephrology note who recommends to hold dialysis and monitor renal function. I anticipate if patient's renal function continues to improve while off of dialysis then no need to resume dialysis on an outpatient basis. Patient does have a temporary dialysis catheter was placed on 03/18 Patient was confused last night. This morning patient answering questions appropriately. His toxic encephalopathy appears to be improving. Steroids may also be contributing. I will decrease his steroid dose Per nurse patient not having anymore diarrhea. C. diff negative Patient not in withdrawal and has not had any Ativan in the past 24 hours so discontinue CIWA protocol Patient this morning does not have any wheezing on exam. We'll decrease his steroids to Solu-Medrol 60 mg daily. Pulmonology also on board. Patient states that he is on home O2. He is currently satting well on 2 L nasal cannula. Chest x-ray yesterday showed possible pneumothorax. CT chest was done and was negative for pneumothorax. Patient's blood pressure control this morning. He is on amlodipine 10 mg daily, hydralazine 100 mg by mouth 3 times a day and atenolol 50 mg by mouth daily Resume aspirin, Lipitor, Plavix, atenolol, amlodipine. Consult PT OT Patient would like to be full code. I have reviewed the results of the following tests: CBC and BMP I have ordered the following tests: BMP and CBC This patient has a moderate risk of morbidity due to the following reasons: Patient has severe metabolic derangement including metabolic acidosis and hyperkalemia along with acute kidney injury on chronic kidney disease. Severe COPD with exacerbation Objective - Vital Signs Vital signs: Vital Signs Temp 98.5 F 03/21/23 08:21 Pulse 68 03/21/23 13:16 Resp 20 03/21/23 11:12 BP 137/65 03/21/23 11:12 Pulse Ox 92 L 03/21/23 11:12 FiO2 Intake & Output 03/20/23 03/21/23 03/21/23 18:59 06:59 18:59 Intake Total 1800 Output Total 700 150 Balance 1100 -150 Intake: Intake, IV Titration 1200 Amount Sodium Chloride 0.9% 1, 1200 000 ml @ 75 mls/hr IV . [id number] [facility] Rx#:[id number] Oral 300 Hemodialysis 300 Output: Urine 200 150 Hemodialysis 500 Other: Voiding Method Urinal Toilet Toilet Urinal Urinal # Voids 1 # Bowel Movements 1 - Labs CBC & Chem 7: 03/17/23 12:01 03/21/23 09:44 Labs: Abnormal Lab Results - Last 24 Hours (Table) 06/12/23 06/12/23 06/12/23 Range/Units 12:17 16:34 17:44 ABG pH 7.47 H (7.35-7.45) ABG pO2 69 L (83-108) mmHg ABG HCO3 26 H (21-25) mmol/L ABG Total CO2 28 H (19-24) mmol/L Sodium (137-145) mmol/L Carbon Dioxide (22-30) mmol/L BUN (9-20) mg/dL Creatinine (0.66-1.25) mg/dL Glucose (74-99) mg/dL POC Glucose (mg/dL) 119 H (70-110) mg/dL Calcium (8.4-10.2) mg/dL Total Protein (PEP) 5.8 L (6.2-8.2) d/dL 03/21/23 03/21/23 Range/Units 09:44 11:24 ABG pH (7.35-7.45) ABG pO2 (83-108) mmHg ABG HCO3 (21-25) mmol/L ABG Total CO2 (19-24) mmol/L Sodium 134 L (137-145) mmol/L Carbon Dioxide 21 L (22-30) mmol/L BUN 36 H (9-20) mg/dL Creatinine 5.66 H (0.66-1.25) mg/dL Glucose 110 H (74-99) mg/dL POC Glucose (mg/dL) 114 H (70-110) mg/dL Calcium 8.0 L (8.4-10.2) mg/dL Total Protein (PEP) (6.2-8.2) d/dL
[2023-03-21 14:24] LABS: Immunoglobulin M <35.0 mg/dL (40.0-280.0)
[2023-03-21 14:51] LABS: C-ANCA <1:20 Titer (<1:20)
[2023-03-21 16:30] LABS: Glucose,Whole Blood 147 mg/dL (70-110)
[2023-03-21 20:11] LABS: Glucose,Whole Blood 117 mg/dL (70-110)
[2023-03-21] MEDS: ATORVASTATIN 80 MG TAB PO SCH (20:23)
--- NOTE | 2023-03-21 21:20 | P.CNNES ---
History of Present Illness Consult date: 03/21/23 Requesting physician: Oniel Street Reason for Consult: Altered mental status History of Present Illness: Patient is a 77-year-old male came to the hospital on 03/17/2023 because of abnormal blood test results with worsening renal functions. Patient's daughter and grandson were present today. They also provided with a history. Patient had elevated BUN and creatinine, started on getting daily hemodialysis in the l ast 3 days. Yesterday was the third of the last 3 consecutive days that he received hemodialysis. He also walked to the bathroom by himself couple times. Last night he was "out of it", alert and oriented 1 although he is fairly oriented otherwise. Today patient's grandson and the nurse believes that patient is much better. Patient's grandson believes that he is back to baseline. He is talking like himself. No strokelike symptoms noticed. Patient's daughter mentions that patient had episode of confusion after he underwent aortic stenting in January 2023. Patient's blood tests shows normal electrolytes, BUN 83, creatinine 8.58 calcium 7.8, phosphorus 5.4. Quantitative immunoglobulins are significant for low IgM < 35.0. WOLF negative, immune electrophoresis showed no monoclonal paraprotein. Complements, dsDNA, ANCA antibodies negative. Hepatitis panel negative. C. difficile negative. Patient's ABG on 03/17/2023 showed pH of 7.19, pCO2 29, saturation 96%. Patient's BUN on arrival was 120, creatinine 12.64. Most recent BUN 36, creatinine 5.66. and potassium 5.3. CT head revealed no acute intracranial process. Stable left basal ganglia/phillips radiata injury. I personally reviewed CT head, agree with the findings. Patient denies any clinical history of stroke in the past. Chest CTs revealed no pneumothorax, bolus emphysema. No consolidation or evidence of heart failure. Patient lives with his daughter, does not use any assistive device. Patient's grandson denies patient having any symptoms of dementia. Patient has smoked 1 pack per day for 60 years, decreased amount of smoking in the last 3 months ago after he had undergone cardiac stenting. He drinks " little" alcohol. Patient has hypertension but denies diabetes. Patient has history of CVA in the past. Review of Systems Constitutional: Reports lethargy, Denies chills, Denies fever Eyes: denies blurred vision, denies pain Ears: deny: decreased hearing, ear discharge Ears, nose, mouth and throat: Denies headache, Denies sore throat Cardiovascular: Reports shortness of breath, Denies chest pain Respiratory: Denies cough, Denies excessive sputum Gastrointestinal: Denies abdominal pain, Denies diarrhea, Denies nausea, Denies vomiting Musculoskeletal: Denies myalgias, Denies neck pain Integumentary: Denies pruritus, Denies rash Neurological: Reports as per HPI Past Medical History Past Medical History: Cancer, COPD, GI Bleed, Hyperlipidemia, Hypertension, Memory Impairment, Myocardial Infarction (MD) Additional Past Medical History / Comment(s): past hx. GI bleeding, hx. 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 aortic aneurysm Last Myocardial Infarction Date:: pt unsure History of Any Multi-Drug Resistant Organisms: None Reported Past Surgical History: Heart Catheterization With Stent Additional Past Surgical History / Comment(s): tooth sx, colonoscopy, heart stent x3, melanoma removed left shoulder recently Past Anesthesia/Blood Transfusion Reactions: No Reported Reaction Date of Last Stent Placement:: 2008 Past Psychological History: No Psychological Hx Reported Smoking Status: Former smoker Past Alcohol Use History: None Reported Past Drug Use History: None Reported - Past Family History Father Family Medical History: Myocardial Infarction (MD) Additional Family Medical History / Comment(s): from a MD Mother Family Medical History: Myocardial Infarction (MD) Additional Family Medical History / Comment(s): from a MD Sister(s) Family Medical History: Cancer Brother(s) Family Medical History: Myocardial Infarction (MD) Medications and Allergies Home Medications Medication Instructions Recorded Confirmed Type Aspirin 81 mg PO DAILY #30 tab 01/04/23 03/17/23 Rx Atorvastatin [Lipitor] 80 mg PO HS #30 tab 01/04/23 03/17/23 Rx Clopidogrel [Plavix] 1 tab PO DAILY #30 tab 01/04/23 03/17/23 Rx atenoloL [Tenormin] 50 mg PO DAILY #30 tab 01/04/23 03/17/23 Rx Albuterol Inhaler [Ventolin Hfa 2 puff INHALATION RT-Q6H PRN 03/17/23 03/17/23 History Inhaler] Fluticasone/Umeclidin/Vilanter 1 puff INHALATION RT-DAILY PRN 03/17/23 03/17/23 History [Trelealicia Ellipta 200-62.5-25] hydrALAZINE HCL [Apresoline] 100 mg PO TID 30 Days #90 tab 03/25/23 Rx Allergies Allergy/AdvReac Type Severity Reaction Status Date / Time No Known Allergies Allergy Verified 03/17/23 13:12 Physical Examination - Vital Signs Vital Signs: Vital Signs Temp Pulse Pulse Resp BP BP Pulse Ox 03/21/23 20:00 98.7 F 66 18 132/54 94 L 03/21/23 16:54 72 18 03/21/23 16:48 20 94 L 03/21/23 16:44 68 18 03/21/23 15:06 98.4 F 68 20 134/68 95 03/21/23 13:27 68 03/21/23 13:16 68 03/21/23 13:14 72 03/21/23 11:12 72 20 137/65 92 L 03/21/23 09:14 68 03/21/23 09:00 64 94 L 03/21/23 08:21 98.5 F 67 18 143/63 96 03/21/23 04:00 98.2 F 70 18 140/62 92 L 03/20/23 23:54 98.7 F 77 20 153/61 94 L 03/20/23 21:58 80 03/20/23 21:48 76 Intake and Output 03/21/23 03/21/23 03/21/23 06:59 14:59 22:59 Intake Total 110 118 Output Total 180 Balance -70 118 Intake: Oral 110 118 Output: Urine 180 Other: Voiding Method Toilet Toilet Urinal Urinal Patient is an elderly male, in no acute distress. Patient is alert awake , appears slightly encephalopathic. He is oriented to time place and person. Patient knows it is March 2023 and that he is in [facility] in [place], and [facility]. He knows name of the current president and his date of . Speech and language functions are normal. Patient can name and repeat very well. No aphasia or dysarthria. Attention, concentration is slightly impaired and fund of knowledge is adequate. Detail cognitive function testing deferred. On cranial nerve examination, pupils are equal, round and reacting to light, visual calhoun are full on confrontation, with no neglect on double simultaneous stimulation. Extraocular muscles are intact with no nystagmus. Patient appears to have slight left facial asymmetry, which is baseline, also noticed on the last neurological examination. His tongue protrudes to the midline. Palatal elevation and sensation normal, hearing and shoulder shrug normal, facial sensation normal. On muscle strength testing, there is no pronator drift and the strength is normal in arms and legs distally and proximally. Deep tendon reflexes are (right/left) biceps 2+/3, brachioradialis 2+/3, knees 2+/2+, plantars downgoing bilaterally. Sensory to touch is equal with no neglect on double simultaneous stimulation. Cerebellar function showed no ataxia for [id number] testing. No ataxia for [id number] testing on either side. Tone and bulk of muscles normal. Patient has slight fine tremors of outstretched hands. Gait deferred.. On general examination, there is no carotid bruit or murmur, S1-S2 audible. Chest is clear on consultation. Abdomen is soft nontender. No organomegaly, bowel sounds present. Peripheral pulses are present. No edema. Results - Laboratory Findings CBC and BMP: 03/24/23 07:17 03/24/23 07:17 Abnormal Lab Findings: Abnormal Labs 03/17/23 03/17/23 03/17/23 12:01 12:01 12:01 RBC 3.71 L Hgb 11.6 L Hct 35.3 L RDW 15.8 H Lymphocytes # 0.9 L ABG pH ABG pCO2 ABG pO2 ABG HCO3 ABG Total CO2 Sodium Potassium 5.3 H Chloride 118 H Carbon Dioxide 9 L* BUN 120 H* Creatinine 12.64 H* Glucose POC Glucose (mg/dL) Osmolality Calcium 8.3 L Phosphorus 9.1 H* Magnesium 2.4 H AST 14 L Total Protein Total Protein (PEP) Albumin Lipase 566 H Urine Protein 1+ H Urine Blood Trace H Urine Mucus Rare H IgM 03/17/23 03/17/23 03/17/23 18:25 19:00 22:46 RBC Hgb Hct RDW Lymphocytes # ABG pH 7.19 L* ABG pCO2 29 L ABG pO2 ABG HCO3 11 L ABG Total CO2 12 L Sodium Potassium Chloride 117 H Carbon Dioxide 8 L* BUN 118 H* Creatinine 12.36 H* Glucose 112 H POC Glucose (mg/dL) Osmolality 344 H* Calcium 8.1 L Phosphorus Magnesium AST 12 L Total Protein Total Protein (PEP) Albumin Lipase Urine Protein Urine Blood Urine Mucus IgM 03/18/23 03/19/23 03/20/23 10:31 15:24 08:09 RBC Hgb Hct RDW Lymphocytes # ABG pH ABG pCO2 ABG pO2 ABG HCO3 ABG Total CO2 Sodium 136 L Potassium 3.4 L Chloride 112 H Carbon Dioxide 15 L BUN 116 H* 83 H 47 H Creatinine 11.43 H* 8.58 H* 5.75 H Glucose 124 H 115 H 114 H POC Glucose (mg/dL) Osmolality Calcium 7.6 L 7.8 L 7.4 L Phosphorus 5.4 H Magnesium 1.5 L AST 12 L Total Protein 5.4 L Total Protein (PEP) Albumin 3.1 L Lipase Urine Protein Urine Blood Urine Mucus IgM 03/20/23 03/20/23 03/20/23 12:17 16:34 17:44 RBC Hgb Hct RDW Lymphocytes # ABG pH 7.47 H ABG pCO2 ABG pO2 69 L ABG HCO3 26 H ABG Total CO2 28 H Sodium Potassium Chloride Carbon Dioxide BUN Creatinine Glucose POC Glucose (mg/dL) 119 H Osmolality Calcium Phosphorus Magnesium AST Total Protein Total Protein (PEP) 5.8 L Albumin Lipase Urine Protein Urine Blood Urine Mucus IgM <35.0 L 03/21/23 03/21/23 03/21/23 09:44 11:24 16:28 RBC Hgb Hct RDW Lymphocytes # ABG pH ABG pCO2 ABG pO2 ABG HCO3 ABG Total CO2 Sodium 134 L Potassium Chloride Carbon Dioxide 21 L BUN 36 H Creatinine 5.66 H Glucose 110 H POC Glucose (mg/dL) 114 H 147 H Osmolality Calcium 8.0 L Phosphorus Magnesium AST Total Protein Total Protein (PEP) Albumin Lipase Urine Protein Urine Blood Urine Mucus IgM 03/21/23 20:09 RBC Hgb Hct RDW Lymphocytes # ABG pH ABG pCO2 ABG pO2 ABG HCO3 ABG Total CO2 Sodium Potassium Chloride Carbon Dioxide BUN Creatinine Glucose POC Glucose (mg/dL) 117 H Osmolality Calcium Phosphorus Magnesium AST Total Protein Total Protein (PEP) Albumin Lipase Urine Protein Urine Blood Urine Mucus IgM Assessment and Plan Assessment: * Altered mental status, likely due to toxic metabolic encephalopathy. Reasons multifactorial as mentioned below. * Acute uremia, started on hemodialysis. Osmolar shift from hemodialysis may have also contributed to altered mental status. * Coronary artery disease * Hypertension * Hyperlipidemia * Carotid artery stenosis bilaterally, 50-70% * History of abdominal aortic aneurysm repair with stenting and grafting in December 2022. Plan: * Patient probably has mild metabolic encephalopathy related to the reasons mentioned above. * Patient's mentation has much improved as per indication from patient's family and the nursing report. * Continue aspirin, Plavix and Lipitor 80 mg. * Patient does have history of bilateral ICA stenosis, moderate degree 50-70% stenosis. Recommend repeating it in 6 months (June 2023), and if stable, may repeat yearly. * No other neurological workup indicated at this time. Discussed with patient's daughter and nursing staff in detail. * Neurology will follow clinically. Thank you for the consult.
[2023-03-22 06:08] LABS: Glucose,Whole Blood 108 mg/dL (70-110)
[2023-03-22] MEDS: CALCIUM ACETATE 667 MG TAB PO SCH ×3 (06:12→16:52)
[2023-03-22] MEDS: SODIUM CHLORIDE 0.9% 1,000 ML IV SCH (06:12)
[2023-03-22 08:54] LABS: Basophils % (A) 0 %; Eosinophils # (A) 0.1 k/uL (0-0.7); Eosinophils % (A) 1 %; HCT 29.1 % (39.0-53.0); Lymphocytes # (A) 0.9 k/uL (1.0-4.8); Lymphocytes % (A) 8 %; MCH 31.5 pg (25.0-35.0); MCHC 32.2 g/dL (31.0-37.0); MCV 97.8 fL (80.0-100.0); Mean Platelet Volume 7.9; Monocytes # (A) 0.6 k/uL (0-1.0); Monocytes % (A) 6 %; Neutrophils # (A) 9.5 k/uL (1.3-7.7); Neutrophils % (A) 85 %; Platelet Count 208 k/uL (150-450); RBC 2.98 m/uL (4.30-5.90); RDW 15.1 % (11.5-15.5); WBC 11.2 k/uL (3.8-10.6)
[2023-03-22] MEDS ORDERED: methylPREDNISolone SOD SUCCI 125 MG/2 ML VIAL IV SCH (09:00)
[2023-03-22] MEDS: ASPIRIN 81 MG PO SCH (09:13)
[2023-03-22] MEDS: CLOPIDOGREL 75 MG TAB PO SCH (09:13)
[2023-03-22] MEDS: hydrALAZINE HCL 50 MG TAB PO SCH ×3 (09:13→23:55)
[2023-03-22] MEDS: FOLIC ACID 1 MG TAB PO SCH (09:13)
[2023-03-22] MEDS: amLODIPine 10 MG TAB PO SCH (09:13)
[2023-03-22] MEDS: MULTIVITAMINS, THERA 1 EACH TAB PO SCH (09:13)
[2023-03-22] MEDS: atenoloL 50 MG TAB PO SCH (09:13)
[2023-03-22] MEDS: HEPARIN SODIUM,PORCINE/PF 5,000 UNIT/0.5 ML SYRINGE SQ SCH ×2 (09:13→20:41)
[2023-03-22] MEDS: THIAMINE 100 MG TAB PO SCH (09:13)
[2023-03-22 09:20] LABS: HGB 9.4 gm/dL (13.0-17.5)
[2023-03-22] MEDS: IPRATROPIUM-ALBUTEROL 3 ML NEB INHALATION SCH ×4 (09:21→21:23)
[2023-03-22 09:47] LABS: African American GFR (CKD) 8 (>60 ml/min/1.73 sqM); Anion Gap 13 mmol/L; Blood Urea Nitrogen 47 mg/dL (9-20); Calcium 8.2 mg/dL (8.4-10.2); Carbon Dioxide 20 mmol/L (22-30); Chloride 102 mmol/L (98-107); Glucose 93 mg/dL (74-99); Magnesium 2.3 mg/dL (1.6-2.3); Non-African American GFR(CKD) 7 (>60 ml/min/1.73 sqM); Phosphorus 5.8 mg/dL (2.5-4.5); Sodium 135 mmol/L (137-145)
--- NOTE | 2023-03-22 10:16 | P.PN ---
Subjective Patient is seen in follow-up for acute kidney injury. He has been voiding. Urine output 200 mL overnight. Last dialysis 03/20/2023. Creatinine 6.72 today. Receiving normal saline. Denies chest pain or shortness of breath. Vital signs are stable. General: No acute distress. HEENT: Head exam is unremarkable. LUNGS: No audible rhonchi or wheezes. HEART: Rate and Rhythm are regular. ABDOMEN: Nontender. EXTREMITITES: No edema. Objective - Vital Signs Vital signs: Vital Signs Temp 97.8 F 03/22/23 09:10 Pulse 70 03/22/23 09:47 Resp 18 03/22/23 09:10 BP 132/42 03/22/23 09:10 Pulse Ox 94 L 03/22/23 09:27 FiO2 Intake & Output 03/21/23 03/22/23 03/22/23 18:59 06:59 18:59 Intake Total 228 110 Output Total 180 200 Balance 48 -200 110 Weight 93.1 kg Intake: Oral 228 110 Output: Urine 180 200 Other: Voiding Method Toilet Toilet Urinal Urinal - Labs CBC & Chem 7: 03/22/23 08:21 03/22/23 08:21 Labs: Abnormal Lab Results - Last 24 Hours (Table) 03/20/23 03/21/23 03/21/23 Range/Units 12:17 09:44 11:24 WBC (3.8-10.6) k/uL RBC (4.30-5.90) m/uL Hgb (13.0-17.5) gm/dL Hct (39.0-53.0) % Neutrophils # (1.3-7.7) k/uL Lymphocytes # (1.0-4.8) k/uL Sodium 134 L (137-145) mmol/L Carbon Dioxide 21 L (22-30) mmol/L BUN 36 H (9-20) mg/dL Creatinine 5.66 H (0.66-1.25) mg/dL Glucose 110 H (74-99) mg/dL POC Glucose (mg/dL) 114 H (70-110) mg/dL Calcium 8.0 L (8.4-10.2) mg/dL Phosphorus (2.5-4.5) mg/dL Total Protein (PEP) 5.8 L (6.2-8.2) d/dL IgM <35.0 L (40.0-280.0) mg/dL 03/21/23 03/21/23 03/22/23 Range/Units 16:28 20:09 08:21 WBC (3.8-10.6) k/uL RBC (4.30-5.90) m/uL Hgb (13.0-17.5) gm/dL Hct (39.0-53.0) % Neutrophils # (1.3-7.7) k/uL Lymphocytes # (1.0-4.8) k/uL Sodium 135 L (137-145) mmol/L Carbon Dioxide 20 L (22-30) mmol/L BUN 47 H (9-20) mg/dL Creatinine 6.72 H (0.66-1.25) mg/dL Glucose (74-99) mg/dL POC Glucose (mg/dL) 147 H 117 H (70-110) mg/dL Calcium 8.2 L (8.4-10.2) mg/dL Phosphorus 5.8 H (2.5-4.5) mg/dL Total Protein (PEP) (6.2-8.2) d/dL IgM (40.0-280.0) mg/dL 03/22/23 Range/Units 08:21 WBC 11.2 H (3.8-10.6) k/uL RBC 2.98 L (4.30-5.90) m/uL Hgb 9.4 L D (13.0-17.5) gm/dL Hct 29.1 L (39.0-53.0) % Neutrophils # 9.5 H (1.3-7.7) k/uL Lymphocytes # 0.9 L (1.0-4.8) k/uL Sodium (137-145) mmol/L Carbon Dioxide (22-30) mmol/L BUN (9-20) mg/dL Creatinine (0.66-1.25) mg/dL Glucose (74-99) mg/dL POC Glucose (mg/dL) (70-110) mg/dL Calcium (8.4-10.2) mg/dL Phosphorus (2.5-4.5) mg/dL Total Protein (PEP) (6.2-8.2) d/dL IgM (40.0-280.0) mg/dL Assessment and Plan Plan: Assessment: 1. Acute kidney injury secondary to ATN from poor intake and further worsened with the use of RYAN inhibitor. No evidence of hydronephrosis or renal artery stenosis noted on imaging. UA with 1+ protein. UPC 0.6. Bladder scans have been negative. Refuses Vitale catheter placement. Creatinine over 12 on admission. Creatinine was 4.19 date 01/22/2023 and mostly in the range of 1.2- 1.4 in December 2022. Started on hemodialysis 03/18/2023 via femoral catheter. Urine output 200 mL overnight. 2. Metabolic acidosis secondary to acute kidney injury. Improved with bicarb drip and dialysis. 3. Mild hyperkalemia secondary to acute kidney injury, metabolic acidosis and RYAN inhibitor. Resolved. 4. Hyperphosphatemia secondary to acute kidney injury. On PhosLo. 5. AAA repair with graft December 2022. 6. Benign hypertension. Stable. Plan: Maintain normal saline. Hemodialysis today. Monitor for renal recovery. Strict I's and O's. Serologies negative - Hepatitis panel negative. WOLF, double-stranded DNA antibody, ANCA negative. Complements normal. No monoclonality on serum immunofixation. Will notify vascular surgery for permacath placement and removal of groin catheter. Outpatient dialysis to be set up by spring encaser.
--- NOTE | 2023-03-22 10:21 | P.PN ---
Subjective Progress Note Date: 03/22/23 Patient is a 77-year-old male with PMH of alcohol abuse, history of CVA, bilateral carotid stenosis, AAA repair, hypertension, COPD that presents the ED for abnormal lab work that was done with his PCP. Patient reports diarrhea consistent of liquid bowel movements at least twice a day for the past 6 months. Over the past week, he is not as left lower quadrant abdominal pain. States that he has not been eating much but drinks plenty of fluids. He also reports some lightheadedness especially with changing position which resulted in 2 falls recently. In the ED, as well as signs are stable, bradycardic with heart rate in the high 50s. CBC showed hemoglobin of 11.6. Coagulation panel within normal limits. CMP showed potassium of 5.3, chloride of 118, bicarb of 9, BUN of 120, creatinine of 12.64, calcium of 8.3, phosphorus of 9.1, magnesium of 2.4, AST of 14. Lipase 566. Renal ultrasound consistent with medical renal disease, left renal calculus, no obstructive uropathy. Renal artery duplex showed no evidence of renal artery stenosis, infrarenal aneurysm with possible stent graft placement, distal AAA 7 x 7.2 cm. Patient is admitted for workup of acute renal failure. Patient was started on hemodialysis. He had a temporary dialysis catheter placed. Patient being followed by nephrology. Nephrology recommended that patient needs to continue with outpatient dialysis. Vascular surgery was consulted for permacath placement. Patient is seen this morning and had no acute complaints. He states that he worked with physical therapy and he believes he did good. 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 C. diff negative Hyperphosphatemia; resolving Hypermagnesemia; resolved Hyperkalemia; resolved Metabolic acidosis; resolved Pneumothorax ruled out Based on my assessment of this patient, this patient meets a moderate complexity level of care. Yesterday patient did not receive dialysis and today his creatinine is worsening. His creatinine is 6.75. I reviewed note from nephrology. Nephrology will notify vascular surgery about placing a permacath and correctional case manager about setting up outpatient dialysis. Patient's hemoglobin did drop from yesterday from 11.7-9.4. Patient denying any overt signs of bleeding. We'll continue to monitor hemoglobin. Patient was not confused this morning. He was answering questions appropriately. Per nurse no confusion last night either. Per nurse patient not having anymore diarrhea. C. diff negative Patient to oral steroids and discharged. For now we'll resume with IV Solu- Medrol 60 mg daily Patient's blood pressure control this morning. He is on amlodipine 10 mg daily, hydralazine 100 mg by mouth 3 times a day and atenolol 50 mg by mouth daily Resume aspirin, Lipitor, Plavix, atenolol, amlodipine. Consult PT OT -> patient has worked with physical therapy and currently recommendations are pending Patient would like to be full code. I have reviewed the results of the following tests: CBC and BMP I have ordered the following tests: BMP and CBC This patient has a moderate risk of morbidity due to the following reasons: Patient has severe metabolic derangement including metabolic acidosis and hyperkalemia along with acute kidney injury on chronic kidney disease. Severe COPD with exacerbation Objective - Vital Signs Vital signs: Vital Signs Temp 97.8 F 03/22/23 09:10 Pulse 70 03/22/23 09:47 Resp 18 03/22/23 09:10 BP 132/42 03/22/23 09:10 Pulse Ox 94 L 03/22/23 09:27 FiO2 Intake & Output 03/21/23 03/22/23 03/22/23 18:59 06:59 18:59 Intake Total 228 110 Output Total 180 200 Balance 48 -200 110 Weight 93.1 kg Intake: Oral 228 110 Output: Urine 180 200 Other: Voiding Method Toilet Toilet Urinal Urinal - Labs CBC & Chem 7: 03/22/23 08:21 03/22/23 08:21 Labs: Abnormal Lab Results - Last 24 Hours (Table) 03/20/23 03/21/23 03/21/23 Range/Units 12:17 11:24 16:28 WBC (3.8-10.6) k/uL RBC (4.30-5.90) m/uL Hgb (13.0-17.5) gm/dL Hct (39.0-53.0) % Neutrophils # (1.3-7.7) k/uL Lymphocytes # (1.0-4.8) k/uL Sodium (137-145) mmol/L Carbon Dioxide (22-30) mmol/L BUN (9-20) mg/dL Creatinine (0.66-1.25) mg/dL POC Glucose (mg/dL) 114 H 147 H (70-110) mg/dL Calcium (8.4-10.2) mg/dL Phosphorus (2.5-4.5) mg/dL IgM <35.0 L (40.0-280.0) mg/dL 03/21/23 03/22/23 03/22/23 Range/Units 20:09 08:21 08:21 WBC 11.2 H (3.8-10.6) k/uL RBC 2.98 L (4.30-5.90) m/uL Hgb 9.4 L D (13.0-17.5) gm/dL Hct 29.1 L (39.0-53.0) % Neutrophils # 9.5 H (1.3-7.7) k/uL Lymphocytes # 0.9 L (1.0-4.8) k/uL Sodium 135 L (137-145) mmol/L Carbon Dioxide 20 L (22-30) mmol/L BUN 47 H (9-20) mg/dL Creatinine 6.72 H (0.66-1.25) mg/dL POC Glucose (mg/dL) 117 H (70-110) mg/dL Calcium 8.2 L (8.4-10.2) mg/dL Phosphorus 5.8 H (2.5-4.5) mg/dL IgM (40.0-280.0) mg/dL
--- NOTE | 2023-03-22 11:16 | P.PN ---
Subjective Progress Note Date: 03/22/23 Principal diagnosis: COPD. I am seeing this patient in new consultation today 03/21/2023 for suspected mild exacerbation of the patient's known severe COPD. Patient is a 77-year-old white male with past medical history significant for severe COPD with an FEV1 50% of predicted, AAA status post EVAR in December of this year, CVA, questionable alcoholism, hyperlipidemia, hypertension, coronary artery disease with prior stents, and is an ex smoker. Patient's primary care provider is Dr. Garnica. Patient has had recent follow up with Dr. Davis in the office, for management of his severe COPD. He utilizes a combination of Trelegy and Ventolin inhalers. The patient apparently presented to the emergency room back on 03/17/2023 after being directed there by his primary care provider for abnormal renal labs. The patient had reportedly been experiencing generalized malaise and lightheadedness for several months. Patient was in acute renal failure on arrival to the emergency room. He had several metabolic derangements. He did require placement of a hemodialysis catheter on March 18, and has been receiving serial hemodialysis. Renal artery duplex showed no significant renal artery stenosis. KUB Ultrasound showed a left renal calculus without obstructive uropathy. Most recent CBC is unremarkable. Most recent BMP shows a sodium 136, potassium 3.4, chloride 100, serum bicarb 27, BUN 47, creatinine down to 5.75, glucose 114. Patient is currently confused, and a very poor historian. Most of this HPI is taken from the chart and the patient's nurse. He is sitting up in bed, on 3 L nasal cannula, in no acute distress. He is oxygenating at 94%. Apparently, yesterday evening the patient became altered and had some respiratory distress. ABG done at that time showed a pO2 of 69, pCO2 of 36, pH of 7.47. A nonenhanced chest CT demonstrated chronic bullous emphysematous changes at the lung bases, no focal consolidation or acute cardiopulmonary process. He is negative for COVID-19. There is no cough, and the patient is afebrile. There are minimal end expiratory wheezes on auscultation of the patient's lungs. He is currently receiving his home Trelegy inhalers and bronchodilators. Brain CT without contrast showed no acute intracranial process, with a stable left basal ganglia/phillips radiata injury. Patient has been treated for acute alcohol withdrawal in the past, and is currently on the [facility] protocol. Patient's family reportedly denies any history of alcoholism. The patient himself also denies any history of alcoholism, however, is acutely confused. Serum alcohol level is less than 10 on arrival. He is receiving vitamin B1 supplementation. Vital signs are currently stable. Progress note dated 03/22/2023. 77-year-old male with a history of severe COPD. His FEV1 is 50% of predicted. We were consulted, because there was some concern that he may have a right-sided pneumothorax. His chest x-ray was not typical. The patient underwent a computed tomography scan of the chest, which did not reveal a pneumothorax. He did have some bullous disease, in addition to his established emphysema. Currently, he stable. He is getting O2 2 L. He is getting saline at 75 mL an hour. Current labs include a white count 11.2, hemoglobin 9.4, hematocrit 29.1, and a normal platelet count. Sodium 135, potassium 4, chlorides 102, CO2 20, BUN 47, creatinine 6.72. Objective - Vital Signs Vital signs: Vital Signs Temp 97.8 F 03/22/23 09:10 Pulse 70 03/22/23 09:47 Resp 18 03/22/23 09:10 BP 132/42 03/22/23 09:10 Pulse Ox 94 L 03/22/23 09:27 FiO2 Intake & Output 03/21/23 03/22/23 03/22/23 18:59 06:59 18:59 Intake Total 228 110 Output Total 180 200 Balance 48 -200 110 Weight 93.1 kg Intake: Oral 228 110 Output: Urine 180 200 Other: Voiding Method Toilet Toilet Urinal Urinal Urinal - Exam No acute distress, oriented 3. No significant respiratory distress. Currently on 2 L of oxygen. HEENT examination is grossly unremarkable. Neck supple. Full range of motion. No adenopathy thyromegaly or neck vein distention. Cardiovascular examination reveals regular rhythm rate. S1-S2 normal. No S3 or S4. No discernible murmur noted. Heart sounds are distant. Heart rate 70 bpm. Lungs reveal mostly clear breath sounds. Breath sounds are equal bilaterally. Mild scattered rhonchi. No wheezes or crackles. Breath sounds equal bilat erally. 2 L saturation is 94%. Abdomen is soft, without bowel sounds. Extremities are intact. No cyanosis clubbing or edema. Skin is without rash or lesion. Neurologic examination is brief but nonfocal. - Labs CBC & Chem 7: 03/22/23 08:21 03/22/23 08:21 Labs: Abnormal Lab Results - Last 24 Hours (Table) 03/20/23 03/21/23 03/21/23 Range/Units 12:17 11:24 16:28 WBC (3.8-10.6) k/uL RBC (4.30-5.90) m/uL Hgb (13.0-17.5) gm/dL Hct (39.0-53.0) % Neutrophils # (1.3-7.7) k/uL Lymphocytes # (1.0-4.8) k/uL Sodium (137-145) mmol/L Carbon Dioxide (22-30) mmol/L BUN (9-20) mg/dL Creatinine (0.66-1.25) mg/dL POC Glucose (mg/dL) 114 H 147 H (70-110) mg/dL Calcium (8.4-10.2) mg/dL Phosphorus (2.5-4.5) mg/dL IgM <35.0 L (40.0-280.0) mg/dL 03/21/23 03/22/23 03/22/23 Range/Units 20:09 08:21 08:21 WBC 11.2 H (3.8-10.6) k/uL RBC 2.98 L (4.30-5.90) m/uL Hgb 9.4 L D (13.0-17.5) gm/dL Hct 29.1 L (39.0-53.0) % Neutrophils # 9.5 H (1.3-7.7) k/uL Lymphocytes # 0.9 L (1.0-4.8) k/uL Sodium 135 L (137-145) mmol/L Carbon Dioxide 20 L (22-30) mmol/L BUN 47 H (9-20) mg/dL Creatinine 6.72 H (0.66-1.25) mg/dL POC Glucose (mg/dL) 117 H (70-110) mg/dL Calcium 8.2 L (8.4-10.2) mg/dL Phosphorus 5.8 H (2.5-4.5) mg/dL IgM (40.0-280.0) mg/dL Assessment and Plan Assessment: Acute on chronic kidney injury, requiring serial hemodialysis. Acute hypoxemic respiratory failure, secondary to a mild exacerbation of the patient's known severe COPD. Nonenhanced chest CT demonstrated chronic bullous emphysematous changes at the lung bases, no focal consolidation or acute cardiopulmonary process. He is negative for COVID-19. Currently on 2 L/m nasal cannula. No evidence of pneumothorax on computed tomography scan. Altered mental status, possibly related to toxic metabolic encephalopathy. Brain CT without contrast from yesterday shows no acute intracranial process, there was a stable left basal ganglia/coronary radiata injury. Questionable alcoholism, however, patient's family denies any significant history of alcohol abuse. Currently on the CIWA protocol. Anion gap metabolic acidosis, secondary to acute renal failure, improved. History of CVA. Coronary artery disease, with previous stents. Essential hypertension. Hyperlipidemia. Ex-smoker. Plan: Plan dated 03/22/2023. Remains stable on 2 L of oxygen. He is getting IV fluids at 75 mL an hour initially consulted primarily because of there was some concern for a pneumo thorax on the right side. I was not convinced of this, and ordered a computed tomography scan. The computed tomography scan did show some emphysematous changes, and bullous changes, on the right side, but no pneumothorax. Clinically, the patient is stable. He does have stage II/stage III COPD, with an FEV1 percent that is 50. We will continue to follow. Prognosis is guarded. Time with Patient: Less than 30
[2023-03-22 11:20] LABS: Glucose,Whole Blood 123 mg/dL (70-110)
--- NOTE | 2023-03-22 13:34 | P.PN ---
Subjective Progress Note Date: 03/22/23 Principal diagnosis: Acute kidney injury Patient seen and examined today lying in bed. He states he is feeling better today. Yesterday he did not undergo any hemodialysis. He states that he is still urinating on his own. Temporary HD cath in place and groin. Patient is post undergo hemodialysis today. Nephrology requesting a temporary catheter to be removed and a tunneled catheter be placed. Awaiting decision by patient and family. Objective - Vital Signs Vital signs: Vital Signs Temp 97.8 F 03/22/23 09:10 Pulse 67 03/22/23 11:56 Resp 20 03/22/23 11:40 BP 128/56 03/22/23 11:40 Pulse Ox 93 L 03/22/23 11:40 FiO2 Intake & Output 03/21/23 03/22/23 03/22/23 18:59 06:59 18:59 Intake Total 228 110 Output Total 180 200 Balance 48 -200 110 Weight 93.1 kg Intake: Oral 228 110 Output: Urine 180 200 Other: Voiding Method Toilet Toilet Urinal Urinal Urinal # Bowel Movements 1 - Exam General appearance: The patient is alert, oriented, appears in no acute distress. HET: Head is normocephalic and atraumatic. Pupils are equal and reactive. Neck: Supple. Heart: Regular. Lungs: Equal expansion, normal respiratory effort. Abdomen: Soft, nontender, nondistended. Extremities: Normal skin color and turgor. Right groin with HD catheter, intact. Neurological: No focal deficits. Strength and sensation are grossly intact. - Labs CBC & Chem 7: 03/22/23 08:21 03/22/23 08:21 Labs: Abnormal Lab Results - Last 24 Hours (Table) 03/20/23 03/21/23 03/21/23 Range/Units 12:17 16:28 20:09 WBC (3.8-10.6) k/uL RBC (4.30-5.90) m/uL Hgb (13.0-17.5) gm/dL Hct (39.0-53.0) % Neutrophils # (1.3-7.7) k/uL Lymphocytes # (1.0-4.8) k/uL Sodium (137-145) mmol/L Carbon Dioxide (22-30) mmol/L BUN (9-20) mg/dL Creatinine (0.66-1.25) mg/dL POC Glucose (mg/dL) 147 H 117 H (70-110) mg/dL Calcium (8.4-10.2) mg/dL Phosphorus (2.5-4.5) mg/dL IgM <35.0 L (40.0-280.0) mg/dL 03/22/23 03/22/23 03/22/23 Range/Units 08:21 08:21 11:15 WBC 11.2 H (3.8-10.6) k/uL RBC 2.98 L (4.30-5.90) m/uL Hgb 9.4 L D (13.0-17.5) gm/dL Hct 29.1 L (39.0-53.0) % Neutrophils # 9.5 H (1.3-7.7) k/uL Lymphocytes # 0.9 L (1.0-4.8) k/uL Sodium 135 L (137-145) mmol/L Carbon Dioxide 20 L (22-30) mmol/L BUN 47 H (9-20) mg/dL Creatinine 6.72 H (0.66-1.25) mg/dL POC Glucose (mg/dL) 123 H (70-110) mg/dL Calcium 8.2 L (8.4-10.2) mg/dL Phosphorus 5.8 H (2.5-4.5) mg/dL IgM (40.0-280.0) mg/dL Assessment and Plan Assessment: 1. Acute renal failure status post temporary hemodialysis catheter placement 2. History of abdominal aortic aneurysm with previous EVAR 3. Fatigue Plan: Nephrology requesting tunneled catheter placement. Plavix will need to be discontinued. Tentative plan for 02/21/2023. However at this time waiting for patient to decide if he wants to move forward with tunneled catheter placement for hemodialysis, as he is voicing that he does not want to continue hemodialysis. The impression and plan of care has been dictated as directed. Dr. Boswell I performed a history and examination of this patient, discussed the same with the dictator. I agree with the dictator's note ,documented as a scribe. Any additional findings or plans will be noted.
[2023-03-22] MEDS: NON FORMULARY DRUG (Fluticasone/Umeclidin/Vilanter [Trelegy Ellipta 200-62.5-25] 1 EACH Bl INHALATION SCH (14:19)
[2023-03-22 16:18] LABS: Glucose,Whole Blood 135 mg/dL (70-110)
[2023-03-22 20:27] LABS: Glucose,Whole Blood 149 mg/dL (70-110)
[2023-03-22] MEDS: ATORVASTATIN 80 MG TAB PO SCH (20:41)
[2023-03-23 06:06] LABS: Glucose,Whole Blood 108 mg/dL (70-110)
[2023-03-23] MEDS: CALCIUM ACETATE 667 MG TAB PO SCH ×3 (06:30→17:07)
[2023-03-23] MEDS: ONDANSETRON 4 MG/2 ML VIAL IVP PRN (06:32)
[2023-03-23 07:29] LABS: Basophils % (A) 0 %; Eosinophils # (A) 0.1 k/uL (0-0.7); Eosinophils % (A) 1 %; HCT 24.9 % (39.0-53.0); HGB 8.4 gm/dL (13.0-17.5); Lymphocytes # (A) 1.1 k/uL (1.0-4.8); Lymphocytes % (A) 11 %; MCH 32.8 pg (25.0-35.0); MCHC 33.7 g/dL (31.0-37.0); MCV 97.4 fL (80.0-100.0); Monocytes # (A) 0.7 k/uL (0-1.0); Monocytes % (A) 7 %; Neutrophils # (A) 7.8 k/uL (1.3-7.7); Neutrophils % (A) 80 %; Platelet Count 174 k/uL (150-450); RBC 2.56 m/uL (4.30-5.90); RDW 15.1 % (11.5-15.5); WBC 9.7 k/uL (3.8-10.6)
[2023-03-23 08:00] LABS: African American GFR (CKD) 16 (>60 ml/min/1.73 sqM); Anion Gap 7 mmol/L; Blood Urea Nitrogen 32 mg/dL (9-20); Calcium 7.4 mg/dL (8.4-10.2); Carbon Dioxide 26 mmol/L (22-30); Chloride 100 mmol/L (98-107); Glucose 95 mg/dL (74-99); Non-African American GFR(CKD) 14 (>60 ml/min/1.73 sqM); Potassium 3.4 mmol/L (3.5-5.1); Sodium 133 mmol/L (137-145)
[2023-03-23] MEDS: IPRATROPIUM-ALBUTEROL 3 ML NEB INHALATION SCH ×4 (09:22→20:52)
[2023-03-23] MEDS: SODIUM CHLORIDE 0.9% 1,000 ML IV SCH (09:59)
[2023-03-23] MEDS: hydrALAZINE HCL 50 MG TAB PO SCH ×2 (10:00→16:41)
[2023-03-23] MEDS: atenoloL 50 MG TAB PO SCH (10:00)
[2023-03-23] MEDS: predniSONE 10 MG TAB PO SCH (10:00)
[2023-03-23] MEDS: MULTIVITAMINS, THERA 1 EACH TAB PO SCH (10:00)
[2023-03-23] MEDS: amLODIPine 10 MG TAB PO SCH (10:00)
[2023-03-23] MEDS: FOLIC ACID 1 MG TAB PO SCH (10:00)
[2023-03-23] MEDS: HEPARIN SODIUM,PORCINE/PF 5,000 UNIT/0.5 ML SYRINGE SQ SCH ×2 (10:00→20:32)
[2023-03-23] MEDS: THIAMINE 100 MG TAB PO SCH (10:00)
[2023-03-23] MEDS: ASPIRIN 81 MG PO SCH (10:00)
[2023-03-23] MEDS: NON FORMULARY DRUG (Fluticasone/Umeclidin/Vilanter [Trelegy Ellipta 200-62.5-25] 1 EACH Bl INHALATION SCH (10:04)
--- NOTE | 2023-03-23 10:50 | P.PN ---
Subjective Progress Note Date: 03/23/23 Principal diagnosis: COPD. I am seeing this patient in new consultation today 03/21/2023 for suspected mild exacerbation of the patient's known severe COPD. Patient is a 77-year-old white male with past medical history significant for severe COPD with an FEV1 50% of predicted, AAA status post EVAR in December of this year, CVA, questionable alcoholism, hyperlipidemia, hypertension, coronary artery disease with prior stents, and is an ex smoker. Patient's primary care provider is Dr. Garnica. Patient has had recent follow up with Dr. Davis in the office, for management of his severe COPD. He utilizes a combination of Trelegy and Ventolin inhalers. The patient apparently presented to the emergency room back on 03/17/2023 after being directed there by his primary care provider for abnormal renal labs. The patient had reportedly been experiencing generalized malaise and lightheadedness for several months. Patient was in acute renal failure on arrival to the emergency room. He had several metabolic derangements. He did require placement of a hemodialysis catheter on March 18, and has been receiving serial hemodialysis. Renal artery duplex showed no significant renal artery stenosis. KUB Ultrasound showed a left renal calculus without obstructive uropathy. Most recent CBC is unremarkable. Most recent BMP shows a sodium 136, potassium 3.4, chloride 100, serum bicarb 27, BUN 47, creatinine down to 5.75, glucose 114. Patient is currently confused, and a very poor historian. Most of this HPI is taken from the chart and the patient's nurse. He is sitting up in bed, on 3 L nasal cannula, in no acute distress. He is oxygenating at 94%. Apparently, yesterday evening the patient became altered and had some respiratory distress. ABG done at that time showed a pO2 of 69, pCO2 of 36, pH of 7.47. A nonenhanced chest CT demonstrated chronic bullous emphysematous changes at the lung bases, no focal consolidation or acute cardiopulmonary process. He is negative for COVID-19. There is no cough, and the patient is afebrile. There are minimal end expiratory wheezes on auscultation of the patient's lungs. He is currently receiving his home Trelegy inhalers and bronchodilators. Brain CT without contrast showed no acute intracranial process, with a stable left basal ganglia/phillips radiata injury. Patient has been treated for acute alcohol withdrawal in the past, and is currently on the [facility] protocol. Patient's family reportedly denies any history of alcoholism. The patient himself also denies any history of alcoholism, however, is acutely confused. Serum alcohol level is less than 10 on arrival. He is receiving vitamin B1 supplementation. Vital signs are currently stable. Progress note dated 03/22/2023. 77-year-old male with a history of severe COPD. His FEV1 is 50% of predicted. We were consulted, because there was some concern that he may have a right-sided pneumothorax. His chest x-ray was not typical. The patient underwent a computed tomography scan of the chest, which did not reveal a pneumothorax. He did have some bullous disease, in addition to his established emphysema. Currently, he stable. He is getting O2 2 L. He is getting saline at 75 mL an hour. Current labs include a white count 11.2, hemoglobin 9.4, hematocrit 29.1, and a normal platelet count. Sodium 135, potassium 4, chlorides 102, CO2 20, BUN 47, creatinine 6.72. Progress note dated 03/23/2023. 77-year-old male with a history of severe COPD, with an FEV1 that is 50% of predicted. We are initially consulted because it was concerned that there might be a right-sided pneumothorax. Computed tomography scan did not reveal any pneumothorax. From the COPD standpoint, the patient's stable. He is getting saline at 50 mL an hour. His 2 L nasal cannula saturation is 94%. He is currently sleeping, on his right side, without any respiratory distress. White count 9.7, hemoglobin 8.4, hematocrit 24.9, and platelet count was normal. Sodium 133, potassium 3.4, chlorides 100, CO2 26, BUN 32, and creatinine 3.96. Objective - Vital Signs Vital signs: Vital Signs Temp 98.6 F 03/23/23 08:30 Pulse 61 03/23/23 10:38 Resp 18 03/23/23 10:38 BP 132/55 03/23/23 08:30 Pulse Ox 94 L 03/23/23 08:30 FiO2 Intake & Output 03/22/23 03/23/23 03/23/23 18:59 06:59 18:59 Intake Total 620 Output Total 1000 300 Balance -380 -300 Weight 93.1 kg 93.6 kg Intake: Oral 220 Hemodialysis 400 Output: Urine 300 Hemodialysis 1000 Other: Voiding Method Urinal Urinal Urinal # Bowel Movements 1 - Exam No acute distress, oriented 3. No significant respiratory distress. Currently on 2 L of oxygen. HEENT examination is grossly unremarkable. Neck supple. Full range of motion. No adenopathy thyromegaly or neck vein distention. Cardiovascular examination reveals regular rhythm rate. S1-S2 normal. No S3 or S4. No discernible murmur noted. Heart sounds are distant. Heart rate 61 bpm. Lungs reveal mostly clear breath sounds. Breath sounds are equal bilaterally. Mild scattered rhonchi. No wheezes or crackles. Breath sounds equal bilaterally. 2 L saturation is 94%. Abdomen is soft, without bowel sounds. Extremities are intact. No cyanosis clubbing or edema. Skin is without rash or lesion. Neurologic examination is brief but nonfocal. - Labs CBC & Chem 7: 03/23/23 06:53 03/23/23 06:53 Labs: Abnormal Lab Results - Last 24 Hours (Table) 03/22/23 03/22/23 03/22/23 Range/Units 11:15 16:12 20:24 RBC (4.30-5.90) m/uL Hgb (13.0-17.5) gm/dL Hct (39.0-53.0) % Neutrophils # (1.3-7.7) k/uL Sodium (137-145) mmol/L Potassium (3.5-5.1) mmol/L BUN (9-20) mg/dL Creatinine (0.66-1.25) mg/dL POC Glucose (mg/dL) 123 H 135 H 149 H (70-110) mg/dL Calcium (8.4-10.2) mg/dL 03/23/23 03/23/23 Range/Units 06:53 06:53 RBC 2.56 L (4.30-5.90) m/uL Hgb 8.4 L (13.0-17.5) gm/dL Hct 24.9 L (39.0-53.0) % Neutrophils # 7.8 H (1.3-7.7) k/uL Sodium 133 L (137-145) mmol/L Potassium 3.4 L (3.5-5.1) mmol/L BUN 32 H (9-20) mg/dL Creatinine 3.96 H (0.66-1.25) mg/dL POC Glucose (mg/dL) (70-110) mg/dL Calcium 7.4 L (8.4-10.2) mg/dL Assessment and Plan Assessment: Acute on chronic kidney injury, requiring hemodialysis. Acute hypoxemic respiratory failure, secondary to a mild exacerbation of the patient's known severe COPD. Nonenhanced chest CT demonstrated chronic bullous emphysematous changes at the lung bases, no focal consolidation or acute car diopulmonary process. He is negative for COVID-19. Currently on 2 L/m nasal cannula. No evidence of pneumothorax on CT scan. Altered mental status, possibly related to toxic metabolic encephalopathy. Brain CT without contrast from yesterday shows no acute intracranial process, there was a stable left basal ganglia/coronary radiata injury. Questionable alcoholism, however, patient's family denies any significant history of alcohol abuse. Currently on the [facility]WA protocol. Anion gap metabolic acidosis, secondary to acute renal failure, improved. History of CVA. Coronary artery disease, with previous stents. Essential hypertension. Hyperlipidemia. Ex-smoker. Plan: Plan dated 03/22/2023. Remains stable on 2 L of oxygen. He is getting IV fluids at 75 mL an hour initi ally consulted primarily because of there was some concern for a pneumothorax on the right side. I was not convinced of this, and ordered a computed tomography scan. The computed tomography scan did show some emphysematous changes, and bullous changes, on the right side, but no pneumothorax. Clinically, the patient is stable. He does have stage II/stage III COPD, with an FEV1 percent that is 50. We will continue to follow. Prognosis is guarded. Plan dated 03/23/2023. The patient remains on 2 L. The patient's getting saline at 50 mL an hour. He's in no respiratory distress. Labs, x-rays, medications are all reviewed. We will continue to follow. The patient was discovered not to have a pneumothorax. That was confirmed on computed tomography scan. No additional recommendations at this time. His COPD is relatively stable. Time with Patient: Less than 30
--- NOTE | 2023-03-23 11:08 | P.PN ---
Subjective Patient is seen for follow-up for acute kidney injury. Started on hemodialysis this admission on 03/20/2023. Patient is currently maintained on a Monday schedule. He scheduled for IJ permacath placement tomorrow. Tolerated hemodialysis fairly well yesterday with UF of about 1 L. No significant complaints today Urine output documented at about 300 mL for 24 hours. Objective - Vital Signs Vital signs: Vital Signs Temp 98.6 F 03/23/23 08:30 Pulse 61 03/23/23 10:38 Resp 18 03/23/23 10:38 BP 132/55 03/23/23 08:30 Pulse Ox 94 L 03/23/23 08:30 FiO2 Intake & Output 03/22/23 03/23/23 03/23/23 18:59 06:59 18:59 Intake Total 620 Output Total 1000 300 Balance -380 -300 Weight 93.1 kg 93.6 kg Intake: Oral 220 Hemodialysis 400 Output: Urine 300 Hemodialysis 1000 Other: Voiding Method Urinal Urinal Urinal # Bowel Movements 1 - Exam Awake, comfortable, no acute distress Examination of the heart S1 and S2 Examination of the lungs bilateral breath sounds are heard Abdomen is soft nontender Examination of lower extremities shows trace edema bilaterally 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 grossly intact - Labs CBC & Chem 7: 03/23/23 06:53 03/23/23 06:53 Labs: Abnormal Lab Results - Last 24 Hours (Table) 03/22/23 03/22/23 03/22/23 Range/Units 11:15 16:12 20:24 RBC (4.30-5.90) m/uL Hgb (13.0-17.5) gm/dL Hct (39.0-53.0) % Neutrophils # (1.3-7.7) k/uL Sodium (137-145) mmol/L Potassium (3.5-5.1) mmol/L BUN (9-20) mg/dL Creatinine (0.66-1.25) mg/dL POC Glucose (mg/dL) 123 H 135 H 149 H (70-110) mg/dL Calcium (8.4-10.2) mg/dL 03/23/23 03/23/23 Range/Units 06:53 06:53 RBC 2.56 L (4.30-5.90) m/uL Hgb 8.4 L (13.0-17.5) gm/dL Hct 24.9 L (39.0-53.0) % Neutrophils # 7.8 H (1.3-7.7) k/uL Sodium 133 L (137-145) mmol/L Potassium 3.4 L (3.5-5.1) mmol/L BUN 32 H (9-20) mg/dL Creatinine 3.96 H (0.66-1.25) mg/dL POC Glucose (mg/dL) (70-110) mg/dL Calcium 7.4 L (8.4-10.2) mg/dL Assessment and Plan Assessment: 1. Acute kidney injury secondary to ATN from poor intake and further worsened with the use of RYAN inhibitor. No evidence of hydronephrosis or renal artery stenosis noted on imaging. UA with 1+ protein. UPC 0.6. Bladder scans have been negative. Refuses Vitale catheter placement. Creatinine over 12 on admission. Creatinine was 4.19 date 01/22/2023 and mostly in the range of 1.2- 1.4 in December 2022. Started on hemodialysis 03/18/2023 via femoral catheter. Urine output 200 mL overnight. 2. Metabolic acidosis secondary to acute kidney injury. Improved with bicarb drip and dialysis. 3. Mild hyperkalemia secondary to acute kidney injury, metabolic acidosis and RYAN inhibitor. Resolved. 4. Hyperphosphatemia secondary to acute kidney injury. On PhosLo. 5. AAA repair with graft December 2022. 6. Benign hypertension. Stable. Plan: Hemodialysis on 03/25/2023. Scheduled for permacath placement tomorrow 03/24/2023. Patient will be maintained on a TTS schedule at the [facility] unit
[2023-03-23 11:55] LABS: Glucose,Whole Blood 111 mg/dL (70-110)
--- NOTE | 2023-03-23 12:05 | P.PN ---
Subjective Progress Note Date: 03/23/23 Patient is a 77-year-old male with PMH of alcohol abuse, history of CVA, bilateral carotid stenosis, AAA repair, hypertension, COPD that presents the ED for abnormal lab work that was done with his PCP. Patient reports diarrhea consistent of liquid bowel movements at least twice a day for the past 6 months. Over the past week, he is not as left lower quadrant abdominal pain. States that he has not been eating much but drinks plenty of fluids. He also reports some lightheadedness especially with changing position which resulted in 2 falls recently. In the ED, as well as signs are stable, bradycardic with heart rate in the high 50s. CBC showed hemoglobin of 11.6. Coagulation panel within normal limits. CMP showed potassium of 5.3, chloride of 118, bicarb of 9, BUN of 120, creatinine of 12.64, calcium of 8.3, phosphorus of 9.1, magnesium of 2.4, AST of 14. Lipase 566. Renal ultrasound consistent with medical renal disease, left renal calculus, no obstructive uropathy. Renal artery duplex showed no evidence of renal artery stenosis, infrarenal aneurysm with possible stent graft placement, distal AAA 7 x 7.2 cm. Patient is admitted for workup of acute renal failure. Patient was started on hemodialysis. He had a temporary dialysis catheter placed. Patient being followed by nephrology. Nephrology recommended that patient needs to continue with outpatient dialysis. Vascular surgery was consulted for permacath placement. Patient is seen this morning and had no acute complaints. He states that he worked with physical therapy and he believes he did good. 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 C. diff negative Hyperphosphatemia; resolving Hypermagnesemia; resolved Hyperkalemia; resolved Metabolic acidosis; resolved Pneumothorax ruled out Based on my assessment of this patient, this patient meets a moderate complexity level of care. Patient will have permacath placed on Monday which is 03/24/2023 after Plavix held for 48 hours. I discussed with the patient today and he is amenable to getting hemodialysis. Per nephrology note patient will be a hemodialysis Monday. Patient will get his dialysis on Monday and then will be discharged home. I discussed the case with the case managers. Patient's hemoglobin did drop from yesterday from 11.7-9.4->8.4. Patient denying any overt signs of bleeding. We'll continue to monitor hemoglobin. Patient was not confused this morning. He was answering questions appropriately. Per nurse no confusion last night either. Per nurse patient not having anymore diarrhea. C. diff negative Patient transition to oral steroids 30 mg daily. Patient's blood pressure control this morning. He is on amlodipine 10 mg daily, hydralazine 100 mg by mouth 3 times a day and atenolol 50 mg by mouth daily Resume aspirin, Lipitor, Plavix, atenolol, amlodipine. Consult PT OT -> patient has worked with physical therapy and currently recommendations are pending Patient would like to be full code. I have reviewed the results of the following tests: CBC and BMP I have ordered the following tests: BMP and CBC This patient has a moderate risk of morbidity due to the following reasons: Patient has severe metabolic derangement including metabolic acidosis and hyperkalemia along with acute kidney injury on chronic kidney disease. Severe COPD with exacerbation Objective - Vital Signs Vital signs: Vital Signs Temp 98.6 F 03/23/23 08:30 Pulse 61 03/23/23 10:38 Resp 18 03/23/23 10:38 BP 132/55 03/23/23 08:30 Pulse Ox 94 L 03/23/23 08:30 FiO2 Intake & Output 03/22/23 03/23/23 03/23/23 18:59 06:59 18:59 Intake Total 620 Output Total 1000 300 Balance -380 -300 Weight 93.1 kg 93.6 kg Intake: Oral 220 Hemodialysis 400 Output: Urine 300 Hemodialysis 1000 Other: Voiding Method Urinal Urinal Urinal # Bowel Movements 1 - Labs CBC & Chem 7: 03/23/23 06:53 03/23/23 06:53 Labs: Abnormal Lab Results - Last 24 Hours (Table) 03/22/23 03/22/23 03/23/23 Range/Units 16:12 20:24 06:53 RBC 2.56 L (4.30-5.90) m/uL Hgb 8.4 L (13.0-17.5) gm/dL Hct 24.9 L (39.0-53.0) % Neutrophils # 7.8 H (1.3-7.7) k/uL Sodium (137-145) mmol/L Potassium (3.5-5.1) mmol/L BUN (9-20) mg/dL Creatinine (0.66-1.25) mg/dL POC Glucose (mg/dL) 135 H 149 H (70-110) mg/dL Calcium (8.4-10.2) mg/dL 03/23/23 03/23/23 Range/Units 06:53 11:51 RBC (4.30-5.90) m/uL Hgb (13.0-17.5) gm/dL Hct (39.0-53.0) % Neutrophils # (1.3-7.7) k/uL Sodium 133 L (137-145) mmol/L Potassium 3.4 L (3.5-5.1) mmol/L BUN 32 H (9-20) mg/dL Creatinine 3.96 H (0.66-1.25) mg/dL POC Glucose (mg/dL) 111 H (70-110) mg/dL Calcium 7.4 L (8.4-10.2) mg/dL
[2023-03-23 13:03] VITALS: BMI 28.0
--- NOTE | 2023-03-23 13:27 | P.PN ---
Subjective Progress Note Date: 03/23/23 Principal diagnosis: Acute kidney injury She was seen and examined today lying in bed. No acute changes through the night. Nephrology is requesting tunneled HD catheter. Patient has agreed for tunnel dialysis catheter placement. This is planned for tomorrow. Plavix is currently on hold. Objective - Vital Signs Vital signs: Vital Signs Temp 98.6 F 03/23/23 08:30 Pulse 61 03/23/23 08:30 Resp 18 03/23/23 08:30 BP 132/55 03/23/23 08:30 Pulse Ox 94 L 03/23/23 08:30 FiO2 Intake & Output 03/22/23 03/23/23 03/23/23 18:59 06:59 18:59 Intake Total 620 Output Total 1000 300 Balance -380 -300 Weight 93.1 kg 93.6 kg Intake: Oral 220 Hemodialysis 400 Output: Urine 300 Hemodialysis 1000 Other: Voiding Method Urinal Urinal # Bowel Movements 1 - Exam General appearance: The patient is alert, oriented, appears in no acute distress. HET: Head is normocephalic and atraumatic. Pupils are equal and reactive. Neck: Supple. Heart: Regular. Lungs: Equal expansion, normal respiratory effort. Abdomen: Soft, nontender, nondistended. Extremities: Normal skin color and turgor. Right groin with HD catheter, intact. Neurological: No focal deficits. Strength and sensation are grossly intact. - Labs CBC & Chem 7: 03/23/23 06:53 03/23/23 06:53 Labs: Abnormal Lab Results - Last 24 Hours (Table) 03/22/23 03/22/23 03/22/23 Range/Units 11:15 16:12 20:24 RBC (4.30-5.90) m/uL Hgb (13.0-17.5) gm/dL Hct (39.0-53.0) % Neutrophils # (1.3-7.7) k/uL Sodium (137-145) mmol/L Potassium (3.5-5.1) mmol/L BUN (9-20) mg/dL Creatinine (0.66-1.25) mg/dL POC Glucose (mg/dL) 123 H 135 H 149 H (70-110) mg/dL Calcium (8.4-10.2) mg/dL 03/23/23 03/23/23 Range/Units 06:53 06:53 RBC 2.56 L (4.30-5.90) m/uL Hgb 8.4 L (13.0-17.5) gm/dL Hct 24.9 L (39.0-53.0) % Neutrophils # 7.8 H (1.3-7.7) k/uL Sodium 133 L (137-145) mmol/L Potassium 3.4 L (3.5-5.1) mmol/L BUN 32 H (9-20) mg/dL Creatinine 3.96 H (0.66-1.25) mg/dL POC Glucose (mg/dL) (70-110) mg/dL Calcium 7.4 L (8.4-10.2) mg/dL Assessment and Plan Assessment: 1. Acute renal failure status post temporary hemodialysis catheter placement 2. History of abdominal aortic aneurysm with previous EVAR 3. Fatigue Plan: Nephrology requesting tunneled catheter placement. Continue to hold Plavix. Nothing by mouth after midnight. Patient scheduled for tunneled dialysis catheter placement tomorrow, patient is agreeable to plan. Continue with recommendations on hemodialysis per nephrology. The impression and plan of care has been dictated as directed. Dr. Boswell I performed a history and examination of this patient, discussed the same with the dictator. I agree with the dictator's note ,documented as a scribe. Any additional findings or plans will be noted.
[2023-03-23 16:45] LABS: Glucose,Whole Blood 167 mg/dL (70-110)
[2023-03-23 20:19] LABS: Glucose,Whole Blood 153 mg/dL (70-110)
[2023-03-23] MEDS: ATORVASTATIN 80 MG TAB PO SCH (20:32)
[2023-03-24] MEDS: hydrALAZINE HCL 50 MG TAB PO SCH ×4 (00:15→20:36)
[2023-03-24] MEDS: SODIUM CHLORIDE 0.9% 1,000 ML IV SCH ×2 (00:15→20:45)
[2023-03-24] MEDS: CALCIUM ACETATE 667 MG TAB PO SCH ×3 (05:22→17:47)
[2023-03-24 07:27] LABS: Basophils % (A) 0 %; Eosinophils # (A) 0.2 k/uL (0-0.7); Eosinophils % (A) 2 %; HCT 26.7 % (39.0-53.0); HGB 8.7 gm/dL (13.0-17.5); Lymphocytes # (A) 0.9 k/uL (1.0-4.8); Lymphocytes % (A) 10 %; MCH 31.8 pg (25.0-35.0); MCHC 32.4 g/dL (31.0-37.0); MCV 98.3 fL (80.0-100.0); Mean Platelet Volume 7.9; Monocytes # (A) 0.5 k/uL (0-1.0); Monocytes % (A) 6 %; Neutrophils # (A) 6.7 k/uL (1.3-7.7); Neutrophils % (A) 80 %; Platelet Count 198 k/uL (150-450); RBC 2.72 m/uL (4.30-5.90); RDW 14.8 % (11.5-15.5); WBC 8.4 k/uL (3.8-10.6)
[2023-03-24 07:45] LABS: African American GFR (CKD) 11 (>60 ml/min/1.73 sqM); Anion Gap 5 mmol/L; Blood Urea Nitrogen 43 mg/dL (9-20); Calcium 7.4 mg/dL (8.4-10.2); Carbon Dioxide 28 mmol/L (22-30); Chloride 100 mmol/L (98-107); Glucose 100 mg/dL (74-99); Non-African American GFR(CKD) 9 (>60 ml/min/1.73 sqM); Potassium 3.6 mmol/L (3.5-5.1); Sodium 133 mmol/L (137-145)
[2023-03-24] MEDS: IPRATROPIUM-ALBUTEROL 3 ML NEB INHALATION SCH ×4 (09:08→20:20)
[2023-03-24] MEDS ORDERED: SODIUM CHLORIDE 0.9% 250 ML IV ONE (10:00)
--- NOTE | 2023-03-24 10:24 | P.PN ---
Subjective Patient is seen for follow-up for acute kidney injury. Started on hemodialysis this admission on 03/20/2023. Patient is currently maintained on a Monday schedule. He scheduled for IJ permacath placement today. No significant complaints today Urine output documented at about 300 mL for 24 hours. Hemodialysis in a.m. Objective - Vital Signs Vital signs: Vital Signs Temp 98.6 F 03/23/23 08:30 Pulse 55 L 03/24/23 05:45 Resp 18 03/24/23 04:00 BP 149/65 03/24/23 04:00 Pulse Ox 95 03/24/23 04:00 FiO2 Intake & Output 03/23/23 03/24/23 03/24/23 18:59 06:59 18:59 Weight 93.6 kg Other: Voiding Method Urinal Urinal - Exam Awake, comfortable, no acute distress Examination of the heart S1 and S2 Examination of the lungs bilateral breath sounds are heard Abdomen is soft nontender Examination of lower extremities shows trace edema bilaterally FIELD ATTENDANT exam grossly intact - Labs CBC & Chem 7: 03/24/23 07:17 03/24/23 07:17 Labs: Abnormal Lab Results - Last 24 Hours (Table) 03/23/23 03/23/23 03/23/23 Range/Units 11:51 16:43 20:17 RBC (4.30-5.90) m/uL Hgb (13.0-17.5) gm/dL Hct (39.0-53.0) % Lymphocytes # (1.0-4.8) k/uL Sodium (137-145) mmol/L BUN (9-20) mg/dL Creatinine (0.66-1.25) mg/dL Glucose (74-99) mg/dL POC Glucose (mg/dL) 111 H 167 H 153 H (70-110) mg/dL Calcium (8.4-10.2) mg/dL 03/24/23 03/24/23 Range/Units 07:17 07:17 RBC 2.72 L (4.30-5.90) m/uL Hgb 8.7 L (13.0-17.5) gm/dL Hct 26.7 L (39.0-53.0) % Lymphocytes # 0.9 L (1.0-4.8) k/uL Sodium 133 L (137-145) mmol/L BUN 43 H (9-20) mg/dL Creatinine 5.50 H (0.66-1.25) mg/dL Glucose 100 H (74-99) mg/dL POC Glucose (mg/dL) (70-110) mg/dL Calcium 7.4 L (8.4-10.2) mg/dL Assessment and Plan Assessment: 1. Acute kidney injury secondary to ATN from poor intake and further worsened with the use of RYAN inhibitor. No evidence of hydronephrosis or renal artery stenosis noted on imaging. UA with 1+ protein. UPC 0.6. Bladder scans have been negative. Refuses Vitale catheter placement. Creatinine over 12 on admission. Creatinine was mostly in the range of 1.2-1.4 in December 2022. Started on hemodialysis 03/18/2023 via femoral catheter. Urine output 300 mL overnight. Scheduled for IJ PermCath placement today 2. Metabolic acidosis secondary to acute kidney injury. Improved with bicarb drip and dialysis. 3. Mild hyperkalemia secondary to acute kidney injury, metabolic acidosis and RYAN inhibitor. Resolved. 4. Hyperphosphatemia secondary to acute kidney injury. On PhosLo. 5. AAA repair with graft December 2022. 6. Benign hypertension. Stable. Plan: Hemodialysis in a.m. Patient will be maintained on a TTS schedule at the [facility] unit
[2023-03-24] MEDS ORDERED: MIDAZOLAM 2 MG/2 ML VIAL IVP ONE (10:30)
--- NOTE | 2023-03-24 10:34 | P.PN ---
Subjective Progress Note Date: 03/24/23 Patient is a 77-year-old male with PMH of alcohol abuse, history of CVA, bilateral carotid stenosis, AAA repair, hypertension, COPD that presents the ED for abnormal lab work that was done with his PCP. Patient reports diarrhea consistent of liquid bowel movements at least twice a day for the past 6 months. Over the past week, he is not as left lower quadrant abdominal pain. States that he has not been eating much but drinks plenty of fluids. He also reports some lightheadedness especially with changing position which resulted in 2 falls recently. In the ED, as well as signs are stable, bradycardic with heart rate in the high 50s. CBC showed hemoglobin of 11.6. Coagulation panel within normal limits. CMP showed potassium of 5.3, chloride of 118, bicarb of 9, BUN of 120, creatinine of 12.64, calcium of 8.3, phosphorus of 9.1, magnesium of 2.4, AST of 14. Lipase 566. Renal ultrasound consistent with medical renal disease, left renal calculus, no obstructive uropathy. Renal artery duplex showed no evidence of renal artery stenosis, infrarenal aneurysm with possible stent graft placement, distal AAA 7 x 7.2 cm. Patient is admitted for workup of acute renal failure. Patient was started on hemodialysis. He had a temporary dialysis catheter placed. Patient being followed by nephrology. Nephrology recommended that patient needs to continue with outpatient dialysis. Vascular surgery was consulted for permacath placement. Patient denies any acute complaints. He is scheduled for his permacath placement today. Family were at bedside. Family aware that the plan is for dialysis tomorrow and then home tomorrow. 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 C. diff negative Hyperphosphatemia; resolving Hypermagnesemia; resolved Hyperkalemia; resolved Metabolic acidosis; resolved Pneumothorax ruled out Based on my assessment of this patient, this patient meets a moderate complexity level of care. Patient scheduled for permacath placement today. I discussed with nephrology and plan is for dialysis tomorrow and then patient may be discharged. Hemoglobin trend: 11.7-9.4->8.4->8.7. Patient denying any overt signs of bleeding. Hemoglobin stable this morning Patient transitioned to oral steroids 30 mg daily. Patient's blood pressure control this morning. He is on amlodipine 10 mg daily, hydralazine 100 mg by mouth 3 times a day and atenolol 50 mg by mouth daily Resume aspirin, Lipitor, atenolol, amlodipine. Plavix on hold for permacath placement Consult PT OT -> recommending home with home care Patient would like to be full code. I have reviewed the results of the following tests: CBC and BMP I have ordered the following tests: BMP and CBC This patient has a moderate risk of morbidity due to the following reasons: Patient has severe metabolic derangement including metabolic acidosis and hyperkalemia along with acute kidney injury on chronic kidney disease. Severe COPD with exacerbation Objective - Vital Signs Vital signs: Vital Signs Temp 98.6 F 03/23/23 08:30 Pulse 55 L 03/24/23 05:45 Resp 18 03/24/23 04:00 BP 149/65 03/24/23 04:00 Pulse Ox 95 03/24/23 04:00 FiO2 Intake & Output 03/23/23 03/24/23 03/24/23 18:59 06:59 18:59 Weight 93.6 kg Other: Voiding Method Urinal Urinal - Labs CBC & Chem 7: 03/24/23 07:17 03/24/23 07:17 Labs: Abnormal Lab Results - Last 24 Hours (Table) 03/23/23 03/23/23 03/23/23 Range/Units 11:51 16:43 20:17 RBC (4.30-5.90) m/uL Hgb (13.0-17.5) gm/dL Hct (39.0-53.0) % Lymphocytes # (1.0-4.8) k/uL Sodium (137-145) mmol/L BUN (9-20) mg/dL Creatinine (0.66-1.25) mg/dL Glucose (74-99) mg/dL POC Glucose (mg/dL) 111 H 167 H 153 H (70-110) mg/dL Calcium (8.4-10.2) mg/dL 03/24/23 03/24/23 Range/Units 07:17 07:17 RBC 2.72 L (4.30-5.90) m/uL Hgb 8.7 L (13.0-17.5) gm/dL Hct 26.7 L (39.0-53.0) % Lymphocytes # 0.9 L (1.0-4.8) k/uL Sodium 133 L (137-145) mmol/L BUN 43 H (9-20) mg/dL Creatinine 5.50 H (0.66-1.25) mg/dL Glucose 100 H (74-99) mg/dL POC Glucose (mg/dL) (70-110) mg/dL Calcium 7.4 L (8.4-10.2) mg/dL
[2023-03-24] MEDS ORDERED: LIDOCAINE 1% INJ 10MG/ML (20 ML MDV) SQ ONE (10:35)
--- NOTE | 2023-03-24 10:53 | P.OP ---
Date of Procedure: 03/24/23 Description of Procedure: DATE OF PROCEDURE: 03/24/2023 PREOPERATIVE DIAGNOSIS: Need for dialysis PROCEDURE: 1. Ultrasound-guided right internal jugular vein access. 2. Placement of a 23 cm tunneled dialysis catheter with fluoroscopic assistance. 3. Moderate conscious sedation times 19 minutes, and personal monitoring of certified RN administration with hemodynamic monitoring PROCEDURE: The patient was brought to the Instrument Setter placed in supine position. The bilateral necks were prepped and draped in usual sterile fashion. A preprocedure timeout was performed, all parties were in agreement. Using ultrasound the right internal jugular was identified. The vein was patent and compressible without evidence of internal thrombus. Permanent images were stored The site overlying the vein was anesthetized with 1% lidocaine plain and an access needle was used to gain access to the internal jugular vein with return of dark venous, nonpulsatile blood. Seldinger technique was used and a micro-access sheath was placed. Attention was then turned towards the tunnel. The chest wall was anesthetized with 1% lidocaine plain. A small bhargavi and the skin was made and the previously flushed catheter was tunneled through the anticipated location. Using Seldinger technique and fluoroscopic assistance, the 35 Glidewire was placed and the tract was serially dilated. The final tear- away sheath was left in place. The inner cannula and wire were removed. The catheter was placed in the tear-away sheath was removed in standard fashion. The catheter showed good positioning was final resting place in the cavoatrial junction. The catheter aspirated and flushed freely. The incision at the neck was reapproximated with interrupted sutures of 4-0 Vicryl. The catheter was sutured in place with 3-0 nylon. Dressings were placed. The patient was allowed to awaken from anesthesia and transferred to recovery in stable condition having tolerated the procedure well. A post procedure chest x-ray is pending
--- NOTE | 2023-03-24 11:19 | P.PN ---
Subjective Progress Note Date: 03/24/23 Principal diagnosis: COPD. I am seeing this patient in new consultation today 03/21/2023 for suspected mild exacerbation of the patient's known severe COPD. Patient is a 77-year-old white male with past medical history significant for severe COPD with an FEV1 50% of predicted, AAA status post EVAR in December of this year, CVA, questionable alcoholism, hyperlipidemia, hypertension, coronary artery disease with prior stents, and is an ex smoker. Patient's primary care provider is Dr. Garnica. Patient has had recent follow up with Dr. Davis in the office, for management of his severe COPD. He utilizes a combination of Trelegy and Ventolin inhalers. The patient apparently presented to the emergency room back on 03/17/2023 after being directed there by his primary care provider for abnormal renal labs. The patient had reportedly been experiencing generalized malaise and lightheadedness for several months. Patient was in acute renal failure on arrival to the emergency room. He had several metabolic derangements. He did require placement of a hemodialysis catheter on March 18, and has been receiving serial hemodialysis. Renal artery duplex showed no significant renal artery stenosis. KUB Ultrasound showed a left renal calculus without obstructive uropathy. Most recent CBC is unremarkable. Most recent BMP shows a sodium 136, potassium 3.4, chloride 100, serum bicarb 27, BUN 47, creatinine down to 5.75, glucose 114. Patient is currently confused, and a very poor historian. Most of this HPI is taken from the chart and the patient's nurse. He is sitting up in bed, on 3 L nasal cannula, in no acute distress. He is oxygenating at 94%. Apparently, yesterday evening the patient became altered and had some respiratory distress. ABG done at that time showed a pO2 of 69, pCO2 of 36, pH of 7.47. A nonenhanced chest CT demonstrated chronic bullous emphysematous changes at the lung bases, no focal consolidation or acute cardiopulmonary process. He is negative for COVID-19. There is no cough, and the patient is afebrile. There are minimal end expiratory wheezes on auscultation of the patient's lungs. He is currently receiving his home Trelegy inhalers and bronchodilators. Brain CT without contrast showed no acute intracranial process, with a stable left basal ganglia/phillips radiata injury. Patient has been treated for acute alcohol withdrawal in the past, and is currently on the CIAR protocol. Patient's family reportedly denies any history of alcoholism. The patient himself also denies any history of alcoholism, however, is acutely confused. Serum alcohol level is less than 10 on arrival. He is receiving vitamin B1 supplementation. Vital signs are currently stable. Progress note dated 03/22/2023. 77-year-old male with a history of severe COPD. His FEV1 is 50% of predicted. We were consulted, because there was some concern that he may have a right-sided pneumothorax. His chest x-ray was not typical. The patient underwent a computed tomography scan of the chest, which did not reveal a pneumothorax. He did have some bullous disease, in addition to his established emphysema. Currently, he stable. He is getting O2 2 L. He is getting saline at 75 mL an hour. Current labs include a white count 11.2, hemoglobin 9.4, hematocrit 29.1, and a normal platelet count. Sodium 135, potassium 4, chlorides 102, CO2 20, BUN 47, creatinine 6.72. Progress note dated 03/23/2023. 77-year-old male with a history of severe COPD, with an FEV1 that is 50% of predicted. We are initially consulted because it was concerned that there might be a right-sided pneumothorax. Computed tomography scan did not reveal any pneumothorax. From the COPD standpoint, the patient's stable. He is getting saline at 50 mL an hour. His 2 L nasal cannula saturation is 94%. He is currently sleeping, on his right side, without any respiratory distress. White count 9.7, hemoglobin 8.4, hematocrit 24.9, and platelet count was normal. Sodium 133, potassium 3.4, chlorides 100, CO2 26, BUN 32, and creatinine 3.96. Progress note dated 03/24/2023. 77-year-old male with history of severe COPD, and an FEV1 that is 50% of predicted. We initially saw the patient in consultation, because it was some concern that there might be a pneumothorax present on chest x-ray. A computed tomography scan did not reveal any pneumothorax. Clinically, the patient remained stable. He seen in room 352. He is on 2 L of oxygen. He's not receiving any IV fluids. White count 8.4, hemoglobin 8.7, hematocrit 26.7, and a platelet count that is normal. Sodium 133, potassium 3.6, chlorides 100, CO2 28, BUN 43, and creatinine 5.50. Objective - Vital Signs Vital signs: Vital Signs Temp 97.6 F 03/24/23 08:25 Pulse 60 03/24/23 08:25 Resp 18 03/24/23 08:25 BP 127/68 03/24/23 08:25 Pulse Ox 95 03/24/23 08:25 FiO2 Intake & Output 03/23/23 03/24/23 03/24/23 18:59 06:59 18:59 Intake Total 65 Balance 65 Weight 93.6 kg Intake: IV 65 Other: Voiding Method Urinal Urinal Urinal - Exam No acute distress, oriented 3. No significant respiratory distress. Currently on 2 L of oxygen. HEENT examination is grossly unremarkable. Neck supple. Full range of motion. No adenopathy thyromegaly or neck vein distention. Cardiovascular examination reveals regular rhythm rate. S1-S2 normal. No S3 or S4. No discernible murmur noted. Heart sounds are distant. Heart rate 60 bpm. Lungs reveal mostly clear breath sounds. Breath sounds are equal bilaterally. Mild scattered rhonchi. No wheezes or crackles. Breath sounds equal bilaterally. 2 L saturation is 95%. Abdomen is soft, without bowel sounds. Extremities are intact. No cyanosis clubbing or edema. Skin is without rash or lesion. Neurologic examination is brief but nonfocal. - Labs CBC & Chem 7: 03/24/23 07:17 03/24/23 07:17 Labs: Abnormal Lab Results - Last 24 Hours (Table) 03/23/23 03/23/23 03/23/23 Range/Units 11:51 16:43 20:17 RBC (4.30-5.90) m/uL Hgb (13.0-17.5) gm/dL Hct (39.0-53.0) % Lymphocytes # (1.0-4.8) k/uL Sodium (137-145) mmol/L BUN (9-20) mg/dL Creatinine (0.66-1.25) mg/dL Glucose (74-99) mg/dL POC Glucose (mg/dL) 111 H 167 H 153 H (70-110) mg/dL Calcium (8.4-10.2) mg/dL 03/24/23 03/24/23 Range/Units 07:17 07:17 RBC 2.72 L (4.30-5.90) m/uL Hgb 8.7 L (13.0-17.5) gm/dL Hct 26.7 L (39.0-53.0) % Lymphocytes # 0.9 L (1.0-4.8) k/uL Sodium 133 L (137-145) mmol/L BUN 43 H (9-20) mg/dL Creatinine 5.50 H (0.66-1.25) mg/dL Glucose 100 H (74-99) mg/dL POC Glucose (mg/dL) (70-110) mg/dL Calcium 7.4 L (8.4-10.2) mg/dL Assessment and Plan Assessment: Acute on chronic kidney injury, requiring hemodialysis. Acute hypoxemic respiratory failure, secondary to a mild exacerbation of the patient's known severe COPD. Nonenhanced chest CT demonstrated chronic bullous emphysematous changes at the lung bases, no focal consolidation or acute cardiopulmonary process. He is negative for COVID-19. Currently on 2 L/m nasal cannula. No evidence of pneumothorax on CT scan. Altered mental status, possibly related to toxic metabolic encephalopathy. Brain CT without contrast from yesterday shows no acute intracranial process, there was a stable left basal ganglia/coronary radiata injury. Questionable alcoholism, however, patient's family denies any significant history of alcohol abuse. Currently on the CIWA protocol. Anion gap metabolic acidosis, secondary to acute renal failure, improved. History of CVA. Coronary artery disease, with previous stents. Essential hypertension. Hyperlipidemia. Ex-smoker. Plan: Plan dated 03/22/2023. Remains stable on 2 L of oxygen. He is getting IV fluids at 75 mL an hour initially consulted primarily because of there was some concern for a pneumothorax on the right side. I was not convinced of this, and ordered a computed tomography scan. The computed tomography scan did show some emphysematous changes, and bullous changes, on the right side, but no pneumothorax. Clinically, the patient is stable. He does have stage II/stage III COPD, with an FEV1 percent that is 50. We will continue to follow. Prognosis is guarded. Plan dated 03/23/2023. The patient remains on 2 L. The patient's getting saline at 50 mL an hour. He's in no respiratory distress. Labs, x-rays, medications are all reviewed. We will continue to follow. The patient was discovered not to have a pneumothorax. That was confirmed on computed tomography scan. No additional recommendations at this time. His COPD is relatively stable. Plan dated 03/24/2023. The patient appears be doing relatively well. The patient stable on 2 L. Labs, x-rays, and medications are reviewed. The patient's respiratory status is stable and has been stable. Moving forward, we will see the patient only as needed. The patient can follow-up with us in the office for his COPD. His FEV1 percent is only 50. Additional recommendations and suggestions are forthcoming. Time with Patient: Less than 30
[2023-03-24] MEDS: NON FORMULARY DRUG (Fluticasone/Umeclidin/Vilanter [Trelegy Ellipta 200-62.5-25] 1 EACH Bl INHALATION SCH (11:25)
[2023-03-24] MEDS: HEPARIN SODIUM,PORCINE/PF 5,000 UNIT/0.5 ML SYRINGE SQ SCH ×2 (11:26→20:36)
[2023-03-24] MEDS: predniSONE 10 MG TAB PO SCH (11:26)
[2023-03-24] MEDS: ASPIRIN 81 MG PO SCH (11:26)
[2023-03-24] MEDS: THIAMINE 100 MG TAB PO SCH (11:26)
[2023-03-24] MEDS: atenoloL 50 MG TAB PO SCH (11:26)
[2023-03-24] MEDS: FOLIC ACID 1 MG TAB PO SCH (11:26)
[2023-03-24] MEDS: MULTIVITAMINS, THERA 1 EACH TAB PO SCH (11:26)
[2023-03-24] MEDS ORDERED: DARBEPOETIN ALFA 60 MCG/0.3 ML SYRINGE SQ SCH (12:00)
--- NOTE | 2023-03-24 13:04 | IR ---
EXAMINATION TYPE: IR cvc insert central tunneled DATE OF EXAM: 03/24/2023 COMPARISON: NONE HISTORY: Fluoroscopy time. Fluoroscopy was provided to the referring clinician.
--- NOTE | 2023-03-24 17:53 | XR ---
EXAMINATION TYPE: XR chest 1V portable DATE OF EXAM: 03/24/2023 5:47 PM COMPARISON: Chest radiographs from 03/20/2023, CT 03/20/2023 TECHNIQUE: XR chest 1V portable Frontal view of the chest. CLINICAL INDICATION:Male, 77 years old with history of catheter placement; FINDINGS: Lungs/Pleura: New left lower lung airspace opacities. Emphysematous changes in the right lung base as seen on prior CT. There is no evidence of pleural effusion, focal consolidation, or pneumothorax. Pulmonary vascularity: Unremarkable. Heart/mediastinum: Cardiomediastinal silhouette is unremarkable. Musculoskeletal: No acute osseous pathology. Other findings: None Lines/Tubes: Right internal jugular central venous catheter with distal tip at the cavoatrial junction. IMPRESSION: Left lower lung new airspace opacities which are new from prior, correlate for pneumonia.
[2023-03-24] MEDS: ATORVASTATIN 80 MG TAB PO SCH (20:36)
[2023-03-25] MEDS: CALCIUM ACETATE 667 MG TAB PO SCH ×2 (05:58→11:59)
[2023-03-25] MEDS: HEPARIN SODIUM,PORCINE/PF 5,000 UNIT/0.5 ML SYRINGE SQ SCH (08:04)
[2023-03-25] MEDS: predniSONE 10 MG TAB PO SCH (08:04)
[2023-03-25] MEDS: THIAMINE 100 MG TAB PO SCH (08:04)
[2023-03-25] MEDS: atenoloL 50 MG TAB PO SCH (08:04)
[2023-03-25] MEDS: ASPIRIN 81 MG PO SCH (08:04)
[2023-03-25] MEDS: hydrALAZINE HCL 50 MG TAB PO SCH (08:04)
[2023-03-25] MEDS: MULTIVITAMINS, THERA 1 EACH TAB PO SCH (08:04)
[2023-03-25] MEDS: FOLIC ACID 1 MG TAB PO SCH (08:04)
[2023-03-25] MEDS: IPRATROPIUM-ALBUTEROL 3 ML NEB INHALATION SCH ×2 (09:12→12:12)
--- NOTE | 2023-03-25 11:02 | P.PN ---
Subjective Patient is seen for follow-up for acute kidney injury. Started on hemodialysis this admission on 03/20/2023. Patient is currently maintained on a Monday schedule. Status post IJ catheter placement yesterday. No significant complaints today. Patient is seen on hemodialysis. No significant complaints today. Tolerating treatment well. Objective - Vital Signs Vital signs: Vital Signs Temp 98.2 F 03/25/23 08:01 Pulse 60 03/25/23 08:01 Resp 20 03/25/23 08:01 BP 136/56 03/25/23 08:01 Pulse Ox 94 L 03/25/23 08:01 FiO2 Intake & Output 03/24/23 03/25/23 03/25/23 18:59 06:59 18:59 Intake Total 65 540 Balance 65 540 Weight 93.6 kg Intake: IV 65 Oral 540 Other: Voiding Method Urinal Urinal Urinal # Voids 1 - Exam Awake, comfortable, no acute distress Examination of the heart S1 and S2 Examination of the lungs bilateral breath sounds are heard Abdomen is soft nontender Examination of lower extremities shows trace edema bilaterally CUPOLA PATCHER exam grossly intact - Labs CBC & Chem 7: 03/24/23 07:17 03/24/23 07:17 Assessment and Plan Assessment: 1. Acute kidney injury secondary to ATN from poor intake and further worsened with the use of RYAN inhibitor. No evidence of hydronephrosis or renal artery stenosis noted on imaging. UA with 1+ protein. UPC 0.6. Bladder scans have been negative. Refuses Vitale catheter placement. Creatinine over 12 on admission. Creatinine was mostly in the range of 1.2-1.4 in December 2022. Started on hemodialysis 03/18/2023 via femoral catheter. Urine output 300 mL overnight. Scheduled for IJ PermCath placement today 2. Metabolic acidosis secondary to acute kidney injury. Improved with bicarb drip and dialysis. 3. Mild hyperkalemia secondary to acute kidney injury, metabolic acidosis and RYAN inhibitor. Resolved. 4. Hyperphosphatemia secondary to acute kidney injury. On PhosLo. 5. AAA repair with graft December 2022. 6. Benign hypertension. Stable. Plan: Hemodialysis today. Patient can be discharged postdialysis. Patient will be maintained on a TTS schedule at the [place] dialysis unit
--- NOTE | 2023-03-25 11:05 | P.DS ---
Providers Date of admission: 03/17/23 14:53 Attending physician: Javier Clark MD Consults: 03/17/23 13:59 Consult Physician Urgent Consulting Provider: Aby Thomas Consult Reason/Comments: Renal failure Do you want consulting provider notified?: Yes 03/18/23 09:07 Consult Physician Urgent Consulting Provider: Sony Hilliard Consult Reason/Comments: Hd catheter Do you want consulting provider notified?: Yes 03/20/23 17:50 Consult Physician Stat Consulting Provider: Ander Davis Consult Reason/Comments: PTX Do you want consulting provider notified?: Yes 03/21/23 02:15 Consult Physician Urgent Consulting Provider: Kendall Davis Consult Reason/Comments: Altered mental status Do you want consulting provider notified?: Yes Primary care physician: Bro Cuevas [facility] Hospital Course: Discharge Diagnosis: Acute kidney injury on chronic kidney disease Anemia suspect due to chronic kidney disease Toxic metabolic encephalopathy; resolved Severe COPD exacerbation; stable Hypertension; controlled Alcohol use; no signs of alcohol withdrawal Diarrhea; resolved. C. diff negative Hyperphosphatemia; resolving Hypermagnesemia; resolved Hyperkalemia; resolved Metabolic acidosis; resolved Pneumothorax ruled out Hospital Course: Patient is a 77-year-old male with PMH of alcohol abuse, history of CVA, bilateral carotid stenosis, AAA repair, hypertension, COPD that presents the ED for abnormal lab work that was done with his PCP. Patient reports diarrhea consistent of liquid bowel movements at least twice a day for the past 6 months. States that he has not been eating much but drinks plenty of fluids. He also reports some lightheadedness especially with changing position which resulted in 2 falls recently. In the ED, vital signs are stable, bradycardic with heart rate in the high 50s. CBC showed hemoglobin of 11.6. Coagulation panel within normal limits. CMP showed potassium of 5.3, chloride of 118, bicarb of 9, BUN of 120, creatinine of 12.64, calcium of 8.3, phosphorus of 9.1, magnesium of 2.4, AST of 14. Lipase 566. Renal ultrasound consistent with medical renal disease, left renal calculus, no obstructive uropathy. Renal artery duplex showed no evidence of renal artery stenosis, infrarenal aneurysm with possible stent graft placement, distal AAA 7 x 7.2 cm. Patient is admitted for workup of acute renal failure. Patient was started on hemodialysis. He had a temporary dialysis catheter placed. Patient being followed by nephrology. Unfortunately patient's kidneysdid not recover. Nephrology recommended that patient needs to continue with outpatient dialysis. Vascular surgery service patient dialysis catheter to a permacath. Patient was set up for a Monday schedule. He was cleared for discharge by nephrology. At the time of discharge patient was feeling well. He is looking forward to going home. I discussed with family at bedside at the time of discharge. During hospitalization patient blood pressure was not controlled so he was started on hydralazine 100 mg by mouth 3 times a day. Lisinopril was discontinued due to renal failure. Patient was also treated for COPD exacerbation with breathing treatments and steroids. At the time of discharge patient was satting well on his home O2 of 2 L. He completed his 5 day of steroids while in the hospital. Patient did have decreased by mouth intake. He did show signs of failure to thrive. I did encourage the patient to eat more. I also explained to the family about the importance that they need to try to encourage him to eat more. Patient seen and examined at bedside.[] Vital signs reviewed and stable. General: [non toxic], [no distress], [appears at stated age] appears chronically debilitated Derm: [warm], [dry] Head: [atraumatic], [normocephalic], [symmetric] Eyes: [EOMI], [no lid lag], [anicteric sclera] Mouth: [no lip lesion], [mucus membranes moist] Cardiovascular: [S1S2 reg], [no murmur], [positive posterior tibial pulse bilateral], Lungs: [CTA bilateral], [no rhonchi, no rales] , [no accessory muscle use] permacath in the right upper chest Abdominal: [soft], [ nontender to palpation], [no guarding], [no appreciable organomegaly] Ext: [no gross muscle atrophy], [no edema], [no contractures] Neuro: [ CN II-XI grossly intact], [no focal neuro deficits] Psych: [Alert], [oriented], [appropriate affect] A total of [33] minutes of time were spent preparing this complex discharge summary . Patient Condition at Discharge: Poor Plan - Discharge Summary New Discharge Prescriptions: New hydrALAZINE HCL [Apresoline] 100 mg PO TID 30 Days #90 tab Continue Fluticasone/Umeclidin/Vilanter [Trelegy Ellipta 200-62.5-25] 1 puff INHALATION RT-DAILY PRN PRN Reason: Shortness Of Breath Aspirin 81 mg PO DAILY #30 tab Atorvastatin [Lipitor] 80 mg PO HS #30 tab Clopidogrel [Plavix] 1 tab PO DAILY #30 tab atenoloL [Tenormin] 50 mg PO DAILY #30 tab Albuterol Inhaler [Ventolin Hfa Inhaler] 2 puff INHALATION RT-Q6H PRN PRN Reason: Shortness Of Breath Discontinued lisinopriL [Zestril] 10 mg PO DAILY #30 tab amLODIPine [Norvasc] 10 mg PO DAILY #30 tab Discharge Medication List Aspirin 81 mg PO DAILY #30 tab 01/04/23 [Rx] Atorvastatin [Lipitor] 80 mg PO HS #30 tab 01/04/23 [Rx] Clopidogrel [Plavix] 1 tab PO DAILY #30 tab 01/04/23 [Rx] atenoloL [Tenormin] 50 mg PO DAILY #30 tab 01/04/23 [Rx] Albuterol Inhaler [Ventolin Hfa Inhaler] 2 puff INHALATION RT-Q6H PRN 03/17/23 [History] Fluticasone/Umeclidin/Vilanter [Trelegy Ellipta 200-62.5-25] 1 puff INHALATION RT-DAILY PRN 03/17/23 [History] hydrALAZINE HCL [Apresoline] 100 mg PO TID 30 Days #90 tab 03/25/23 [Rx] Follow up Appointment(s)/Referral(s): Aby Thomas MD [STAFF PHYSICIAN] - 1 Week Bro Carrizales MD [Primary Care Provider] - 1-2 days Discharge Disposition: HOME SELF-CARE
--- NOTE | 2023-03-25 11:22 | P.PN ---
Subjective Progress Note Date: 03/22/23 Patient was seen for follow-up. Patient is laying comfortably in the bed. Multiple family members were present. Patient was getting hemodialysis. Family members all believe that he is back to baseline. He has been walking to the bathroom. He does not use any assistive device. Objective - Vital Signs Vital signs: Vital Signs Temp 98.2 F 03/25/23 08:01 Pulse 60 03/25/23 08:01 Resp 20 03/25/23 08:01 BP 136/56 03/25/23 08:01 Pulse Ox 94 L 03/25/23 08:01 FiO2 Intake & Output 03/24/23 03/25/23 03/25/23 18:59 06:59 18:59 Intake Total 65 540 Balance 65 540 Weight 93.6 kg Intake: IV 65 Oral 540 Other: Voiding Method Urinal Urinal Urinal # Voids 1 - Exam Patient is alert and awake fully oriented. Speech and language functions are normal. Muscle strength is normal. No ataxia. Sensations equal. - Labs CBC & Chem 7: 03/24/23 07:17 03/24/23 07:17 Assessment and Plan Assessment: * Altered mental status, likely due to toxic metabolic encephalopathy. Reasons multifactorial as mentioned below. Encephalopathy now resolved. * Acute uremia, started on hemodialysis. Osmolar shift from hemodialysis may have also contributed to altered mental status. * Coronary artery disease * Hypertension * Hyperlipidemia * Carotid artery stenosis bilaterally, 50-70% * History of abdominal aortic aneurysm repair with stenting and grafting in December 2022. Plan: * Patient's metabolic encephalopathy has now resolved. * Patient's mentation has much improved as per indication from patient's family and the nursing report. * Continue aspirin, Plavix and Lipitor 80 mg. * Patient does have history of bilateral ICA stenosis, moderate degree 50-70% stenosis. Recommend repeating it in 6 months (June 2023), and if stable, may repeat yearly. * No other neurological workup indicated at this time. Discussed with patient's daughter and nursing staff in detail. * Neurology will follow sporadically. Discussed with family members.
--- NOTE | 2023-03-25 11:26 | P.PN ---
Subjective Progress Note Date: 03/24/23 Patient was seen for follow-up. Patient is laying comfortably in the bed. Patient's grandson was also present today. Patient states that he is feeling much better. He walked good, does not use any assistive device. Denies any headache, no dizziness. He states that he had bowel movement and feels very refreshed. Objective - Vital Signs Vital signs: Vital Signs Temp 98.1 F 03/24/23 15:53 Pulse 56 L 03/24/23 15:59 Resp 18 03/24/23 15:53 BP 125/56 03/24/23 15:53 Pulse Ox 93 L 03/24/23 15:53 FiO2 Intake & Output 03/23/23 03/24/23 03/24/23 18:59 06:59 18:59 Intake Total 65 Balance 65 Weight 93.6 kg 93.6 kg Intake: IV 65 Other: Voiding Method Urinal Urinal Urinal - Exam Patient is alert and awake fully oriented. He knows it is 03/24/2023 and that he is in [facility] in [place]. Cranial nerves are normal, visual calhoun are full, face is symmetric. Tongue protrudes the midline. Speech and language functions are normal. Muscle strength is normal and legs distally and proximally. No ataxia. Sensations equal. - Labs CBC & Chem 7: 03/24/23 07:17 03/24/23 07:17 Labs: Abnormal Lab Results - Last 24 Hours (Table) 03/23/23 03/24/23 03/24/23 Range/Units 20:17 07:17 07:17 RBC 2.72 L (4.30-5.90) m/uL Hgb 8.7 L (13.0-17.5) gm/dL Hct 26.7 L (39.0-53.0) % Lymphocytes # 0.9 L (1.0-4.8) k/uL Sodium 133 L (137-145) mmol/L BUN 43 H (9-20) mg/dL Creatinine 5.50 H (0.66-1.25) mg/dL Glucose 100 H (74-99) mg/dL POC Glucose (mg/dL) 153 H (70-110) mg/dL Calcium 7.4 L (8.4-10.2) mg/dL Assessment and Plan Assessment: * Altered mental status, likely due to toxic metabolic encephalopathy. Reasons multifactorial as mentioned below. Encephalopathy now resolved. * Acute uremia, started on hemodialysis. Osmolar shift from hemodialysis may have also contributed to altered mental status. * Coronary artery disease * Hypertension * Hyperlipidemia * Carotid artery stenosis bilaterally, 50-70% * History of abdominal aortic aneurysm repair with stenting and grafting in December 2022. Plan: * Patient's metabolic encephalopathy has now resolved. * Patient's mentation has much improved as per indication from patient's family and the nursing report. * Continue aspirin, Plavix and Lipitor 80 mg. * Patient does have history of bilateral ICA stenosis, moderate degree 50-70% stenosis. Recommend repeating it in 6 months (June 2023), and if stable, may repeat yearly. * B12 434, folate 10.9, TSH 1.06. * No other neurological workup indicated at this time. Discussed with patient's grandson in detail. * Neurologically clear for discharge.
[2023-03-25 11:42] VITALS: RESP 18
[2023-03-25 13:17] VITALS: BP 137/56; PULSE 61; TEMP 97.9
--- NOTE | 2023-03-27 21:42 | CDI ---
Documentation Clarification Form Date: 03/27/2023 09:19:27 PM From: Rosa Garcias Phone: Admit Date: 03/17/2023 02:53:00 PM Patient Name: Brian Farnsworth Visit Number: [id number] Discharge Date: 03/25/2023 01:57:00 PM ATTENTION: The Clinical Documentation Specialists (CDI) and [facility] Coding Staff appreciate your assistance in clarifying documentation. Please respond to the clarification below the line at the bottom and electronically sign. The CDI & [facility] Coding staff will review the response and follow-up if needed. Please note: Queries are made part of the Legal Health Record. If you have any questions, please contact the author of this message via ITS. Dr. Tena Strong Unspecified CKD is documented per H&P and throughout the Progress Notes. Additional clarification regarding the stage of CKD is requested. History/Risk Factors: 77yo M, JOE on CKD, Toxic metabolic encephalopathy, emphysema, HTN, alcohol use, diarrhea, hyperphosphatemia, hypermagnesemia, hyperkalemia Clinical Indicators: GFR: 03/17 4 03/19 6 03/20 10 03/22 8 03/23 16 03/24 11 Non- GFR: 03/17 3 03/19 5 03/20 9 03/22 7 03/23 14 03/24 9 Creatinine: 03/17 12.64 03/18 11.43 03/19 8.58 03/20 5.75 03/22 6.72 03/23 3.96 03/24 5.50 Blood Urea Nitrogen: 03/17 120 03/18 116 03/19 83 03/20 47 03/21 36 03/22 47 03/23 32 03/24 43 Treatment: right common femoral vein temporarydialysis catheter placement with hemodialysis03/18 Placement of a 23 cm tunneled dialysis catheter 03/24 Consults: Due to severekidney failure, low urine output,electrolyte imbalanceand signs ofuremia, initiaterenal replacement therapy. Please clarify the stage of the CKD, if known: [ ] CKD Stage 5 (GFR <15) [ X ] ESRD [ ] Other, please specify [ ] Unable to determine (Template Last revised: November 2020) MTDD
[2023-04-03 11:32] LABS: Albumin 3.8 d/dL (3.8-4.9); Gamma Globulin 0.71 d/dL (0.70-1.50)
== END 2023-03-25 13:57 | disposition home or self-care (01) | DRG 673 ==
LOC: EC 11:32 → 5NMEDONC 14:53 → 3SCARD 19:55
PROVIDERS: ADMIT Student in an Organized Health Care Education/Training Program; ATTEND Student in an Organized Health Care Education/Training Program
PROC: 5A1D70Z Performance of Urinary Filtration, Intermittent, Less than 6 Hours Per Day (ICD-10-PCS; 2023-03-18)
PROC: 06HY33Z Insertion of Infusion Device into Lower Vein, Percutaneous Approach (ICD-10-PCS; 2023-03-18)
PROC: HZ2ZZZZ Detoxification Services for Substance Abuse Treatment (ICD-10-PCS; 2023-03-21)
PROC: 02HV33Z Insertion of Infusion Device into Superior Vena Cava, Percutaneous Approach (ICD-10-PCS; 2023-03-24)
PROC: 0JH63XZ Insertion of Tunneled Vascular Access Device into Chest Subcutaneous Tissue and Fascia, Percutaneous Approach (ICD-10-PCS; principal; 2023-03-24 10:00)
DX: N17.0 Acute kidney failure with tubular necrosis (principal); G92.8 Other toxic encephalopathy; J96.01 Acute respiratory failure with hypoxia; I12.0 Hypertensive chronic kidney disease with stage 5 chronic kidney disease or end stage renal disease; J43.2 Centrilobular emphysema; I71.43 Infrarenal abdominal aortic aneurysm, without rupture; N18.6 End stage renal disease; Z99.2 Dependence on renal dialysis; Z99.81 Dependence on supplemental oxygen; Z95.828 Presence of other vascular implants and grafts; D63.1 Anemia in chronic kidney disease; E83.39 Other disorders of phosphorus metabolism; E83.41 Hypermagnesemia; R62.7 Adult failure to thrive; I65.23 Occlusion and stenosis of bilateral carotid arteries; E78.5 Hyperlipidemia, unspecified; I25.10 Atherosclerotic heart disease of native coronary artery without angina pectoris; R00.1 Bradycardia, unspecified; I44.0 Atrioventricular block, first degree; N20.0 Calculus of kidney; E87.5 Hyperkalemia; F10.90 Alcohol use, unspecified, uncomplicated; R19.7 Diarrhea, unspecified; R53.81 Other malaise; R29.810 Facial weakness; Y90.0 Blood alcohol level of less than 20 mg/100 ml; Z20.822 Contact with and (suspected) exposure to COVID-19; Z87.891 Personal history of nicotine dependence; Z79.899 Other long term (current) drug therapy; Z79.02 Long term (current) use of antithrombotics/antiplatelets; Z79.82 Long term (current) use of aspirin; I25.2 Old myocardial infarction; Z87.19 Personal history of other diseases of the digestive system; Z95.5 Presence of coronary angioplasty implant and graft; Z86.73 Personal history of transient ischemic attack (TIA), and cerebral infarction without residual deficits; Z86.79 Personal history of other diseases of the circulatory system; Z68.28 Body mass index [BMI] 28.0-28.9, adult; Z91.81 History of falling
CPT/HCPCS: 36415; 36558; 36600; 51798; 70450; 71045; 71250; 76770; 76937; 77001; 80048; 80053; 80074; 81001; 82570; 82607; 82746; 82805; 83690; 83735; 83930; 83935; 84100; 84156; 84165; 84300; 84443; 85025; 85610; 85730; 86038; 86160; 86162; 86225; 86255; 86334; 86706; 87324; 87340; 90935; 93005; 93975; 94640; 94760; 96361; 96374; 96376; 99285

== ENCOUNTER 2023-03-27 03:23 | Observation (INO) | payer MEDICARE ==
[2023-03-27 03:51] VITALS: TEMP 98.3
--- NOTE | 2023-03-27 03:53 | ED ---
General Adult HPI - General Chief complaint: Recheck/Abnormal Lab/Rx Stated complaint: Dialysis Port Bleeding Time Seen by Provider: 03/27/23 03:30 Source: patient, family Mode of arrival: wheelchair Limitations: no limitations - History of Present Illness Initial comments: Dictation was produced using [employer] dictation software. please excuse any g rammatical, word or spelling errors. Chief Complaint: 77-year-old male presents emergency department for bleeding from percutaneous dialysis catheter History of Present Illness: Is a 77-year-old male 3 days ago he had procedure to place a percutaneous dialysis catheter to the right chest. Patient just had his first round of dialysis using this catheter yesterday. Patient states that he was in his usual state of health is going to bed. He woke up in the middle the night noticed that there was large amounts of blood collected on his shirt. Patient complaining of shortness of breath. States that he is short of breath when the catheter was placed initially. States that its worse since waking up today. The ROS documented in this emergency department record has been reviewed and confirmed by me. Those systems with pertinent positive or negative responses have been documented in the HPI. All other systems are other negative and/or noncontributory. - Related Data Home Medications Medication Instructions Recorded Confirmed Albuterol Inhaler [Ventolin Hfa 2 puff INHALATION RT-Q6H PRN 03/17/23 03/17/23 Inhaler] Fluticasone/Umeclidin/Vilanter 1 puff INHALATION RT-DAILY PRN 03/17/23 03/17/23 [Trelegy Ellipta 200-62.5-25] Previous Rx's Medication Instructions Recorded Aspirin 81 mg PO DAILY #30 tab 01/04/23 Atorvastatin [Lipitor] 80 mg PO HS #30 tab 01/04/23 Clopidogrel [Plavix] 1 tab PO DAILY #30 tab 01/04/23 atenoloL [Tenormin] 50 mg PO DAILY #30 tab 01/04/23 hydrALAZINE HCL [Apresoline] 100 mg PO TID 30 Days #90 tab 03/25/23 Allergies Allergy/AdvReac Type Severity Reaction Status Date / Time No Known Allergies Allergy Verified 03/27/23 03:45 Review of Systems ROS Statement: Those systems with pertinent positive or pertinent negative responses have been documented in the HPI. ROS Other: All systems not noted in ROS Statement are negative. Past Medical History Past Medical History: Cancer, COPD, GI Bleed, Hyperlipidemia, Hypertension, Memory Impairment, Myocardial Infarction ([place]), Renal Disease Additional Past Medical History / Comment(s): past hx. GI bleeding, hx. 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 aortic aneurysm Last Myocardial Infarction Date:: pt unsure History of Any Multi-Drug Resistant Organisms: None Reported Past Surgical History: Heart Catheterization With Stent Additional Past Surgical History / Comment(s): tooth sx, colonoscopy, heart stent x3, melanoma removed left shoulder recently, dialysis catheter placement- right inguanal and right chest wall Past Anesthesia/Blood Transfusion Reactions: No Reported Reaction Date of Last Stent Placement:: 2008 Past Psychological History: No Psychological Hx Reported Smoking Status: Former smoker Past Alcohol Use History: None Reported Past Drug Use History: None Reported - Past Family History Father Family Medical History: Myocardial Infarction ([place]) Additional Family Medical History / Comment(s): from a [place] Mother Family Medical History: Myocardial Infarction ([place]) Additional Family Medical History / Comment(s): from a [place] Sister(s) Family Medical History: Cancer Brother(s) Family Medical History: Myocardial Infarction ([place]) General Exam - General Exam Comments Initial Comments: PHYSICAL EXAM: General Impression: Alert and oriented x3, not in acute distress HEENT: Normocephalic atraumatic, extra-ocular movements intact, pupils equal and reactive to light bilaterally, mucous membranes moist. Cardiovascular: Heart regular rate and rhythm Chest: Able to complete full sentences, no retractions, no tachypnea, percutaneous catheter in place. There is oozing coming from the skin entrance site, no hematoma along the catheter Abdomen: abdomen soft, non-tender, non-distended, no organomegaly Musculoskeletal: Pulses present and equal in all extremities, no peripheral edema Motor: no focal deficits noted Neurological: CN II-XII grossly intact, no focal motor or sensory deficits noted Skin: Intact with no visualized rashes Psych: Normal affect and mood Limitations: no limitations Course Vital Signs 03/27/23 03/27/23 03/27/23 03:45 03:51 06:00 Temperature 98.3 F Pulse Rate 70 58 L 54 L Respiratory 32 H 30 H 16 Rate Blood Pressure 174/75 168/72 144/61 O2 Sat by Pulse 92 L 92 L 94 L Oximetry - Reevaluation(s) Reevaluation #1: 03/27/23 04:00 Case is discussed with Dr. Vitale recommends that Surgicel be used to control bleeding Reevaluation #2: 03/27/23 06:15 Surgeries those applied and dressing was placed over it. Patient still had continued slow oozing. Case is rediscussed with Dr. Vitale who requests patient be admitted to medicine with consultation to her. Medical Decision Making - Medical Decision Making Was pt. sent in by a medical professional or institution (, SHAE, CLAIMS ACCOUNT SPECIALIST, urgent care, hospital, or [facility]...) When possible be specific @ -No Did you speak to anyone other than the patient for history (EMS, parent, family, police, friend...)? What history was obtained from this source @ -No Did you review nursing and triage notes (agree or disagree)? Why? @ -I reviewed and agree with nursing and triage notes Were old charts reviewed (outside hosp., previous admission, EMS record, old EKG, old radiological studies, urgent care reports/EKG's, [facility] records)? Report findings @ -See above. Surgical documentation reviewed and 3 days ago had tunnel HPI catheter placed by Dr. Vitale Differential Diagnosis (chest pain, altered mental status, abdominal pain women, abdominal pain men, vaginal bleeding, musculoskeletal, weakness, fever, dyspnea, syncope, headache, dizziness, GI bleed, back pain, seizure, CVA, palpatations, mental health)? @ -not applicable EKG interpreted by me (3pts min.). @ -None done X-rays interpreted by me (1pt min.). @ -No acute processes CT interpreted by me (1pt min.). @ -None done U/S interpreted by me (1pt. min.). @ -None done What testing was considered but not performed or refused? (CT, X-rays, U/S, labs)? Why? @ -None What meds were considered but not given or refused? Why? @ -None Did you discuss the management of the patient with other professionals (professionals i.e. , SHAE, CLAIMS ACCOUNT SPECIALIST, lab, RT, psych nurse, social director, doula, teacher, evp and chief operating officer, gearcase assembler)? Give summary @ -The above. Case also discussed with Dr. Branch for admission Was smoking cessation discussed for >3mins.? @ -No Was critical care preformed (if so, how long)? @ -No Were there social determinants of health that impacted care today? How? (Homelessness, low income, unemployed, alcoholism, drug addiction, transportation, low edu. Level, literacy, decrease access to med. care, half-way, rehab)? @ -No Was there de-escalation of care discussed even if they declined (Discuss DNR or withdrawal of care, Hospice)? DNR status @ -No What co-morbidities impacted this encounter? (DM, HTN, Smoking, COPD, CAD, Cancer, CVA, ARF, Chemo, Hep., AIDS, mental health diagnosis, sleep apnea, morbid obesity)? @ -None Was patient admitted / discharged? Hospital course, mention meds given and route, prescriptions, significant lab abnormalities, going to OR and other pertinent info. @ -77-year-old male presents to emergency department for surgical site bleeding. Patient is a ESRD patient. Patient given DDAVP. Vital signs stable. Case discussed with Dr. Vitale she recommended application of Surgicel. Patient reevaluated at the bedside still having some oozing. Case was rediscussed with Dr. Vitale requested patient be admitted to medicine with a surgeon on consult Undiagnosed new problem with uncertain prognosis? @ -No Drug Therapy requiring intensive monitoring for toxicity (Heparin, Nitro, Insulin, Cardizem)? @ -No Were any procedures done? @ -No Diagnosis/symptom? Acute, or Chronic, or Acute on Chronic? Uncomplicated (without systemic symptoms) or Complicated (systemic symptoms)? @ -Surgical site bleeding Side effects of treatment? @ -No Exacerbation, Progression, or Severe Exacerbation? @ -No Poses a threat to life or bodily function? How? (Chest pain, [place], [place], pneumonia, PE, COPD, DKA, ARF, appy, cholecystitis, CVA, Diverticulitis, Homicidal, Suicidal, threat to staff... and all critical care pts) @ -No - Lab Data Result diagrams: 03/27/23 05:00 03/27/23 05:00 Lab Results 03/27/23 03/27/23 03/27/23 Range/Units 05:00 05:00 05:00 WBC 11.7 H (3.8-10.6) k/uL RBC 3.02 L (4.30-5.90) m/uL Hgb 9.7 L (13.0-17.5) gm/dL Hct 29.6 L (39.0-53.0) % MCV 97.9 (80.0-100.0) fL MCH 32.1 (25.0-35.0) pg MCHC 32.8 (31.0-37.0) g/dL RDW 14.7 (11.5-15.5) % Plt Count 188 (150-450) k/uL MPV 7.9 Neutrophils % 77 % Lymphocytes % 11 % Monocytes % 8 % Eosinophils % 4 % Basophils % 0 % Neutrophils # 9.0 H (1.3-7.7) k/uL Lymphocytes # 1.2 (1.0-4.8) k/uL Monocytes # 0.9 (0-1.0) k/uL Eosinophils # 0.4 (0-0.7) k/uL Basophils # 0.0 (0-0.2) k/uL PT 10.8 (9.0-12.0) sec INR 1.0 (<1.2) APTT 20.0 L (22.0-30.0) sec Sodium 134 L (137-145) mmol/L Potassium 5.2 H (3.5-5.1) mmol/L Chloride 103 (98-107) mmol/L Carbon Dioxide 23 (22-30) mmol/L Anion Gap 8 mmol/L BUN 46 H (9-20) mg/dL Creatinine 4.81 H (0.66-1.25) mg/dL Est GFR (CKD-EPI)AfAm 13 (>60 ml/min/1.73 sqM) Est GFR (CKD-EPI)NonAf 11 (>60 ml/min/1.73 sqM) Glucose 79 (74-99) mg/dL Calcium 7.9 L (8.4-10.2) mg/dL Total Bilirubin 0.9 (0.2-1.3) mg/dL AST 28 (17-59) U/L ALT 10 (4-49) U/L Alkaline Phosphatase 34 L (38-126) U/L Total Protein 5.6 L (6.3-8.2) g/dL Albumin 3.2 L (3.5-5.0) g/dL Blood Type Blood Type Recheck Bld Type Recheck Status Antibody Screen Spec Expiration Date 03/27/23 Range/Units 05:00 WBC (3.8-10.6) k/uL RBC (4.30-5.90) m/uL Hgb (13.0-17.5) gm/dL Hct (39.0-53.0) % MCV (80.0-100.0) fL MCH (25.0-35.0) pg MCHC (31.0-37.0) g/dL RDW (11.5-15.5) % Plt Count (150-450) k/uL MPV Neutrophils % % Lymphocytes % % Monocytes % % Eosinophils % % Basophils % % Neutrophils # (1.3-7.7) k/uL Lymphocytes # (1.0-4.8) k/uL Monocytes # (0-1.0) k/uL Eosinophils # (0-0.7) k/uL Basophils # (0-0.2) k/uL PT (9.0-12.0) sec INR (<1.2) APTT (22.0-30.0) sec Sodium (137-145) mmol/L Potassium (3.5-5.1) mmol/L Chloride (98-107) mmol/L Carbon Dioxide (22-30) mmol/L Anion Gap mmol/L BUN (9-20) mg/dL Creatinine (0.66-1.25) mg/dL Est GFR (CKD-EPI)AfAm (>60 ml/min/1.73 sqM) Est GFR (CKD-EPI)NonAf (>60 ml/min/1.73 sqM) Glucose (74-99) mg/dL Calcium (8.4-10.2) mg/dL Total Bilirubin (0.2-1.3) mg/dL AST (17-59) U/L ALT (4-49) U/L Alkaline Phosphatase (38-126) U/L Total Protein (6.3-8.2) g/dL Albumin (3.5-5.0) g/dL Blood Type AB Positive Blood Type Recheck AB Pos Bld Type Recheck Status No Antibody Screen NEGATIVE Spec Expiration Date 03/30/2023 - 2299 Disposition Clinical Impression: Post-op bleeding Disposition: ADMITTED IP TO THIS [facility] Condition: Fair Referrals: Jordon Garnica MD [Primary Care Provider] - 1-2 days Decision Time: 06:28
[2023-03-27] MEDS: DESMOPRESSIN ACETATE 4 MCG/ML VIAL (MDV) IV SCH ×2 (05:07→06:08)
[2023-03-27 05:44] LABS: Basophils % (A) 0 %; Eosinophils # (A) 0.4 k/uL (0-0.7); Eosinophils % (A) 4 %; HCT 29.6 % (39.0-53.0); HGB 9.7 gm/dL (13.0-17.5); Lymphocytes # (A) 1.2 k/uL (1.0-4.8); Lymphocytes % (A) 11 %; MCH 32.1 pg (25.0-35.0); MCHC 32.8 g/dL (31.0-37.0); MCV 97.9 fL (80.0-100.0); Mean Platelet Volume 7.9; Monocytes # (A) 0.9 k/uL (0-1.0); Monocytes % (A) 8 %; Neutrophils % (A) 77 %; Platelet Count 188 k/uL (150-450); RBC 3.02 m/uL (4.30-5.90); RDW 14.7 % (11.5-15.5); WBC 11.7 k/uL (3.8-10.6)
[2023-03-27 05:53] LABS: ALT 10 U/L (4-49); AST 28 U/L (17-59); African American GFR (CKD) 13 (>60 ml/min/1.73 sqM); Albumin 3.2 g/dL (3.5-5.0); Alkaline Phosphatase 34 U/L (38-126); Anion Gap 8 mmol/L; Blood Urea Nitrogen 46 mg/dL (9-20); Calcium 7.9 mg/dL (8.4-10.2); Carbon Dioxide 23 mmol/L (22-30); Chloride 103 mmol/L (98-107); Glucose 79 mg/dL (74-99); Non-African American GFR(CKD) 11 (>60 ml/min/1.73 sqM); Potassium 5.2 mmol/L (3.5-5.1); Sodium 134 mmol/L (137-145); Total Bilirubin 0.9 mg/dL (0.2-1.3); Total Protein 5.6 g/dL (6.3-8.2)
[2023-03-27 05:54] LABS: Prothrombin Time 10.8 sec (9.0-12.0)
[2023-03-27] MEDS ORDERED: NALOXONE 0.4 MG/ML 1 ML VIAL IV PRN (06:24)
[2023-03-27] MEDS ORDERED: SODIUM CHLORIDE 0.9% 1,000 ML IV SCH (06:30)
--- NOTE | 2023-03-27 07:05 | XR ---
EXAMINATION TYPE: XR chest 1V DATE OF EXAM: 03/27/2023 6:08 AM COMPARISON: Chest radiographs from 03/24/2023 TECHNIQUE: XR chest 1V Frontal view of the chest. CLINICAL INDICATION:Male, 77 years old with history of dyspnea; FINDINGS: Lungs/Pleura: Blunting of the right costophrenic angle. Right lower lung atelectasis. There is no sabas dence of left pleural effusion, focal consolidation, or pneumothorax. Pulmonary vascularity: Unremarkable. Heart/mediastinum: Cardiomediastinal silhouette is unremarkable. Musculoskeletal: No acute osseous pathology. Other findings: None Lines/Tubes: Right internal jugular central venous catheter with distal tip at the cavoatrial junction. IMPRESSION: No acute cardiopulmonary disease/process. No significant change from prior.
[2023-03-27] MEDS ORDERED: SYMBICORT 160-4.5 MCG INHALER INHALATION PRN (07:43)
[2023-03-27] MEDS ORDERED: ONDANSETRON 4 MG/2 ML VIAL IVP PRN (07:44)
[2023-03-27] MEDS ORDERED: ACETAMINOPHEN TAB 325 MG TAB PO PRN (07:44)
[2023-03-27] MEDS ORDERED: MELATONIN 3 MG TABLET PO PRN (07:44)
[2023-03-27] MEDS ORDERED: IPRATROPIUM-ALBUTEROL 3 ML NEB INHALATION PRN (07:44)
[2023-03-27 08:19] VITALS: RESP 18
[2023-03-27] MEDS ORDERED: GELATIN SPONGE,ABSORB (SMALL) 1 EACH SPONGE TOPICAL STA (08:41)
[2023-03-27] MEDS ORDERED: THROMBIN (BOVINE) 5,000 UNIT VIAL TOPICAL ONE (08:45)
[2023-03-27] MEDS ORDERED: hydrALAZINE HCL 50 MG TAB PO SCH (09:00)
[2023-03-27] MEDS ORDERED: LIDOCAINE 1%-EPI 1:100,000 20 ML VIAL SQ ONE (09:45)
[2023-03-27] MEDS ORDERED: LIDOCAINE 2%-EPI 1:100,000 20 ML VIAL SQ ONE (09:45)
[2023-03-27] MEDS: IPRATROPIUM-ALBUTEROL 3 ML NEB INHALATION SCH ×2 (09:51→13:10)
--- NOTE | 2023-03-27 10:17 | P.GSCN ---
History of Present Illness Consult date: 03/27/23 Reason for Consult: Surgical site bleeding Requesting physician: Wallace Meza History of present illness: 77-year-old male who presented to the emergency department early this morning for concerns for bleeding from his dialysis catheter. He was recently hospitalized last week and discharged with acute on chronic kidney failure. He initially had a right femoral temporary dialysis catheter placed however nephrol emma had recommended continued outpatient dialysis. He had a right IJ tunneled catheter placed by Dr. Vitale on 03/24/2023. He had no issues initially with the dialysis catheter, no bleeding. Apparently he underwent dialysis on Monday and woke up last night and noticed he had been bleeding from the catheter site. Vascular surgery was consulted. Initially Surgicel was applied to the skin at the access site, DDAVP was also administered. Bleeding had improved, however he continued to have oozing from the site. Patient denies any pain at the tunneled cath site, denies fever, chills, chest pain, has some shortness of breath which he states is chronic. Hemoglobin 9.7. Chest x-ray reports no acute cardiopulmonary disease or process. No significant change from prior. Right internal jugular central venous catheter with distal tip at the caval atrial junction. Past Medical History Past Medical History: Cancer, COPD, GI Bleed, Hyperlipidemia, Hypertension, Memory Impairment, Myocardial Infarction ([place]), Renal Disease Additional Past Medical History / Comment(s): past hx. GI bleeding, hx. 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 aortic aneurysm Last Myocardial Infarction Date:: pt unsure History of Any Multi-Drug Resistant Organisms: None Reported Past Surgical History: Heart Catheterization With Stent Additional Past Surgical History / Comment(s): tooth sx, colonoscopy, heart stent x3, melanoma removed left shoulder recently, dialysis catheter placement- right inguanal and right chest wall Past Anesthesia/Blood Transfusion Reactions: No Reported Reaction Date of Last Stent Placement:: 2008 Past Psychological History: No Psychological Hx Reported Smoking Status: Former smoker Past Alcohol Use History: None Reported Past Drug Use History: None Reported - Past Family History Father Family Medical History: Myocardial Infarction ([place]) Additional Family Medical History / Comment(s): from a [place] Mother Family Medical History: Myocardial Infarction ([place]) Additional Family Medical History / Comment(s): from a [place] Sister(s) Family Medical History: Cancer Brother(s) Family Medical History: Myocardial Infarction ([place]) Medications and Allergies Home Medications Medication Instructions Recorded Confirmed Type Aspirin 81 mg PO DAILY #30 tab 01/04/23 03/27/23 Rx Atorvastatin [Lipitor] 80 mg PO HS #30 tab 01/04/23 03/27/23 Rx Clopidogrel [Plavix] 1 tab PO DAILY #30 tab 01/04/23 03/27/23 Rx atenoloL [Tenormin] 50 mg PO DAILY #30 tab 01/04/23 03/27/23 Rx Albuterol Inhaler [Ventolin Hfa 2 puff INHALATION RT-Q6H PRN 03/17/23 03/27/23 History Inhaler] Fluticasone/Umeclidin/Vilanter 1 puff INHALATION RT-DAILY PRN 03/17/23 03/27/23 History [Trelegy Ellipta 200-62.5-25] hydrALAZINE HCL [Apresoline] 100 mg PO TID 30 Days #90 tab 03/25/23 03/27/23 Rx Allergies Allergy/AdvReac Type Severity Reaction Status Date / Time No Known Allergies Allergy Verified 03/27/23 08:31 Surgical - Exam Vital Signs Temp Pulse Resp BP Pulse Ox 98.3 F 70 32 H 174/75 92 L 03/27/23 03:45 03/27/23 03:45 03/27/23 03:45 03/27/23 03:45 03/27/23 03:45 General appearance: The patient is alert, oriented, appears in no acute distress. HET: Head is normocephalic and atraumatic. Pupils are equal and reactive. Neck: Supple. Chest: Tunneled dialysis catheter in place right chest wall, Surgicel with dr nino in place. Dressing removed, catheter sutured in place, axis site at skin is still small amount of oozing. Heart: Regular. Lungs: Equal expansion, normal respiratory effort. Abdomen: Soft, nontender, nondistended. Extremities: Normal skin color and turgor. Neurological: No focal deficits. Results - Labs 03/27/23 05:00 03/27/23 10:47 Abnormal Lab Results - Last 24 Hours (Table) 03/27/23 03/27/23 03/27/23 Range/Units 05:00 05:00 05:00 WBC 11.7 H (3.8-10.6) k/uL RBC 3.02 L (4.30-5.90) m/uL Hgb 9.7 L (13.0-17.5) gm/dL Hct 29.6 L (39.0-53.0) % Neutrophils # 9.0 H (1.3-7.7) k/uL APTT 20.0 L (22.0-30.0) sec Sodium 134 L (137-145) mmol/L Potassium 5.2 H (3.5-5.1) mmol/L BUN 46 H (9-20) mg/dL Creatinine 4.81 H (0.66-1.25) mg/dL Calcium 7.9 L (8.4-10.2) mg/dL Alkaline Phosphatase 34 L (38-126) U/L Total Protein 5.6 L (6.3-8.2) g/dL Albumin 3.2 L (3.5-5.0) g/dL Diabetes panel 03/27/23 Range/Units 05:00 Sodium 134 L (137-145) mmol/L Potassium 5.2 H (3.5-5.1) mmol/L Chloride 103 (98-107) mmol/L Carbon Dioxide 23 (22-30) mmol/L BUN 46 H (9-20) mg/dL Creatinine 4.81 H (0.66-1.25) mg/dL Glucose 79 (74-99) mg/dL Calcium 7.9 L (8.4-10.2) mg/dL AST 28 (17-59) U/L ALT 10 (4-49) U/L Alkaline Phosphatase 34 L (38-126) U/L Total Protein 5.6 L (6.3-8.2) g/dL Albumin 3.2 L (3.5-5.0) g/dL Calcium panel 03/27/23 Range/Units 05:00 Calcium 7.9 L (8.4-10.2) mg/dL Albumin 3.2 L (3.5-5.0) g/dL Pituitary panel 03/27/23 Range/Units 05:00 Sodium 134 L (137-145) mmol/L Potassium 5.2 H (3.5-5.1) mmol/L Chloride 103 (98-107) mmol/L Carbon Dioxide 23 (22-30) mmol/L BUN 46 H (9-20) mg/dL Creatinine 4.81 H (0.66-1.25) mg/dL Glucose 79 (74-99) mg/dL Calcium 7.9 L (8.4-10.2) mg/dL Adrenal panel 03/27/23 Range/Units 05:00 Sodium 134 L (137-145) mmol/L Potassium 5.2 H (3.5-5.1) mmol/L Chloride 103 (98-107) mmol/L Carbon Dioxide 23 (22-30) mmol/L BUN 46 H (9-20) mg/dL Creatinine 4.81 H (0.66-1.25) mg/dL Glucose 79 (74-99) mg/dL Calcium 7.9 L (8.4-10.2) mg/dL Total Bilirubin 0.9 (0.2-1.3) mg/dL AST 28 (17-59) U/L ALT 10 (4-49) U/L Alkaline Phosphatase 34 L (38-126) U/L Total Protein 5.6 L (6.3-8.2) g/dL Albumin 3.2 L (3.5-5.0) g/dL Assessment and Plan Assessment: 1. Surgical site bleeding at right IJ tunneled catheter site 2. Chronic renal disease with recent need for hemodialysis status post tunneled dialysis catheter placement 03/24/2023 Plan: Patient was further discussed with Dr. Khalil and Dr. Vitale, patient still had minimal oozing around the access site of right chest wall, no hematoma noted. Appears if suture could be placed bleeding would be controlled. Dr. Guillaume was agreeable to place suture. notified that patient is cleared for discharge after suture placed. He can follow up with Dr. Hilliard. Thank you for this consultation. The impression and plan of care has been dictated as directed. Dr. Vitale I performed a history and examination of this patient, discussed the same with the dictator. I agree with the dictator's note ,documented as a scribe. Any additional findings or plans will be noted.
--- NOTE | 2023-03-27 10:39 | ED ---
Medical Decision Making - Medical Decision Making 77-year-old male with bleeding from his permacath puncture site. - Lab Data Result diagrams: 03/27/23 05:00 03/27/23 05:00 Lab Results 03/27/23 03/27/23 03/27/23 Range/Units 05:00 05:00 05:00 WBC 11.7 H (3.8-10.6) k/uL RBC 3.02 L (4.30-5.90) m/uL Hgb 9.7 L (13.0-17.5) gm/dL Hct 29.6 L (39.0-53.0) % MCV 97.9 (80.0-100.0) fL MCH 32.1 (25.0-35.0) pg MCHC 32.8 (31.0-37.0) g/dL RDW 14.7 (11.5-15.5) % Plt Count 188 (150-450) k/uL MPV 7.9 Neutrophils % 77 % Lymphocytes % 11 % Monocytes % 8 % Eosinophils % 4 % Basophils % 0 % Neutrophils # 9.0 H (1.3-7.7) k/uL Lymphocytes # 1.2 (1.0-4.8) k/uL Monocytes # 0.9 (0-1.0) k/uL Eosinophils # 0.4 (0-0.7) k/uL Basophils # 0.0 (0-0.2) k/uL PT 10.8 (9.0-12.0) sec INR 1.0 (<1.2) APTT 20.0 L (22.0-30.0) sec Sodium 134 L (137-145) mmol/L Potassium 5.2 H (3.5-5.1) mmol/L Chloride 103 (98-107) mmol/L Carbon Dioxide 23 (22-30) mmol/L Anion Gap 8 mmol/L BUN 46 H (9-20) mg/dL Creatinine 4.81 H (0.66-1.25) mg/dL Est GFR (CKD-EPI)AfAm 13 (>60 ml/min/1.73 sqM) Est GFR (CKD-EPI)NonAf 11 (>60 ml/min/1.73 sqM) Glucose 79 (74-99) mg/dL Calcium 7.9 L (8.4-10.2) mg/dL Total Bilirubin 0.9 (0.2-1.3) mg/dL AST 28 (17-59) U/L ALT 10 (4-49) U/L Alkaline Phosphatase 34 L (38-126) U/L Total Protein 5.6 L (6.3-8.2) g/dL Albumin 3.2 L (3.5-5.0) g/dL Blood Type Blood Type Recheck Bld Type Recheck Status Antibody Screen Spec Expiration Date 03/27/23 Range/Units 05:00 WBC (3.8-10.6) k/uL RBC (4.30-5.90) m/uL Hgb (13.0-17.5) gm/dL Hct (39.0-53.0) % MCV (80.0-100.0) fL MCH (25.0-35.0) pg MCHC (31.0-37.0) g/dL RDW (11.5-15.5) % Plt Count (150-450) k/uL MPV Neutrophils % % Lymphocytes % % Monocytes % % Eosinophils % % Basophils % % Neutrophils # (1.3-7.7) k/uL Lymphocytes # (1.0-4.8) k/uL Monocytes # (0-1.0) k/uL Eosinophils # (0-0.7) k/uL Basophils # (0-0.2) k/uL PT (9.0-12.0) sec INR (<1.2) APTT (22.0-30.0) sec Sodium (137-145) mmol/L Potassium (3.5-5.1) mmol/L Chloride (98-107) mmol/L Carbon Dioxide (22-30) mmol/L Anion Gap mmol/L BUN (9-20) mg/dL Creatinine (0.66-1.25) mg/dL Est GFR (CKD-EPI)AfAm (>60 ml/min/1.73 sqM) Est GFR (CKD-EPI)NonAf (>60 ml/min/1.73 sqM) Glucose (74-99) mg/dL Calcium (8.4-10.2) mg/dL Total Bilirubin (0.2-1.3) mg/dL AST (17-59) U/L ALT (4-49) U/L Alkaline Phosphatase (38-126) U/L Total Protein (6.3-8.2) g/dL Albumin (3.5-5.0) g/dL Blood Type AB Positive Blood Type Recheck AB Pos Bld Type Recheck Status No Antibody Screen NEGATIVE Spec Expiration Date 03/30/2023 - 2299 Disposition Clinical Impression: Post-op bleeding Disposition: ADMITTED IP TO THIS [facility] Condition: Fair Procedures - Laceration Laceration #1 Consent Obtained: verbal consent Indication: other (Permacath puncture site bleeding) Site: chest Description: linear Anesthetic Used: lidocaine 2%, with epi Anesthesia Technique: local infiltration Amount (mls): 2 Type of Sutures: nylon Size of Sutures: 4-0 Number of Sutures: 1 Technique: simple, interrupted Patient Tolerated Procedure: well Additional Comments: With 4-0 nylon suture was placed around the permacath at the insertion site. Care was taken to not puncture the permacath and hemostasis was achieved.
--- NOTE | 2023-03-27 11:55 | P.HPIM ---
History of Present Illness H&P Date: 03/27/23 This note will serve as the H&P along with discharge summary. Patient is a 77-year-old male with PMH of alcohol abuse, history of CVA, bilateral carotid stenosis, AAA repair, hypertension, COPD that presents the ED for bleeding at the right IJ site which was done on 03/24 for hemodialysis access. Patient reports waking up in the middle the night noticing that there was large amounts of blood collected on his shirt. In the ED, vital signs were stable, bradycardic with heart rate in the 50s, initially tachypneac with RR of 32 which resolved. CBC showed hemoglobin of 9.7 and WBC count of 11.7. Coagulation panel showed APTT of 20. CMP showed Na 134, potassium of 5.2, BUN of 46, creatinine of 4.81, calcium of 7.9, alk phos of 34, albumin of 3.2. CXR negative for acute changes. EKG shows sinus rhythm with ventricular rate of 62. Patient is admitted for vascular surgery evaluation. Vascular surgery recommended placing a suture which was done by the ED physician and cleared the patient for discharge. There was no bleeding at the time of discharge. Potassium was repeated and was 4.5. Pertient studies as above. General: non toxic, no distress, appears at stated age Derm: warm, dry Head: atraumatic, normocephalic, symmetric Eyes: EOMI, no lid lag, anicteric sclera Mouth: no lip lesion, mucus membranes moist Cardiovascular: S1S2 reg, bradycardic, no murmur, right skin entrance site no erythema or bleeding, no hematoma along the catheter Lungs: Decreased BS bilateral, no rhonchi, no rales , no accessory muscle use Ext: no gross muscle atrophy, no edema, no contractures, right groin with serosanguineous discharge non purulent no erythema non TTP Neuro: no focal neuro deficits Psych: Alert, oriented, appropriate affect Discharge Diagnosis: Bleeding at the right internal jugular vein catheter Chronic kidney disease Hyperkalemia Leukocytosis Chronic conditions: alcohol abuse, history of CVA, bilateral carotid stenosis, AAA repair, hypertension, COPD This complex discharge took 35 minutes to complete. Past Medical History Past Medical History: Cancer, COPD, GI Bleed, Hyperlipidemia, Hypertension, Memory Impairment, Myocardial Infarction ([place]), Renal Disease Additional Past Medical History / Comment(s): past hx. GI bleeding, hx. 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 aortic aneurysm Last Myocardial Infarction Date:: pt unsure History of Any Multi-Drug Resistant Organisms: None Reported Past Surgical History: Heart Catheterization With Stent Additional Past Surgical History / Comment(s): tooth sx, colonoscopy, heart stent x3, melanoma removed left shoulder recently, dialysis catheter placement- right inguanal and right chest wall Past Anesthesia/Blood Transfusion Reactions: No Reported Reaction Date of Last Stent Placement:: 2008 Past Psychological History: No Psychological Hx Reported Smoking Status: Former smoker Past Alcohol Use History: None Reported Past Drug Use History: None Reported - Past Family History Father Family Medical History: Myocardial Infarction ([place]) Additional Family Medical History / Comment(s): from a [place] Mother Family Medical History: Myocardial Infarction ([place]) Additional Family Medical History / Comment(s): from a [place] Sister(s) Family Medical History: Cancer Brother(s) Family Medical History: Myocardial Infarction ([place]) Medications and Allergies Home Medications Medication Instructions Recorded Confirmed Type Aspirin 81 mg PO DAILY #30 tab 01/04/23 03/27/23 Rx Atorvastatin [Lipitor] 80 mg PO HS #30 tab 01/04/23 03/27/23 Rx Clopidogrel [Plavix] 1 tab PO DAILY #30 tab 01/04/23 03/27/23 Rx atenoloL [Tenormin] 50 mg PO DAILY #30 tab 01/04/23 03/27/23 Rx Albuterol Inhaler [Ventolin Hfa 2 puff INHALATION RT-Q6H PRN 03/17/23 03/27/23 History Inhaler] Fluticasone/Umeclidin/Vilanter 1 puff INHALATION RT-DAILY PRN 03/17/23 03/27/23 History [Trelegy Ellipta 200-62.5-25] hydrALAZINE HCL [Apresoline] 100 mg PO TID 30 Days #90 tab 03/25/23 03/27/23 Rx Allergies Allergy/AdvReac Type Severity Reaction Status Date / Time No Known Allergies Allergy Verified 03/27/23 08:31 Physical Exam Vitals: Vital Signs Temp Pulse Resp BP Pulse Ox 03/27/23 06:00 54 L 16 144/61 94 L 03/27/23 03:51 58 L 30 H 168/72 92 L 06/19/23 03:45 98.3 F 70 32 H 174/75 92 L Intake and Output 03/26/23 03/27/23 03/27/23 22:59 06:59 14:59 Other: Weight 90.718 kg Results CBC & Chem 7: 03/27/23 05:00 03/27/23 10:47 Labs: Abnormal Lab Results - Last 24 Hours (Table) 03/27/23 03/27/23 03/27/23 Range/Units 05:00 05:00 05:00 WBC 11.7 H (3.8-10.6) k/uL RBC 3.02 L (4.30-5.90) m/uL Hgb 9.7 L (13.0-17.5) gm/dL Hct 29.6 L (39.0-53.0) % Neutrophils # 9.0 H (1.3-7.7) k/uL APTT 20.0 L (22.0-30.0) sec Sodium 134 L (137-145) mmol/L Potassium 5.2 H (3.5-5.1) mmol/L BUN 46 H (9-20) mg/dL Creatinine 4.81 H (0.66-1.25) mg/dL Calcium 7.9 L (8.4-10.2) mg/dL Alkaline Phosphatase 34 L (38-126) U/L Total Protein 5.6 L (6.3-8.2) g/dL Albumin 3.2 L (3.5-5.0) g/dL
--- NOTE | 2023-03-27 12:47 | P.NPCON ---
History of Present Illness - Reason for Consult chronic renal failure - History of Present Illness Patient is a 77-year-old male with history of EtOH abuse hypertension and recent hemodialysis dependent acute kidney injury. Patient was discharged 2 days ago to follow-up as outpatient for hemodialysis on a Monday schedule, to start tomorrow. Patient came into the hospital as he noticed significant bleeding from his IJ permacath. Patient received DDAVP in the ER. Vascular surgery was contacted and initial plan was to admit the patient however since the bleeding has stopped patient will be discharged. Hemoglobin 9.7 g/dL. Patient continues to have some urine output. Serum creatinine was 4.8. No complaints of chest pains or shortness of breath. Review of Systems As per HPI Past Medical History Past Medical History: Cancer, COPD, GI Bleed, Hyperlipidemia, Hypertension, Memory Impairment, Myocardial Infarction ([place]), Renal Disease Additional Past Medical History / Comment(s): past hx. GI bleeding, hx. 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 aortic aneurysm Last Myocardial Infarction Date:: pt unsure History of Any Multi-Drug Resistant Organisms: None Reported Past Surgical History: Heart Catheterization With Stent Additional Past Surgical History / Comment(s): tooth sx, colonoscopy, heart stent x3, melanoma removed left shoulder recently, dialysis catheter placement- right inguanal and right chest wall Past Anesthesia/Blood Transfusion Reactions: No Reported Reaction Date of Last Stent Placement:: 2008 Past Psychological History: No Psychological Hx Reported Smoking Status: Former smoker Past Alcohol Use History: None Reported Past Drug Use History: None Reported - Past Family History Father Family Medical History: Myocardial Infarction ([place]) Additional Family Medical History / Comment(s): from a [place] Mother Family Medical History: Myocardial Infarction ([place]) Additional Family Medical History / Comment(s): from a [place] Sister(s) Family Medical History: Cancer Brother(s) Family Medical History: Myocardial Infarction ([place]) Medications and Allergies Home Medications Medication Instructions Recorded Confirmed Type Aspirin 81 mg PO DAILY #30 tab 01/04/23 03/27/23 Rx Atorvastatin [Lipitor] 80 mg PO HS #30 tab 01/04/23 03/27/23 Rx Clopidogrel [Plavix] 1 tab PO DAILY #30 tab 01/04/23 03/27/23 Rx atenoloL [Tenormin] 50 mg PO DAILY #30 tab 01/04/23 03/27/23 Rx Albuterol Inhaler [Ventolin Hfa 2 puff INHALATION RT-Q6H PRN 03/17/23 03/27/23 History Inhaler] Fluticasone/Umeclidin/Vilanter 1 puff INHALATION RT-DAILY PRN 03/17/23 03/27/23 History [Trelegy Ellipta 200-62.5-25] hydrALAZINE HCL [Apresoline] 100 mg PO TID 30 Days #90 tab 03/25/23 03/27/23 Rx Allergies Allergy/AdvReac Type Severity Reaction Status Date / Time No Known Allergies Allergy Verified 03/27/23 08:31 Physical Exam Vitals: Vital Signs Temp Pulse Resp BP Pulse Ox 03/27/23 10:31 66 18 141/76 93 L 03/27/23 08:14 61 18 139/65 93 L 03/27/23 06:00 54 L 16 144/61 94 L 03/27/23 03:51 58 L 30 H 168/72 92 L 03/27/23 03:45 98.3 F 70 32 H 174/75 92 L Intake and Output 03/26/23 03/27/23 03/27/23 22:59 06:59 14:59 Other: Weight 90.718 kg Awake, comfortable, alert oriented 3 not in any acute distress Examination of the heart S1 and S2 Examination of the lungs bilateral breath sounds are heard Abdomen is soft nontender Examination of lower extremities shows trace edema bilaterally Right IJ permacath with no active bleeding noted Results - Lab Results Most recent lab results Calcium 7.9 mg/dL (8.4-10.2) L 03/27/23 05:00 03/27/23 05:00 03/27/23 10:47 Assessment and Plan Assessment: 1. Hemodialysis dependent acute kidney injury secondary to ATN. No evidence of obstruction on ultrasound continue with hemodialysis on a Monday schedule. If patient is discharged he will be dialyzed tomorrow as outpatient 2. Bleeding from IJ permacath currently stopped. Patient received DDAVP 3. Abdominal aortic aneurysm status post repair with graft in December 2022 4. Anemia of chronic disease Plan: If patient is not discharge she will be dialyzed here tomorrow otherwise he will follow-up as outpatient for his treatment tomorrow.
[2023-03-27 12:58] VITALS: BP 139/79; PULSE 78
[2023-03-27] MEDS ORDERED: ATORVASTATIN 80 MG TAB PO SCH (21:00)
== END 2023-03-27 13:00 | disposition home or self-care (01) ==
LOC: EC 03:23 → 3SCARD 06:25
PROVIDERS: ADMIT Internal Medicine; ATTEND Internal Medicine
DX: T82.838A Hemorrhage due to vascular prosthetic devices, implants and grafts, initial encounter (principal); N17.0 Acute kidney failure with tubular necrosis; I12.9 Hypertensive chronic kidney disease with stage 1 through stage 4 chronic kidney disease, or unspecified chronic kidney disease; N18.9 Chronic kidney disease, unspecified; D63.1 Anemia in chronic kidney disease; J44.9 Chronic obstructive pulmonary disease, unspecified; E78.5 Hyperlipidemia, unspecified; E87.5 Hyperkalemia; I65.23 Occlusion and stenosis of bilateral carotid arteries; F10.10 Alcohol abuse, uncomplicated; I25.2 Old myocardial infarction; Z85.820 Personal history of malignant melanoma of skin; Z86.73 Personal history of transient ischemic attack (TIA), and cerebral infarction without residual deficits; Z86.79 Personal history of other diseases of the circulatory system; Z87.891 Personal history of nicotine dependence; Z95.5 Presence of coronary angioplasty implant and graft; Z99.2 Dependence on renal dialysis; Z79.899 Other long term (current) drug therapy; Z79.82 Long term (current) use of aspirin; Z79.02 Long term (current) use of antithrombotics/antiplatelets; Y82.8 Other medical devices associated with adverse incidents; Y83.8 Other surgical procedures as the cause of abnormal reaction of the patient, or of later complication, without mention of misadventure at the time of the procedure
CPT/HCPCS: 96361; 96372; 96374; 99285; 36415; 93005; 86900; 86901; 80053; 84132; 85025; 85610; 85730; 86850; 71045; G0378; J2597

== ENCOUNTER 2023-08-15 13:21 | Emergency (ER) | payer MEDICARE ==
[2023-08-15] MEDS ORDERED: PANTOPRAZOLE 40 MG/10 ML VIAL IVP STA (13:30)
--- NOTE | 2023-08-15 13:54 | ED ---
General Adult HPI - General Chief complaint: Recheck/Abnormal Lab/Rx Stated complaint: low hemoglobin Time Seen by Provider: 08/15/23 13:23 Source: patient, RN notes reviewed, old records reviewed Mode of arrival: ambulatory Limitations: no limitations - History of Present Illness Initial comments: 78-year-old male presenting with low hemoglobin. Patient has end-stage renal disease he was undergoing hemodialysis and had a low blood pressure. His hem oglobin was checked at dialysis and it was reported as 5.5. I review the medical record it does appear that this patient is on aspirin and Plavix. He does report some fatigue and mild dyspnea. He did receive 2 hours of ultrafiltration at dialysis. He was sent in for evaluation of anemia and susp ected GI bleed. - Related Data Home Medications Medication Instructions Recorded Confirmed Albuterol Inhaler [Ventolin Hfa 2 puff INHALATION RT-Q6H PRN 03/17/23 03/27/23 Inhaler] Fluticasone/Umeclidin/Vilanter 1 puff INHALATION RT-DAILY PRN 03/17/23 03/27/23 [Trelegy Ellipta 200-62.5-25] Previous Rx's Medication Instructions Recorded Aspirin 81 mg PO DAILY #30 tab 01/04/23 Atorvastatin [Lipitor] 80 mg PO HS #30 tab 01/04/23 Clopidogrel [Plavix] 1 tab PO DAILY #30 tab 01/04/23 atenoloL [Tenormin] 50 mg PO DAILY #30 tab 01/04/23 hydrALAZINE HCL [Apresoline] 100 mg PO TID 30 Days #90 tab 03/25/23 Allergies Allergy/AdvReac Type Severity Reaction Status Date / Time No Known Allergies Allergy Verified 08/15/23 13:41 Review of Systems ROS Statement: Those systems with pertinent positive or pertinent negative responses have been documented in the HPI. ROS Other: All systems not noted in ROS Statement are negative. Past Medical History Past Medical History: Cancer, COPD, GI Bleed, Hyperlipidemia, Hypertension, Memory Impairment, Myocardial Infarction ([place]), Renal Disease Additional Past Medical History / Comment(s): past hx. GI bleeding, hx. 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 aortic aneurysm Last Myocardial Infarction Date:: pt unsure History of Any Multi-Drug Resistant Organisms: None Reported Past Surgical History: Heart Catheterization With Stent Additional Past Surgical History / Comment(s): tooth sx, colonoscopy, heart stent x3, melanoma removed left shoulder recently, dialysis catheter placement- right inguanal and right chest wall Past Anesthesia/Blood Transfusion Reactions: No Reported Reaction Date of Last Stent Placement:: 2008 Past Psychological History: No Psychological Hx Reported Smoking Status: Former smoker Past Alcohol Use History: Daily Past Drug Use History: None Reported - Past Family History Father Family Medical History: Myocardial Infarction ([place]) Additional Family Medical History / Comment(s): from a [place] Mother Family Medical History: Myocardial Infarction ([place]) Additional Family Medical History / Comment(s): from a [place] Sister(s) Family Medical History: Cancer Brother(s) Family Medical History: Myocardial Infarction ([place]) General Exam Limitations: no limitations General appearance: alert, in no apparent distress Head exam: Present: atraumatic, normocephalic Eye exam: Present: normal appearance, PERRL ENT exam: Present: normal exam Neck exam: Present: normal inspection. Absent: tenderness, meningismus Respiratory exam: Present: normal lung sounds bilaterally. Absent: respiratory distress, wheezes Cardiovascular Exam: Present: regular rate, normal rhythm GI/Abdominal exam: Present: soft. Absent: distended, tenderness, guarding Rectal exam: Present: normal rectal tone, black stool Extremities exam: Present: normal inspection, normal capillary refill Neurological exam: Present: alert. Absent: motor sensory deficit Psychiatric exam: Present: normal affect, normal mood Skin exam: Present: warm, intact, pallor Course Vital Signs 08/15/23 08/15/23 08/15/23 13:30 13:33 14:52 Temperature Pulse Rate 67 69 Respiratory 20 18 22 Rate Blood Pressure 121/71 102/39 O2 Sat by Pulse 100 94 L Oximetry 08/15/23 08/15/23 08/15/23 15:20 15:26 15:41 Temperature 98.1 F 98.5 F Pulse Rate 64 63 65 Respiratory 22 22 22 Rate Blood Pressure 98/62 92/42 114/47 O2 Sat by Pulse 95 96 100 Oximetry 08/15/23 08/15/23 16:01 16:25 Temperature 98.5 F 98.4 F Pulse Rate 61 59 L Respiratory 22 22 Rate Blood Pressure 109/40 105/50 O2 Sat by Pulse 97 99 Oximetry Medical Decision Making - Medical Decision Making Was pt. sent in by a medical professional or institution ([facility], HUMIDIFIER MAINTENANCE WORKER, urgent care, hospital, or alf...) When possible be specific @ -No Did you speak to anyone other than the patient for history (EMS, parent, family, police, friend...)? What history was obtained from this source @ -No Did you review nursing and triage notes (agree or disagree)? Why? @ -I reviewed and agree with nursing and triage notes Were old charts reviewed (outside hosp., previous admission, EMS record, old EKG, old radiological studies, urgent care reports/EKG's, alf records)? Report findings @ -No old charts were reviewed Differential Diagnosis (chest pain, altered mental status, abdominal pain women, abdominal pain men, vaginal bleeding, weakness, fever, dyspnea, syncope, headache, dizziness, GI bleed, back pain, seizure, CVA, palpatations, mental health, musculoskeletal)? @ -Differential GI Bleed: Esophageal varices, aortoenteric fistula, Cathleen-Lamb, gastritis, peptic ulcer disease, diverticulosis, inflammatory bowel disease, hemorrhoids, fissure, colitis, malignancy, Meckels diverticulum, this is not meant to be an all- inclusive list. EKG interpreted by me (3pts min.). @ -Sinus rhythm rate of 65, W[place] interval 201, QRS duration 100, QTC 417, no ST segment elevation. X-rays interpreted by me (1pt min.). @ -None done CT interpreted by me (1pt min.). @ -None done U/S interpreted by me (1pt. min.). @ -None done What testing was considered but not performed or refused? (CT, X-rays, U/S, labs)? Why? @ -None What meds were considered but not given or refused? Why? @ -None Did you discuss the management of the patient with other professionals (professionals i.e. [facility], HUMIDIFIER MAINTENANCE WORKER, lab, RT, psych nurse, social services analyst, electromechanical equipment assembler, teacher, chief administrative officer, shelter case manager)? Give summary @ Gastroenterology at [facility] as well as ER physician Dr. Styles who will accept transfer. Was smoking cessation discussed for >3mins.? @ -No Was critical care preformed (if so, how long)? @ Yes, 35 minutes Were there social determinants of health that impacted care today? How? (Homelessness, low income, unemployed, alcoholism, drug addiction, transportation, low edu. Level, literacy, decrease access to med. care, senior care, rehab)? @ -No Was there de-escalation of care discussed even if they declined (Discuss DNR or withdrawal of care, Hospice)? DNR status @ -No What co-morbidities impacted this encounter? (DM, HTN, Smoking, COPD, CAD, Cancer, CVA, ARF, Chemo, Hep., AIDS, mental health diagnosis, sleep apnea, morbid obesity)? @ -End stage renal disease, prior alcohol abuse Was patient admitted / discharged? Hospital course, mention meds given and route, prescriptions, significant lab abnormalities, going to OR and other pertinent info. @ -[78-year-old male presenting for evaluation of anemia, dark stool. Patient does have melanotic stool, this is heme positive. His hemoglobin emergency Department is 6.8. He has end-stage renal disease and received dialysis prior to arrival to the emergency department. Patient had prior alcohol use but has not had a drink at least one month. No previous diagnosis of esophageal varices. Patient's given Protonix and transfused one unit of packed RBCs. Patient's daughter is at bedside and informed of patient's current issue with suspected upper GI bleed. Agreeable with transfer. Undiagnosed new problem with uncertain prognosis? @ -No Drug Therapy requiring intensive monitoring for toxicity (Heparin, Nitro, Insulin, Cardizem)? @ -No Were any procedures done? @ -No Diagnosis/symptom? @ -[GI bleed, anemia Acute, or Chronic, or Acute on Chronic? @ -[Acute Uncomplicated (without systemic symptoms) or Complicated (systemic symptoms)? @ -[Complicated Side effects of treatment? @ -No Exacerbation, Progression, or Severe Exacerbation? @ -No Poses a threat to life or bodily function? How? (Chest pain, [place], [place], pneumonia, PE, COPD, DKA, ARF, appy, cholecystitis, CVA, Diverticulitis, Homicidal, Suicidal, threat to staff... and all critical care pts) @ -[Yes, GI bleed - Lab Data Result diagrams: 08/15/23 13:42 08/15/23 13:42 Lab Results 08/15/23 08/15/23 08/15/23 Range/Units 13:42 13:42 13:42 WBC 10.0 (3.8-10.6) k/uL RBC 2.05 L (4.30-5.90) m/uL Hgb 6.8 L* (13.0-17.5) gm/dL Hct 19.9 L* (39.0-53.0) % MCV 96.8 (80.0-100.0) fL MCH 32.9 (25.0-35.0) pg MCHC 34.0 (31.0-37.0) g/dL RDW 13.8 (11.5-15.5) % Plt Count 360 (150-450) k/uL MPV 7.7 Neutrophils % 81 % Lymphocytes % 14 % Monocytes % 3 % Eosinophils % 2 % Basophils % 0 % Neutrophils # 8.1 H (1.3-7.7) k/uL Lymphocytes # 1.4 (1.0-4.8) k/uL Monocytes # 0.3 (0-1.0) k/uL Eosinophils # 0.2 (0-0.7) k/uL Basophils # 0.0 (0-0.2) k/uL PT 10.2 (10.0-12.5) sec INR 0.9 (<1.2) APTT 27.9 (22.0-30.0) sec Sodium 135 L (137-145) mmol/L Potassium 3.9 (3.5-5.1) mmol/L Chloride 96 L (98-107) mmol/L Carbon Dioxide 27 (22-30) mmol/L Anion Gap 12 mmol/L BUN 34 H (9-20) mg/dL Creatinine 2.95 H (0.66-1.25) mg/dL Est GFR (CKD-EPI)AfAm 23 (>60 ml/min/1.73 sqM) Est GFR (CKD-EPI)NonAf 20 (>60 ml/min/1.73 sqM) Glucose 96 (74-99) mg/dL Calcium 8.9 (8.4-10.2) mg/dL Magnesium 1.9 (1.6-2.3) mg/dL Total Bilirubin 0.4 (0.2-1.3) mg/dL AST 19 (17-59) U/L ALT 11 (4-49) U/L Alkaline Phosphatase 58 (38-126) U/L Total Protein 6.6 (6.3-8.2) g/dL Albumin 4.0 (3.5-5.0) g/dL Stool Occult Blood (Negative) Blood Type Blood Type Recheck Bld Type Recheck Status Antibody Screen Crossmatch Spec Expiration Date 08/15/23 08/15/23 Range/Units 13:42 13:42 WBC (3.8-10.6) k/uL RBC (4.30-5.90) m/uL Hgb (13.0-17.5) gm/dL Hct (39.0-53.0) % MCV (80.0-100.0) fL MCH (25.0-35.0) pg MCHC (31.0-37.0) g/dL RDW (11.5-15.5) % Plt Count (150-450) k/uL MPV Neutrophils % % Lymphocytes % % Monocytes % % Eosinophils % % Basophils % % Neutrophils # (1.3-7.7) k/uL Lymphocytes # (1.0-4.8) k/uL Monocytes # (0-1.0) k/uL Eosinophils # (0-0.7) k/uL Basophils # (0-0.2) k/uL PT (10.0-12.5) sec INR (<1.2) APTT (22.0-30.0) sec Sodium (137-145) mmol/L Potassium (3.5-5.1) mmol/L Chloride (98-107) mmol/L Carbon Dioxide (22-30) mmol/L Anion Gap mmol/L BUN (9-20) mg/dL Creatinine (0.66-1.25) mg/dL Est GFR (CKD-EPI)AfAm (>60 ml/min/1.73 sqM) Est GFR (CKD-EPI)NonAf (>60 ml/min/1.73 sqM) Glucose (74-99) mg/dL Calcium (8.4-10.2) mg/dL Magnesium (1.6-2.3) mg/dL Total Bilirubin (0.2-1.3) mg/dL AST (17-59) U/L ALT (4-49) U/L Alkaline Phosphatase (38-126) U/L Total Protein (6.3-8.2) g/dL Albumin (3.5-5.0) g/dL Stool Occult Blood Positive (Negative) Blood Type AB Positive Blood Type Recheck AB Pos Bld Type Recheck Status No Antibody Screen NEGATIVE Crossmatch See Detail Spec Expiration Date 08/18/2023 - 2341 Critical Care Time Critical Care Time: Yes Total Critical Care Time: 35 Disposition Clinical Impression: Acute GI bleeding, Anemia due to blood loss, acute Disposition: OTHER INSTITUTION NOT DEFINED Condition: Serious Is patient prescribed a controlled substance at d/c from ED?: No Referrals: Jordon Garnica MD [REFERRING] - 1-2 days Time of Disposition: 14:49 - Out of Hospital Transfer - Req. Specs Out of Hospital Transfer - Requested Specifics: Other Emergency Center ([facility])
[2023-08-15 13:59] LABS: Basophils % (A) 0 %; Eosinophils # (A) 0.2 k/uL (0-0.7); Eosinophils % (A) 2 %; Lymphocytes # (A) 1.4 k/uL (1.0-4.8); Lymphocytes % (A) 14 %; MCH 32.9 pg (25.0-35.0); MCV 96.8 fL (80.0-100.0); Mean Platelet Volume 7.7; Monocytes # (A) 0.3 k/uL (0-1.0); Monocytes % (A) 3 %; Neutrophils # (A) 8.1 k/uL (1.3-7.7); Neutrophils % (A) 81 %; Platelet Count 360 k/uL (150-450); RBC 2.05 m/uL (4.30-5.90); RDW 13.8 % (11.5-15.5)
[2023-08-15 14:14] LABS: HCT 19.9 % (39.0-53.0); HGB 6.8 gm/dL (13.0-17.5)
[2023-08-15 14:27] LABS: ALT 11 U/L (4-49); AST 19 U/L (17-59); African American GFR (CKD) 23 (>60 ml/min/1.73 sqM); Alkaline Phosphatase 58 U/L (38-126); Anion Gap 12 mmol/L; Blood Urea Nitrogen 34 mg/dL (9-20); Calcium 8.9 mg/dL (8.4-10.2); Carbon Dioxide 27 mmol/L (22-30); Chloride 96 mmol/L (98-107); Glucose 96 mg/dL (74-99); Magnesium 1.9 mg/dL (1.6-2.3); Non-African American GFR(CKD) 20 (>60 ml/min/1.73 sqM); Potassium 3.9 mmol/L (3.5-5.1); Sodium 135 mmol/L (137-145); Total Bilirubin 0.4 mg/dL (0.2-1.3); Total Protein 6.6 g/dL (6.3-8.2)
[2023-08-15 14:41] LABS: INR 0.9 (<1.2); Partial Thromboplastin Time 27.9 sec (22.0-30.0); Prothrombin Time 10.2 sec (10.0-12.5)
[2023-08-15] MEDS ORDERED: ACETAMINOPHEN IV (For NPO) 1,000 MG in EMPTY BAG 1 BAG IVPB STA (14:53)
[2023-08-15 15:13] VITALS: RESP 22
[2023-08-15 16:45] VITALS: BP 105/50; PULSE 59; TEMP 98.4
== END 2023-08-15 16:25 | disposition other institution (70) ==
LOC: EC 13:21
DX: K92.2 Gastrointestinal hemorrhage, unspecified (principal); D64.9 Anemia, unspecified; E78.5 Hyperlipidemia, unspecified; I12.0 Hypertensive chronic kidney disease with stage 5 chronic kidney disease or end stage renal disease; I25.2 Old myocardial infarction; J44.9 Chronic obstructive pulmonary disease, unspecified; N18.6 End stage renal disease; Z99.2 Dependence on renal dialysis; Z87.891 Personal history of nicotine dependence; Z95.5 Presence of coronary angioplasty implant and graft; Z79.899 Other long term (current) drug therapy
CPT/HCPCS: 99285; 96365 ×2; 96375 ×2; 36415; 93005; 86900; 86901; 80053; 83735; 85025; 85610; 85730; 86850; 86920; 82272; 99291; 36430; P9016; J0131; C9113

== ENCOUNTER 2023-08-21 13:10 | Emergency (ER) | payer MEDICARE ==
--- NOTE | 2023-08-21 14:55 | ED ---
General Adult HPI - General Chief complaint: Extremity Injury, Upper Stated complaint: left arm infection warm to touch painful Time Seen by Provider: 08/21/23 14:00 Source: patient, RN notes reviewed, old records reviewed Mode of arrival: ambulatory Limitations: no limitations - History of Present Illness Initial comments: This is a 78-year-old who presents emergency department for an iron infusion in his left arm. Physical. Patient states yesterday and started getting red and warm and painful. Patient states that this progressed and gotten worse today so he came to the emergency department. Patient denies any fever chills per patient denies any difficulty breathing or chest pain. Patient denies any other symptoms at this time. - Related Data Home Medications Medication Instructions Recorded Confirmed Albuterol Inhaler [Ventolin Hfa 2 puff INHALATION RT-Q6H PRN 03/17/23 08/21/23 Inhaler] Fluticasone/Umeclidin/Vilanter 1 puff INHALATION RT-DAILY PRN 03/17/23 08/21/23 [Trelegy Ellipta 200-62.5-25] Atorvastatin [Lipitor] 80 mg PO DAILY 08/21/23 08/21/23 hydrALAZINE HCL [Apresoline] 100 mg PO TID 08/21/23 08/21/23 Previous Rx's Medication Instructions Recorded Aspirin 81 mg PO DAILY #30 tab 01/04/23 Clopidogrel [Plavix] 1 tab PO DAILY #30 tab 01/04/23 atenoloL [Tenormin] 50 mg PO DAILY #30 tab 01/04/23 Cephalexin [Keflex] 500 mg PO Q6HR #28 cap 08/21/23 Allergies Allergy/AdvReac Type Severity Reaction Status Date / Time No Known Allergies Allergy Verified 08/21/23 13:18 Review of Systems ROS Statement: Those systems with pertinent positive or pertinent negative responses have been documented in the HPI. ROS Other: All systems not noted in ROS Statement are negative. Past Medical History Past Medical History: Cancer, COPD, GI Bleed, Hyperlipidemia, Hypertension, Memory Impairment, Myocardial Infarction ([place]), Renal Disease Additional Past Medical History / Comment(s): past hx. GI bleeding, hx. 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 aortic aneurysm Last Myocardial Infarction Date:: pt unsure History of Any Multi-Drug Resistant Organisms: None Reported Past Surgical History: Heart Catheterization With Stent Additional Past Surgical History / Comment(s): tooth sx, colonoscopy, heart stent x3, melanoma removed left shoulder recently, dialysis catheter placement- right inguanal and right chest wall Past Anesthesia/Blood Transfusion Reactions: No Reported Reaction Date of Last Stent Placement:: 2008 Past Psychological History: No Psychological Hx Reported Smoking Status: Former smoker Past Alcohol Use History: Occasional Past Drug Use History: None Reported - Past Family History Father Family Medical History: Myocardial Infarction ([place]) Additional Family Medical History / Comment(s): from a [place] Mother Family Medical History: Myocardial Infarction ([place]) Additional Family Medical History / Comment(s): from a [place] Sister(s) Family Medical History: Cancer Brother(s) Family Medical History: Myocardial Infarction ([place]) General Exam - General Exam Comments Initial Comments: GENERAL Patient is well-developed and well-nourished. Patient is in mild distress. EYES Patient's pupils are equal and round. Extraocular motion is intact SKIN Unremarkable NEURO The patient is alert and oriented 3 PYSCH Patient has normal interpersonal interactions. MUSCULOSKELETAL Left arm at the antecubital fossa up into the forearm is red hot and warm. Patient also has pain in that area when I palpate. Limitations: no limitations Course Vital Signs 08/21/23 13:15 Temperature 98.3 F Pulse Rate 57 L Respiratory 16 Rate Blood Pressure 112/54 O2 Sat by Pulse 97 Oximetry Medical Decision Making - Medical Decision Making Was pt. sent in by a medical professional or institution (, PA, STUD DAIRY CATTLE FARMER, urgent care, hospital, or fci...) When possible be specific @ -No Did you speak to anyone other than the patient for history (EMS, parent, family, police, friend...)? What history was obtained from this source @ -No Did you review nursing and triage notes (agree or disagree)? Why? @ -I reviewed and agree with nursing and triage notes Were old charts reviewed (outside hosp., previous admission, EMS record, old EKG, old radiological studies, urgent care reports/EKG's, fci records)? Report findings @ -No old charts were reviewed Differential Diagnosis (chest pain, altered mental status, abdominal pain women, abdominal pain men, vaginal bleeding, weakness, fever, dyspnea, syncope, headache, dizziness, GI bleed, back pain, seizure, CVA, palpatations, mental health, musculoskeletal)? @ -Superficial thrombophlebitis, DVT, cellulitis, this is not all inclusive list EKG interpreted by me (3pts min.). @ -As above X-rays interpreted by me (1pt min.). @ -None done CT interpreted by me (1pt min.). @ -None done U/S interpreted by me (1pt. min.). @ -Ultrasound showed a thrombus in the cephalic vein. I spoke with the industrial technology education teacher they stated that the thrombus was not within 2 cm of the deep venous system What testing was considered but not performed or refused? (CT, X-rays, U/S, labs)? Why? @ -None What meds were considered but not given or refused? Why? @ -None Did you discuss the management of the patient with other professionals (professionals i.e. , PA, STUD DAIRY CATTLE FARMER, lab, RT, psych nurse, manager social responsibility, rescue worker, teacher, probation officer, showcase maker)? Give summary @ -I spoke with Dr. Ashton and he is going to follow up the patient this week Was smoking cessation discussed for >3mins.? @ -No Was critical care preformed (if so, how long)? @ -No Were there social determinants of health that impacted care today? How? (Homelessness, low income, unemployed, alcoholism, drug addiction, transportation, low edu. Level, literacy, decrease access to med. care, senior care, rehab)? @ -No Was there de-escalation of care discussed even if they declined (Discuss DNR or withdrawal of care, Hospice)? DNR status @ -No What co-morbidities impacted this encounter? (DM, HTN, Smoking, COPD, CAD, Cancer, CVA, ARF, Chemo, Hep., AIDS, mental health diagnosis, sleep apnea, morbid obesity)? @ -None Was patient admitted / discharged? Hospital course, mention meds given and route, prescriptions, significant lab abnormalities, going to OR and other pertinent info. @ -Patient has a superficial thrombophlebitis which is not close the deep venous system. Patient will be discharged home for follow-up with Dr. Ashton and will be using warm compresses at this time no anti-inflammatories will be given secondary to his kidney disease. Patient will be started on antibiotic. Undiagnosed new problem with uncertain prognosis? @ -No Drug Therapy requiring intensive monitoring for toxicity (Heparin, Nitro, Insulin, Cardizem)? @ -No Were any procedures done? @ -No Diagnosis/symptom? @ -Superficial thrombophlebitis Acute, or Chronic, or Acute on Chronic? @ -Acute Uncomplicated (without systemic symptoms) or Complicated (systemic symptoms)? @ -Complicated Side effects of treatment? @ -No Exacerbation, Progression, or Severe Exacerbation? @ -No Poses a threat to life or bodily function? How? (Chest pain, [place], [place], pneumonia, PE, COPD, DKA, ARF, appy, cholecystitis, CVA, Diverticulitis, Homicidal, Suicidal, threat to staff... and all critical care pts) @ -No - Lab Data Result diagrams: 08/21/23 14:20 08/21/23 14:20 Lab Results 08/21/23 08/21/23 08/21/23 Range/Units 14:20 14:20 14:27 WBC 8.4 (3.8-10.6) k/uL RBC 2.70 L (4.30-5.90) m/uL Hgb 8.7 L D (13.0-17.5) gm/dL Hct 26.2 L (39.0-53.0) % MCV 97.0 (80.0-100.0) fL MCH 32.4 (25.0-35.0) pg MCHC 33.4 (31.0-37.0) g/dL RDW 13.9 (11.5-15.5) % Plt Count 287 (150-450) k/uL MPV 7.5 Neutrophils % 76 % Lymphocytes % 13 % Monocytes % 6 % Eosinophils % 3 % Basophils % 0 % Neutrophils # 6.4 (1.3-7.7) k/uL Lymphocytes # 1.1 (1.0-4.8) k/uL Monocytes # 0.5 (0-1.0) k/uL Eosinophils # 0.3 (0-0.7) k/uL Basophils # 0.0 (0-0.2) k/uL Sodium 138 (137-145) mmol/L Potassium 3.7 (3.5-5.1) mmol/L Chloride 102 (98-107) mmol/L Carbon Dioxide 25 (22-30) mmol/L Anion Gap 11 mmol/L BUN 38 H (9-20) mg/dL Creatinine 5.54 H (0.66-1.25) mg/dL Est GFR (CKD-EPI)AfAm 11 (>60 ml/min/1.73 sqM) Est GFR (CKD-EPI)NonAf 9 (>60 ml/min/1.73 sqM) Glucose 100 H (74-99) mg/dL Plasma Lactic Acid El 1.2 (0.7-2.0) mmol/L Calcium 8.7 (8.4-10.2) mg/dL Total Bilirubin 0.5 (0.2-1.3) mg/dL AST 15 L (17-59) U/L ALT 10 (4-49) U/L Alkaline Phosphatase 56 (38-126) U/L Total Protein 5.9 L (6.3-8.2) g/dL Albumin 3.5 (3.5-5.0) g/dL Disposition Clinical Impression: Superficial thrombophlebitis Disposition: HOME SELF-CARE Condition: Good Instructions (If sedation given, give patient instructions): Superficial Thrombophlebitis (ED) Additional Instructions: Patient should use warm compresses. Patient take Keflex as prescribed. Patient should follow-up with Dr. Ashton by the end the week. Patient should return to the emergency department if symptoms worsen patient is having any chest pain or shortness of breath Prescriptions: Cephalexin [Keflex] 500 mg PO Q6HR #28 cap Is patient prescribed a controlled substance at d/c from ED?: No Referrals: Joe Ashton MD [Primary Care Provider] - 1-2 days Time of Disposition: 15:48
[2023-08-21 15:02] LABS: Basophils % (A) 0 %; Eosinophils # (A) 0.3 k/uL (0-0.7); Eosinophils % (A) 3 %; HCT 26.2 % (39.0-53.0); Lymphocytes # (A) 1.1 k/uL (1.0-4.8); Lymphocytes % (A) 13 %; MCH 32.4 pg (25.0-35.0); MCHC 33.4 g/dL (31.0-37.0); Mean Platelet Volume 7.5; Monocytes # (A) 0.5 k/uL (0-1.0); Monocytes % (A) 6 %; Neutrophils # (A) 6.4 k/uL (1.3-7.7); Neutrophils % (A) 76 %; Platelet Count 287 k/uL (150-450); RDW 13.9 % (11.5-15.5); WBC 8.4 k/uL (3.8-10.6)
[2023-08-21 15:07] LABS: ALT 10 U/L (4-49); AST 15 U/L (17-59); African American GFR (CKD) 11 (>60 ml/min/1.73 sqM); Albumin 3.5 g/dL (3.5-5.0); Alkaline Phosphatase 56 U/L (38-126); Anion Gap 11 mmol/L; Blood Urea Nitrogen 38 mg/dL (9-20); Calcium 8.7 mg/dL (8.4-10.2); Carbon Dioxide 25 mmol/L (22-30); Chloride 102 mmol/L (98-107); Glucose 100 mg/dL (74-99); Non-African American GFR(CKD) 9 (>60 ml/min/1.73 sqM); Potassium 3.7 mmol/L (3.5-5.1); Sodium 138 mmol/L (137-145); Total Bilirubin 0.5 mg/dL (0.2-1.3); Total Protein 5.9 g/dL (6.3-8.2)
--- NOTE | 2023-08-21 15:12 | US ---
EXAMINATION TYPE: US venous doppler duplex UE LT DATE OF EXAM: 08/21/2023 COMPARISON: NONE CLINICAL INDICATION: Male, 78 years old with history of Swollen arm; Recent IV/transfusion left arm a t antecubital fossa; now presenting with left arm redness, swelling, and pain; on thinners SIDE PERFORMED: Left There is compressibility with color flow of the left internal jugular, axillary, brachial, basilic, r adial, and ulnar veins. Color-flow identified within the left subclavian vein. No color flow or compr essibility of the left cephalic vein with thrombus identified. Left Arm: Superficial thrombus noted within the left cephalic vein at the antecubital fossa that exte nds to the mid forearm. No evidence of DVT. IMPRESSION: 1. No evidence for deep venous thrombosis of the left upper extremity. 2. Superficial thrombus noted within the left cephalic vein at the antecubital fossa extending into t he mid forearm.
[2023-08-21 15:16] LABS: HGB 8.7 gm/dL (13.0-17.5)
[2023-08-21 16:25] VITALS: BP 108/57; PULSE 55; RESP 18; TEMP 97.8
== END 2023-08-21 16:07 | disposition home or self-care (01) ==
LOC: EC 13:10
DX: I80.9 Phlebitis and thrombophlebitis of unspecified site (principal); E78.5 Hyperlipidemia, unspecified; I10 Essential (primary) hypertension; I25.2 Old myocardial infarction; J44.9 Chronic obstructive pulmonary disease, unspecified; Z87.891 Personal history of nicotine dependence; Z95.5 Presence of coronary angioplasty implant and graft; Z79.899 Other long term (current) drug therapy; Z79.51 Long term (current) use of inhaled steroids
CPT/HCPCS: 36415; 80053; 83605; 85025; 87040; 99284

== ENCOUNTER 2023-08-28 03:58 | Inpatient (IN) | payer MEDICARE ==
[2023-08-28 04:18] LABS: Basophils % (A) 0 %; Eosinophils # (A) 0.1 k/uL (0-0.7); Eosinophils % (A) 1 %; HCT 20.1 % (39.0-53.0); Hypochromasia Slight; Lymphocytes # (A) 1.8 k/uL (1.0-4.8); Lymphocytes % (A) 16 %; MCH 32.6 pg (25.0-35.0); MCHC 32.2 g/dL (31.0-37.0); MCV 101.2 fL (80.0-100.0); Macrocytosis Slight; Mean Platelet Volume 7.4; Monocytes # (A) 0.4 k/uL (0-1.0); Monocytes % (A) 4 %; Neutrophils # (A) 8.7 k/uL (1.3-7.7); Neutrophils % (A) 78 %; Platelet Count 354 k/uL (150-450); RBC 1.98 m/uL (4.30-5.90); WBC 11.2 k/uL (3.8-10.6)
--- NOTE | 2023-08-28 04:20 | ED ---
General Adult HPI - General Chief complaint: GI Bleed Stated complaint: GI Bleed Time Seen by Provider: 08/28/23 03:59 Source: patient, EMS, RN notes reviewed, old records reviewed Mode of arrival: EMS Limitations: no limitations - History of Present Illness Initial comments: 78-year-old male with end-stage renal disease presenting with bright red blood per rectum. Patient had multiple episodes today of rectal bleeding. He had recent GI bleed and was seen at outside hospital he states that he had both an upper and lower endoscopy which she states were normal. He is on aspirin and Plavix. - Related Data Home Medications Medication Instructions Recorded Confirmed Albuterol Inhaler [Ventolin Hfa 2 puff INHALATION RT-Q6H PRN 03/17/23 08/21/23 Inhaler] Fluticasone/Umeclidin/Vilanter 1 puff INHALATION RT-DAILY PRN 03/17/23 08/21/23 [Trelegy Ellipta 200-62.5-25] Atorvastatin [Lipitor] 80 mg PO DAILY 08/21/23 08/21/23 hydrALAZINE HCL [Apresoline] 100 mg PO TID 08/21/23 08/21/23 Previous Rx's Medication Instructions Recorded Aspirin 81 mg PO DAILY #30 tab 01/04/23 Clopidogrel [Plavix] 1 tab PO DAILY #30 tab 01/04/23 atenoloL [Tenormin] 50 mg PO DAILY #30 tab 01/04/23 Cephalexin [Keflex] 500 mg PO Q6HR #28 cap 08/21/23 Allergies Allergy/AdvReac Type Severity Reaction Status Date / Time No Known Allergies Allergy Verified 08/21/23 13:18 Review of Systems ROS Statement: Those systems with pertinent positive or pertinent negative responses have been documented in the HPI. ROS Other: All systems not noted in ROS Statement are negative. Past Medical History Past Medical History: Cancer, COPD, GI Bleed, Hyperlipidemia, Hypertension, Memory Impairment, Myocardial Infarction ([place]), Renal Disease Additional Past Medical History / Comment(s): past hx. GI bleeding, hx. 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 aortic aneurysm Last Myocardial Infarction Date:: pt unsure History of Any Multi-Drug Resistant Organisms: None Reported Past Surgical History: Heart Catheterization With Stent Additional Past Surgical History / Comment(s): tooth sx, colonoscopy, heart stent x3, melanoma removed left shoulder recently, dialysis catheter placement- right inguanal and right chest wall Past Anesthesia/Blood Transfusion Reactions: No Reported Reaction Date of Last Stent Placement:: 2008 Past Psychological History: No Psychological Hx Reported Smoking Status: Former smoker Past Alcohol Use History: Occasional Past Drug Use History: None Reported - Past Family History Father Family Medical History: Myocardial Infarction ([place]) Additional Family Medical History / Comment(s): from a [place] Mother Family Medical History: Myocardial Infarction ([place]) Additional Family Medical History / Comment(s): from a [place] Sister(s) Family Medical History: Cancer Brother(s) Family Medical History: Myocardial Infarction ([place]) General Exam Limitations: no limitations General appearance: lethargic, in distress Head exam: Present: atraumatic, normocephalic Eye exam: Present: normal appearance, PERRL ENT exam: Present: mucous membranes dry Neck exam: Present: normal inspection. Absent: tenderness Respiratory exam: Present: normal lung sounds bilaterally. Absent: wheezes, rales Cardiovascular Exam: Present: regular rate, normal rhythm GI/Abdominal exam: Present: soft. Absent: distended, tenderness Extremities exam: Present: normal inspection Neurological exam: Present: alert Skin exam: Present: pallor Course Vital Signs 08/28/23 08/28/23 08/28/23 03:58 04:23 04:40 Temperature 97 F L Pulse Rate 72 63 57 L Respiratory 20 18 16 Rate Blood Pressure 99/50 92/51 86/38 O2 Sat by Pulse 97 95 97 Oximetry 08/28/23 08/28/23 08/28/23 05:14 05:23 05:36 Temperature 97.6 F 98.7 F Pulse Rate 58 L 62 58 L Respiratory 18 18 18 Rate Blood Pressure 80/35 89/37 82/33 O2 Sat by Pulse 97 95 97 Oximetry 08/28/23 08/28/23 08/28/23 05:48 06:00 06:08 Temperature 97.7 F 98 F Pulse Rate 62 66 65 Respiratory 16 16 16 Rate Blood Pressure 83/35 84/35 85/39 O2 Sat by Pulse 98 96 97 Oximetry 08/28/23 06:56 Temperature Pulse Rate 61 Respiratory 18 Rate Blood Pressure 89/40 O2 Sat by Pulse 96 Oximetry - Reevaluation(s) Reevaluation #1: 08/28/23 0530 I did have a lengthy discussion with the daughter and patient about goals of care. The patient does not want further evaluation specifically for this gastrointestinal bleed, he had endoscopy/colonoscopy performed 2 weeks ago. He does except blood transfusion and would like to continue dialysis at this time. He wishes to be a DO NOT RESUSCITATE. 08/28/23 06:21 Reevaluation #2: 08/28/23 07:[address] Ashton, I did reevaluate the patient and spoke again with the daughter regarding the patient's goals of care. They were able to contact the patient's son and ultimately the patient decides that he wishes to be kept comfortable, he does not want transfer to higher level of care. He does not want to undergo colonoscopy or upper GI endoscopy. He requests Comfort Care. Medical Decision Making - Medical Decision Making Was pt. sent in by a medical professional or institution (, PA, ORNITHOLOGY TEACHER, urgent care, hospital, or care home...) When possible be specific @ -No Did you speak to anyone other than the patient for history (EMS, parent, family, police, friend...)? What history was obtained from this source @ -Patient's daughter at bedside Did you review nursing and triage notes (agree or disagree)? Why? @ -I reviewed and agree with nursing and triage notes Were old charts reviewed (outside hosp., previous admission, EMS record, old EKG, old radiological studies, urgent care reports/EKG's, care home records)? Report findings @ -No old charts were reviewed Differential Diagnosis (chest pain, altered mental status, abdominal pain women, abdominal pain men, vaginal bleeding, weakness, fever, dyspnea, syncope, headache, dizziness, GI bleed, back pain, seizure, CVA, palpatations, mental health, musculoskeletal)? @ -[Differential GI Bleed: Esophageal varices, aortoenteric fistula, Cathleen-Lamb, gastritis, peptic ulcer disease, diverticulosis, inflammatory bowel disease, hemorrhoids, fissure, colitis, malignancy, Meckels diverticulum, this is not meant to be an all- inclusive list. EKG interpreted by me (3pts min.). @EKG: Sinus rhythm rate of 68, MO interval 197, QRS duration 103, QTC 438 X-rays interpreted by me (1pt min.). @ -None done CT interpreted by me (1pt min.). @ -None done U/S interpreted by me (1pt. min.). @ -None done What testing was considered but not performed or refused? (CT, X-rays, U/S, labs)? Why? @ -None What meds were considered but not given or refused? Why? @ -None Did you discuss the management of the patient with other professionals (professionals i.e. Dr., PA, ORNITHOLOGY TEACHER, lab, RT, psych nurse, administrator social welfare, chocolate coater, teacher, enforcement officer, catalytic case operator)? Give summary @ -[Dr. Ashton Was smoking cessation discussed for >3mins.? @ -No Was critical care preformed (if so, how long)? @ -No Were there social determinants of health that impacted care today? How? (Homelessness, low income, unemployed, alcoholism, drug addiction, transportation, low edu. Level, literacy, decrease access to med. care, intermediate, rehab)? @ -No Was there de-escalation of care discussed even if they declined (Discuss DNR or withdrawal of care, Hospice)? DNR status @ DO NOT RESUSCITATE What co-morbidities impacted this encounter? (DM, HTN, Smoking, COPD, CAD, Cancer, CVA, ARF, Chemo, Hep., AIDS, mental health diagnosis, sleep apnea, morbid obesity)? @ -[Recent GI bleed, end-stage renal disease. Was patient admitted / discharged? Hospital course, mention meds given and route, prescriptions, significant lab abnormalities, going to OR and other pertinent info. @ 78-year-old male presenting in extremis. Patient is pale, hypotensive covered in blood. Patient is able to answer questions and is alert. He has an initial hemoglobin 6.5 and does receive blood transfusion in the emergency department. Patient had recent colonoscopy and upper endoscopy performed at [facility] approximately 2 weeks ago. We discussed possibility of transfer and patient declines. He is leaning towards comfort care. Daughter is at bedside during this conversation. Undiagnosed new problem with uncertain prognosis? @ -No Drug Therapy requiring intensive monitoring for toxicity (Heparin, Nitro, Insulin, Cardizem)? @ -No Were any procedures done? @ -No Diagnosis/symptom? @ -Lower GI bleed, anemia, lactic acidosis Acute, or Chronic, or Acute on Chronic? @ -[Acute Uncomplicated (without systemic symptoms) or Complicated (systemic symptoms)? @ -[Complicated Side effects of treatment? @ -No Exacerbation, Progression, or Severe Exacerbation? @ -No Poses a threat to life or bodily function? How? (Chest pain, [place], [place], pneumonia, PE, COPD, DKA, ARF, appy, cholecystitis, CVA, Diverticulitis, Homicidal, Suicidal, threat to staff... and all critical care pts) @ -[Yes, hemorrhagic shock - Lab Data Result diagrams: 08/28/23 04:04 08/28/23 04:04 Lab Results 08/28/23 08/28/23 08/28/23 Range/Units 04:04 04:04 04:04 WBC 11.2 H (3.8-10.6) k/uL RBC 1.98 L (4.30-5.90) m/uL Hgb 6.5 L* D (13.0-17.5) gm/dL Hct 20.1 L (39.0-53.0) % MCV 101.2 H (80.0-100.0) fL MCH 32.6 (25.0-35.0) pg MCHC 32.2 (31.0-37.0) g/dL RDW 14.0 (11.5-15.5) % Plt Count 354 (150-450) k/uL MPV 7.4 Neutrophils % 78 % Lymphocytes % 16 % Monocytes % 4 % Eosinophils % 1 % Basophils % 0 % Neutrophils # 8.7 H (1.3-7.7) k/uL Lymphocytes # 1.8 (1.0-4.8) k/uL Monocytes # 0.4 (0-1.0) k/uL Eosinophils # 0.1 (0-0.7) k/uL Basophils # 0.0 (0-0.2) k/uL Hypochromasia Slight Macrocytosis Slight PT (10.0-12.5) sec INR (<1.2) APTT (22.0-30.0) sec Sodium 136 L (137-145) mmol/L Potassium 4.9 (3.5-5.1) mmol/L Chloride 99 (98-107) mmol/L Carbon Dioxide 16 L (22-30) mmol/L Anion Gap 21 mmol/L BUN 60 H (9-20) mg/dL Creatinine 5.10 H (0.66-1.25) mg/dL Est GFR (CKD-EPI)AfAm 12 (>60 ml/min/1.73 sqM) Est GFR (CKD-EPI)NonAf 10 (>60 ml/min/1.73 sqM) Glucose 214 H (74-99) mg/dL Plasma Lactic Acid El 8.2 H* (0.7-2.0) mmol/L Calcium 8.6 (8.4-10.2) mg/dL Magnesium 1.9 (1.6-2.3) mg/dL Total Bilirubin 0.4 (0.2-1.3) mg/dL AST 21 (17-59) U/L ALT 17 (4-49) U/L Alkaline Phosphatase 44 (38-126) U/L Total Protein 5.6 L (6.3-8.2) g/dL Albumin 3.4 L (3.5-5.0) g/dL Blood Type Blood Type Recheck Bld Type Recheck Status Antibody Screen Crossmatch Spec Expiration Date 08/28/23 08/28/23 Range/Units 04:25 04:25 WBC (3.8-10.6) k/uL RBC (4.30-5.90) m/uL Hgb (13.0-17.5) gm/dL Hct (39.0-53.0) % MCV (80.0-100.0) fL MCH (25.0-35.0) pg MCHC (31.0-37.0) g/dL RDW (11.5-15.5) % Plt Count (150-450) k/uL MPV Neutrophils % % Lymphocytes % % Monocytes % % Eosinophils % % Basophils % % Neutrophils # (1.3-7.7) k/uL Lymphocytes # (1.0-4.8) k/uL Monocytes # (0-1.0) k/uL Eosinophils # (0-0.7) k/uL Basophils # (0-0.2) k/uL Hypochromasia Macrocytosis PT 10.8 (10.0-12.5) sec INR 1.0 (<1.2) APTT 17.7 L (22.0-30.0) sec Sodium (137-145) mmol/L Potassium (3.5-5.1) mmol/L Chloride (98-107) mmol/L Carbon Dioxide (22-30) mmol/L Anion Gap mmol/L BUN (9-20) mg/dL Creatinine (0.66-1.25) mg/dL Est GFR (CKD-EPI)AfAm (>60 ml/min/1.73 sqM) Est GFR (CKD-EPI)NonAf (>60 ml/min/1.73 sqM) Glucose (74-99) mg/dL Plasma Lactic Acid El (0.7-2.0) mmol/L Calcium (8.4-10.2) mg/dL Magnesium (1.6-2.3) mg/dL Total Bilirubin (0.2-1.3) mg/dL AST (17-59) U/L ALT (4-49) U/L Alkaline Phosphatase (38-126) U/L Total Protein (6.3-8.2) g/dL Albumin (3.5-5.0) g/dL Blood Type AB Positive Blood Type Recheck AB Pos Bld Type Recheck Status No Antibody Screen NEGATIVE Crossmatch See Detail Spec Expiration Date 08/31/20232324 Disposition Clinical Impression: Anemia, Anemia due to blood loss, acute, Acute GI bleeding Disposition: ADMITTED IP TO THIS [facility] Condition: Serious Is patient prescribed a controlled substance at d/c from ED?: No Referrals: Joe Ashton MD [Primary Care Provider] - 1-2 days Time of Disposition: 06:24
[2023-08-28 04:28] LABS: HGB 6.5 gm/dL (13.0-17.5)
[2023-08-28 04:29] LABS: ALT 17 U/L (4-49); AST 21 U/L (17-59); African American GFR (CKD) 12 (>60 ml/min/1.73 sqM); Albumin 3.4 g/dL (3.5-5.0); Alkaline Phosphatase 44 U/L (38-126); Anion Gap 21 mmol/L; Blood Urea Nitrogen 60 mg/dL (9-20); Calcium 8.6 mg/dL (8.4-10.2); Carbon Dioxide 16 mmol/L (22-30); Chloride 99 mmol/L (98-107); Glucose 214 mg/dL (74-99); Magnesium 1.9 mg/dL (1.6-2.3); Non-African American GFR(CKD) 10 (>60 ml/min/1.73 sqM); Potassium 4.9 mmol/L (3.5-5.1); Sodium 136 mmol/L (137-145); Total Bilirubin 0.4 mg/dL (0.2-1.3); Total Protein 5.6 g/dL (6.3-8.2)
[2023-08-28 05:11] LABS: Prothrombin Time 10.8 sec (10.0-12.5)
[2023-08-28 05:13] LABS: Partial Thromboplastin Time 17.7 sec (22.0-30.0)
[2023-08-28] MEDS ORDERED: fentaNYL (PF) 50 MCG/ML 2 ML AMP IVP STA (05:15)
[2023-08-28] MEDS ORDERED: ONDANSETRON 4 MG/2 ML VIAL IVP PRN (06:18)
[2023-08-28] MEDS ORDERED: NALOXONE 0.4 MG/ML 1 ML VIAL IV PRN (06:18)
[2023-08-28] MEDS: HYDROmorphone 0.5 MG/0.5 ML SYRINGE IVP PRN ×2 (07:26→14:01)
[2023-08-28] MEDS: PANTOPRAZOLE 40 MG/10 ML VIAL IV SCH (08:42)
--- NOTE | 2023-08-28 11:39 | P.NPCON ---
History of Present Illness - Reason for Consult end stage renal disease - History of Present Illness Patient is a 78-year-old male with end-stage renal disease maintained on hemodialysis on a Monday schedule. Patient is admitted to the hospital with complaints of large amount of dark red blood per rectum. Patient was recently hospitalized about 10 days ago at [facility] with GI bleed. Patient apparently did have an upper and lower endoscopy which did not reveal any active bleeding at that time. Hemoglobin was 6.5 yesterday and patient has been transfused packed RBCs. He d enies any further bleeding episodes. No complaints of shortness of breath or chest pain. Patient was maintained on aspirin and Plavix prior to admission. Review of Systems As per HPI Past Medical History Past Medical History: Cancer, COPD, GI Bleed, Hyperlipidemia, Hypertension, Memory Impairment, Myocardial Infarction ([place]), Renal Disease Additional Past Medical History / Comment(s): past hx. GI bleeding, hx. 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 aortic aneurysm Last Myocardial Infarction Date:: pt unsure History of Any Multi-Drug Resistant Organisms: None Reported Past Surgical History: Heart Catheterization With Stent Additional Past Surgical History / Comment(s): tooth sx, colonoscopy, heart stent x3, melanoma removed left shoulder recently, dialysis catheter placement- right inguanal and right chest wall Past Anesthesia/Blood Transfusion Reactions: No Reported Reaction Date of Last Stent Placement:: 2008 Past Psychological History: No Psychological Hx Reported Smoking Status: Former smoker Past Alcohol Use History: Occasional Past Drug Use History: None Reported - Past Family History Father Family Medical History: Myocardial Infarction ([place]) Additional Family Medical History / Comment(s): from a [place] Mother Family Medical History: Myocardial Infarction ([place]) Additional Family Medical History / Comment(s): from a [place] Sister(s) Family Medical History: Cancer Brother(s) Family Medical History: Myocardial Infarction ([place]) Medications and Allergies Home Medications Medication Instructions Recorded Confirmed Type Aspirin 81 mg PO DAILY #30 tab 01/04/23 08/28/23 Rx Clopidogrel [Plavix] 1 tab PO DAILY #30 tab 01/04/23 08/28/23 Rx atenoloL [Tenormin] 50 mg PO DAILY #30 tab 01/04/23 08/28/23 Rx Albuterol Inhaler [Ventolin Hfa 2 puff INHALATION RT-Q6H PRN 03/17/23 08/28/23 History Inhaler] Fluticasone/Umeclidin/Vilanter 1 puff INHALATION RT-DAILY PRN 03/17/23 08/28/23 History [Trelegy Ellipta 200-62.5-25] Atorvastatin [Lipitor] 80 mg PO DAILY 08/21/23 08/28/23 History Cephalexin [Keflex] 500 mg PO Q6HR #28 cap 08/21/23 08/28/23 Rx hydrALAZINE HCL [Apresoline] 100 mg PO TID 08/21/23 08/28/23 History Allergies Allergy/AdvReac Type Severity Reaction Status Date / Time No Known Allergies Allergy Verified 08/28/23 10:11 Physical Exam Vitals: Vital Signs Temp Pulse Resp BP Pulse Ox 08/28/23 10:58 61 18 96/42 99 08/28/23 10:07 62 16 96/42 100 08/28/23 08:45 97.6 F 66 16 88/41 08/28/23 08:39 66 18 88/41 98 08/28/23 08:00 67 18 82/42 98 08/28/23 07:21 97.3 F L 66 16 94/41 96 08/28/23 06:56 61 18 89/40 96 08/28/23 06:08 98 F 65 16 85/39 97 08/28/23 06:00 66 16 84/35 96 08/28/23 05:48 97.7 F 62 16 83/35 98 08/28/23 05:36 98.7 F 58 L 18 82/33 97 08/28/23 05:23 62 18 89/37 95 08/28/23 05:14 97.6 F 58 L 18 80/35 97 08/28/23 04:40 57 L 16 86/38 97 08/28/23 04:23 63 18 92/51 95 08/28/23 03:58 97 F L 72 20 99/50 97 Intake and Output 08/27/23 08/28/23 08/28/23 22:59 06:59 14:59 Intake Total 0 310 Balance 0 310 Intake: Blood Product 0 310 Rc As-1 Unit 0 310 [id number] Other: Weight 81.647 kg Patient is awake, comfortable, in no acute distress Alert oriented 3 Examination of the heart S1 and S2 Examination of the lungs bilateral breath sounds are heard Abdomen is soft nontender Examination of lower extremity shows no significant edema Results - Lab Results Most recent lab results Calcium 8.6 mg/dL (8.4-10.2) 08/28/23 04:04 Magnesium 1.9 mg/dL (1.6-2.3) 08/28/23 04:04 08/28/23 04:04 08/28/23 04:04 Assessment and Plan Assessment: 1. End-stage renal disease on hemodialysis on a Monday schedule via right IJ permacath 2. GI bleed with previous negative upper and lower endoscopies about 10 days ago at [facility] 3. Anemia secondary to acute blood loss/GI bleed 4. History of abdominal aortic aneurysm status post repair with graft in December 2022 5. CK D mineral bone disorder Plan: Hemodialysis today GI/surgery consult Aspirin and Plavix on hold Thank you for the consultation. We will continue to follow the patient with you during his hospitalization.
[2023-08-29 04:30] LABS: Hepatitis B Surface Antigen Nonreactive
[2023-08-29] MEDS: PANTOPRAZOLE 40 MG/10 ML VIAL IV SCH ×2 (08:21→20:01)
[2023-08-29] MEDS ORDERED: SODIUM CHLORIDE 0.9% 500 ML 500 ML IV ONE ×2 (09:57→10:18)
[2023-08-29 10:53] LABS: ALT 14 U/L (4-49); AST 22 U/L (17-59); African American GFR (CKD) 8 (>60 ml/min/1.73 sqM); Albumin 2.8 g/dL (3.5-5.0); Albumin/Globulin Ratio 1.4; Alkaline Phosphatase 40 U/L (38-126); Anion Gap 11 mmol/L; Blood Urea Nitrogen 73 mg/dL (9-20); Calcium 8.4 mg/dL (8.4-10.2); Carbon Dioxide 24 mmol/L (22-30); Chloride 104 mmol/L (98-107); Glucose 120 mg/dL (74-99); Non-African American GFR(CKD) 7 (>60 ml/min/1.73 sqM); Potassium 3.9 mmol/L (3.5-5.1); Sodium 139 mmol/L (137-145); Total Bilirubin 0.3 mg/dL (0.2-1.3); Total Protein 4.8 g/dL (6.3-8.2)
[2023-08-29 11:05] LABS: MCH 32.6 pg (25.0-35.0); MCHC 33.3 g/dL (31.0-37.0); MCV 97.8 fL (80.0-100.0); Mean Platelet Volume 7.4; Platelet Count 242 k/uL (150-450); RBC 1.72 m/uL (4.30-5.90); RDW 14.7 % (11.5-15.5); WBC 8.7 k/uL (3.8-10.6)
[2023-08-29] MEDS: HYDROmorphone 0.5 MG/0.5 ML SYRINGE IVP PRN (11:10)
[2023-08-29 11:16] LABS: HGB 5.6 gm/dL (13.0-17.5)
[2023-08-29 11:17] LABS: HCT 16.8 % (39.0-53.0)
[2023-08-29 12:09] LABS: Glucose,Whole Blood 106 mg/dL (70-110)
--- NOTE | 2023-08-29 12:18 | P.PN ---
Subjective Patient is seen for follow-up for end-stage renal disease. He had initially wanted to proceed with hospice care however today patient has decided for aggressive medical care. He is being transferred to ICU as he has had large bloody bowel movement. Family is present at bedside Patient was not dialyzed yesterday as his blood pressure was quite low. No complaints of shortness of breath. Blood pressure remains on the lower side with systolic in the 80s. Patient is being transfused 1 unit packed RBCs. Objective - Vital Signs Vital signs: Vital Signs Temp 98.7 F 08/29/23 11:43 Pulse 61 08/29/23 11:43 Resp 20 08/29/23 11:43 BP 88/43 08/29/23 11:43 Pulse Ox 97 08/29/23 11:43 FiO2 Intake & Output 08/28/23 08/29/23 08/29/23 18:59 06:59 18:59 Intake Total 410 340 0 Balance 410 340 0 Weight 79.5 kg Intake: Oral 100 340 Blood Product 310 0 Unit 0 Rc As-1 Unit 310 [id number] Other: Voiding Method Toilet Toilet Urinal Urinal - Exam Patient is awake, comfortable, in no acute distress Alert oriented 3 Examination of the heart S1 and S2 Examination of the lungs bilateral breath sounds are heard Abdomen is soft nontender Examination of lower extremity shows no significant edema - Labs CBC & Chem 7: 08/29/23 10:12 08/29/23 10:12 Labs: Abnormal Lab Results - Last 24 Hours (Table) 08/28/23 08/28/23 08/29/23 Range/Units 04:04 04:25 10:12 RBC 1.72 L (4.30-5.90) m/uL Hgb 5.6 L* (13.0-17.5) gm/dL Hct 16.8 L* (39.0-53.0) % BUN (9-20) mg/dL Creatinine (0.66-1.25) mg/dL Glucose (74-99) mg/dL Total Protein (6.3-8.2) g/dL Albumin (3.5-5.0) g/dL Hep Bs Antibody A (Negative) Crossmatch See Detail 08/29/23 Range/Units 10:12 RBC (4.30-5.90) m/uL Hgb (13.0-17.5) gm/dL Hct (39.0-53.0) % BUN 73 H (9-20) mg/dL Creatinine 6.73 H (0.66-1.25) mg/dL Glucose 120 H (74-99) mg/dL Total Protein 4.8 L (6.3-8.2) g/dL Albumin 2.8 L (3.5-5.0) g/dL Hep Bs Antibody (Negative) Crossmatch Assessment and Plan Assessment: 1. End-stage renal disease on hemodialysis on a Monday schedule via right IJ permacath 2. GI bleed with previous negative upper and lower endoscopies about 10 days ago at [facility] 3. Anemia secondary to acute blood loss/GI bleed 4. History of abdominal aortic aneurysm status post repair with graft in December 2022 5. CK D mineral bone disorder Plan: Hemodialysis today if hemodynamically stable otherwise we will dialyze the pa tient tomorrow GI/surgery consult Aspirin and Plavix on hold Add Aranesp Check iron profile
--- NOTE | 2023-08-29 12:45 | P.GSCN ---
History of Present Illness Consult date: 08/29/23 History of present illness: CHIEF COMPLAINT: GI bleed HISTORY OF PRESENT ILLNESS: This is a 78-year-old male who presented to hospital with bright red blood per rectum. Patient reports that his stools have been black and red for the last week. Patient did have some black, maroon stools during the day yesterday. He denies any abdominal pain. Denies any denies naus ea or vomiting. He had recently been at [facility] for GI bleed and had EGD and colonoscopy completed there about 2 weeks ago. Patient reports that the scopes were negative. Hemoglobin on admission was 6.5 he did receive 2 units of blood. Initially patient was choosing to go comfort care. However no other wants comfort care. He is hypotensive and hemoglobin is down to 5.6. Patient is being transferred to the ICU. Patient is a rather poor historian. He is unclear if he has been taking blood thinners. At one point he had been on Plavix and aspirin. Has a known history of coronary artery disease with cardiac stents. Also end-stage renal disease and on hemodialysis. Patient does have a history of hemorrhoids. Patient stating he doesn't want to have repeat EGD and colonoscopy. PAST MEDICAL HISTORY: Cancer, COPD, GI Bleed, Hyperlipidemia, Hypertension, Memory Impairment, My ocardial Infarction ([place]), Renal Disease, past hx. GI bleeding, hx. 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 aortic aneurysm, PAST SURGICAL HISTORY: See below MEDICATIONS: See below ALLERGIES: See below SOCIAL HISTORY: No illicit drug use. REVIEW OF SYSTEMS: CONSTITUTIONAL: Denies fever or chills. HEENT: Denies blurred vision, vision changes, or eye pain. Denies hemoptysis CARDIOVASCULAR: Denies chest pain or pressure. RESPIRATORY: No shortness of breath. GASTROINTESTINAL: See HPI for pertinent findings HEMATOLOGIC: Denies bleeding disorders. GENITOURINARY: Denies any blood in urine or increased urinary frequency. SKIN: Denies pruitis. Denies rash. PHYSICAL EXAM: VITAL SIGNS: Reviewed GENERAL: Pale. no acute distress HEENT: No sclera icterus. Extraocular movements grossly intact. Moist buccal mucosa. Head is atraumatic, normocephalic. No nasal drainage. ABDOMEN: Soft. Nondistended. Mild discomfort with palpation left lower quadrant. But patient does feel that he needs to have a bowel movement NEUROLOGIC: Alert and oriented. Cranial nerves II through XII grossly intact. LABORATORY DATA: WBC 8.7 HGB 6.5 down to 5.6 plt 242 Na 139 K 3.9 cr 6.73 IMAGING: ASSESSMENT: 1. Acute GI bleed 2. Acute blood loss anemia PLAN: -Recommend transfer to tertiary care center do to active bleeding. No GI service available this week at this facility. -Patient scheduled for another unit of blood -Patient received IV fluid bolus -Increase Protonix to IV twice a day -Obtain EGD and colonoscopy records from [facility] -Hold aspirin and Plavix -Continue to monitor hemoglobin -Continue to monitor for any signs or symptoms of bleeding -Okay for clear liquids Physician Painting Instructor note has been reviewed by physician. Signing provider agrees with the documented findings, assessment, and plan of care. Past Medical History Past Medical History: Cancer, COPD, GI Bleed, Hyperlipidemia, Hypertension, Memory Impairment, Myocardial Infarction ([place]), Renal Disease Additional Past Medical History / Comment(s): past hx. GI bleeding, hx. 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 aortic aneurysm Last Myocardial Infarction Date:: pt unsure History of Any Multi-Drug Resistant Organisms: None Reported Past Surgical History: Heart Catheterization With Stent Additional Past Surgical History / Comment(s): tooth sx, colonoscopy, heart stent x3, melanoma removed left shoulder recently, dialysis catheter placement- right inguanal and right chest wall Past Anesthesia/Blood Transfusion Reactions: No Reported Reaction Date of Last Stent Placement:: 2008 Past Psychological History: No Psychological Hx Reported Smoking Status: Former smoker Past Alcohol Use History: Occasional Additional Past Alcohol Use History / Comment(s): a beer a week, crown royal on occasion. smoker for 60 years 1 ppd, quit smoking 1 month ago Past Drug Use History: None Reported - Past Family History Father Family Medical History: Myocardial Infarction ([place]) Additional Family Medical History / Comment(s): from a [place] Mother Family Medical History: Myocardial Infarction ([place]) Additional Family Medical History / Comment(s): from a [place] Sister(s) Family Medical History: Cancer Brother(s) Family Medical History: Myocardial Infarction ([place]) Medications and Allergies Home Medications Medication Instructions Recorded Confirmed Type Aspirin 81 mg PO DAILY #30 tab 01/04/23 08/28/23 Rx Clopidogrel [Plavix] 1 tab PO DAILY #30 tab 01/04/23 08/28/23 Rx atenoloL [Tenormin] 50 mg PO DAILY #30 tab 01/04/23 08/28/23 Rx Albuterol Inhaler [Ventolin Hfa 2 puff INHALATION RT-Q6H PRN 03/17/23 08/28/23 History Inhaler] Fluticasone/Umeclidin/Vilanter 1 puff INHALATION RT-DAILY PRN 03/17/23 08/28/23 History [Trelegy Ellipta 200-62.5-25] Atorvastatin [Lipitor] 80 mg PO DAILY 08/21/23 08/28/23 History Cephalexin [Keflex] 500 mg PO Q6HR #28 cap 08/21/23 08/28/23 Rx hydrALAZINE HCL [Apresoline] 100 mg PO TID 08/21/23 08/28/23 History Allergies Allergy/AdvReac Type Severity Reaction Status Date / Time No Known Allergies Allergy Verified 08/28/23 10:11 Surgical - Exam Vital Signs Temp Pulse Resp BP Pulse Ox 97 F L 72 20 99/50 97 08/28/23 03:58 08/28/23 03:58 08/28/23 03:58 08/28/23 03:58 08/28/23 03:58 Results - Labs 08/29/23 10:12 08/29/23 10:12 Abnormal Lab Results - Last 24 Hours (Table) 08/28/23 08/28/23 08/29/23 Range/Units 04:04 04:25 10:12 RBC 1.72 L (4.30-5.90) m/uL Hgb 5.6 L* (13.0-17.5) gm/dL Hct 16.8 L* (39.0-53.0) % BUN (9-20) mg/dL Creatinine (0.66-1.25) mg/dL Glucose (74-99) mg/dL Total Protein (6.3-8.2) g/dL Albumin (3.5-5.0) g/dL Hep Bs Antibody A (Negative) Crossmatch See Detail 08/29/23 Range/Units 10:12 RBC (4.30-5.90) m/uL Hgb (13.0-17.5) gm/dL Hct (39.0-53.0) % BUN 73 H (9-20) mg/dL Creatinine 6.73 H (0.66-1.25) mg/dL Glucose 120 H (74-99) mg/dL Total Protein 4.8 L (6.3-8.2) g/dL Albumin 2.8 L (3.5-5.0) g/dL Hep Bs Antibody (Negative) Crossmatch Diabetes panel 08/29/23 Range/Units 10:12 Sodium 139 (137-145) mmol/L Potassium 3.9 (3.5-5.1) mmol/L Chloride 104 (98-107) mmol/L Carbon Dioxide 24 (22-30) mmol/L BUN 73 H (9-20) mg/dL Creatinine 6.73 H (0.66-1.25) mg/dL Glucose 120 H (74-99) mg/dL Calcium 8.4 (8.4-10.2) mg/dL AST 22 (17-59) U/L ALT 14 (4-49) U/L Alkaline Phosphatase 40 (38-126) U/L Total Protein 4.8 L (6.3-8.2) g/dL Albumin 2.8 L (3.5-5.0) g/dL Calcium panel 08/29/23 Range/Units 10:12 Calcium 8.4 (8.4-10.2) mg/dL Albumin 2.8 L (3.5-5.0) g/dL Pituitary panel 08/29/23 Range/Units 10:12 Sodium 139 (137-145) mmol/L Potassium 3.9 (3.5-5.1) mmol/L Chloride 104 (98-107) mmol/L Carbon Dioxide 24 (22-30) mmol/L BUN 73 H (9-20) mg/dL Creatinine 6.73 H (0.66-1.25) mg/dL Glucose 120 H (74-99) mg/dL Calcium 8.4 (8.4-10.2) mg/dL Adrenal panel 08/29/23 Range/Units 10:12 Sodium 139 (137-145) mmol/L Potassium 3.9 (3.5-5.1) mmol/L Chloride 104 (98-107) mmol/L Carbon Dioxide 24 (22-30) mmol/L BUN 73 H (9-20) mg/dL Creatinine 6.73 H (0.66-1.25) mg/dL Glucose 120 H (74-99) mg/dL Calcium 8.4 (8.4-10.2) mg/dL Total Bilirubin 0.3 (0.2-1.3) mg/dL AST 22 (17-59) U/L ALT 14 (4-49) U/L Alkaline Phosphatase 40 (38-126) U/L Total Protein 4.8 L (6.3-8.2) g/dL Albumin 2.8 L (3.5-5.0) g/dL
[2023-08-29] MEDS ORDERED: DARBEPOETIN ALFA 60 MCG/0.3 ML SYRINGE SQ SCH (14:00)
--- NOTE | 2023-08-29 14:09 | P.CNPUL ---
History of Present Illness Consult date: 08/29/23 Requesting physician: Joe Ashton Reason for consult: other (ICU management, GI bleeding) Chief complaint: bright red blood per rectum History of present illness: this is a 78-year-old white male with history of multiple medical problems including end-stage renal disease, on hemodialysis on Tuesdays and Saturdays, patient presented to the ER with bright red blood per rectum patient has been noticing lower GI bleeding for the last 1 week. Patient was recently hospitalized at [facility] for GI bleeding and apparently he underwent upper endoscopy and lower endoscopy, and did not reveal any active bleeding at the time. Patient came in last night to the ER, with similar symptoms this time, patient is normally maintained on aspirin and Plavix prior to this admission. At any rate his hemoglobin was low, at 5.6, patient received a unit of packed RBCs, and at night he had further episodes of bright red blood per rectum. Apparently when the patient was admitted last night, his CODE STATUS was basically no code, and the plan was to go to comfort care measures according to the note in the chart. However the CODE STATUS was changed this morning by the admitting physician, and since the patient was having further and recurrent episodes of GI bleeding, and his hemoglobin was only 5.6, I was notified about this patient, and I recommended transferring the patient to the ICU.in the meantime I recommended that the patient gets transfused with 2 units of packed RBCs as soon as possible.repeat CBC is pending after the 2 units were ordered.on the floor, the patient was noted to be a bit hypotensive with blood pressure in the 80s systolic, and I recommended a liter of fluid to be given in a bolus form. This was started on the floor, and that will likely be continued in the ICU.patient had no symptoms of hematemesis, no abdominal pain, no nausea and vomiting. Review of Systems CONSTITUTIONAL: Denies fever or chills. HEENT: Denies blurred vision, vision changes, or eye pain. Denies hemoptysis CARDIOVASCULAR: Denies chest pain or pressure. RESPIRATORY: No shortness of breath. GASTROINTESTINALas noted in HPI. HEMATOLOGIC: Denies bleeding disorders. GENITOURINARY: Denies any blood in urine or increased urinary frequency. SKIN: Denies pruitis. Denies rash. neurologic: Negative Psychiatric: Negative Past Medical History Past Medical History: Cancer, COPD, GI Bleed, Hyperlipidemia, Hypertension, Memory Impairment, Myocardial Infarction ([place]), Renal Disease Additional Past Medical History / Comment(s): past hx. GI bleeding, hx. 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 aortic aneurysm Last Myocardial Infarction Date:: pt unsure History of Any Multi-Drug Resistant Organisms: None Reported Past Surgical History: Heart Catheterization With Stent Additional Past Surgical History / Comment(s): tooth sx, colonoscopy, heart stent x3, melanoma removed left shoulder recently, dialysis catheter placement- right inguanal and right chest wall Past Anesthesia/Blood Transfusion Reactions: No Reported Reaction Date of Last Stent Placement:: 2008 Past Psychological History: No Psychological Hx Reported Smoking Status: Former smoker Past Alcohol Use History: Occasional Additional Past Alcohol Use History / Comment(s): a beer a week, crown royal on occasion. smoker for 60 years 1 ppd, quit smoking 1 month ago Past Drug Use History: None Reported - Past Family History Father Family Medical History: Myocardial Infarction ([place]) Additional Family Medical History / Comment(s): from a [place] Mother Family Medical History: Myocardial Infarction ([place]) Additional Family Medical History / Comment(s): from a [place] Sister(s) Family Medical History: Cancer Brother(s) Family Medical History: Myocardial Infarction ([place]) Medications and Allergies Home Medications Medication Instructions Recorded Confirmed Type Aspirin 81 mg PO DAILY #30 tab 01/04/23 08/28/23 Rx Clopidogrel [Plavix] 1 tab PO DAILY #30 tab 01/04/23 08/28/23 Rx atenoloL [Tenormin] 50 mg PO DAILY #30 tab 01/04/23 08/28/23 Rx Albuterol Inhaler [Ventolin Hfa 2 puff INHALATION RT-Q6H PRN 03/17/23 08/28/23 History Inhaler] Fluticasone/Umeclidin/Vilanter 1 puff INHALATION RT-DAILY PRN 03/17/23 08/28/23 History [Trelegy Ellipta 200-62.5-25] Atorvastatin [Lipitor] 80 mg PO DAILY 08/21/23 08/28/23 History Cephalexin [Keflex] 500 mg PO Q6HR #28 cap 08/21/23 08/28/23 Rx hydrALAZINE HCL [Apresoline] 100 mg PO TID 08/21/23 08/28/23 History Allergies Allergy/AdvReac Type Severity Reaction Status Date / Time No Known Allergies Allergy Verified 08/28/23 10:11 Physical Exam Vitals: Vital Signs Temp Pulse Pulse Resp BP BP Pulse Ox 08/29/23 13:25 98.1 F 60 14 95/41 98 08/29/23 13:10 98.1 F 61 14 103/42 100 08/29/23 11:43 98.7 F 61 20 88/43 97 08/29/23 11:23 98.7 F 61 18 90/45 90 L 08/29/23 07:23 98.7 F 68 19 86/37 92 L 08/29/23 01:08 98.2 F 67 17 90/38 92 L 08/28/23 19:23 98.4 F 54 L 17 86/42 99 08/28/23 16:35 98.2 F 61 16 111/56 100 08/28/23 15:28 59 L 18 84/38 100 08/28/23 13:59 64 18 98/35 97 Intake and Output 08/28/23 08/29/23 08/29/23 22:59 06:59 14:59 Intake Total 100 340 310 Balance 100 340 310 Intake: Oral 100 340 Blood Product 310 Rc As-1 Unit 310 [id number] Rc As-1 Unit 0 [id number] Other: Voiding Method Toilet Toilet Urinal Urinal Weight 79.5 kg Physical Exam: Revealed a 78-year-old white male in no distress, patient was evaluated on the fifth floor. Patient is on room air. Head: Atraumatic, normocephalic. HEENT:[Neck is supple.] [No neck masses.] [No thyromegaly.] [No JVD.] Chest: [Clear throughout, no crackles, no rhonchi, no wheezes.] Cardiac Exam: [Normal S1 and S2, no S3 gallop, no murmur.] Abdomen: [Soft, nontender, no megaly, no rebound, no guarding, normal bowel sounds.] Extremities: [No clubbing, no edema, no cyanosis.] Neurological Exam: [No focal neurologic deficit.]alert and oriented 3. Psychiatric: Normal mood affect and normal mental status examination. Results - Laboratory Findings CBC and BMP: 11/21/23 10:12 08/29/23 10:12 PT/INR, D-dimer PT 10.8 sec (10.0-12.5) 08/28/23 04:25 INR 1.0 (<1.2) 08/28/23 04:25 Abnormal lab findings: Abnormal Labs 08/28/23 08/28/23 08/28/23 04:04 04:04 04:04 WBC 11.2 H RBC 1.98 L Hgb 6.5 L* D Hct 20.1 L MCV 101.2 H Neutrophils # 8.7 H APTT Sodium 136 L Carbon Dioxide 16 L BUN 60 H Creatinine 5.10 H Glucose 214 H Plasma Lactic Acid El 8.2 H* Total Protein 5.6 L Albumin 3.4 L Hep Bs Antibody Crossmatch 08/28/23 08/28/23 08/28/23 04:04 04:25 04:25 WBC RBC Hgb Hct MCV Neutrophils # APTT 17.7 L Sodium Carbon Dioxide BUN Creatinine Glucose Plasma Lactic Acid El Total Protein Albumin Hep Bs Antibody A Crossmatch See Detail 08/29/23 08/29/23 10:12 10:12 WBC RBC 1.72 L Hgb 5.6 L* Hct 16.8 L* MCV Neutrophils # APTT Sodium Carbon Dioxide BUN 73 H Creatinine 6.73 H Glucose 120 H Plasma Lactic Acid El Total Protein 4.8 L Albumin 2.8 L Hep Bs Antibody Crossmatch Assessment and Plan Assessment: impression: acute GI bleed, patient had recent negative upper and lower endoscopies about 10 days ago at [facility]. End-stage renal disease, on hemodialysis Acute blood loss anemia secondary to GI bleeding/recurrent history of abdominal aortic aneurysm and previous repair with graft in December of 2022 History of CVA Coronary artery disease and previous stents placement Benign essential hypertension Ex-smoker History of underlying COPD Recommendation: transfuse patient to keep hemoglobin above 7 Transfer patient to ICU and monitor closely in the ICU Hold aspirin and Plavix for now. Continue to monitor hemoglobin Placed patient on Protonix General surgery/GI consultation apparently GI is not available this week to be healthcare network pricing consultant Continue to monitor hemodynamics closelyand address accordingly We will continue to follow Time with Patient: Greater than 30
--- NOTE | 2023-08-29 16:53 | P.HPIM ---
History of Present Illness H&P Date: 08/28/23 HISTORY OF PRESENT ILLNESS This is a 78-year-old male with past medical history of hypertension, hyp erlipidemia, end-stage renal disease on hemodialysis Monday and Saturdays, melanoma left shoulder, Abdominal aortic aneurysm,Coronary artery disease status post stent. Patient had recent hospitalization at [facility] for GI bleed and underwent upper endoscopy and lower endoscopy that did not show any active bleeding. Patient presented to the emergency center due to bright red blood from his rectum for the past week. He has been on aspirin and Plavix. His initial hemoglobin was 6.5 and patient was ordered for 1 unit of packed RBCs. He apparently had multiple episodes of rectal bleeding during the night with bright red blood and clots. Patient was planning to go for comfort care measures only and no aggressive treatment was going to be obtained. Consult will be made with hospice and patient placed on the observation unit. Family members are at bedside and all seem to be in agreement. REVIEW OF SYSTEMS Constitutional: No fever, no chills, no night sweats. No weight change. Reports weakness, Reports fatigue. No daytime sleepiness. EENT: No headache. No blurred vision or double vision, no loss of vision. No loss of Hearing, no ringing in the ears, no dizziness. No nasal drainage or congestion. No epistaxis. No sore throat. Lungs: No shortness of breath, cough, no sputum production. No wheezing. Cardiovascular: No chest pain, no lower extremity edema. No palpitations. No paroxysmal nocturnal dyspnea. No orthopnea. No lightheadedness or dizziness. No syncopal episodes. Abdominal: No abdominal pain. No nausea, vomiting. No diarrhea. No consti pation. Reports right red bloody or tarry stools. Reports loss of appetite. Genitourinary: No dysuria, increased frequency, urgency. No urinary retention. Musculoskeletal: No myalgias. Reports muscle weakness, no gait dysfunction, no frequent falls. No back pain. No neck pain. Integumentary: No wounds, no lesions. No rash or pruritus. No unusual bruising. No change in hair or nails. Neurologic: No aphasia. No facial droop. No change in mentation. No head injury. No headache. No paralysis. No paresthesia. Psychiatric: No depression. No anxiety. No mood swings. Endocrine: No abnormal blood sugars. No weight change. No excessive sweating or thirst. No cold intolerance. MEDICAL HISTORY Hypertension Hyperlipidemia End-stage renal disease on hemodialysis GI bleed Melanoma left shoulder Abdominal aortic aneurysm Coronary artery disease status post stent SURGICAL HISTORY EGD and colonoscopy 08/2023 Coronary stent 3 Melanoma resected from the left shoulder Dialysis catheter placement SOCIAL HISTORY History of tobacco use for 60 years 1 pack per day and quit smoking fall 2022. Patient drinks 1 beer per day and occasional crown [place]. FAMILY HISTORY Father from an myocardial infarction. PHYSICAL EXAMINATION Gen: This is 78-year-old male resting in ER bed in no distress HEENT: Head is atraumatic, normocephalic. Pupils equal, round. Sclerae is anicteric. Junk of a pale NECK: Supple. No JVD. No lymphadenopathy. No thyromegaly. LUNGS: Clear to auscultation. No wheezes or rhonchi. No intercostal retractions. HEART: Regular rate and rhythm. No murmur. ABDOMEN: Soft. Bowel sounds are present. No masses. No tenderness. EXTREMITIES: No pedal edema. No calf tenderness. NEUROLOGICAL: Patient is awake, alert and oriented x3. Cranial nerves 2 through 12 are grossly intact. ASSESSMENT AND PLAN 1. Acute GI bleed most likely lower GI bleed with bright red bleeding with clots second. Patient will be transfused 1 unit of packed RBCs and plan is for comfort care/hospice. Hospice consult placed. Plavix and aspirin on hold. Patient started on Protonix 40 mg IV twice daily 2. Acute blood loss anemia. Patient be transfused 1 unit packed RBCs. Hold on repeat CBC as patient wishes to be comfort care. 3. End-stage renal disease on hemodialysis. Consult with nephrology. 4. Hypertension. Hold hydralazine 100 mg 3 times daily, atenolol 50 mg daily due to hypotension. 5. Hyperlipidemia. Hold atorvastatin. 6. History of coronary artery disease. Aspirin Plavix on hold. Patient will be admitted to the hospital for a minimum of 2 night stay. DISCHARGE PLAN TBD. Impression and plan of care have been directed as dictated by the signing p mayito. Gretta Peterson nurse practitioner acting as scribe for signing physician. Past Medical History Past Medical History: Cancer, COPD, GI Bleed, Hyperlipidemia, Hypertension, Memory Impairment, Myocardial Infarction ([place]), Renal Disease Additional Past Medical History / Comment(s): past hx. GI bleeding, hx. 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 aortic aneurysm Last Myocardial Infarction Date:: pt unsure History of Any Multi-Drug Resistant Organisms: None Reported Past Surgical History: Heart Catheterization With Stent Additional Past Surgical History / Comment(s): tooth sx, colonoscopy, heart stent x3, melanoma removed left shoulder recently, dialysis catheter placement- right inguanal and right chest wall Past Anesthesia/Blood Transfusion Reactions: No Reported Reaction Date of Last Stent Placement:: 2008 Past Psychological History: No Psychological Hx Reported Smoking Status: Former smoker Past Alcohol Use History: Occasional Additional Past Alcohol Use History / Comment(s): a beer a week, [place] on occasion. smoker for 60 years 1 ppd, quit smoking 1 month ago Past Drug Use History: None Reported - Past Family History Father Family Medical History: Myocardial Infarction ([place]) Additional Family Medical History / Comment(s): from a [place] Mother Family Medical History: Myocardial Infarction ([place]) Additional Family Medical History / Comment(s): from a [place] Sister(s) Family Medical History: Cancer Brother(s) Family Medical History: Myocardial Infarction ([place]) Medications and Allergies Home Medications Medication Instructions Recorded Confirmed Type Aspirin 81 mg PO DAILY #30 tab 01/04/23 08/28/23 Rx Clopidogrel [Plavix] 1 tab PO DAILY #30 tab 01/04/23 08/28/23 Rx atenoloL [Tenormin] 50 mg PO DAILY #30 tab 01/04/23 08/28/23 Rx Albuterol Inhaler [Ventolin Hfa 2 puff INHALATION RT-Q6H PRN 03/17/23 08/28/23 History Inhaler] Fluticasone/Umeclidin/Vilanter 1 puff INHALATION RT-DAILY PRN 03/17/23 08/28/23 History [Trelegy Ellipta 200-62.5-25] Atorvastatin [Lipitor] 80 mg PO DAILY 08/21/23 08/28/23 History Cephalexin [Keflex] 500 mg PO Q6HR #28 cap 08/21/23 08/28/23 Rx hydrALAZINE HCL [Apresoline] 100 mg PO TID 08/21/23 08/28/23 History Allergies Allergy/AdvReac Type Severity Reaction Status Date / Time No Known Allergies Allergy Verified 08/28/23 10:11 Physical Exam Vitals: Vital Signs Temp Pulse Pulse Resp BP BP Pulse Ox 08/29/23 16:21 97.9 F 57 L 14 95/44 97 08/29/23 16:00 97.5 F L 61 18 92/43 91 L 08/29/23 15:30 58 L 9 L 94/39 99 08/29/23 15:00 57 L 27 H 100/41 100 08/29/23 14:30 57 L 15 90/46 99 08/29/23 14:11 98.1 F 58 L 13 100 08/29/23 13:55 97.7 F 57 L 16 107/38 97 08/29/23 13:35 97.7 F 59 L 16 100/41 98 08/29/23 13:25 98.1 F 60 14 95/41 98 08/29/23 13:10 98.1 F 61 14 103/42 100 08/29/23 11:43 98.7 F 61 20 88/43 97 08/29/23 11:23 98.7 F 61 18 90/45 90 L 08/29/23 07:23 98.7 F 68 19 86/37 92 L 08/29/23 01:08 98.2 F 67 17 90/38 92 L 08/28/23 19:23 98.4 F 54 L 17 86/42 99 Intake and Output 08/29/23 08/29/23 08/29/23 06:59 14:59 22:59 Intake Total 340 310 310 Output Total 0 0 Balance 340 310 310 Intake: Oral 340 Blood Product 310 310 Rc As-1 Unit 310 [id number] Rc As-1 Unit 0 310 [id number] Output: Urine 0 0 Other: Voiding Method Toilet Urinal Results CBC & Chem 7: 08/29/23 10:12 08/29/23 10:12 Labs: Abnormal Lab Results - Last 24 Hours (Table) 08/28/23 08/28/23 08/29/23 Range/Units 04:04 04:25 10:12 RBC 1.72 L (4.30-5.90) m/uL Hgb 5.6 L* (13.0-17.5) gm/dL Hct 16.8 L* (39.0-53.0) % BUN (9-20) mg/dL Creatinine (0.66-1.25) mg/dL Glucose (74-99) mg/dL Total Protein (6.3-8.2) g/dL Albumin (3.5-5.0) g/dL Hep Bs Antibody A (Negative) Crossmatch See Detail 08/29/23 Range/Units 10:12 RBC (4.30-5.90) m/uL Hgb (13.0-17.5) gm/dL Hct (39.0-53.0) % BUN 73 H (9-20) mg/dL Creatinine 6.73 H (0.66-1.25) mg/dL Glucose 120 H (74-99) mg/dL Total Protein 4.8 L (6.3-8.2) g/dL Albumin 2.8 L (3.5-5.0) g/dL Hep Bs Antibody (Negative) Crossmatch Thrombosis Risk Factor Assmnt - Choose All That Apply Any of the Below Risk Factors Present?: Yes Each Factor Represents 1 point: Abnormal pulmonary function (COPD) Other Risk Factors: Yes Each Risk Factor Represents 3 Points: Age 75 years or older Other congenital or acquired thrombophilia - If yes, enter type in comment: No Thrombosis Risk Factor Assessment Total Risk Factor Score: 4 Thrombosis Risk Factor Assessment Level: Moderate Risk
--- NOTE | 2023-08-29 16:57 | P.TRANS ---
Providers Date of admission: 08/28/23 06:18 Expected date of discharge: 08/30/23 Attending physician: Joe Ashton Consults: 08/28/23 06:18 Consult Physician Routine Consulting Provider: Aby Thomas Consult Reason/Comments: ESRD, anemia Do you want consulting provider notified?: Yes 08/29/23 10:03 Consult Physician Routine Consulting Provider: Delma Orellana Consult Reason/Comments: icu management Do you want consulting provider notified?: Yes 08/29/23 11:37 Consult Physician Routine Consulting Provider: Colton Posadas Consult Reason/Comments: GIB Do you want consulting provider notified?: Already Contacted Primary care physician: Joe Ashton [facility] Course: HISTORY OF PRESENT ILLNESS This is a 78-year-old male with past medical history of hypertension, hyperlipidemia, end-stage renal disease on hemodialysis Monday and Saturdays, melanoma left shoulder, Abdominal aortic aneurysm,Coronary artery disease status post stent. Patient had recent hospitalization at [facility] for GI bleed and underwent upper endoscopy and lower endoscopy that did not show any active bleeding. Patient presented to the emergency center due to bright red blood from his rectum for the past week. He has been on aspirin and Plavix. His initial hemoglobin was 6.5 and patient was ordered for 1 unit of packed RBCs. He apparently had multiple episodes of rectal bleeding during the night with bright red blood and clots. Patient was planning to go for comfort care measures only and no aggressive treatment was going to be obtained. Consult will be made with hospice and patient placed on the observation unit. Family members are at bedside and all seem to be in agreement. 08/29: Patient decided this morning that he wanted to pursue aggressive treatment and did not want to continue on comfort care. Stat lab work was obtained which revealed hemoglobin of 5.6 and patient was ordered for transfusion of 2 units of packed RBCs. Patient was transferred into the intensive care unit and consult added for coldfusion. We do not currently have GI services available but did discuss the case with general surgery and Gen. surgery was not willing to accept the patient. Discussed with the patient and his family the patient would need to be transferred to a tertiary care center and this was arranged. Patient did not want to return to [facility] as he's had a bad experience there. Arrangements were made for patient to transfer to [facility]. Patient will be transferred once arrangements are completed. PHYSICAL EXAMINATION Gen: This is 78-year-old male resting in ER bed in no distress HEENT: Head is atraumatic, normocephalic. Pupils equal, round. Sclerae is anicteric. Conjunctiva pale. NECK: Supple. No JVD. No lymphadenopathy. No thyromegaly. LUNGS: Clear to auscultation. No wheezes or rhonchi. No intercostal retractions. HEART: Regular rate and rhythm. No murmur. ABDOMEN: Soft. Bowel sounds are present. No masses. No tenderness. EXTREMITIES: No pedal edema. No calf tenderness. NEUROLOGICAL: Patient is awake, alert and oriented x3. Cranial nerves 2 through 12 are grossly intact. ASSESSMENT AND PLAN 1. Acute GI bleed most likely lower GI bleed with bright red bleeding with clots. Patient is status post 1 unit of packed RBCs and additional 2 units are ordered for today. Consult with coldfusion and patient transferred to the intensive care unit. Plavix and aspirin remain on hold. Continue Protonix 40 mg IV twice daily. 2. Acute blood loss anemia. Status post transfusion of 1 unit packed RBCs. Additional 2 units to be transferred today. Repeat CBC. 3. End-stage renal disease on hemodialysis. Consult with nephrology. At this time, patient is scheduled for hemodialysis tomorrow. 4. Hypertension. Hold hydralazine 100 mg 3 times daily, atenolol 50 mg daily due to hypotension. 5. Hyperlipidemia. Hold atorvastatin. 6. History of coronary artery disease. Aspirin Plavix on hold. Impression and plan of care have been directed as dictated by the signing physician. Gretta Peterson nurse practitioner acting as scribe for signing physician. Patient Condition at Discharge: Serious Plan - Transfer Summary Transfer Medications: Active Medications Generic Name Dose Route Start Last Admin Trade Name Freq PRN Reason Stop Dose Admin Darbepoetin Fred 60 mcg 08/29/23 14:00 08/29/23 16:38 Darbepoetin Fred 60 Mcg/0.3 Ml Syringe SQ 60 mcg Q7D CARI Administration Hydromorphone HCl 0.5 mg 08/28/23 06:18 08/29/23 11:10 Hydromorphone 0.5 Mg/0.5 Ml Syringe IVP 0.5 mg Q3HR PRN Administration Moderate Pain (Scale 4 to 6) Naloxone HCl 0.2 mg 08/28/23 06:18 Naloxone 0.4 Mg/Ml 1 Ml Vial IV Q2M PRN Opioid Reversal Ondansetron HCl 4 mg 08/28/23 06:18 Ondansetron 4 Mg/2 Ml Vial IVP Q8HR PRN Nausea And Vomiting Pantoprazole Sodium 40 mg 08/29/23 21:00 Pantoprazole 40 Mg/10 Ml Vial IV BID CARI Follow up Appointment(s)/Referral(s): Joe Ashton MD [Primary Care Provider] - 1-2 days - Out of Hospital Transfer - Req. Specs Out of Hospital Transfer - Requested Specifics: Medical ICU
[2023-08-29 18:53] LABS: Anisocytosis Slight; Basophils % (A) 0 %; Eosinophils # (A) 0.3 k/uL (0-0.7); Eosinophils % (A) 3 %; HCT 21.8 % (39.0-53.0); Lymphocytes # (A) 1.2 k/uL (1.0-4.8); Lymphocytes % (A) 12 %; MCH 31.4 pg (25.0-35.0); MCHC 33.9 g/dL (31.0-37.0); Mean Platelet Volume 7.5; Monocytes # (A) 0.5 k/uL (0-1.0); Monocytes % (A) 6 %; Neutrophils # (A) 7.5 k/uL (1.3-7.7); Neutrophils % (A) 78 %; Platelet Count 205 k/uL (150-450); RBC 2.35 m/uL (4.30-5.90); RDW 17.1 % (11.5-15.5); WBC 9.6 k/uL (3.8-10.6)
[2023-08-29 18:54] LABS: HGB 7.4 gm/dL (13.0-17.5); MCV 92.7 fL (80.0-100.0)
--- NOTE | 2023-08-29 20:17 | P.HPIM ---
History of Present Illness H&P Date: 08/28/23 Chief Complaint: GI bleed HISTORY OF PRESENT ILLNESS: This is a 78-year-old male with a previous medical history significant for coronary artery disease status post PCI and stent placement, history of hypertension and hypertensive perivascular disease, hyperlipidemia, history of chronic obstructive pulmonary disease with chronic respiratory failure and oxygen 2 L nasal cannula, history of melanoma status post resection of the left shoulder, history of abdominal aortic aneurysm status post endovascular stent graft placement, patient was recently hospitalized at [facility] after he was brought into the emergency department at [facility] with a GI bleed at that time we did not have any GI service and the patient ended up getting transferred to [facility] for further evaluation and recommendation, patient according to the family and himself he was discharged on Monday night, and he has been having issues with the lower gastrointestinal bleed that appears to be bright red blood along with a clot for the last few days got worse over th e last 24 hours, and the patient felt quite a bit fatigue and dizzy so the ended up sending the patient back to the emergency department at [facility] today, patient became hypotensive, he his hemoglobin was done at 5.9, he did receive 1 unit of packed blood cells, the patient and his daughter elected not to do any further treatment as the patient refused to go for any further testing and they elected to go for hospice consult I spoke with the emergency room physician about the inappropriateness of hospice consult and the patient due to gastric disobeyed because is not dying from a terminal illness by the patient's and the daughter confirmed that they wanted hospice consult at this time so the patient refused to be transferred to [facility] or [facility] at this point in time, he did receive 1 unit of blood and he was admitted to the medical floor, awaiting for hospice evaluation, I came in and talked to the patient at night as well and he still did not want to go for any further testing but he was confused about the hospice so the patient was kept in the medical floor, until he will have a consultation with hospice tomorrow morning. REVIEW OF SYSTEMS: Constitutional: No documented fever, no chills, no night sweats. No weight change. No weakness, fatigue or lethargy. No daytime sleepiness. HEENT: No headache. No blurred vision or double vision, no loss of vision. No loss of Hearing, no ringing in the ears, no dizziness. No nasal drainage or congestion. No epistaxis. No sore throat. Lungs: positive for shortness of breath, no cough, no sputum production. No wheezing. Reports dyspnea with activity. Cardiovascular: No chest pain, no lower extremity edema. No palpitations. No paroxysmal nocturnal dyspnea. No orthopnea. No lightheadedness or dizziness. No syncopal episodes. Abdominal: Reports abdominal pain. No nausea, vomiting, positive for bright red blood per rectum Genitourinary: No dysuria, increased frequency, urgency. No urinary retention. Musculoskeletal: No myalgias. positive for muscle weakness, no gait dy sfunction, no frequent falls. No back pain. No neck pain. Integumentary: No wounds, no lesions. No rash or pruritus. No unusual bruising. No change in hair or nails. Neurologic: No aphasia. No facial droop. No change in mentation. No head injury. No headache. No paralysis. No paresthesia. Psychiatric: No depression. No anxiety. No mood swings. Endocrine: No abnormal blood sugars. No weight change. PAST MEDICAL HISTORY: Hypertension and hypertensive cardio vascular disease. Mixed hyperlipidemia. Coronary artery disease status post PCI. COPD. Chronic tobacco use and dependence. Chronic hypoxemic respiratory failure Melanoma resected from the left shoulder Abdominal aortic aneurysm status post endovascular stent graft placement Osteoarthritis. And stage renal disease on hemodialysis. Monday and Monday PAST SURGICAL HISTORY: Left heart catheterization with PCI x3 Abdominal aortic aneurysm status post endovascular stent graft placement. EGD and colonoscopy. Permacath replacement SOCIAL HISTORY: Patient smokes about a pack every day he started smoking when he was 15-year-old, he continues to smoke, he denies any alcohol ingestion, he denies any drug use or abuse. FAMILY HISTORY: Both parents from [place], patient has 2 sons and one daughter lives recurrent problems. PHYSICAL EXAMINATION: General: 78-year-old male laying down in bed in no distress. HEENT: Head is atraumatic, normocephalic, pupils were equal round reactive to light and recommendation, extraocular muscle movement were intact, sclera nonicteric, conjunctivae were pale, mucous membranes of the mouth are somewhat dry. Neck: Supple, no JVP, normal carotid upstroke bilaterally, no lymphadenopathy. Chest: Decreased breath sounds at the bases, few rhonchi, no expiratory wheezes, no chest wall tenderness, no intercostal retractions. Heart: First heart sound is normal, second heart sound is normal there is TRES 2/6 located at the left sternal border Abdomen: Soft, mild tenderness in the midepigastric area and left lower quadrant , there is no rebound or guarding positive bowel sounds Extremities: There is no edema no calf tenderness DP +2 bilaterally. Neurologic examination: Patient is awake alert and oriented X3 , cranial nerves II-12 appear grossly intact, muscle power were 5 out of 5 in upper extremities and 5 out of 5 in bilateral lower extremities, deep tendon reflexes normal bilaterally. ASSESSMENT AND PLAN: 1. Acute gastrointestinal bleed possibly lower gastrointestinal bleed. The patient did have GI evaluation about 2 weeks ago at [facility], the results are not available for me at this point in time, he did have an EGD and colonoscopy and he was discharged home after stabilization. Patient at this point in time continues to refuse to go for EGD and colonoscopy at this time, we do not have any GI services at the at this point in time, we'll continue to monitor the patient very closely, patient did receive 1 unit of packed red blood cells, at this point in time awaiting further recommendation from the hospice care team. 2. Recurrent GI bleed. Patient did receive 1 unit of packed packed red blood cells patient will require multiple transfusion and he would need to have an EGD and colonoscopy asked the patient about a can and he continues to be resistant to the idea of having any more testing done. 3. Coronary artery disease status post PCI that was done about a year ago. Patient has been on aspirin and Plavix this was taken off. 4. Acute blood loss anemia status post 1 unit of packed dose of procedure repeat CBC in the next 24 hours. 5. Hypertension and hypertensive perivascular disease currently hypotensive all his hypertensive medication. 6. Mixed hyperlipidemia we will hold his statin at this time. 7. Chronic hypoxemic respiratory failure due to chronic obstructive pulmonary disease. Continue oxygen 2 L nasal cannula. 8. History of melanoma resection from the left shoulder. 9. Chronic tobacco use and dependence. Smoking cessation and counseling 10. End-stage renal disease on hemodialysis Monday and Monday.. 11. Patient elected to DO NOT RESUSCITATE. 12. Patient and family interested and comfort/hospice care consult was placed in the chart from the morning still await hospice nurse to come and evaluated the patient. 13. Prognosis is guarded. . Past Medical History Past Medical History: Cancer, COPD, GI Bleed, Hyperlipidemia, Hypertension, Memory Impairment, Myocardial Infarction ([place]), Renal Disease Additional Past Medical History / Comment(s): past hx. GI bleeding, hx. 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 aortic aneurysm Last Myocardial Infarction Date:: pt unsure History of Any Multi-Drug Resistant Organisms: None Reported Past Surgical History: Heart Catheterization With Stent Additional Past Surgical History / Comment(s): tooth sx, colonoscopy, heart stent x3, melanoma removed left shoulder recently, dialysis catheter placement- right inguanal and right chest wall Past Anesthesia/Blood Transfusion Reactions: No Reported Reaction Date of Last Stent Placement:: 2008 Past Psychological History: No Psychological Hx Reported Smoking Status: Former smoker Past Alcohol Use History: Occasional Additional Past Alcohol Use History / Comment(s): a beer a week, crown royal on occasion. smoker for 60 years 1 ppd, quit smoking 1 month ago Past Drug Use History: None Reported - Past Family History Father Family Medical History: Myocardial Infarction ([place]) Additional Family Medical History / Comment(s): from a [place] Mother Family Medical History: Myocardial Infarction ([place]) Additional Family Medical History / Comment(s): from a [place] Sister(s) Family Medical History: Cancer Brother(s) Family Medical History: Myocardial Infarction ([place]) Medications and Allergies Home Medications Medication Instructions Recorded Confirmed Type Aspirin 81 mg PO DAILY #30 tab 01/04/23 08/28/23 Rx Clopidogrel [Plavix] 1 tab PO DAILY #30 tab 01/04/23 08/28/23 Rx atenoloL [Tenormin] 50 mg PO DAILY #30 tab 01/04/23 08/28/23 Rx Albuterol Inhaler [Ventolin Hfa 2 puff INHALATION RT-Q6H PRN 03/17/23 08/28/23 History Inhaler] Fluticasone/Umeclidin/Vilanter 1 puff INHALATION RT-DAILY PRN 03/17/23 08/28/23 History [Trelegy Ellipta 200-62.5-25] Atorvastatin [Lipitor] 80 mg PO DAILY 08/21/23 08/28/23 History Cephalexin [Keflex] 500 mg PO Q6HR #28 cap 08/21/23 08/28/23 Rx hydrALAZINE HCL [Apresoline] 100 mg PO TID 08/21/23 08/28/23 History Allergies Allergy/AdvReac Type Severity Reaction Status Date / Time No Known Allergies Allergy Verified 08/28/23 10:11 Physical Exam Vitals: Vital Signs Temp Pulse Pulse Resp BP BP Pulse Ox 08/29/23 16:21 97.9 F 57 L 14 95/44 97 08/29/23 16:00 97.5 F L 61 18 92/43 91 L 08/29/23 15:30 58 L 9 L 94/39 99 08/29/23 15:00 57 L 27 H 100/41 100 08/29/23 14:30 57 L 15 90/46 99 08/29/23 14:11 98.1 F 58 L 13 100 08/29/23 13:55 97.7 F 57 L 16 107/38 97 08/29/23 13:35 97.7 F 59 L 16 100/41 98 08/29/23 13:25 98.1 F 60 14 95/41 98 08/29/23 13:10 98.1 F 61 14 103/42 100 08/29/23 11:43 98.7 F 61 20 88/43 97 08/29/23 11:23 98.7 F 61 18 90/45 90 L 08/29/23 07:23 98.7 F 68 19 86/37 92 L 08/29/23 01:08 98.2 F 67 17 90/38 92 L 08/28/23 19:23 98.4 F 54 L 17 86/42 99 08/28/23 16:35 98.2 F 61 16 111/56 100 Intake and Output 08/29/23 08/29/23 08/29/23 06:59 14:59 22:59 Intake Total 340 310 310 Output Total 0 0 Balance 340 310 310 Intake: Oral 340 Blood Product 310 310 Rc As-1 Unit 310 [id number] Rc As-1 Unit 0 310 [id number] Output: Urine 0 0 Other: Voiding Method Toilet Urinal Results CBC & Chem 7: 08/29/23 17:50 08/29/23 10:12 Labs: Abnormal Lab Results - Last 24 Hours (Table) 08/28/23 08/28/23 08/29/23 Range/Units 04:04 04:25 10:12 RBC 1.72 L (4.30-5.90) m/uL Hgb 5.6 L* (13.0-17.5) gm/dL Hct 16.8 L* (39.0-53.0) % BUN (9-20) mg/dL Creatinine (0.66-1.25) mg/dL Glucose (74-99) mg/dL Total Protein (6.3-8.2) g/dL Albumin (3.5-5.0) g/dL Hep Bs Antibody A (Negative) Crossmatch See Detail 08/29/23 Range/Units 10:12 RBC (4.30-5.90) m/uL Hgb (13.0-17.5) gm/dL Hct (39.0-53.0) % BUN 73 H (9-20) mg/dL Creatinine 6.73 H (0.66-1.25) mg/dL Glucose 120 H (74-99) mg/dL Total Protein 4.8 L (6.3-8.2) g/dL Albumin 2.8 L (3.5-5.0) g/dL Hep Bs Antibody (Negative) Crossmatch Thrombosis Risk Factor Assmnt - Choose All That Apply Any of the Below Risk Factors Present?: Yes Each Factor Represents 1 point: Abnormal pulmonary function (COPD) Other Risk Factors: Yes Each Risk Factor Represents 3 Points: Age 75 years or older Other congenital or acquired thrombophilia - If yes, enter type in comment: No Thrombosis Risk Factor Assessment Total Risk Factor Score: 4 Thrombosis Risk Factor Assessment Level: Moderate Risk
[2023-08-30 04:27] LABS: Anisocytosis Slight; Basophils % (A) 0 %; Eosinophils # (A) 0.2 k/uL (0-0.7); Eosinophils % (A) 2 %; HCT 20.1 % (39.0-53.0); Lymphocytes # (A) 1.1 k/uL (1.0-4.8); Lymphocytes % (A) 14 %; MCH 30.8 pg (25.0-35.0); MCHC 33.2 g/dL (31.0-37.0); MCV 92.9 fL (80.0-100.0); Mean Platelet Volume 7.5; Monocytes # (A) 0.5 k/uL (0-1.0); Monocytes % (A) 6 %; Neutrophils # (A) 5.6 k/uL (1.3-7.7); Neutrophils % (A) 76 %; Platelet Count 193 k/uL (150-450); RBC 2.16 m/uL (4.30-5.90); RDW 17.4 % (11.5-15.5); WBC 7.4 k/uL (3.8-10.6)
[2023-08-30 04:43] LABS: ALT 8 U/L (4-49); AST 18 U/L (17-59); African American GFR (CKD) 8 (>60 ml/min/1.73 sqM); Albumin 2.4 g/dL (3.5-5.0); Alkaline Phosphatase 40 U/L (38-126); Anion Gap 7 mmol/L; Blood Urea Nitrogen 68 mg/dL (9-20); Carbon Dioxide 24 mmol/L (22-30); Chloride 109 mmol/L (98-107); Glucose 80 mg/dL (74-99); Non-African American GFR(CKD) 7 (>60 ml/min/1.73 sqM); Potassium 4.2 mmol/L (3.5-5.1); Sodium 140 mmol/L (137-145); Total Bilirubin 0.4 mg/dL (0.2-1.3); Total Protein 4.4 g/dL (6.3-8.2)
[2023-08-30 05:44] LABS: HGB 6.7 gm/dL (13.0-17.5)
[2023-08-30] MEDS: PANTOPRAZOLE 40 MG/10 ML VIAL IV SCH (08:35)
--- NOTE | 2023-08-30 11:54 | P.PN ---
Subjective Progress Note Date: 08/30/23 CHIEF COMPLAINT: GI bleeding HISTORY OF PRESENT ILLNESS: Patient currently on the ICU for GI bleed. He has received 3 units of blood and is currently receiving another unit for hemoglobin of 6.7. Per nursing staff patient had 3 brown liquidy bowel movements during the night. No abdominal pain reported. Patient is in the process of being transferred. Afebrile. He is not tachycardic. BP is stable. WBC is 7.4 Hgb 6.7 platelets 193 PHYSICAL EXAM: VITAL SIGNS: Reviewed. GENERAL: Well-developed in no acute distress. ABDOMEN: Soft. Nondistended. Nontender. NEUROLOGIC: Awake and alert ASSESSMENT: 1. Acute GI bleed 2. Acute blood loss anemia 3. Recent EGD and colonoscopy 2 weeks ago at [facility] PLAN: -Recommend transfer for GI bleed. No GI service available this week at this facility. -Continue to monitor hemoglobin -Continue to monitor for any signs or symptoms of bleeding -Continue to hold aspirin and Plavix -Continue PPI Physician [employer] note has been reviewed by physician. Signing provider agrees with the documented findings, assessment, and plan of care. Objective - Vital Signs Vital signs: Vital Signs Temp 98.3 F 08/30/23 08:07 Pulse 53 L 08/30/23 10:00 Resp 17 08/30/23 10:00 BP 102/64 08/30/23 10:00 Pulse Ox 96 08/30/23 10:00 FiO2 Intake & Output 08/29/23 08/30/23 08/30/23 18:59 06:59 18:59 Intake Total 620 400 400 Output Total 300 0 0 Balance 320 400 400 Weight 90.9 kg Intake: Oral 400 400 Blood Product 620 0 Rc As-1 Unit 310 [id number] Rc As-1 Unit 310 [id number] Rc Irr As1 Unit 0 [id number] Output: Urine 300 0 0 Other: Voiding Method Toilet Toilet Toilet Urinal Urinal Urinal # Voids 1 # Bowel Movements 1 - Labs CBC & Chem 7: 08/30/23 03:06 08/30/23 03:06 Labs: Abnormal Lab Results - Last 24 Hours (Table) 08/28/23 08/29/23 08/29/23 Range/Units 04:25 10:12 10:12 RBC 1.72 L (4.30-5.90) m/uL Hgb 5.6 L* (13.0-17.5) gm/dL Hct 16.8 L* (39.0-53.0) % RDW (11.5-15.5) % Chloride (98-107) mmol/L BUN 73 H (9-20) mg/dL Creatinine 6.73 H (0.66-1.25) mg/dL Glucose 120 H (74-99) mg/dL Calcium (8.4-10.2) mg/dL Total Protein 4.8 L (6.3-8.2) g/dL Albumin 2.8 L (3.5-5.0) g/dL Crossmatch See Detail 08/29/23 08/30/23 08/30/23 Range/Units 17:50 03:06 03:06 RBC 2.35 L 2.16 L (4.30-5.90) m/uL Hgb 7.4 L D 6.7 L* (13.0-17.5) gm/dL Hct 21.8 L 20.1 L (39.0-53.0) % RDW 17.1 H 17.4 H (11.5-15.5) % Chloride 109 H (98-107) mmol/L BUN 68 H (9-20) mg/dL Creatinine 6.90 H (0.66-1.25) mg/dL Glucose (74-99) mg/dL Calcium 8.0 L (8.4-10.2) mg/dL Total Protein 4.4 L (6.3-8.2) g/dL Albumin 2.4 L (3.5-5.0) g/dL Crossmatch
--- NOTE | 2023-08-30 12:24 | P.PN ---
Subjective Progress Note Date: 08/30/23 Principal diagnosis: Acute GI bleeding this is a 78-year-old white male with history of multiple medical problems including end-stage renal disease, on hemodialysis on Tuesdays and Saturdays, patient presented to the ER with bright red blood per rectum patient has been noticing lower GI bleeding for the last 1 week. Patient was recently hospitalized at [facility] for GI bleeding and apparently he underwent upper endoscopy and lower endoscopy, and did not reveal any active bleeding at the time. Patient came in last night to the ER, with similar symptoms this time, patient is normally maintained on aspirin and Plavix prior to this admission. At any rate his hemoglobin was low, at 5.6, patient received a unit of packed RBCs, and at night he had further episodes of bright red blood per rectum. Apparently when the patient was admitted last night, his CODE STATUS was basically no code, and the plan was to go to comfort care measures according to the note in the chart. However the CODE STATUS was changed this morning by the admitting physician, and since the patient was having further and recurrent episodes of GI bleeding, and his hemoglobin was only 5.6, I was notified about this patient, and I recommended transferring the patient to the ICU.in the meantime I recommended that the patient gets transfused with 2 units of packed RBCs as soon as possible.repeat CBC is pending after the 2 units were ordered.on the floor, the patient was noted to be a bit hypotensive with blood pressure in the 80s systolic, and I recommended a liter of fluid to be given in a bolus form. This was started on the floor, and that will likely be continued in the ICU.patient had no symptoms of hematemesis, no abdominal pain, no nausea and vomiting. Reevaluated today on 08/30/2023, patient remains in the ICU, I saw him yesterday on consultation and they transferred the patient to the ICU hemoglobin this morning is 6.7, no further episodes of noticeable lower GI bleeding or bright red blood per rectum however his hemoglobin today is 6.7 patient received so far total of 3 units of packed RBCs and he will be receiving his fourth unit this morning. Considering no GI coverage in our hospital, patient is being considered for transfer to [facility], no beds are available at this point. But apparently he was accepted. Patient is hemodynamically stable, not in any distress. BUN is 68 creatinine 6.90, remind you patient is on hemodialysis. Objective - Vital Signs Vital signs: Vital Signs Temp 98.3 F 08/30/23 08:07 Pulse 56 L 08/30/23 11:00 Resp 14 08/30/23 11:00 BP 110/44 08/30/23 11:00 Pulse Ox 94 L 08/30/23 11:00 FiO2 Intake & Output 08/29/23 08/30/23 08/30/23 18:59 06:59 18:59 Intake Total 620 400 400 Output Total 300 0 200 Balance 320 400 200 Weight 90.9 kg Intake: Oral 400 400 Blood Product 620 0 Rc As-1 Unit 310 [id number] Rc As-1 Unit 310 [id number] Rc Irr As1 Unit 0 [id number] Output: Urine 300 0 200 Other: Voiding Method Toilet Toilet Toilet Urinal Urinal Urinal # Voids 1 # Bowel Movements 1 - Exam Physical Exam: Revealed a 78-year-old white male in no distress Head: Atraumatic, normocephalic. HEENT:[Neck is supple.] [No neck masses.] [No thyromegaly.] [No JVD.] Chest: [Clear throughout, no crackles, no rhonchi, no wheezes.] Cardiac Exam: [Normal S1 and S2, no S3 gallop, no murmur.] Abdomen: [Soft, nontender, no megaly, no rebound, no guarding, normal bowel sounds.] Extremities: [No clubbing, no edema, no cyanosis.] Neurological Exam: [No focal neurologic deficit.]alert and oriented 3. Psychiatric: Normal mood affect and normal mental status examination. - Labs CBC & Chem 7: 08/30/23 03:06 08/30/23 03:06 Labs: Abnormal Lab Results - Last 24 Hours (Table) 08/28/23 08/29/23 08/30/23 Range/Units 04:25 17:50 03:06 RBC 2.35 L (4.30-5.90) m/uL Hgb 7.4 L D (13.0-17.5) gm/dL Hct 21.8 L (39.0-53.0) % RDW 17.1 H (11.5-15.5) % Chloride 109 H (98-107) mmol/L BUN 68 H (9-20) mg/dL Creatinine 6.90 H (0.66-1.25) mg/dL Calcium 8.0 L (8.4-10.2) mg/dL Total Protein 4.4 L (6.3-8.2) g/dL Albumin 2.4 L (3.5-5.0) g/dL Crossmatch See Detail 08/30/23 Range/Units 03:06 RBC 2.16 L (4.30-5.90) m/uL Hgb 6.7 L* (13.0-17.5) gm/dL Hct 20.1 L (39.0-53.0) % RDW 17.4 H (11.5-15.5) % Chloride (98-107) mmol/L BUN (9-20) mg/dL Creatinine (0.66-1.25) mg/dL Calcium (8.4-10.2) mg/dL Total Protein (6.3-8.2) g/dL Albumin (3.5-5.0) g/dL Crossmatch Assessment and Plan Assessment: impression: acute GI bleed, patient had recent negative upper and lower endoscopies about 10 days ago at [facility]. End-stage renal disease, on hemodialysis Acute blood loss anemia secondary to GI bleeding/recurrent history of abdominal aortic aneurysm and previous repair with graft in December of 2022 History of CVA Coronary artery disease and previous stents placement Benign essential hypertension Ex-smoker History of underlying COPD Recommendation: Continue present supportive care measures Transfer patient out of 2 every 4-170 available Transfuse for hemoglobin below 7 Continue to Hold aspirin and Plavix for now. Continue to monitor hemoglobin Continue protonix We will continue to follow Time with Patient: Less than 30
--- NOTE | 2023-08-30 13:04 | P.PN ---
Subjective Progress Note Date: 08/29/23 HISTORY OF PRESENT ILLNESS: This is a 78-year-old male with a previous medical history significant for coronary artery disease status post PCI and stent placement, history of hypertension and hypertensive perivascular disease, hyperlipidemia, history of chronic obstructive pulmonary disease with chronic respiratory failure and oxygen 2 L nasal cannula, history of melanoma status post resection of the left shoulder, history of abdominal aortic aneurysm status post endovascular stent graft placement, patient was recently hospitalized at [facility] after he was brought into the emergency department at [facility] with a GI bleed at that time we did not have any GI service and the patient ended up getting transferred to [facility] for further evaluation and recommendation, patient according to the family and himself he was discharged on Monday night, and he has been having issues with the lower gastrointestinal bleed that appears to be bright red blood along with a clot for the last few days got worse over the last 24 hours, and the patient felt quite a bit fatigue and dizzy so the ended up sending the patient back to the emergency department at [facility] today, patient became hypotensive, he his hemoglobin was done at 5.9, he did receive 1 unit of packed blood cells, the patient and his daughter elected not to do any further treatment as the patient refused to go for any further testing and they elected to go for hospice consult I spoke with the emergency room physician about the inappropriateness of hospice consult and the patient due to gastric disobeyed because is not dying from a terminal illness by the patient's and the daughter confirmed that they wanted hospice consult at this time so the patient refused to be transferred to [facility] or [facility] at this point in time, he did receive 1 unit of blood and he was admitted to the medical floor, awaiting for hospice evaluation, I came in and talked to the patient at night as well and he still did not want to go for any further testing but he was confused about the hospice so the patient was kept in the medical floor, until he will have a consultation with hospice tomorrow morning. 08/29: Patient has changes his min in the morning today and he elected to have treatment as opposed to comfort care, so h was transferred to the ICU with consult placed to [employer] and from surgery as there is no GI semiconductor wafers marker, and labs were done and he was moved to the ICU and he will be getting 2 units of PRBCs and was started on Protonix IVPdaily and had a long conversation with him and his son and daughter at the bedside and they were ok to transfer the patient to any place but [facility] and we will be starting the transfer process likely to [facility], I spoke with the surgical fellow in the ICU and has accepted the patient await for the actual transfer to be done REVIEW OF SYSTEMS: Constitutional: No documented fever, no chills, no night sweats. No weight change. No weakness, fatigue or lethargy. No daytime sleepiness. HEENT: No headache. No blurred vision or double vision, no loss of vision. No loss of Hearing, no ringing in the ears, no dizziness. No nasal drainage or congestion. No epistaxis. No sore throat. Lungs: positive for shortness of breath, no cough, no sputum production. No wheezing. Reports dyspnea with activity. Cardiovascular: No chest pain, no lower extremity edema. No palpitations. No paroxysmal nocturnal dyspnea. No orthopnea. No lightheadedness or dizziness. No syncopal episodes. Abdominal: Reports abdominal pain. No nausea, vomiting, positive for bright red blood per rectum Genitourinary: No dysuria, increased frequency, urgency. No urinary retention. Musculoskeletal: No myalgias. positive for muscle weakness, no gait dysfunction, no frequent falls. No back pain. No neck pain. Integumentary: No wounds, no lesions. No rash or pruritus. No unusual bruising. No change in hair or nails. Neurologic: No aphasia. No facial droop. No change in mentation. No head injury. No headache. No paralysis. No paresthesia. Psychiatric: No depression. No anxiety. No mood swings. Endocrine: No abnormal blood sugars. No weight change. PAST MEDICAL HISTORY: Hypertension and hypertensive cardio vascular disease. Mixed hyperlipidemia. Coronary artery disease status post PCI. COPD. Chronic tobacco use and dependence. Chronic hypoxemic respiratory failure Melanoma resected from the left shoulder Abdominal aortic aneurysm status post endovascular stent graft placement Osteoarthritis. And stage renal disease on hemodialysis. Monday and Monday PAST SURGICAL HISTORY: Left heart catheterization with PCI x3 Abdominal aortic aneurysm status post endovascular stent graft placement. EGD and colonoscopy. Permacath replacement SOCIAL HISTORY: Patient smokes about a pack every day he started smoking when he was 15-year-old, he continues to smoke, he denies any alcohol ingestion, he denies any drug use or abuse. FAMILY HISTORY: Both parents from [place], patient has 2 sons and one daughter lives recurrent problems. PHYSICAL EXAMINATION: General: 78-year-old male laying down in bed in no distress. HEENT: Head is atraumatic, normocephalic, pupils were equal round reactive to light and recommendation, extraocular muscle movement were intact, sclera nonicteric, conjunctivae were pale, mucous membranes of the mouth are somewhat dry. Neck: Supple, no JVP, normal carotid upstroke bilaterally, no lymphadenopathy. Chest: Decreased breath sounds at the bases, few rhonchi, no expiratory wheezes, no chest wall tenderness, no intercostal retractions. Heart: First heart sound is normal, second heart sound is normal there is TRES 2/6 located at the left sternal border Abdomen: Soft, mild tenderness in the midepigastric area and left lower quadrant , there is no rebound or guarding positive bowel sounds Extremities: There is no edema no calf tenderness DP +2 bilaterally. Neurologic examination: Patient is awake alert and oriented X3 , cranial nerves II-12 appear grossly intact, muscle power were 5 out of 5 in upper extremities and 5 out of 5 in bilateral lower extremities, deep tendon reflexes normal bilaterally. ASSESSMENT AND PLAN: 1. Acute gastrointestinal bleed possibly lower gastrointestinal bleed. The patient did have GI evaluation about 2 weeks ago at [facility], the results are not available for me at this point in time, he did have an EGD and colonoscopy and he was discharged home after stabilization. we will continue with ICU care and blood transfusion and patient is stable for transfer 2. Recurrent GI bleed. S/P 2 units of PRBCs we will continue to monitor cbc and keep HGB >7 3. Coronary artery disease status post PCI that was done about a year ago. Patient has been on aspirin and Plavix this was taken off. 4. Acute blood loss anemia status post 2 units of packed dose of procedure repeat CBC in the next 24 hours. 5. Hypertension and hypertensive perivascular disease currently hypotensive all his hypertensive medication. 6. Mixed hyperlipidemia we will hold his statin at this time. 7. Chronic hypoxemic respiratory failure due to chronic obstructive pulmonary disease. Continue oxygen 2 L nasal cannula. 8. History of melanoma resection from the left shoulder. 9. Chronic tobacco use and dependence. Smoking cessation and counseling 10. End-stage renal disease on hemodialysis Monday and Monday.. 11. Patient elected to DO NOT RESUSCITATE. 12. Await the transfer to [facility] Objective - Vital Signs Vital signs: Vital Signs Temp 98.0 F 08/30/23 12:00 Pulse 55 L 08/30/23 12:00 Resp 25 H 08/30/23 12:00 BP 114/47 08/30/23 12:00 Pulse Ox 94 L 08/30/23 12:00 FiO2 Intake & Output 08/29/23 08/30/23 08/30/23 18:59 06:59 18:59 Intake Total 620 400 400 Output Total 300 0 200 Balance 320 400 200 Weight 90.9 kg Intake: Oral 400 400 Blood Product 620 0 Rc As-1 Unit 310 [id number] Rc As-1 Unit 310 [id number] Rc Irr As1 Unit 0 [id number] Output: Urine 300 0 200 Other: Voiding Method Toilet Toilet Toilet Urinal Urinal Urinal # Voids 1 # Bowel Movements 1 - Labs CBC & Chem 7: 08/30/23 03:06 08/30/23 03:06 Labs: Abnormal Lab Results - Last 24 Hours (Table) 08/28/23 08/29/23 08/30/23 Range/Units 04:25 17:50 03:06 RBC 2.35 L (4.30-5.90) m/uL Hgb 7.4 L D (13.0-17.5) gm/dL Hct 21.8 L (39.0-53.0) % RDW 17.1 H (11.5-15.5) % Chloride 109 H (98-107) mmol/L BUN 68 H (9-20) mg/dL Creatinine 6.90 H (0.66-1.25) mg/dL Calcium 8.0 L (8.4-10.2) mg/dL Total Protein 4.4 L (6.3-8.2) g/dL Albumin 2.4 L (3.5-5.0) g/dL Crossmatch See Detail 08/30/23 Range/Units 03:06 RBC 2.16 L (4.30-5.90) m/uL Hgb 6.7 L* (13.0-17.5) gm/dL Hct 20.1 L (39.0-53.0) % RDW 17.4 H (11.5-15.5) % Chloride (98-107) mmol/L BUN (9-20) mg/dL Creatinine (0.66-1.25) mg/dL Calcium (8.4-10.2) mg/dL Total Protein (6.3-8.2) g/dL Albumin (3.5-5.0) g/dL Crossmatch
--- NOTE | 2023-08-30 13:47 | P.PN ---
Subjective Patient is seen in follow-up for end-stage renal disease. He is maintained on hemodialysis on Monday schedule. Hemoglobin 6.7 this morning. He has received a total of 4 units of blood this admission. No active bleeding. Off vasopressors. Vital signs are stable. General: No acute distress. HEENT: Head exam is unremarkable. LUNGS: No audible rhonchi or wheezes. HEART: Rate and Rhythm are regular. ABDOMEN: Nontender. EXTREMITITES: No edema. Objective - Vital Signs Vital signs: Vital Signs Temp 98.0 F 08/30/23 12:00 Pulse 54 L 08/30/23 13:00 Resp 19 08/30/23 13:00 BP 107/44 08/30/23 13:00 Pulse Ox 92 L 08/30/23 13:00 FiO2 Intake & Output 08/29/23 08/30/23 08/30/23 18:59 06:59 18:59 Intake Total 620 400 400 Output Total 300 0 200 Balance 320 400 200 Weight 90.9 kg Intake: Oral 400 400 Blood Product 620 0 Rc As-1 Unit 310 [id number] Rc As-1 Unit 310 [id number] Rc Irr As1 Unit 0 [id number] Output: Urine 300 0 200 Other: Voiding Method Toilet Toilet Toilet Urinal Urinal Urinal # Voids 1 # Bowel Movements 1 - Labs CBC & Chem 7: 08/30/23 03:06 08/30/23 03:06 Labs: Abnormal Lab Results - Last 24 Hours (Table) 08/28/23 08/29/23 08/30/23 Range/Units 04:25 17:50 03:06 RBC 2.35 L (4.30-5.90) m/uL Hgb 7.4 L D (13.0-17.5) gm/dL Hct 21.8 L (39.0-53.0) % RDW 17.1 H (11.5-15.5) % Chloride 109 H (98-107) mmol/L BUN 68 H (9-20) mg/dL Creatinine 6.90 H (0.66-1.25) mg/dL Calcium 8.0 L (8.4-10.2) mg/dL Total Protein 4.4 L (6.3-8.2) g/dL Albumin 2.4 L (3.5-5.0) g/dL Crossmatch See Detail 08/30/23 Range/Units 03:06 RBC 2.16 L (4.30-5.90) m/uL Hgb 6.7 L* (13.0-17.5) gm/dL Hct 20.1 L (39.0-53.0) % RDW 17.4 H (11.5-15.5) % Chloride (98-107) mmol/L BUN (9-20) mg/dL Creatinine (0.66-1.25) mg/dL Calcium (8.4-10.2) mg/dL Total Protein (6.3-8.2) g/dL Albumin (3.5-5.0) g/dL Crossmatch Assessment and Plan Plan: Assessment: 1. End-stage renal disease maintained on hemodialysis on Monday schedule. 2. Acute GI bleed status post blood transfusions this admission. 3. History of AAA status post repair in December 2022. 4. History of CVA. 5. Hypertension with chronic kidney disease. Controlled. Plan: Hemodialysis today. IV DDAVP 1 dose today. Maintain Aranesp. Await transfer to another facility for GI eval.
[2023-08-30] MEDS ORDERED: DESMOPRESSIN ACETATE 26 MCG in SODIUM CHLORIDE 0.9% 50 ML IVPB ONE (14:00)
[2023-08-30 14:18] LABS: Anisocytosis Slight; Basophils % (A) 0 %; Eosinophils # (A) 0.1 k/uL (0-0.7); Eosinophils % (A) 2 %; HCT 22.3 % (39.0-53.0); HGB 7.9 gm/dL (13.0-17.5); Lymphocytes # (A) 0.7 k/uL (1.0-4.8); Lymphocytes % (A) 9 %; MCH 31.5 pg (25.0-35.0); MCHC 35.3 g/dL (31.0-37.0); Monocytes # (A) 0.4 k/uL (0-1.0); Monocytes % (A) 5 %; Neutrophils # (A) 7.1 k/uL (1.3-7.7); Neutrophils % (A) 85 %; Platelet Count 149 k/uL (150-450); WBC 8.3 k/uL (3.8-10.6)
--- NOTE | 2023-08-30 14:44 | P.PN ---
Subjective Progress Note Date: 08/30/23 HISTORY OF PRESENT ILLNESS: This is a 78-year-old male with a previous medical history significant for coronary artery disease status post PCI and stent placement, history of hypertension and hypertensive perivascular disease, hyperlipidemia, history of chronic obstructive pulmonary disease with chronic respiratory failure and oxygen 2 L nasal cannula, history of melanoma status post resection of the left shoulder, history of abdominal aortic aneurysm status post endovascular stent graft placement, patient was recently hospitalized at [facility] after he was brought into the emergency department at [facility] with a GI bleed at that time we did not have any GI service and the patient ended up getting transferred to [facility] for further evaluation and recommendation, patient according to the family and himself he was discharged on Monday night, and he has been having issues with the lower gastrointestinal bleed that appears to be bright red blood along with a clot for the last few days got worse over the last 24 hours, and the patient felt quite a bit fatigue and dizzy so the ended up sending the patient back to the emergency department at [facility] today, patient became hypotensive, he his hemoglobin was done at 5.9, he did receive 1 unit of packed blood cells, the patient and his daughter elected not to do any further treatment as the patient refused to go for any further testing and they elected to go for hospice consult I spoke with the emergency room physician about the inappropriateness of hospice consult and the patient due to gastric disobeyed because is not dying from a terminal illness by the patient's and the daughter confirmed that they wanted hospice consult at this time so the patient refused to be transferred to [facility] or [facility] at this point in time, he did receive 1 unit of blood and he was admitted to the medical floor, awaiting for hospice evaluation, I came in and talked to the patient at night as well and he still did not want to go for any further testing but he was confused about the hospice so the patient was kept in the medical floor, until he will have a consultation with hospice tomorrow morning. 08/29: Patient has changes his min in the morning today and he elected to have treatment as opposed to comfort care, so h was transferred to the ICU with consult placed to [employer] and from surgery as there is no GI aeronautics commission director, and labs were done and he was moved to the ICU and he will be getting 2 units of PRBCs and was started on Protonix IVPdaily and had a long conversation with him and his son and daughter at the bedside and they were ok to transfer the patient to any place but [facility] and we will be starting the transfer process likely to [facility], I spoke with the surgical fellow in the ICU and has accepted the patient await for the actual transfer to be done 08/30: Patient is nonverbal but he continues to be generally fatigued and tired, his hemoglobin is down to 6%, he is continued to be soft and his blood pressure, he has been accepted to go to [facility] for GI evaluation, patient will be transferred after he is done from hemodialysis today, patient has no chest pain at this time, he has no abdominal pain, he has not had any bowel movement tonight, REVIEW OF SYSTEMS: Constitutional: No documented fever, no chills, no night sweats. No weight change. No weakness, fatigue or lethargy. No daytime sleepiness. HEENT: No headache. No blurred vision or double vision, no loss of vision. No loss of Hearing, no ringing in the ears, no dizziness. No nasal drainage or congestion. No epistaxis. No sore throat. Lungs: positive for shortness of breath, no cough, no sputum production. No wheezing. Reports dyspnea with activity. Cardiovascular: No chest pain, no lower extremity edema. No palpitations. No paroxysmal nocturnal dyspnea. No orthopnea. No lightheadedness or dizziness. No syncopal episodes. Abdominal: Reports abdominal pain. No nausea, vomiting, positive for bright red blood per rectum Genitourinary: No dysuria, increased frequency, urgency. No urinary retention. Musculoskeletal: No myalgias. positive for muscle weakness, no gait dysfunction, no frequent falls. No back pain. No neck pain. Integumentary: No wounds, no lesions. No rash or pruritus. No unusual brui sing. No change in hair or nails. Neurologic: No aphasia. No facial droop. No change in mentation. No head injury. No headache. No paralysis. No paresthesia. Psychiatric: No depression. No anxiety. No mood swings. Endocrine: No abnormal blood sugars. No weight change. PHYSICAL EXAMINATION: General: 78-year-old male laying down in bed in no distress. HEENT: Head is atraumatic, normocephalic, pupils were equal round reactive to light and recommendation, extraocular muscle movement were intact, sclera nonicteric, conjunctivae were pale, mucous membranes of the mouth are somewhat dry. Neck: Supple, no JVP, normal carotid upstroke bilaterally, no lymphadenopathy. Chest: Decreased breath sounds at the bases, few rhonchi, no expiratory wheezes, no chest wall tenderness, no intercostal retractions. Heart: First heart sound is normal, second heart sound is normal there is TRES 2/6 located at the left sternal border Abdomen: Soft, mild tenderness in the midepigastric area and left lower quadrant , there is no rebound or guarding positive bowel sounds Extremities: There is no edema no calf tenderness DP +2 bilaterally. Neurologic examination: Patient is awake alert and oriented X3 , cranial nerves II-12 appear grossly intact, muscle power were 5 out of 5 in upper extremities and 5 out of 5 in bilateral lower extremities, deep tendon reflexes normal bilaterally. ASSESSMENT AND PLAN: 1. Acute gastrointestinal bleed possibly lower gastrointestinal bleed. The patient did have GI evaluation about 2 weeks ago at [facility], the results are not available for me at this point in time, he did have an EGD and colonoscopy and he was discharged home after stabilization. we will continue with ICU care and blood transfusion and patient is stable for transfer 2. Recurrent GI bleed. S/P 2 units of PRBCs we will continue to monitor cbc and keep HGB >7 3. Coronary artery disease status post PCI that was done about a year ago. Patient has been on aspirin and Plavix this was taken off. 4. Acute blood loss anemia status post 2 units of packed dose of procedure repeat CBC in the next 24 hours. 5. Hypertension and hypertensive perivascular disease currently hypotensive all his hypertensive medication. 6. Mixed hyperlipidemia we will hold his statin at this time. 7. Chronic hypoxemic respiratory failure due to chronic obstructive pulmonary disease. Continue oxygen 2 L nasal cannula. 8. History of melanoma resection from the left shoulder. 9. Chronic tobacco use and dependence. Smoking cessation and counseling 10. End-stage renal disease on hemodialysis Monday and Monday.. 11. Patient elected to DO NOT RESUSCITATE. 12. Await the transfer to [facility] Objective - Vital Signs Vital signs: Vital Signs Temp 98.0 F 08/30/23 12:00 Pulse 55 L 08/30/23 12:00 Resp 25 H 08/30/23 12:00 BP 114/47 08/30/23 12:00 Pulse Ox 94 L 08/30/23 12:00 FiO2 Intake & Output 08/29/23 08/30/23 08/30/23 18:59 06:59 18:59 Intake Total 620 400 400 Output Total 300 0 200 Balance 320 400 200 Weight 90.9 kg Intake: Oral 400 400 Blood Product 620 0 Rc As-1 Unit 310 [id number] Rc As-1 Unit 310 [id number] Rc Irr As1 Unit 0 [id number] Output: Urine 300 0 200 Other: Voiding Method Toilet Toilet Toilet Urinal Urinal Urinal # Voids 1 # Bowel Movements 1 - Labs CBC & Chem 7: 08/30/23 14:05 08/30/23 03:06 Labs: Abnormal Lab Results - Last 24 Hours (Table) 08/28/23 08/29/23 08/30/23 Range/Units 04:25 17:50 03:06 RBC 2.35 L (4.30-5.90) m/uL Hgb 7.4 L D (13.0-17.5) gm/dL Hct 21.8 L (39.0-53.0) % RDW 17.1 H (11.5-15.5) % Chloride 109 H (98-107) mmol/L BUN 68 H (9-20) mg/dL Creatinine 6.90 H (0.66-1.25) mg/dL Calcium 8.0 L (8.4-10.2) mg/dL Total Protein 4.4 L (6.3-8.2) g/dL Albumin 2.4 L (3.5-5.0) g/dL Crossmatch See Detail 08/30/23 Range/Units 03:06 RBC 2.16 L (4.30-5.90) m/uL Hgb 6.7 L* (13.0-17.5) gm/dL Hct 20.1 L (39.0-53.0) % RDW 17.4 H (11.5-15.5) % Chloride (98-107) mmol/L BUN (9-20) mg/dL Creatinine (0.66-1.25) mg/dL Calcium (8.4-10.2) mg/dL Total Protein (6.3-8.2) g/dL Albumin (3.5-5.0) g/dL Crossmatch
[2023-08-30 16:09] VITALS: RESP 16
[2023-08-30] MEDS ORDERED: ACETAMINOPHEN TAB 325 MG TAB PO PRN (16:15)
[2023-08-30 17:27] VITALS: BP 116/46; PULSE 65; TEMP 98.1
== END 2023-08-30 18:10 | disposition short-term general hospital (02) | DRG 377 ==
LOC: EC 03:58 → 5NMEDONC 06:18 → 2SICU 08-29 12:47
PROVIDERS: ADMIT Internal Medicine; ATTEND Internal Medicine
PROC: 30233N1 Transfusion of Nonautologous Red Blood Cells into Peripheral Vein, Percutaneous Approach (ICD-10-PCS; principal; 2023-08-28)
PROC: 5A1D70Z Performance of Urinary Filtration, Intermittent, Less than 6 Hours Per Day (ICD-10-PCS; 2023-08-30)
DX: K92.1 Melena (principal); N18.6 End stage renal disease; J96.11 Chronic respiratory failure with hypoxia; I12.0 Hypertensive chronic kidney disease with stage 5 chronic kidney disease or end stage renal disease; E87.20 Acidosis, unspecified; D62 Acute posthemorrhagic anemia; I95.9 Hypotension, unspecified; J44.9 Chronic obstructive pulmonary disease, unspecified; I25.10 Atherosclerotic heart disease of native coronary artery without angina pectoris; E78.2 Mixed hyperlipidemia; Z66 Do not resuscitate; M89.8X9 Other specified disorders of bone, unspecified site; M19.90 Unspecified osteoarthritis, unspecified site; Z99.2 Dependence on renal dialysis; Z51.5 Encounter for palliative care; Z79.02 Long term (current) use of antithrombotics/antiplatelets; Z79.82 Long term (current) use of aspirin; Z79.899 Other long term (current) drug therapy; I25.2 Old myocardial infarction; Z85.820 Personal history of malignant melanoma of skin; Z95.5 Presence of coronary angioplasty implant and graft; Z87.19 Personal history of other diseases of the digestive system; Z87.891 Personal history of nicotine dependence; Z28.310 Unvaccinated for COVID-19; Z86.79 Personal history of other diseases of the circulatory system; Z86.73 Personal history of transient ischemic attack (TIA), and cerebral infarction without residual deficits
CPT/HCPCS: 36415; 80053; 83605; 83735; 85025; 85027; 85610; 85730; 86706; 86850; 86900; 86901; 86920; 87340; 87635; 90935; 93005; 96361; 96374; 96375; 96376; 99285

== ENCOUNTER 2023-10-05 18:26 | Emergency (ER) | payer MEDICARE ==
[2023-10-05 18:48] VITALS: TEMP 101.7
[2023-10-05] MEDS ORDERED: DILTIAZEM DRIP BOLUS FROM BAG 1 MG SOLN IV ONE (19:08)
--- NOTE | 2023-10-05 19:10 | ED ---
SOB HPI - General Chief Complaint: Shortness of Breath Stated Complaint: MELVIN Time Seen by Provider: 10/05/23 18:49 Source: EMS Mode of arrival: EMS Limitations: no limitations - History of Present Illness Initial Comments: This patient is a 78-year-old man with history of end-stage renal disease on hemodialysis. The patient reportedly had progressively worsening dyspnea while at his dialysis session. Patient transferred here to have evaluation. He denied having fever or chills. He does complain of mild cough. Denies chest pain. MD Complaint: shortness of breath -: hour(s) Severity scale (1-10): 0 Consistency: constant Improves With: nothing Worsens With: nothing Known History Of: other Associated Symptoms: cough Treatments Prior to Arrival: none - Related Data Home Oxygen Therapy: No Home Medications Medication Instructions Recorded Confirmed Albuterol Inhaler [Ventolin Hfa 2 puff INHALATION RT-Q6H PRN 03/17/23 08/28/23 Inhaler] Fluticasone/Umeclidin/Vilanter 1 puff INHALATION RT-DAILY PRN 03/17/23 08/28/23 [Trelegy Ellipta 200-62.5-25] Atorvastatin [Lipitor] 80 mg PO DAILY 08/21/23 08/28/23 hydrALAZINE HCL [Apresoline] 100 mg PO TID 08/21/23 08/28/23 Previous Rx's Medication Instructions Recorded Aspirin 81 mg PO DAILY #30 tab 01/04/23 Clopidogrel [Plavix] 1 tab PO DAILY #30 tab 01/04/23 atenoloL [Tenormin] 50 mg PO DAILY #30 tab 01/04/23 Cephalexin [Keflex] 500 mg PO Q6HR #28 cap 08/21/23 Allergies Allergy/AdvReac Type Severity Reaction Status Date / Time No Known Allergies Allergy Verified 10/05/23 18:33 Review of Systems ROS Statement: Those systems with pertinent positive or pertinent negative responses have been documented in the HPI. ROS Other: All systems not noted in ROS Statement are negative. Constitutional: Denies: fever, chills, weakness Respiratory: Reports: cough, dyspnea. Denies: wheezes, hemoptysis Cardiovascular: Reports: palpitations, orthopnea. Denies: chest pain, edema, syncope Gastrointestinal: Denies: abdominal pain, vomiting, diarrhea, melena, hematochez ia Genitourinary: Reports: other (Patient is mostly anuric) Musculoskeletal: Denies: back pain Skin: Denies: rash Neurological: Denies: headache, weakness, numbness Psychiatric: Denies: depression, suicidal thoughts Past Medical History Past Medical History: Cancer, COPD, GI Bleed, Hyperlipidemia, Hypertension, Memory Impairment, Myocardial Infarction (NE), Renal Disease Additional Past Medical History / Comment(s): past hx. GI bleeding, hx. 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 aortic aneurysm Last Myocardial Infarction Date:: pt unsure History of Any Multi-Drug Resistant Organisms: None Reported Past Surgical History: Heart Catheterization With Stent Additional Past Surgical History / Comment(s): tooth sx, colonoscopy, heart stent x3, melanoma removed left shoulder recently, dialysis catheter placement- right inguanal and right chest wall Past Anesthesia/Blood Transfusion Reactions: No Reported Reaction Date of Last Stent Placement:: 2008 Past Psychological History: No Psychological Hx Reported Smoking Status: Former smoker Past Alcohol Use History: Occasional Past Drug Use History: None Reported - Past Family History Father Family Medical History: Myocardial Infarction (NE) Additional Family Medical History / Comment(s): from a NE Mother Family Medical History: Myocardial Infarction (NE) Additional Family Medical History / Comment(s): from a NE Sister(s) Family Medical History: Cancer Brother(s) Family Medical History: Myocardial Infarction (NE) General Exam Limitations: no limitations General appearance: alert, in no apparent distress Head exam: Present: atraumatic, normocephalic Eye exam: Present: normal appearance. Absent: scleral icterus, conjunctival injection ENT exam: Present: normal oropharynx Neck exam: Present: normal inspection Respiratory exam: Present: respiratory distress (There is mild tachypnea). Absent: wheezes, rales, rhonchi, stridor, accessory muscle use, decreased breath sounds Cardiovascular Exam: Present: tachycardia, irregular rhythm, systolic murmur. Absent: diastolic murmur, rubs, gallop GI/Abdominal exam: Present: soft. Absent: distended, tenderness, guarding, rebound, rigid, mass Extremities exam: Present: normal inspection, normal capillary refill, pedal edema. Absent: calf tenderness Back exam: Present: normal inspection. Absent: CVA tenderness (R), CVA tenderness (L) Neurological exam: Present: alert, oriented X3 Skin exam: Present: warm, dry, intact, normal color. Absent: rash Course Vital Signs 10/05/23 10/05/23 10/05/23 18:28 18:33 19:36 Temperature 101.7 F H Pulse Rate 100 134 H Respiratory 22 19 Rate Blood Pressure 136/103 124/71 O2 Sat by Pulse 89 L 91 L 94 L Oximetry Medical Decision Making - Medical Decision Making This patient is 78-year-old man who is here to have evaluation of dyspnea. The patient found to have atrial fibrillation with rapid ventricular rate. The other studies were pending while Cardizem IV was started. I was summoned to the bedside by nursing staff and informed that he patient stated that he wanted to go home. I went to discuss and found that the patient was not wanting further medical care at this point. The patient's family members are supportive of his decision. I discussed that untreated atrial fibrillation can lead to congestive heart failure or NE. In addition the fever requires further workup. The patient did express understanding of the risks. He states that he will return if he worsens but at this point he does not desire further medical care. The patient does display understanding of his choice and family is supportive. Was pt. sent in by a medical professional or institution (, PA, AUTOMOBILE BODY CUSTOMIZER, urgent care, hospital, or halfway...) When possible be specific @ -Patient is sent from dialysis to have evaluation of dyspnea Did you speak to anyone other than the patient for history (EMS, parent, family, police, friend...)? What history was obtained from this source @ -[No] Did you review nursing and triage notes (agree or disagree)? Why? @ -[I reviewed and agree with nursing and triage notes] Were old charts reviewed (outside hosp., previous admission, EMS record, old EKG, old radiological studies, urgent care reports/EKG's, halfway records)? Report findings @ -[No old charts were reviewed] Differential Diagnosis (chest pain, altered mental status, abdominal pain women, abdominal pain men, vaginal bleeding, weakness, fever, dyspnea, syncope, headache, dizziness, GI bleed, back pain, seizure, CVA, palpatations, mental health, musculoskeletal)? @ -[Differential Dyspnea: Coronary syndrome, arrhythmia, tamponade, asthma, COPD, pulmonary embolism, pneumonia, pneumothorax, pulmonary effusion, anaphylaxis, diabetic ketoacidosis, flailed chest, pulmonary contusion, diaphragmatic rupture, anemia, neuromuscular, this is not meant to be an all-inclusive list. Differential Fever: Pneumonia, viral URI, endocarditis, myocarditis, pericarditis, otitis, sinusitis, peritonsillar Abscess, retropharyngeal Abscess, epiglottitis, peritonitis, appendicitis, Nilda cystitis, diverticulitis, hepatitis, colitis, UTI, PID, TOA, pyelonephritis, prostatitis, epididymitis, meningitis, encephalitis, pulmonary embolism, CVA, thyroid storm, pancreatitis, adrenal crisis, cavernous sinus thrombosis, this is not meant to be an all-inclusive list. EKG interpreted by me (3pts min.). @ -[As above] X-rays interpreted by me (1pt min.). @ -[ CT interpreted by me (1pt min.). @ -[None done] U/S interpreted by me (1pt. min.). @ -[None done] What testing was considered but not performed or refused? (CT, X-rays, U/S, labs)? Why? @ -[Workup for fever is considered but patient refused further treatment What meds were considered but not given or refused? Why? @ -[Cardizem and possible antibiotic treatment, but these were declined Did you discuss the management of the patient with other professionals (professionals i.e. , PA, AUTOMOBILE BODY CUSTOMIZER, lab, RT, psych nurse, social media sr strategy manager, borderer, teacher, diplomatic officer, case management assistant)? Give summary @ -[No] Was smoking cessation discussed for >3mins.? @ -[No] Was critical care preformed (if so, how long)? @ -[No] Were there social determinants of health that impacted care today? How? (Homelessness, low income, unemployed, alcoholism, drug addiction, transportation, low edu. Level, literacy, decrease access to med. care, residential, rehab)? @ -[No] Was there de-escalation of care discussed even if they declined (Discuss DNR or withdrawal of care, Hospice)? DNR status @ -[No] What co-morbidities impacted this encounter? (DM, HTN, Smoking, COPD, CAD, Cancer, CVA, ARF, Chemo, Hep., AIDS, mental health diagnosis, sleep apnea, morbid obesity)? @ -[Chronic renal failure Was patient admitted / discharged? Hospital course, mention meds given and route, prescriptions, significant lab abnormalities, going to OR and other pertinent info. @ -[See above note Undiagnosed new problem with uncertain prognosis? @ -[Fever Drug Therapy requiring intensive monitoring for toxicity (Heparin, Nitro, Insulin, Cardizem)? @ -[Cardizem Were any procedures done? @ -[No] Diagnosis/symptom? @ -[Atrial fibrillation with rapid ventricular rate Acute fever Acute, or Chronic, or Acute on Chronic? @ -[Acute Uncomplicated (without systemic symptoms) or Complicated (systemic symptoms)? @ -[Complicated Side effects of treatment? @ -[No] Exacerbation, Progression, or Severe Exacerbation? @ -[No] Poses a threat to life or bodily function? How? (Chest pain, USA, NE, pneumonia, PE, COPD, DKA, ARF, appy, cholecystitis, CVA, Diverticulitis, Homicidal, Suicidal, threat to staff... and all critical care pts) @ -[Yes, these conditions definitely represent threat to life. Patient expressed understanding - Lab Data Result diagrams: 10/05/23 19:09 10/05/23 19:09 Lab Results 10/05/23 10/05/23 10/05/23 Range/Units 19:09 19:09 19:09 WBC 15.3 H (3.8-10.6) k/uL RBC 3.27 L (4.30-5.90) m/uL Hgb 10.5 L (13.0-17.5) gm/dL Hct 31.8 L (39.0-53.0) % MCV 97.2 D (80.0-100.0) fL MCH 32.1 (25.0-35.0) pg MCHC 33.0 (31.0-37.0) g/dL RDW 15.1 (11.5-15.5) % Plt Count 262 (150-450) k/uL MPV 7.5 Neutrophils % 92 % Lymphocytes % 3 % Monocytes % 4 % Eosinophils % 0 % Basophils % 0 % Neutrophils # 14.0 H (1.3-7.7) k/uL Lymphocytes # 0.5 L (1.0-4.8) k/uL Monocytes # 0.6 (0-1.0) k/uL Eosinophils # 0.0 (0-0.7) k/uL Basophils # 0.1 (0-0.2) k/uL PT 10.5 (10.0-12.5) sec INR 1.0 (<1.2) APTT 25.2 (22.0-30.0) sec D-Dimer 10.56 H (<0.60) mg/L FEU Sodium 136 L (137-145) mmol/L Potassium 3.5 (3.5-5.1) mmol/L Chloride 95 L (98-107) mmol/L Carbon Dioxide 29 (22-30) mmol/L Anion Gap 12 mmol/L BUN 9 (9-20) mg/dL Creatinine 2.22 H (0.66-1.25) mg/dL Est GFR (CKD-EPI)AfAm 32 (>60 ml/min/1.73 sqM) Est GFR (CKD-EPI)NonAf 28 (>60 ml/min/1.73 sqM) Glucose 100 H (74-99) mg/dL Plasma Lactic Acid El (0.7-2.0) mmol/L Calcium 8.8 (8.4-10.2) mg/dL Total Bilirubin 0.8 (0.2-1.3) mg/dL AST 20 (17-59) U/L ALT 11 (4-49) U/L Alkaline Phosphatase 84 (38-126) U/L Troponin I (0.000-0.034) ng/mL NT-Pro-B Natriuret Pep 24941 pg/mL Total Protein 6.8 (6.3-8.2) g/dL Albumin 3.9 (3.5-5.0) g/dL 10/05/23 10/05/23 Range/Units 19:09 19:09 WBC (3.8-10.6) k/uL RBC (4.30-5.90) m/uL Hgb (13.0-17.5) gm/dL Hct (39.0-53.0) % MCV (80.0-100.0) fL MCH (25.0-35.0) pg MCHC (31.0-37.0) g/dL RDW (11.5-15.5) % Plt Count (150-450) k/uL MPV Neutrophils % % Lymphocytes % % Monocytes % % Eosinophils % % Basophils % % Neutrophils # (1.3-7.7) k/uL Lymphocytes # (1.0-4.8) k/uL Monocytes # (0-1.0) k/uL Eosinophils # (0-0.7) k/uL Basophils # (0-0.2) k/uL PT (10.0-12.5) sec INR (<1.2) APTT (22.0-30.0) sec D-Dimer (<0.60) mg/L FEU Sodium (137-145) mmol/L Potassium (3.5-5.1) mmol/L Chloride (98-107) mmol/L Carbon Dioxide (22-30) mmol/L Anion Gap mmol/L BUN (9-20) mg/dL Creatinine (0.66-1.25) mg/dL Est GFR (CKD-EPI)AfAm (>60 ml/min/1.73 sqM) Est GFR (CKD-EPI)NonAf (>60 ml/min/1.73 sqM) Glucose (74-99) mg/dL Plasma Lactic Acid El 1.6 (0.7-2.0) mmol/L Calcium (8.4-10.2) mg/dL Total Bilirubin (0.2-1.3) mg/dL AST (17-59) U/L ALT (4-49) U/L Alkaline Phosphatase (38-126) U/L Troponin I 0.050 H* (0.000-0.034) ng/mL NT-Pro-B Natriuret Pep pg/mL Total Protein (6.3-8.2) g/dL Albumin (3.5-5.0) g/dL - EKG Data -: EKG Interpreted by [facility] EKG shows normal: axis (Normal), intervals (Normal), ST-T waves (Possible inferior ischemia.) Rate: tachycardia (Rate 133 bpm) Interpretation: other (The rhythm is atrial fibrillation) Disposition Clinical Impression: Atrial fibrillation Disposition: LEFT AGAINST MEDICAL ADVICE Condition: Serious Instructions (If sedation given, give patient instructions): A-fib (Atrial Fibrillation) (ED) Is patient prescribed a controlled substance at d/c from ED?: No Referrals: Joe Ashton MD [Primary Care Provider] - 1-2 days
[2023-10-05] MEDS ORDERED: DILTIAZEM 125 MG in SODIUM CHLORIDE 0.9% 100 ML IV SCH (19:15)
[2023-10-05 19:24] LABS: Basophils # (A) 0.1 k/uL (0-0.2); Basophils % (A) 0 %; Eosinophils % (A) 0 %; HCT 31.8 % (39.0-53.0); HGB 10.5 gm/dL (13.0-17.5); Lymphocytes # (A) 0.5 k/uL (1.0-4.8); Lymphocytes % (A) 3 %; MCH 32.1 pg (25.0-35.0); Mean Platelet Volume 7.5; Monocytes # (A) 0.6 k/uL (0-1.0); Monocytes % (A) 4 %; Neutrophils % (A) 92 %; Platelet Count 262 k/uL (150-450); RBC 3.27 m/uL (4.30-5.90); RDW 15.1 % (11.5-15.5); WBC 15.3 k/uL (3.8-10.6)
[2023-10-05 19:27] LABS: MCV 97.2 fL (80.0-100.0)
[2023-10-05 19:39] LABS: ALT 11 U/L (4-49); AST 20 U/L (17-59); African American GFR (CKD) 32 (>60 ml/min/1.73 sqM); Albumin 3.9 g/dL (3.5-5.0); Alkaline Phosphatase 84 U/L (38-126); Anion Gap 12 mmol/L; Blood Urea Nitrogen 9 mg/dL (9-20); Calcium 8.8 mg/dL (8.4-10.2); Carbon Dioxide 29 mmol/L (22-30); Chloride 95 mmol/L (98-107); Glucose 100 mg/dL (74-99); Non-African American GFR(CKD) 28 (>60 ml/min/1.73 sqM); Potassium 3.5 mmol/L (3.5-5.1); Sodium 136 mmol/L (137-145); Total Bilirubin 0.8 mg/dL (0.2-1.3); Total Protein 6.8 g/dL (6.3-8.2)
[2023-10-05 19:40] LABS: Partial Thromboplastin Time 25.2 sec (22.0-30.0); Prothrombin Time 10.5 sec (10.0-12.5)
[2023-10-05 19:47] LABS: NT-Pro-B-Type Natriuretic Pept 10500 pg/mL
[2023-10-05 19:53] VITALS: BP 124/71; PULSE 134; RESP 19
== END 2023-10-05 20:35 | disposition left against medical advice (07) ==
LOC: EC 18:26
DX: I48.91 Unspecified atrial fibrillation (principal); I12.0 Hypertensive chronic kidney disease with stage 5 chronic kidney disease or end stage renal disease; N18.6 End stage renal disease; J44.9 Chronic obstructive pulmonary disease, unspecified; E78.5 Hyperlipidemia, unspecified; I25.2 Old myocardial infarction; Z87.891 Personal history of nicotine dependence; Z79.899 Other long term (current) drug therapy; Z79.51 Long term (current) use of inhaled steroids; Z99.2 Dependence on renal dialysis
CPT/HCPCS: 36415; 80053; 83605; 83880; 84484; 85025; 85379; 85610; 85730; 93005; 96365; 99285